=== PATIENT | male | born 1940 | race Caucasian/White ===

== ENCOUNTER 2018-08-10 03:05 | Emergency (ER) | payer MEDICARE, SELFPAY ==
[2018-08-10 03:06] VITALS: BP 124/68; PULSE 67; RESP 18; TEMP 36.8; O2SAT 97; BMI 28.8
[2018-08-10 03:10] VITALS: RESP 18
--- NOTE | 2018-08-10 03:30 | EKG12_ITS ---
Test Reason : Blood Pressure : / mmHG Vent. Rate : 067 BPM Atrial Rate : 067 BPM P-R Int : 152 ms QRS Dur : 094 ms QT Int : 394 ms P-R-T Axes : 004 -17 013 degrees QTc Int : 416 ms Normal sinus rhythm Normal ECG Confirmed by DESIREE GARRISON MD ([id number]), editor city ELO BLACKWELL ([id number]) on 08/10/2018 1:22:44 PM Referred By: AB Confirmed By:DESIREE GARRISON MD
--- NOTE | 2018-08-10 03:30 | RAD_ITS ---
STUDY: X-RAY CHEST REASON FOR EXAM: Male, 77 years old. Cough TECHNIQUE: Frontal and lateral views of the chest. COMPARISON: 03/03/2014 FINDINGS: The lungs are clear and expanded. There is no demonstrated pleural abnormality. Normal size heart. Normal mediastinum and adan. Normal visualized pulmonary arteries. There is atherosclerotic calcification of the aortic arch with tortuosity. Normal visualized thoracic spine. There is degenerative osteoarthritis of the bilateral shoulders. There is no demonstrated abnormality of the visualized soft tissue structures of the upper abdomen. RAD/Chest PA and Lateral IMPRESSION: Degenerative changes, as described above. No demonstrated acute cardiopulmonary process. Electronically Signed: Maryann Aden, at 3:56 EDT Tel , Service support ,
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
[2018-08-10 03:42] LABS: Absolute Lymphocyte Count 1.34 X10^3/ul (0.83-4.51); Basophil# 0.02 X10^3/uL; Basophil% 0.2 % (0-1); Eosinophil# 0.13 X10^3/uL; Eosinophils% 1.2 % (0-5); Hematocrit 37.8 % (40-54); Hemoglobin 12.6 g/dl (13.0-16.5); Lymphocyte # 1.34 X10^3/ul (4.0); Lymphocyte % 12.8 % (19-41); Mean Corp Hgb Conc 33.3 g/gl (32-36); Mean Corpuscular Hgb 30.1 pg (27.0-32.0); Mean Corpuscular Volume 90.4 fL (80-94); Mean Platelet Vol. 10.7 fl (6.2-12.0); Monocyte# 0.98 X10^3/uL; Monocyte% 9.3 % (0-10); Neutrophil # 8.02 X10^3/uL (2.7-7.7); Neutrophil % 76.4 % (47-70); Platelet Count 254 K/mm3 (150-450); RBC Distribution Width CV 13.8 % (11.6-14.6); RBC Distribution Width SD 45.4 fl (35.1-43.9); Red Blood Count 4.18 M/mm3 (4.6-6.2); White Blood Count 10.5 K/mm3 (4.4-11.0)
[2018-08-10 03:44] LABS: POSITIVE COUNT NO; POSITIVE DIFFERENTIAL NO; POSITIVE MORPHOLOGY NO
[2018-08-10 03:56] LABS: Anion Gap 9 (5-15); BUN 10 mg/dL (7-18); BUN/Creat Ratio 8.4 RATIO (10-20); Calcium,Total 8.9 mg/dL (8.5-10.1); Chloride 104 mmol/L (98-107); Creatinine, Serum 1.19 mg/dL (0.70-1.30); EST Glomerular Filtration Rate 63 mL/min (>60); Est Glom Filt Rate - Afr Amer 76 mL/min (>60); Estimated Creatinine Clearance 46.91 ml/min; Glucose 115 mg/dL (74-106); Potassium 4.3 mmol/L (3.5-5.1); Sodium Level 142 mmol/L (136-145)
[2018-08-10 03:59] VITALS: BP 119/77; BP 125/95; PULSE 68; PULSE 78
[2018-08-10 04:30] VITALS: BP 128/69; PULSE 66; RESP 22; O2SAT 96
== END 2018-08-10 04:31 | disposition home or self-care (01) ==
PROVIDERS: Emergency Provider Emergency Medicine; Family Provider Family Medicine; PCP Family Medicine
DX: J06.9 Acute upper respiratory infection, unspecified (principal); R55 Syncope and collapse
CPT/HCPCS: 71046; 80048; 84484; 85025; 93005; 99285; J7030; A4216

== ENCOUNTER 2024-08-11 00:47 | Inpatient (IN) | payer MEDICARE, SELFPAY ==
[2024-08-11] VITALS (24 sets, daily range): BP systolic 121–195; BP diastolic 78–159; PULSE 57–118; RESP 14–18; TEMP 36.2–37.2; O2SAT 88–100; BMI 28.4
--- NOTE | 2024-08-11 01:09 | EKG12_ITS ---
Test Reason : CP Blood Pressure : */* mmHG Vent. Rate : 57 BPM Atrial Rate : 57 BPM P-R Int : 168 ms QRS Dur : 94 ms QT Int : 420 ms P-R-T Axes : 7 -14 6 degrees QTcB Int : 408 ms Sinus bradycardia with Premature atrial complexes Otherwise normal ECG Confirmed by ALISA WITT, LI ([id number]), science editor JADYN CLAYTON ([id number]) on 08/13/2024 12:44:40 PM Referred By: XIOMARA Confirmed By: LI CUELLAR MD
[2024-08-11 01:19] LABS: Absolute Lymphocyte Count 1.14 X10^3/uL (0.83-4.51); Basophil# 0.02 X10^3/uL; Basophil% 0.2 % (0-1); Eosinophil# 0.06 X10^3/uL; Eosinophils% 0.7 % (0-5); Lymphocyte # 1.14 X10^3/ul (0.83-4.51); Mean Corp Hgb Conc 34.3 g/dL (32-36); Mean Corpuscular Hgb 30.5 pg (27.0-32.0); Mean Corpuscular Volume 88.8 fL (80-94); Mean Platelet Vol. 10.4 fl (6.2-12.0); Monocyte# 0.51 X10^3/uL; Monocyte% 5.8 % (0-10); NRBC Flagged by Analyzer 0 % (0-5); Neutrophil # 7.03 X10^3/uL (2.7-7.7); Neutrophil % 80.1 % (47-70); Platelet Count 256 K/mm3 (150-450); RBC Distribution Width CV 13.9 % (11.6-14.6); RBC Distribution Width SD 44.8 fl (35.1-43.9); Red Blood Count 3.94 M/mm3 (4.6-6.2); White Blood Count 8.8 K/mm3 (4.4-11.0)
--- NOTE | 2024-08-11 01:41 | ED.VIS.GI ---
HPI HPI - GI History of Present Illness Chief Complaint: Abd Pain Informant: patient Narrative Narrative: Patient is an 83-year-old male with history of TIA, hyperlipidemia and BPH presenting with postprandial epigastric abdominal pain. Patient states he ate dinner around 5 PM. Around 8 PM he developed pain in his epigastric region. He has a hard time describing it. Denies any ripping or tearing sensation. States is not as bad as what he would imagine labor pains are. Did feel bloated as well. Does not report any associated radiation of the pain. He tried to make himself vomit and have a bowel movement but was unsuccessful with both. He did have a normal bowel movement at 5 PM today which he states was unremarkable. Denies any black or blood in his stool. Denies associate chest pain or shortness of breath. No fever or chills reported. Denies any associate numbness or tingling in his extremities. Denies any fever or chills. Denies any history of any abdominal surgeries. Came in for further evaluation. Notes the pain currently is starting to improve. PFSH PFS Medical History BPH (benign prostatic hyperplasia) Anemia HLD (hyperlipidemia) TIA (transient ischemic attack) Bradycardia Home Medications ?Medication ?Instructions ?Recorded ?Last Taken ?Type Coq10 1 tab PO DAILY 03/03/14 0630 Days Ago History ~06/11/12 1 Excedrin Extra Strength Caplet 500 mg PO PRN PRN Headache 03/03/14 03/03/14 16:30 History 500 Fish Oil 1,000 mg Capsule 1,000 mg PO DAILY 03/03/14 03/03/14 06:30 History 1000 saw palm 160 mg-vit E 100 1 tab PO DAILY 03/03/14 03/03/14 06:30 History unit-selen 100 1 kmy-ijhy-svarrh-pygeum tablet (iDoc24) Allergy/AdvReac Type Severity Reaction Status Date / Time No Known Allergies Allergy Verified 08/11/24 00:53 Social History Smoking Status: Never smoker ROS ROS ED Constitutional Constitutional ED: Denies chills or fever(s) Cardiovascular Cardiovascular: Denies chest pain Respiratory/Chest Respiratory/Chest: Denies cough or dyspnea Gastrointestinal Gastrointestinal: Reports abdominal pain; Denies constipation, diarrhea, melena, nausea or vomiting Genitourinary Genitourinary ED: Denies dysuria Musculoskeletal Musculoskeletal: Denies arthralgias, back pain or myalgias Neurologic Neurologic: Denies paresthesias or weakness Hematologic/Lymphatic Hematologic/Lymphatic: Denies easy bleeding or easy bruising EXAM Physical Exam Const Vital Signs: 08/11/24 00:48 08/11/24 02:57 08/11/24 04:04 Temperature 97.9 F Temperature Source Oral Pulse Rate 57 L 73 86 Respiratory Rate 18 17 16 Blood Pressure 174/92 H 128/81 H 155/83 H Blood Pressure Mean 119 96 107 Pulse Ox 100 98 98 Oxygen Delivery Method Room Air Room Air 08/11/24 06:18 Temperature Temperature Source Pulse Rate 75 Respiratory Rate 16 Blood Pressure 123/80 H Blood Pressure Mean 94 Pulse Ox 98 Oxygen Delivery Method Room Air Positive well nourished and well developed General Appearance ED: well developed and NAD; Negative for pallor HEENT Reports moist mucous membranes Eyes PERRL Neck supple and no JVD Resp normal respiratory effort and clear to auscultation bilaterally Cardio regular rate, regular rhythm and no murmurs Cardio Narrative: 2+ radial DP pulses present GI non-tender and non-distended GI Narrative: Patient is very mild stated tenderness with palpation of the right upper quadrant and epigastric region however he does not wince when I palpate. Negative Pablo sign. Auscultation: hypoactive bowel sounds Palpation: soft and tender epigastric and RUQ; Negative for guarding, rigid, pulsatile mass or rebound tenderness present Extremity full ROM General Extremety ED: Negative for edema General Extremity: Negative for edema Neuro Sensorium / Orientation: alert Motor Exam: Negative for general weakness Psych mental status grossly normal and thought process normal Skin no wounds General Skin Exam: Negative for jaundice or pallor MDM MDM MDM Narrative Medical decision making narrative: Patient is evaluated for epigastric/right upper quadrant abdominal pain that started around 8 PM tonight. It got so bad that he called EMS. Did not take any for pain prior to arrival. Patient is hypertensive upon arrival. He does appear uncomfortable. Differential includes aortic dissection, ACS, pancreatitis, cholecystitis, choledocholithiasis, colitis/bowel obstruction, perforated viscus and symptomatic anemia as well as ACS. EKG not consistent with ischemia. Dissection study obtained which is most consistent actually with a acute calculus cholecystitis. There are multiple gallstones with distended diffusely thickened gallbladder. Workup otherwise largely normal with no leukocytosis. His alkaline phosphatase mildly elevated at 139 but his bilirubin AST and ALT are otherwise normal. Lipase is normal. Urinalysis is normal. High-sensitivity troponin stable at 19 and 17. Do not think he requires further cardiac workup at this time. Patient does have improvement of pain in the ER but it still present. He states it is mild at this time. I did speak with general surgery, Dr. Durand he does request an ultrasound which we will get in the morning and he will evaluate the patient. Question if patient had biliary colic versus true cholecystitis at this time. Patient evaluated by Dr. Durand. Ultrasound concerning for acute cholecystitis. We started on Zosyn and admitted for cholecystectomy. Lab Data Attestation: I reviewed the patient's lab results. Labs: Laboratory Results - last 24 hr 08/11/24 08/11/24 08/11/24 01:13 01:40 03:10 WBC 8.8 RBC 3.94 L Hgb 12.0 L Hct 35.0 L MCV 88.8 MCH 30.5 MCHC 34.3 RDW Std Deviation 44.8 H RDW Coeff of Katina 13.9 Plt Count 256 MPV 10.4 Immature Gran % (Auto) 0.200 Neut % (Auto) 80.1 H Lymph % (Auto) 13.0 L [place] % (Auto) 5.8 Eos % (Auto) 0.7 Baso % (Auto) 0.2 Absolute Neuts (auto) 7.0 Absolute Lymphs (auto) 1.14 Nucleated RBC % 0 Sodium 136 Potassium 4.1 Chloride 100 Carbon Dioxide 22.9 Anion Gap 14 BUN 13 Creatinine 1.21 H Estim Creat Clear Calc 45.98 L Est GFR (MDRD) Non-Af 59 L BUN/Creatinine Ratio 10.3 Glucose 120 H Calcium 9.6 Total Bilirubin 0.37 AST 25 ALT 22 Alkaline Phosphatase 139 H Troponin T High Sens 19 Troponin T Hi Sens 2 Hr 17 Total Protein 7.0 Albumin 4.4 Globulin 2.6 Albumin/Globulin Ratio 1.7 Lipase 49 Urine Color Straw Urine Clarity Sl. Cloudy Urine pH 8.0 Ur Specific [place] 1.010 Urine Protein 15 H Urine Glucose (UA) Normal Urine Ketones Negative Urine Occult Blood Negative Urine Nitrite Negative Urine Bilirubin Negative Urine Urobilinogen Normal Ur Leukocyte Esterase Negative Urine RBC 0 SEEN Urine WBC 0 SEEN Ur Squamous Epith Cells 0 SEEN Urine Bacteria 0 SEEN Urine Mucus 0 SEEN Radiography Diagnostic Testing: Clinical Impression(s) from Imaging Studies Chest/Abdomen/Pelvis CTA 08/11/24 01:49 IMPRESSION: 1. Distended, diffusely thickened gallbladder containing multiple gallstones, probably mild changes of acute calculous cholecystitis. 2. Moderate coronary artery calcifications. 3. Subsegmental atelectatic changes in the lingula. 4. 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 5. No CT evidence of pulmonary embolus or aortic dissection. 6. I discussed the findings with Dr. Carol Leigh in the emergency department at 3 a.m. EST. Reading Location: [place] [id number] Gallbladder Ultrasound 08/11/24 04:15 IMPRESSION: Multiple gallstones. Mild gallbladder wall thickening. Small amount of pericholecystic fluid. Cholecystitis should be ruled out. 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) Discharge Plan Triage Chief Complaint: Abd Pain ED Provider: Carol Leigh Dx/Rx/DC Orders Clinical Impression: Abdominal pain, acute, epigastric, Gallstones, Acute calculous cholecystitis Prescriptions: No Action Fish Oil 1,000 mg Capsule 1,000 mg PO DAILY Patient Comments: SUPPLIMENT FOR CHOLESTEROL Prostate Health 1 EACH tablet 1 tab PO DAILY Patient Comments: [facility] Coq10 1 tab PO DAILY Patient Comments: CHOLESTEROL, IMMUNITY Excedrin Extra Strength Caplet 500 mg PO PRN PRN (Reason: Headache) Patient Comments: MIGRAINE FLASHING LIGHTS Primary Care Provider: Mina Ly Referrals: Mina Ly MD [Primary Care Provider] - Print Language: Lao Disposition Disposition: Acute Care Hospital [facility]
[2024-08-11 01:44] LABS: Bacteria 0 SEEN /hpf (None Seen); Mucous, Urine 0 SEEN /hpf (<or=2+); Red Blood Cells-Urine 0 SEEN /hpf (0-5); Squamous Epithelial Cells - UA 0 SEEN /hpf (0-5); White Blood Cells 0 SEEN /hpf (0-5)
[2024-08-11 01:46] LABS: Color, Urine Straw (Yellow); Glucose, Dipstick Normal (Normal); Ketone-Dipstick Negative (Negative); Leukocyte Esterase-Dipstick Negative /ul (Negative); Nitrite-Dipstick Negative (Negative); Occult Blood-Urine Negative /ul (Negative); Protein-Dipstick 15 mg/dl (Negative); Urine Bilirubin Dipstick Negative (Negative); Urine Clarity Sl. Cloudy (Clear); Urine Urobilinogen Normal (Normal)
--- NOTE | 2024-08-11 01:49 | CT_ITS ---
PROCEDURE: CTA CHST, ABD, PEL W AND/OR WO 08/11/2024 REASON FOR EXAM: DISSECTION STUDY, EPIGASTRIC PAIN TECHNIQUE: CTA CHST, ABD, PEL W AND/OR WO coronal and Sagittal reconstruction series were provided. One or more dose reduction techniques were used (e.g., Automated exposure control, adjustment of the mA and/or kV according to patient size, use of iterative reconstruction technique. ORAL CONTRAST TYPE: Patient ingested oral contrast. CONTRAST: Isovue 370 VOLUME: 100 mL RADIATION DOSE SUMMARY: CTDlvol: 15.49 mGy DLP: 914 mGycm COMPARISON: None. FINDINGS: Distended, diffusely thickened gallbladder containing multiple gallstones, probably mild changes of acute calculus cholecystitis. Moderate coronary artery calcifications. Subsegmental atelectatic changes in the lingula. 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 Normal enhancement of the main pulmonary artery and right and left pulmonary arteries. Normal enhancement of the bilateral peripheral pulmonary arteries. There is no demonstrated pulmonary embolism. Normal thoracic aorta and visualized great vessels. There is no demonstrated aortic dissection. Normal heart and pericardium. Normal mediastinum. Normal hilar regions. Normal visualized trachea and bronchi. The lungs are well expanded. Normal pulmonary parenchyma. Normal pleura. Normal liver. Normal extrahepatic biliary system. Normal spleen. Normal pancreas. Normal bilateral adrenal glands. Normal size of the right kidney. There is no right renal mass. There are no right renal calculi. There is no right hydronephrosis. Normal visualized right ureter. Normal size of the left kidney. There is no left renal mass. There are no left renal calculi. There is no left hydronephrosis. Normal visualized left ureter. Normal visualized stomach. Normal small intestine. Uncomplicated diverticulosis of the colon. There is no demonstrated peritoneal fluid. Normal abdominal aorta. Normal inferior vena cava. Normal retroperitoneum. Normal urinary bladder. There is no pelvic mass lesion or lymphadenopathy. There is no pelvic fluid. Normal abdominal wall. CT/CTA Chst, Abd, Pel W and/or WO IMPRESSION: 1. Distended, diffusely thickened gallbladder containing multiple gallstones, p robably mild changes of acute calculous cholecystitis. 2. Moderate coronary artery calcifications. 3. Subsegmental atelectatic changes in the lingula. 4. Ectatic/aneurysmal ascending aorta measuring 4.5 cm at the level of the aort ic root. 5. No CT evidence of pulmonary embolus or aortic dissection. 6. I discussed the findings with Dr. Carol Leigh in the emergency department at 3 a.m. EST. Reading Location: [place] [id number]
[2024-08-11 01:51] LABS: ALB/GLOB Ratio 1.7 RATIO (0.9-2.4); AST(SGOT) 25 U/L (<=37); Alanine Aminotransfer ALT/SGPT 22 U/L (<=46); Albumin, Serum 4.4 g/dL (3.4-4.8); Alkaline Phosphatase 139 U/L (40-129); Anion Gap 14 (5-15); BUN 13 mg/dL (4-19); BUN/Creat Ratio 10.3 RATIO (10-20); Calcium,Total 9.6 mg/dL (7.6-11.0); Carbon Dioxide 22.9 mmol/L (21.0-32.0); Chloride 100 mmol/L (98-108); Creatinine, Serum 1.21 mg/dL (0.70-1.20); EST Glomerular Filtration Rate 59 (>60); Estimated Creatinine Clearance 45.98 ml/min (50-250); Globulin 2.6 g/dL (2.2-4.2); Glucose 120 mg/dL (70-99); Lipase 49 U/L (13-75); Potassium 4.1 mmol/L (3.3-5.1); Sodium Level 136 mmol/L (133-145); Total Bilirubin 0.37 mg/dL (0.00-1.30); Troponin T High Sensitivity 19 ng/L (<=22)
--- OUTSIDE RECORDS SUMMARY | 2024-08-11 02:14 | XMS RPT_ITS | CCD ---
Author Organization [facility] [place] [facility] Care Team Providers Care Fixed Income Director Name Role Phone Rita De La Cruz Unavailable Unavailable PROVIDER, UNKNOWN Unavailable Unavailable Rita De La Cruz Unavailable Unavailable Rita De La Cruz MD Primary Care Provider RITA DE LA CRUZ Referring Unavailable RITA DE LA CRUZ Primary Care Unavailable RITA DE LA CRUZ Attending Unavailable JONO, RITA Primary Care Unavailable JONO, RITA Primary Care Unavailable MONCHO ROA Attending Unavailable RITA DE LA CRUZ Referring Unavailable RITA DE LA CRUZ Primary Care Unavailable RITA DE LA CRUZ Attending Unavailable RITA DE LA CRUZ Primary Care Unavailable RITA DE LA CRUZ Primary Care Unavailable RENE RODRIGUEZ Attending Unavailable JONO, RITA Primary Care Unavailable RENE RODRIGUEZ Attending Unavailable RITA DE LA CRUZ Primary Care Unavailable Medications Current Medications Medication Drug Class(es) Dates Sig (Normalized) Sig (Original) ciprofloxacin 500 mg oral tablet (3 sources) Quinolone Antimicrobial Start: 04-03-2023 End: 04-13-2023 take 1 tablet by mouth twice daily ciprofloxacin (Cipro) 500 MG tablet Take 1 tablet (500 mg) by mouth 2 times daily for 10 days. 20 tablet 0 04/03/2023 04/13/2023 Active docosahexaenoic acid 120 mg / eicosapentaenoic acid 180 mg oral capsule (14 sources) take 1 capsule by mouth once daily omega-3 (Fish Oil) 1000 MG capsule Take 1,000 mg by mouth daily. Active Misc Natural Products (PROSTATE HEALTH PO) (14 sources) Misc Natural Products (PROSTATE HEALTH PO) Take by mouth. Active Misc Natural Pro ducts (PROSTATE HEALTH PO) Take by mouth. 0 Active polyethylene glycol 3350 480371 mg / potassium chloride 2970 mg / sodium bicarbonate 6740 mg / sodium chloride 5860 mg / sodium sulfate 59567 mg powder for oral solution (1 source) Osmotic Laxative Start: 07-10-2023 End: 07-11-2023 polyethylene glycol (GaviLyte-G) 236 g solution Indications: Diverticulitis of large intestine without perforation or abscess without bleeding , Left sided abdominal pain Please take as directed by GI office for colonoscopy prep. 4000 mL 0 07/10/2023 07/11/2023 Active ubidecarenone 100 mg / vitamin e 5 unt oral capsule (14 sources) coenzyme Q-10 10 0 MG capsule Take by mouth. Active VITAMIN D PO (13 sources) VITAMIN D PO Denzel e by mouth. Active VITAMIN D PO Denzel e by mouth. 0 Active Completed/Discontinued Medications Medication Drug Class(es) Dates Sig (Normalized) Sig (Original) ezetimibe 10 mg oral tablet (1 source) Dietary Cholesterol Absorption Inhibitor Start: 08-28-2022 End: 04-03-2023 take 1 tablet by mouth once daily ezetimibe (Zetia) 10 MG tablet Take 1 tablet (10 mg) by mouth daily. 30 tablet 0 08/28/2022 04/03/2023 Discontinued (Med list cleanup) metroNIDAZOLE 500 mg oral tablet (5 sources) Nitroimidazole Antimicrobial Start: 04-03-2023 End: 04-30-2023 take 1 tablet by mouth three times daily metroNIDAZOLE (Flagyl) 500 MG tablet Take 1 tablet (500 mg) by mouth 3 times daily. 30 tablet 0 04/03/2023 04/30/2023 Discontinued (Therapy completed) Problems Active Problems Problem Classification Problem Date Documented Da te Episodic/Chronic Abdominal pain (3 sources) Left sided abdominal pain; Translations: [Unspecified abdominal pain] Onset: 07-10-2023 07-10-2023 Episodic Disorders of lipid metabolism (18 sources) Hypercholesterolemia ; Translations: [Pure hypercholesterolemia , unspecified] Onset: 08-02-2019 08-26-2022 Chronic Diverticulosis and diverticulitis (19 sources) Diverticulitis of large intestine; Translations: [Diverticulitis of large intestine without perforation or abscess without bleeding] Onset: 04-03-2023 04-03-2023 Chronic Headache; including migraine (14 sources) Migraine with aura; Translations: [Migraine with aura, not intractable, without status migrainosus] Onset: 12-05-2014 12-09-2021 Chronic Hyperplasia of prostate (18 sources) Benign prostatic hyperplasia; Translations: [Benign prostatic hyperplasia without lower urinary tract symptoms] Onset: 08-02-2020 08-26-2022 Chronic Other circulatory disease (15 sources) Elevated blood-pressure reading without diagnosis of hypertension; Translations: [Elevated blood-pressure reading, without diagnosis of hypertension] Onset: 04-03-2023 04-03-2023 Episodic Other circulatory disease (2 sources) Elevated blood-pressure reading, without diagnosis of hypertension; Translations: [Elevated blood-pressure reading, without diagnosis of hypertension] Onset: 04-03-2023 Episodic Other gastrointestinal disorders (5 sources) Altered bowel function; Translations: [Change in bowel habit] 04-30-2023 Episodic Peripheral and visceral atherosclerosis (18 sources) Peripheral vascular disease; Translations: [Peripheral vascular disease, unspecified] Onset: 12-25-2020 08-26-2022 Chronic Residual codes; unclassified (2 sources) FH: Aortic aneurysm; Translations: [Family history of ischemic heart disease and other diseases of the circulatory system] Onset: 09-03-2023 09-03-2023 Episodic Residual codes; unclassified (2 sources) Family history of ischemic heart disease and other diseases of the circulatory system; Translations: [Family history of ischemic heart disease and other diseases of the circulatory system] Onset: 09-03-2023 Episodic Unclassified (6 sources) Encounter for screening for cardiovascular disorders; Translations: [Patient encounter status] Onset: 11-28-2017 08-26-2022 Episodic Unclassified (2 sources) Blood Pressure Check; Translations: [Blood Pressure Check] Onset: 09-10-2023 Past or Other Problems Problem Classification Problem Date Documented Da te Episodic/Chronic Other gastrointestinal disorders (2 sources) Change in bowel habit; Translations: [Change in bowel habit] Onset: 04-30-2023 Episodic Other nutritional; endocrine; and metabolic disorders (14 sources) Body mass index 25-29 - overweight; Translations: [Overweight] Onset: 12-14-2014 12-09-2021 Episodic Results Test Name Value Interpretation Reference Range Facility 36on 09-10-2023 36 Rx sent [facility] 36 Notified and schedul ed. Sent to Peter [facility] please, med pended. [facility] 36 Blood pressure continues to be slightly elevated would recommend starting patient on losartan 50 mg daily and recheck in 1 week [facility] 36 Don came in for a BP check. Readings were 173/93 pulse 60 and 146/92 pulse 58. [facility] Progress Noteon 09-10-2023 Progress Note [address] [facility] [address] Patient arrived for nurse visit today and was verified by name and . Supervising provider for clinic visit Dr. De La Cruz is currently not taking any anti- hypertensive medications Shortness of breath no Medication compliance yes Medication Reconciliation yes B/P Reading taken automatic Patient advised if follow up is needed, outreach will occur in 48 hours [facility] 36on 09-08-2023 36 Spoke to patient, no questions. [place] [id number] 09-05-2023 36 okay, he needs to ta ke at least 4 g of fish oil to have effect on his cholesterol and triglycerides [place] [address]on 09-04-2023 36 Patient stated he do es not like the cholesterol medication and would prefer to increase fish oil medication. [facility] 36 Message released to patient as written. ----- Message from Rita De La Cruz MD sent at 09/04/2023 5:29 AM EDT ----- Blood sugar and chemistry are normal except a slight decrease in kidney function although currently not significant recommend rechecking in 6 months. Cholesterol total and bad continue to be high good continues to be okay highly recommend starting Zetia since he does not tolerate statins, 10 mg and very strict low-fat low-cholesterol diet and recheck in 4 weeks. Left a message to return call. Directions for CAC in the event patient calls back: If the patient is agreeable to the recommendation, please: 1. Verify what pharmacy RX will be sent to. Patient stated he does not like the cholesterol medication and would prefer to increase fish oil medication. 2. Schedule patient for nurse visit to repeat labs in 4 weeks. Patient is scheduled 10/02/23 3. Route this TE back to the office clinical pool so we can place lab orders and send in rx. If the patient is not agreeable then no nurse visit is needed. Thanks! Patient's further questions if applicable: Patient verbalized understanding. Were all questions from office addressed or relayed to the patient from encounter: Yes [place] [id number] ----- Message from Rita De La Cruz MD sent at 09/04/2023 5:29 AM EDT ----- Blood sugar and chemistry are normal except a slight decrease in kidney function although currently not significant recommend rechecking in 6 months. Cholesterol total and bad continue to be high good continues to be okay highly recommend starting Zetia since he does not tolerate statins, 10 mg and very strict low-fat low-cholesterol diet and recheck in 4 weeks. Left a message to return call. Directions for CAC in the event patient calls back: If the patient is agreeable to the recommendation, please: 1. Verify what pharmacy RX will be sent to. 2. Schedule patient for nurse visit to repeat labs in 4 weeks. 3. Route this TE back to the office clinical pool so we can place lab orders and send in rx. If the patient is not agreeable then no nurse visit is needed. Thanks! [facility] Office Visiton 09-03-2023 Follow-up visit [id number] Flavio Buenrostro 1940 M Date Provider Department Center 09/03/2023 [id number] DE LA CRUZ [facility] Family History Problem Relation Age of Onset Cancer Father Comments: Brain Other Mother Family Status - Relation Status Age at Father Mother Level of Service:G0439 [place] PPPS, SUBSEQ VISIT Reason for Visit and Comments: Medicare Annual Wellness Visit Subsequent [047] Blood Work [992367] Health Maintenance [872] - Shingles vaccine- declined Rsv vaccine- not done 4 covid vaccine- not done Tdap vaccine- declined [facility] Progress Noteon 09-03-2023 Progress Note Blood pressure was initially elevated, recheck was still [id number] in 1 week for blood pressure check. Continue very strict low-sodium diet [facility] Progress Note Discussed risk facto rs for aortic aneurysms and currently he is declining to get any imaging studies. [facility] Progress Note Uncontrolled, curren tly on no medications we will recheck his levels today. [facility] Progress Note Stable, using OTC medication for his prostate [facility] Progress Note Stable, currently brasher s no complaints [facility] Progress Note Patient verified by last name and date of . [facility] Progress Note [facility] [address] [place], [place] [address] [address] Visit Type: Medicare Annual Wellness PCP: Rita De La Cruz MD Reason for Visit: Medicare Annual Wellness Visit Subsequent, Blood Work, and Health Maintenance (Shingles vaccine- declined /Rsv vaccine- not done /4 covid vaccine- not done/Tdap vaccine- declined ) Assessment and Plan Problem List Items Addressed This Visit Blood pressure elevated without history of HTN Blood pressure was initially elevated, recheck was still tjae-[id number]-um in 1 week for blood pressure check. Continue very strict low-sodium diet FHx: aortic aneurysm Discussed risk factors for aortic aneurysms and currently he is declining to get any imaging studies. Benign prostatic hyperplasia Stable, using OTC medication for his prostate Hypercholesterolemia Uncontrolled, currently on no medications we will recheck his levels today. Relevant Orders Lipid panel Peripheral vascular disease (HCC) Stable, currently has no complaints Other Visit Diagnoses Medicare annual wellness visit, subsequent - Primary Screening for diabetes mellitus Relevant Orders Comprehensive metabolic panel I have reviewed and reconciled the medication list with the patient today. Current Outpatient Medications Medication Sig Dispense Refill coenzyme Q-10 100 MG capsule Take by mouth. Misc Natural Products (PROSTATE HEALTH PO) Take by mouth. omega-3 (Fish Oil) 1000 MG capsule Take 1,000 mg by mouth daily. VITAMIN D PO Take by mouth. No current facility-administered medications for this visit. There are no discontinued medications. The following health maintenance schedule was reviewed with the patient and provided in printed form in the after visit summary: Health Maintenance Topic Date Due Hepatitis A Vaccines (1 of 2 - Risk 2-dose series) Never done Hepatitis B Vaccines (1 of 3 - Risk 3-dose series) Never done RSV Immunization aged 60 or older (1 - 1-dose 60+ series) 09/02/2024 (Originally 2000) DTaP/Tdap/Td Vaccines (2 - Td or Tdap) 09/02/2024 (Originally 07/29/2023) Zoster Vaccines (1 of 2) 09/02/2024 (Originally 1990) COVID-19 Vaccine ( - 2022-24 season) 2024 (Originally 10/25/2022) Influenza Vaccine (1) 10/26/2023 Depression Screening 09/02/2024 Lipid Panel 08/27/2027 Medicare Advantage Annual Wellness Visit Completed Pneumococcal Vaccine: 65+ Years Completed RSV Immunization under 20 Months Aged Out HIB Vaccines Aged Out IPV Vaccines Aged Out Meningococcal Vaccine Aged Out Rotavirus Vaccines Aged Out HPV Vaccines Aged Out Orders Placed This Encounter Procedures Lipid panel Standing Status: Future Number of Occurrences: 1 Standing Expiration Date: 09/02/2024 Comprehensive metabolic panel Standing Status: Future Number of Occurrences: 1 Standing Expiration Date: 09/02/2024 Follow up in about 1 year (around 09/02/2024). Leonora Gale comes in today for his annual Medicare well visit, he really has no significant health issues although he does bring up the fact that his brother was recently diagnosed with an aortic aneurysm. He has a history of elevated cholesterol, he did not tolerate statins send we tried him on Zetia but he never did get his lab work redone. Blood pressure is elevated again today, in the past when it has been elevated it almost always comes back to normal when we rechecked it. He denies any other complaints at this time, see ROS. List of current healthcare providers: Patient Care Team: Rita De La Cruz MD as PCP - General Health Risk Assessment: General: General In general, how would you say your health is?: (P) Good In the past 7 days, have you experienced any of the following: New or Increased Pain, New or Increased Fatigue, Loneliness, Social Isolation, Stress or Anger?: (P) No Do you get the social and emotional suppport you need?: (P) Yes Interventions: Health Habits/Nutrition: Health Habits / Nutrition On average, how many days per week do you engage in moderate to strenous exercise (like a brisk walk)?: (P) 2 days On average, how man minutes do you engage in exercise at this level?: (P) 30 min Have you lost any weight without trying in the past 3 months? : (P) No Have you seen the dentist within the past year?: (P) Yes Hearing/ Vision: Hearing / Vision Do you or your family notice any trouble with your hearing that hasn't been managed with hearing aids?: (!) (P) Yes Do you have difficulty driving, watching TV, or doing any of your daily activities because of your eyesight?: (!) (P) Yes Have you had an eye exam within the past year?: (P) Yes No results found. Interventions: Safety: Safety Do you have a working smoke detector?: (P) Yes Do you have any tripping hazards - loose or unsecured carpets or rugs?: (P) No Do you have any tripping hazards - clutter in doorways, halls, or stairs?: (P) No Do you have (more content not included)... [facility] 36on 09-01-2023 36 LM to pre-visit plan for appointment with Dr De La Cruz on 09/03/23 7am. Please ask patient to arrive 10 minutes early with Photo ID, insurance card Fasting: yes Put call through to office for pvp [facility] 36on 08-20-2023 36 Order signed per request. [facility] 36 He already saw them and discussed it with them and they said it was fine. Order pended for cologuard. Will mail rx for handicap placard once signed. [facility] 36 With his history of diverticulitis and left sided abdominal pain I would recommend a colonoscopy versus a home Cologuard test. I see he follows up with GI- would recommend discussing with them if they feel this would be appropriate or not. Handicap placard placed. [facility] 36 Patient stopped in a nd said he would like to do the Cologuard instead of a Colonoscopy for now, are you able to put in an order for that? He also asked if he can have a handicap placard RX, he has been having a hard time walking far distances. Thank you! [facility] 36on 07-10-2023 36 Called pt to schedul e him for a Colonoscopy. Pt did not answer LM and provided office number. 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 [phone] --please contact office with any recurrence of symptoms. --Schedule colonoscopy for further evaluation of the symptoms. --A prescription for GoLytely was sent to your pharmacy. This is the bowel prep for your colonoscopy. --Please see handout provided regarding additional recommendations for the symptoms including when to seek emergency care or further treatment. --Follow-up with PCP, and in GI clinic as needed. 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 Episode of prior diverticulitis; patient with resolution of abdominal pain s/p course of cipro/flagyl; CT A/P without evidence of diverticulitis --dicussed with patient risks/benefits of colonoscopy for further evaluation; patient elected to schedule procedure at this time-prefers [place] location if possible --reviewed alarm symptoms and when to notify office --patient and verbalized understanding and agreement of plan Advised patient to call office with new or worsening symptoms, questions, or concerns. Patient verbalized understanding and agreement of plan. Follow up if symptoms worsen or fail to improve. Subjective HPI Patient is new to [facility]. He is referred by Dr. De La Cruz, re: diverticulitis. He is accompanied to visit by his . Patient with left sided abdominal pain March 2023. Concern for diverticulitis. 04/03/2023 CT Abdomen/Pelvis wo IV contrast -cholelithiasis, neg diverticulitis. Completed course of antibiotics-Cipro and Flagyl. Abdominal pain resolved with antibiotics, however had bowel irregularity that persisted several months. Was having frequent loose stools, incomplete evacuation. He presents today to discuss possible colonoscopy. Presently patient reports he has been feeling normal for ~ 3 weeks. Presently denies abdominal pain, weight-loss, hematochezia and melena. Bowels returned to normal-has daily formed bowel movement. No nausea or vomiting. Last colonoscopy ~ 10 years ago-normal per patient report. No family history of colon cancer. No anticoagulants or supplemental oxygen use. Review of Systems Constitutional: Negative for appetite change and unexpected weight change. HENT: Negative for trouble swallowing and voice change. Respiratory: Negative for shortness of breath. Cardiovascular: Negative for chest pain. Gastrointestinal: Negative for abdominal distention, abdominal pain, anal bleeding, blood in stool, constipation, diarrhea, nausea, rectal pain and vomiting. Genitourinary: Negative for difficulty urinating. Skin: Negative for color change. Neurological: Negative for weakness. No Known Allergies Outpatient Medications Prior to Visit Medication Sig Dispense Refill coenzyme Q-10 100 MG capsule Take by mouth. Misc Natural Products (PROSTATE HEALTH PO) Take by mouth. omega-3 (Fish Oil) 1000 MG capsule Take 1,000 mg by mouth daily. VITAMIN D PO Take by mouth. No facility-administered medications prior to visit. Patient Active Problem List Diagnosis Date Noted Diverticulitis of large intestine without perforation or abscess without bleeding 04/03/2023 Priority: Medium Blood pressure elevated without history of HTN 04/03/2023 Priority: Medium Peripheral vascular disease (HCC) 12/25/2020 Benign prostatic hyperplasia 08/02/2020 Hypercholesterolemia 08/02/2019 Overweight (BMI 25.0-29.9) 12/14/2014 Migraine with aura and without status migrainosus, not intractable 12/05/2014 Social History Tobacco Use Smoking status: Never Smokeless tobacco: Never Substance Use Topics Alcohol use: No Alcohol/week: 0.0 standard drinks of alcohol Family History Problem Relation Name Age of Onset Cancer Father Brain Other ([address]8890) Mother Objective BP (!) 150/86 Pulse 59 Ht 5' 7 (1.702 m) Wt 173 lb 6.4 oz (78.7 kg) BMI 27.16 kg/m? Physical Exam Constitutional: Appearance: Normal appearance. Comments: Pleasant HENT: Head: Normocephalic. Eyes: General: No scleral icterus. Cardiovascular: Rate and Rhythm: Normal rate and regular rhythm. Pulmonary: Effort: Pulmonary effort is normal. Breath sounds: Normal breath sounds. Abdominal: General: Bowel sounds are normal. There is no distension. Palpations: Abdomen is soft. There is no mass. Tenderness: There is no abdominal tenderness (patient denies ttp). There is no guarding or rebound. Hernia: No hernia is present. Skin: General: Skin is warm and dry. Coloration: Skin is not jaundiced. Neurological: General: No focal deficit present. Mental Status: He is alert and oriented to person, place, and time. Psychiatric: Mood and Affect: Mood nor (more content not included)... [facility] 36on 07-07-2023 36 Patient stopped into office. Relayed information to him, states he will keep his appointment on the with gastro. [facility] 07-03-2023 36 Left a message to return call. CAC: If Jean calls back, please relay information to him. Thank you! [facility] 36 I think with his history of diverticulitis and the change that he had in his bowels that he should at least meet with a sock knitter and get their opinion as to whether he needs a colonoscopy. [facility] 36on 07-02-2023 36 Name of caller: Baljinder Contact phone number: [phone] Relationship to Patient: patient Provider: Rene Practice: [facility] Chief Complaint/Reason for Call: Patient states that he was last seen for issues with his bowels. He was referred for a colonoscopy and has a consultation on 07/10/23. He stated that his bowel symptoms have improved a lot and was wanting to know in a professional opinion if he should still have the colonoscopy. Patient requests a return a call. Please advise Best time of day caller can be reached: Patient advised that office/PCP has 24-48 business hours to return their call: N/A [facility] Office Visiton 05-12-2023 Follow-up visit [id number] Flavio Buenrostro 1940 Date Provider Department Center 05/12/2023 [id number] BHATTI [facility] Family History Problem Relation Age of Onset Cancer Father Comments: Brain Other Mother Family Status - Relation Status Age at Father Mother Level of Service:28335 [place] OFFICE/OUTPATIENT ESTABLISHED SF [facility] 10 MIN Reason for Visit and Comments: Follow-up [036337] - Constipation follow up Health Maintenance [872] - RSV- 4th Covid- AWV- Constipation [848111] - Has gotten a little bit better since last time. Wants to talk about colonoscopy possibilities. [facility] Progress Noteon 05-12-2023 Progress Note Patient verified by last name and . [facility] Progress Note 05/12/2023 Jean Buenrostro (: 1940) is a 82 y.o. male , Established patient, here for evaluation of the following chief complaint(s): Follow-up (Constipation follow up /), Health Maintenance (RSV-/4th Covid- /AWV- ), and Constipation (Has gotten a little bit better since last time. Wants to talk about colonoscopy possibilities. ) ASSESSMENT/PLAN: 1. Change in bowel habits - Improved. Denies current concerns or worries. - Will continue with daily Metamucil Fiber and probiotic. - Discussed signs and symptoms warranting follow up in the office- verbalized understanding. Follow up in 4 months (on 09/03/2023) for Next scheduled follow-up. SUBJECTIVE/OBJECTIVE: HPI - Jean presents today for follow up on his bowel movements. Was seen about 2 weeks ago due to concerns of what he felt was constipation. Was seen at the beginning of March with concerns of potential diverticulitis and was treated with Cipro and Flagyl. His stool was actually loose when describing his bowel movements. Denied needing to strain, blood or mucous in the stool, or ongoing abdominal pain. Denied nausea or vomiting. Denied fevers or chills. Denied difficulty urinating. Since his last visit he stopped taking Miralax and started on daily Metamucil Fiber. Continues to take a probiotic. States stools have beenmore regular and are not soft and formed. Currently having a bowel movement once every 1-2 days. Denies any new or worsening symptoms. Still have an appointment with GI scheduled for June. Denies current health concerns or worries. Review of Systems Constitutional: Negative for chills and fever. Gastrointestinal: Negative for abdominal distention, abdominal pain, blood in stool, constipation, diarrhea, nausea and vomiting. Vitals: 05/12/23 0912 05/12/23 0929 BP: (!) 158/94 136/82 Pulse: 63 SpO2: 93% Weight: 174 lb (78.9 kg) Height: 5' 6 (1.676 m) Body mass index is 28.08 kg/m?. Physical Exam Constitutional: General: He is not in acute distress. Appearance: He is not ill-appearing or diaphoretic. Cardiovascular: Rate and Rhythm: Normal rate and regular rhythm. Heart sounds: Normal heart sounds. Pulmonary: Effort: Pulmonary effort is normal. Abdominal: General: Bowel sounds are normal. There is no distension. Palpations: Abdomen is soft. There is no hepatomegaly, splenomegaly or mass. Tenderness: There is no abdominal tenderness. There is no guarding or rebound. Skin: General: Skin is warm and dry. Coloration: Skin is not jaundiced or pale. Findings: No erythema or rash. Neurological: Mental Status: He is alert and oriented to person, place, and time. Psychiatric: Mood and Affect: Mood normal. Behavior: Behavior normal. Thought Content: Thought content normal. Judgment: Judgment normal. An electronic signature was used to authenticate this note. VIKI Oro CNP 05/12/2023 9:42 AM [facility] Office Visiton 04-30-2023 Follow-up visit [id number] Flavio Buenrostro maximo 1940 M Date Provider Department Center 04/30/2023 [id number]-UPAVPRENE RODRIGUEZ [facility] Family History Problem Relation Age of Onset Cancer Father Comments: Brain Other Mother Family Status - Relation Status Age at Father Mother Level of Service:33494 [place] OFFICE/OUTPATIENT ESTABLISHED LOW MDM 20 MIN Reason for Visit and Comments: Constipation [632069] [facility] PATINSon 04-30-[address] adequate wa [address] intake. Continue Probiotic Metamucil Fiber Get up and walk around frequently [facility] Progress Noteon 04-30-2023 Progress Note 04/30/2023 Jean Buenrostro (: 1940) is a 82 y.o. male , Established patient, here for evaluation of the following chief complaint(s): Constipation ASSESSMENT/PLAN: 1. Change in bowel habits - Information provided on fiber-rich foods. - Discussed the impact antibiotics can have on the bowels and that it can take some to get motility/stool consistency regulated again after being on them. - Encouraged continuation of daily Probiotic. Encouraged fiber supplementation to promote formed stools. Hold off on Miralax if stools are not formed. - Discussed signs and symptoms warranting follow up in the office- verbalized understanding. - Follow up with GI as scheduled. Follow up in about 2 weeks (around 05/14/2023) for follow up if no improvement. SUBJECTIVE/OBJECTIVE: HPI - Jean presents today with concerns of constipation. Was seen at the beginning of March with concerns of potential diverticulitis and was treated with Cipro and Flagyl. Currently experiencing a bowel movement once every 4 days. States it is actually loose when he passes the bowel movement. Denies needing to strain, blood or mucous in the stool, or ongoing abdominal pain. Denies nausea or vomiting. Denies fevers or chills. Denies difficulty urinating. Has been taking a probiotic daily. Has also been taking Miralax daily. Is scheduled to see a sock knitter in June. Review of Systems Constitutional: Negative for chills and fever. Respiratory: Negative for shortness of breath. Cardiovascular: Negative for chest pain. Gastrointestinal: Negative for abdominal distention, abdominal pain, blood in stool, nausea and vomiting. Genitourinary: Negative for difficulty urinating, dysuria and hematuria. Vitals: 04/30/23 0856 BP: 119/78 Pulse: 73 SpO2: 98% Weight: 168 lb (76.2 kg) Height: 5' 6 (1.676 m) Body mass index is 27.12 kg/m?. Physical Exam Constitutional: General: He is not in acute distress. Appearance: He is not ill-appearing or diaphoretic. Cardiovascular: Rate and Rhythm: Normal rate and regular rhythm. Heart sounds: Normal heart sounds. No murmur heard. No friction rub. Pulmonary: Effort: Pulmonary effort is normal. Abdominal: General: Bowel sounds are normal. There is no distension. Palpations: Abdomen is soft. There is no mass. Tenderness: There is no abdominal tenderness. There is no guarding or rebound. Skin: General: Skin is warm and dry. Coloration: Skin is not pale. Findings: No erythema or rash. Neurological: Mental Status: He is alert and oriented to person, place, and time. Psychiatric: Mood and Affect: Mood normal. Behavior: Behavior normal. Thought Content: Thought content normal. Judgment: Judgment normal. Imaging: Narrative & Impression Patient Name: JEAN BUENROSTRO : 1940 Exam Date/Time: 04/03/2023 15:30 Procedure: CT ABDOMEN PELVIS WO IV CONTRAST Ordering Provider: DE LA CRUZ DARRELL Reason For Exam: LLQ abdominal pain CT abdomen and pelvis without contrast HISTORY: Left lower quadrant pain Protocol: 3 mm axial images without intravenous contrast The liver, spleen, pancreas, adrenals and kidneys are normal. Cholelithiasis. No bowel inflammation or bowel obstruction. No free fluid. No lymphadenopathy. The bladder is unremarkable. IMPRESSION: Cholelithiasis. Report Dictated on Electronically Signed By: Rodri Street MD Electronically Signed Date/Time: 04/03/2023 3:38 PM EST An electronic signature was used to authenticate this note. Rene Rodriguez APRN - JOSE 04/30/2023 9:26 AM [facility] Progress Note Patient was verified by name and . [facility] 36on 04-29-2023 36 S: Patient called [facility] clinical access [place] with complaint of concern for constipation, not having regular bowel movements. B:patient seen 04/03 for Diverticulitis and treated with Flagyl and Cipro. A:Pt then called in on 04/14/23 about not having a BM in 5 days. He was advised by Dr Jono De La Cruz MD 04/14/23 10:08 AM Note He should be finished with the antibiotics, if not stop them if he is not having any pain, okay to take MiraLAX once a day until has a good bowel movement. Could also get Senokot S [id number] and take 2 of them at bedtime and see if that gets his bowels moving in the morning. He said he has been taking Miralax daily and also recently added a tablespoon of olive oil daily. He is having a BM daily that is the size of his finger and said it is slimy and falls to the bottom of the toilet, That is all that comes out. He is bloated. He denies abdominal pain but said he has pressure. R:Appt 04/30/23 with Rene Rodriguez at 9 am. Pt advised to bring photo ID, insurance card, medications with them to their visit if possible. Covid questions: 1) Do you have signs or symptoms consistent with COVID-no 2) Have you been exposed to COVID in last 5 days-no 3) Have you tested positive for COVID in last 5 days-no Home care advise given to patient: HIGH FIBER DIET: * A high fiber diet will help improve your intestinal function and soften your BM's. The fiber works by holding more water in your stools. * Try to eat fruit and vegetables at each meal DRINK ADEQUATE LIQUIDS: * Adequate liquid intake is important to keep your bowel movements soft. * Drink 6 to 8 cups (1,500 to 2,000 ml) of water each day. Patient instructed to call back with worsening symptoms, concerns or questions. Reason for Disposition Abdomen is more swollen than usual Protocols used: [id number] [facility] 36on 04-14-2023 36 Notified. [facility] 36 He should be finishe d with the antibiotics, if not stop them if he is not having any pain, okay to take MiraLAX once a day until has a good bowel movement. Could also get Senokot S [id number] and take 2 of them at bedtime and see if that gets his bowels moving in the morning. [facility] 36 S: Patient spoke daniel lujan [facility] nurse regarding medication issue. B: Onset of symptoms/concern: ciprofloxacin 500 mg; metronidazole 500 mg A: Patient states he is on an antibiotics for Diverticulitis, seen in office on 04/03/23, reports no bowel movement in five (5) days, doesn't have the urge, only passes gas and at times passes a greasy, jello looking blob, no abdominal pain, states both drugs cause constipation, took two (2) doses of miralax but not sure if he should keep taking it. R: Patient advised message would be sent to provider for follow up and recommendation, verbalized understanding. Q: Wants to know if ok to continue taking Miralax? Do you recommend he continue taking antibiotics? Please advise. Reason for Disposition ? Caller has URGENT medicine question about med that PCP or specialist prescribed and triager unable to answer question Protocols used: Medication Question [id number] [facility] 36on 04-10-2023 36 Referral done for Med [facility] 36 Notified, agreeable but doesn't want to go far. [facility] 36 I would recommend at we refer him to a sock knitter and then they can decide whether he needs the colonoscopy [place] [phone] Jean asked if he needs a follow up colonoscopy after having diverticulitis? [place] [phone] Notified. [place] [phone] Blood pressure borderline, recommend very very strict low-sodium diet and increase exercise [place] [phone] Jean came in for a BP check, readings were 146/87 and 137/81 pulse 60. [facility] Progress Noteon 04-10-2023 Progress Note [address] [facility] [id number] Patient arrived for nurse visit today and was verified by name and . Supervising provider for clinic visit Dr. De La Cruz is currently not taking any anti- hypertensive medications Shortness of breath no B/P Reading taken automatic Home Monitoring yes Patient advised if follow up is needed, outreach will occur in 48 hours [facility] CBC W Auto Differential pane l (Bld)on 04-03-2023 Basophils (Bld) [#/Vol] 28 10*3/uL [facility] Basophils/100 WBC (Bld) 0.6 % [facility] Eosinophils (Bld) [#/Vol] 183 10*3/uL [facility] Eosinophils/100 WBC (Bld) 3.9 % [facility] Erythrocyte distribution width (RBC) [Ratio] 13.4 % 11.0 - 15.0 % [facility] Hematocrit (Bld) [Volume fraction] 39.4 % 38.5 - 50.0 % [facility] Hemoglobin (Bld) [Mass/Vol] 13.5 g/dL 13.2 - 17.1 g/dL [facility] [employer] Lymphocytes (Bld) [#/Vol] 1382 10*3/uL [facility] Lymphocytes/100 WBC (Bld) 29.4 % [facility] MCH (RBC) [Entitic mass] 30.5 pg 27.0 - 33.0 pg [facility] MCHC (RBC) [Mass/Vol] 34.3 g/dL 32.0 - 36.0 g/dL [facility] MCV (RBC) [Entitic vol] 89.1 fL 80.0 - 100.0 fL [facility] Monocytes (Bld) [#/Vol] 625 10*3/uL [facility] Monocytes/100 WBC (Bld) 13.3 % [facility] Neutrophils (Bld) [#/Vol] 2482 10*3/uL [facility] Neutrophils/100 WBC (Bld) 52.8 % [facility] Platelet mean volume (Bld) [Entitic vol] 11.1 fL 7.5 - 12.5 fL [facility] Platelets (Bld) [#/Vol] 253 10*3/uL [facility] RBC (Bld) [#/Vol] 4.42 10*6/uL [facility] WBC (Bld) [#/Vol] 4.7 10*3/uL [facility] CT ABDOMEN PELVIS WO IV CONT RASTon 04-03-2023 CT ABDOMEN PELVIS WO IV CONTRAST Patient Name: JEAN BUENROSTRO : 1940 Exam Date/Time: 04/03/2023 15:30 Procedure: CT ABDOMEN PELVIS WO IV CONTRAST Ordering Provider: DE LA CRUZ DARRELL Reason For Exam: LLQ abdominal pain CT abdomen and pelvis without contrast HISTORY: Left lower quadrant pain Protocol: 3 mm axial images without intravenous contrast The liver, spleen, pancreas, adrenals and kidneys are normal. Cholelithiasis. No bowel inflammation or bowel obstruction. No free fluid. No lymphadenopathy. The bladder is unremarkable. IMPRESSION: Cholelithiasis. Report Dictated on Electronically Signed By: Rodri Street MD Electronically Signed Date/Time: 04/03/2023 3:38 PM EST LEFT SIDE ABD PAIN [facility] CT Abdomen WO contraston Cholelithiasis. Report Dictated on Electronically Signed By: Rodri Street MD Electronically Signed Date/Time: 04/03/2023 3:38 PM EST [facility] Patient Name: JEAN BUENROSTRO : 1940 Exam Date/Time: 04/03/2023 15:30 Procedure: CT ABDOMEN PELVIS WO IV CONTRAST Ordering Provider: DE LA CRUZ DARRELL Reason For Exam: LLQ abdominal pain CT abdomen and pelvis without contrast HISTORY: Left lower quadrant pain Protocol: 3 mm axial images without intravenous contrast The liver, spleen, pancreas, adrenals and kidneys are normal. Cholelithiasis. No bowel inflammation or bowel obstruction. No free fluid. No lymphadenopathy. The bladder is unremarkable. [facility] Rodri Street MD - 04/03/2023 Patient Name: JEAN BUENROSTRO : 1940 Exam Date/Time: 04/03/2023 15:30 Procedure: CT ABDOMEN PELVIS WO IV CONTRAST Ordering Provider: DE LA CRUZ DARRELL Reason For Exam: LLQ abdominal pain CT abdomen and pelvis without contrast HISTORY: Left lower quadrant pain Protocol: 3 mm axial images without intravenous contrast The liver, spleen, pancreas, adrenals and kidneys are normal. Cholelithiasis. No bowel inflammation or bowel obstruction. No free fluid. No lymphadenopathy. The bladder is unremarkable. IMPRESSION: Cholelithiasis. Report Dictated on Electronically Signed By: Rodri Street MD Electronically Signed Date/Time: 04/03/2023 3:38 PM EST [facility] [employer] Radiology Study observation (narrative) [employer] CT Abdomen WO contrastOrdere d By: Rodri Street on 04-03-2023 [employer] Work Phone: Comprehensive metabolic 1998 panelon 04-03-2023 Albumin [Mass/Vol] 4.5 g/dL 3.6 - 5.1 g/dL [facility] [employer] Albumin/Globulin [Mass ratio] 1.7 {ratio} [facility] [employer] ALP [Catalytic activity/Vol] 117 U/L 35 - 144 U/L [facility] [employer] ALT [Catalytic activity/Vol] 25 U/L 9 - 46 U/L [facility] AST [Catalytic activity/Vol] 23 U/L 10 - 35 U/L [facility] Bilirubin [Mass/Vol] 0.6 mg/dL 0.2 - 1 .2 mg/dL [facility] Calcium [Mass/Vol] 9.7 mg/dL 8.6 - 10. 3 mg/dL [facility] Chloride [Moles/Vol] 103 mmol/L 98 - 11 0 mmol/L [facility] CO2 [Moles/Vol] 28 mmol/L 20 - 32 mmol/L [facility] Creatinine [Mass/Vol] 1.14 mg/dL 0.70 - 1.22 mg/dL [facility] GFR/1.73 sq M.predicted among non-blacks MDRD (S/P/Bld) [Vol rate/Area] 64 mL/min/{1.73_m2} > OR = 60 mL/min/1.73m2 [facility] Globulin (S) [Mass/Vol] 2.6 g/dL [facility] Glucose [Mass/Vol] 89 mg/dL 65 - 99 mg/dL [facility] Comment on above: Fasting reference interval Potassium [Moles/Vol] 4.3 mmol/L 3.5 - 5.3 mmol/L [facility] Protein [Mass/Vol] 7.1 g/dL 6.1 - 8.1 g/dL [facility] Sodium [Moles/Vol] 138 mmol/L 135 - 146 mmol/L [facility] Urea nitrogen [Mass/Vol] 11 mg/dL 7 - 25 mg/dL [facility] Urea nitrogen/Creatinine [Mass ratio] SEE NOTE: [facility] Comment on above: Not Reported: BUN an d Creatinine are within reference range. No Panel Informationon 04-03 [facility] Office Visiton 04-03-2023 Follow-up visit [id number] Flavio Buenrostro 1940 M Date Provider Department Center 04/03/2023 [id number]-IFFEUCRITA DE LA CRUZ [facility] Family History Problem Relation Age of Onset Cancer Father Comments: Brain Other Mother Family Status - Relation Status Age at Father Mother Level of Service:88575 [place] OFFICE/OUTPATIENT ESTABLISHED MOD MDM 30 MIN Reason for Visit and Comments: Abdominal Pain [200307] - Left mid abdominal - started Friday worse in the evening [facility] Progress Noteon 04-03-2023 Progress Note Blood pressure was initially elevated, recheck was still a little high follow-up in 1 week for blood pressure check after abdominal pain is resolved. [facility] Progress Note Cipro 500 twice a da y and Flagyl 503 times a day started for 10 days. CBC and CMP to be done. Stat abdominal CT scan. [facility] Progress Note 04/03/2023 Jean Buenrostro (: 1940) is a 82 y.o. male , Established patient, here for evaluation of the following chief complaint(s): Abdominal Pain (Left mid abdominal - started Friday worse in the evening) ASSESSMENT/PLAN: 1. Diverticulitis of large intestine without perforation or abscess without bleeding Assessment & Plan: Cipro 500 twice a day and Flagyl 503 times a day started for 10 days. CBC and CMP to be done. Stat abdominal CT scan. Orders: - CBC auto differential - Comprehensive metabolic panel - CT abdomen pelvis wo IV contrast 2. Blood pressure elevated without history of HTN Assessment & Plan: Blood pressure was initially elevated, recheck was still a little high follow-up in 1 week for blood pressure check after abdominal pain is resolved. Follow up if symptoms worsen or fail to improve. SUBJECTIVE/OBJECTIVE: HPI -Baljinder comes in today for a 5 to 6-day history of left lower quadrant abdominal pain he says initially it would kind of come and go now it is pretty much there all the time but he says at night it does not keep him awake his bowels are moving fine he said no blood in his stool and he has no problems urinating. Blood pressure is elevated today we will recheck that prior to discharge. Review of Systems Constitutional: Negative for chills and fever. Respiratory: Negative for shortness of breath. Cardiovascular: Negative for chest pain and palpitations. Gastrointestinal: Positive for abdominal pain. Negative for blood in stool, constipation and diarrhea. Genitourinary: Negative for dysuria, frequency, hematuria and urgency. Vitals: 04/03/23 1120 04/03/23 1148 BP: (!) 156/101 (!) 146/81 Pulse: 75 71 SpO2: 95% Weight: 173 lb 6.4 oz (78.7 kg) Height: 5' 6 (1.676 m) Physical Exam Vitals and nursing note reviewed. Constitutional: General: He is not in acute distress. Appearance: Normal appearance. HENT: Head: Normocephalic. Mouth/Throat: Mouth: Mucous membranes are moist. Pharynx: Oropharynx is clear. Eyes: Extraocular Movements: Extraocular movements intact. Pupils: Pupils are equal, round, and reactive to light. Cardiovascular: Rate and Rhythm: Normal rate and regular rhythm. Heart sounds: Normal heart sounds. Pulmonary: Effort: Pulmonary effort is normal. Breath sounds: Normal breath sounds. Abdominal: General: Bowel sounds are normal. Palpations: Abdomen is soft. Tenderness: There is abdominal tenderness. There is guarding. There is no rebound. Musculoskeletal: Cervical back: Neck supple. Neurological: Mental Status: He is alert. An electronic signature was used to authenticate this note. Rita De La Cruz MD 04/03/2023 12:56 PM [facility] Progress Note Patient verified by last name and date of . [facility] 36on 04-02-2023 36 S: Patient called [facility] clinical access [place] with complaint of Feeling bloated, and have pain in bottom of left side between lower rib and hip B: Ongoing 3 days. A: Patient c/o pain in his lower left rib and hip closer to center of his stomach . Thinks it might be diverticulitis. Pain with movement and breathing. States his pants wont fit all of a sudden. States he does not feel sick at all. This has happened in the past but has never been this painful. Pain when getting up can be a sharp pain but goes away quickly, if just sitting it is a dull side ache. He can lay down and has no pain. Recent BM 04/01/23 Denies fever, nausea ,vomiting, back pain, constipation or diarrhea. R: Appointment scheduled 04/03/23. Insurance verified. Instructed to bring medications to OV and wear a mask. Home Care advice given. Patient instructed to call back with worsening symptoms, concerns or questions. Patient verbalized understanding. Message to the office for review by the provider and needs recommendation from Provider for treatment going forward. Reason for Disposition Age > 60 years Protocols used: Abdominal Pain - [id number] [facility] VL Aorta Iliac Duplex Scr fo r Medicareon 11-28-2017 VL Aorta Iliac Duplex Scr for Medicare Patient Name: JEAN BUENROSTRO Ultrasound Exam Date/Time 11/28/2017 10:01:38 EDT Exam VL Aorta Iliac Duplex Scr for Medicare Ordering Physician MD JONO, RITA VASQUEZ Accession Number [id number] CPT4 Codes 35090 () Reason For Exam aaa screening Report ULTRASOUND ABDOMINAL AORTA HISTORY: Abdominal aortic aneurysm screening Grayscale and color Doppler sonographic images of the abdominal aorta were obtained. COMPARISON: None FINDINGS: At approximately the level of the celiac axis, the proximal abdominal aorta measures 2.1 x 2.4 cm in AP and transverse dimension. At approximately the level of the superior mesenteric artery, the mid abdominal aorta measures 1.8 x 2.2 cm. The infrarenal, distal abdominal aorta measures 1.6 x 1.4 cm. The left common iliac artery measures 1.2 x 0.7 cm. The right common iliac artery measures 1.1 x 0.9 cm. IMPRESSION: No evidence of abdominal aortic aneurysm. Report Dictated on Final Dictating Physician: MD MACKENZIE JONATHAN R Signed Date and Time: 11/28/2017 9:52 am Signed by: MD MACKENZIE JONATHAN R Transcribed Date and Time: 11/28/2017 10:01 Normal [facility] Vital Signs Date Time Vital Sign Value Performing Clinician Robinsoni gypsy 09-03-2023 07:24-0400 Diastolic blood pressure 90 mm[Hg] Rita De La Cruz MD Work Phone: [facility] [employer] 09-03-2023 07:24-0400 Heart rate 64 /min Rita De La Cruz MD Work Phone: [facility] [employer] 09-03-2023 07:24-0400 Systolic blood pressure 152 mm[Hg] Rita Freitas Work Phone: [facility] [employer] 09-03-2023 06:51-0400 Body height 170.2 cm Rita De La Cruz MD Work Phone: [facility] [employer] 09-03-2023 06:51-0400 Body mass index (BMI) [Ratio] 27.19 kg/m2 Rita De La Cruz MD Work Phone: [facility] [employer] 09-03-2023 06:51-0400 Body weight 78.74 kg Rita De La Cruz MD Work Phone: [facility] [employer] 09-03-2023 06:51-0400 SaO2% (BldA) [Mass fraction] 95 % Rita De La Cruz MD Work Phone: [facility] [employer] 07-10-2023 08:11-0400 Body height 170.2 cm Moncho Blairer RADIATION CONTROL WORKER - BUSINESS OWNER/ENGINEER Work Phone: [facility] [employer] 07-10-2023 08:11-0400 Body mass index (BMI) [Ratio] 27.16 kg/m2 Moncho Forester RADIATION CONTROL WORKER - BUSINESS OWNER/ENGINEER Work Phone: [facility] [employer] 07-10-2023 08:11-0400 Body weight 78.65 kg Moncho Blairer RADIATION CONTROL WORKER - BUSINESS OWNER/ENGINEER Work Phone: [facility] [employer] 07-10-2023 08:11-0400 Diastolic blood pressure 86 mm[Hg] Moncho Blairer RADIATION CONTROL WORKER - BUSINESS OWNER/ENGINEER Work Phone: [facility] [employer] 07-10-2023 08:11-0400 Heart rate 59 /min Moncho Blairer RADIATION CONTROL WORKER - BUSINESS OWNER/ENGINEER Work Phone: [facility] [employer] 07-10-2023 08:11-0400 Systolic blood pressure 150 mm[Hg] Moncho Roa Mann PRN - BUSINESS OWNER/ENGINEER Work Phone: [facility] [employer] 05-12-2023 09:29-0400 Diastolic blood pressure 82 mm[Hg] Rene Rodriguez RADIATION CONTROL WORKER - BUSINESS OWNER/ENGINEER Work Phone: [facility] [employer] 05-12-2023 09:29-0400 Systolic blood pressure 136 mm[Hg] Rene Rodriguez RADIATION CONTROL WORKER - BUSINESS OWNER/ENGINEER Work Phone: [facility] [employer] 05-12-2023 09:12-0400 Body height 167.6 cm Rene Rodriguez RADIATION CONTROL WORKER - BUSINESS OWNER/ENGINEER Work Phone: [facility] [employer] 05-12-2023 09:12-0400 Body mass index (BMI) [Ratio] 28.08 kg/m2 Rene Rodriguez RADIATION CONTROL WORKER - BUSINESS OWNER/ENGINEER Work Phone: [employer] 05-12-2023 09:12-0400 Body weight 78.93 kg Rene Rodriguez RADIATION CONTROL WORKER - BUSINESS OWNER/ENGINEER Work Phone: [employer] 05-12-2023 09:12-0400 Heart rate 63 /min Rene Rodriguze RADIATION CONTROL WORKER - BUSINESS OWNER/ENGINEER Work Phone: [employer] 05-12-2023 09:12-0400 SaO2% (BldA) [Mass fraction] 93 % Rene Rodriguez RADIATION CONTROL WORKER - BUSINESS OWNER/ENGINEER Work Phone: [employer] 04-30-2023 08:56-0500 Body height 167.6 cm Rene Rodriguez RADIATION CONTROL WORKER - BUSINESS OWNER/ENGINEER Work Phone: [employer] 04-30-2023 08:56-0500 Body mass index (BMI) [Ratio] 27.12 kg/m2 Rene Rodriguez RADIATION CONTROL WORKER - BUSINESS OWNER/ENGINEER Work Phone: [employer] 04-30-2023 08:56-0500 Body weight 76.2 kg Rene Rodriguez RADIATION CONTROL WORKER - BUSINESS OWNER/ENGINEER Work Phone: [employer] 04-30-2023 08:56-0500 Diastolic blood pressure 78 mm[Hg] Rene Rodriguez RADIATION CONTROL WORKER - BUSINESS OWNER/ENGINEER Work Phone: [employer] 04-30-2023 08:56-0500 Heart rate 73 /min Rene Rodriguez RADIATION CONTROL WORKER - BUSINESS OWNER/ENGINEER Work Phone: [employer] 04-30-2023 08:56-0500 SaO2% (BldA) [Mass fraction] 98 % Rene Rodriguez RADIATION CONTROL WORKER - BUSINESS OWNER/ENGINEER Work Phone: [employer] 04-30-2023 08:56-0500 Systolic blood pressure 119 mm[Hg] Rene Rodriguez RADIATION CONTROL WORKER - BUSINESS OWNER/ENGINEER Work Phone: [employer] 04-03-2023 11:48-0500 Diastolic blood pressure 81 mm[Hg] Rita De La Cruz MD Work Phone: [employer] 04-03-2023 11:48-0500 Heart rate 71 /min Rita De La Cruz MD Work Phone: [employer] 04-03-2023 11:48-0500 Systolic blood pressure 146 mm[Hg] Rita Freitas Work Phone: [employer] 04-03-2023 11:20-0500 Body height 167.6 cm Rita De La Cruz MD Work Phone: [employer] 04-03-2023 11:20-0500 Body mass index (BMI) [Ratio] 27.99 kg/m2 Rita De La Cruz MD Work Phone: [employer] 04-03-2023 11:20-0500 Body weight 78.65 kg Rita De La Cruz MD Work Phone: [employer] 04-03-2023 11:20-0500 SaO2% (BldA) [Mass fraction] 95 % Rita De La Cruz MD Work Phone: [facility] [employer] 08-26-2022 07:40-0400 Diastolic blood pressure 84 mm[Hg] Rita De La Cruz MD Work Phone: [employer] 08-26-2022 07:40-0400 Heart rate 63 /min Rita De La Cruz MD Work Phone: [employer] 08-26-2022 07:40-0400 Systolic blood pressure 129 mm[Hg] Rita Freitas Work Phone: [employer] 08-26-2022 06:56-0400 Body height 167.6 cm Rita De La Cruz MD Work Phone: [employer] 08-26-2022 06:56-0400 Body mass index (BMI) [Ratio] 28.21 kg/m2 Rita De La Cruz MD Work Phone: [employer] 08-26-2022 06:56-0400 Body weight 79.29 kg Rita De La Cruz MD Work Phone: [employer] 08-26-2022 06:56-0400 Respiratory rate 16 /min Rita De La Cruz MD Work Phone: [facility] 08-26-2022 06:56-0400 SaO2% (BldA) [Mass fraction] 93 % Rita De La Cruz MD Work Phone: [facility] Encounters Encounter Date Encounter Type Care Provider Facility Start: 09-10-2023 End: 09-10-2023 ambulatory [facility] Start: 09-03-2023 End: 09-03-2023 Patient encounter procedure Rita De La Curz MD Work Phone: [facility] Comment on above: Medicare annual well ness visit, subsequent (Primary Dx); Peripheral vascular disease (HCC); Blood pressure elevated without history of HTN; Benign prostatic hyperplasia without lower urinary tract symptoms; Hypercholesterolemia; Screening for diabetes mellitus; FHx: aortic aneurysm Start: 09-03-2023 End: 09-03-2023 ambulatory Start: 09-03-2023 End: 09-03-2023 Encounter for general adult medical examination without abnormal findings [facility] Start: 07-10-2023 End: 07-10-2023 ambulatory [facility] Start: 07-10-2023 End: 07-10-2023 Office outpatient new 45 minutes [facility] RADIATION CONTROL WORKER - BUSINESS OWNER/ENGINEER Work Phone: [facility] Comment on above: Left sided abdominal pain (Primary Dx); Diverticulitis of large intestine without perforation or abscess without bleeding; Change in bowel habit Start: 07-02-2023 Telephone encounter Rene Toribio RADIATION CONTROL WORKER - BUSINESS OWNER/ENGINEER Work Phone: [facility] Comment on above: OTHER Start: 05-12-2023 End: 05-12-2023 Office outpatient visit 10 minutes Rene Rodriguez RADIATION CONTROL WORKER - BUSINESS OWNER/ENGINEER Work Phone: [facility] Comment on above: Change in bowel habi ts (Primary Dx) Start: 05-12-2023 End: 05-12-2023 ambulatory [facility] Start: 04-30-2023 End: 04-30-2023 Office outpatient visit 10 minutes Rene S Hermelindo RADIATION CONTROL WORKER - BUSINESS OWNER/ENGINEER Work Phone: [facility] Comment on above: Change in bowel habi ts (Primary Dx) Start: 04-30-2023 End: 04-30-2023 Office outpatient visit 15 minutes Rene Rodriguez RADIATION CONTROL WORKER - BUSINESS OWNER/ENGINEER Work Phone: [facility] Comment on above: Change in bowel habi ts (Primary Dx) Start: 04-30-2023 End: 04-30-2023 ambulatory RENE RODRIGUEZ [facility] Start: 04-29-2023 ambulatory Annmarie Waters RN [facility] Clinical Communication Start: 04-29-2023 Patient encounter procedure Annmarie Waters RN [facility] Clinical Communication Start: 04-10-2023 End: 04-10-2023 ambulatory Start: 04-03-2023 End: 04-03-2023 ambulatory Start: 04-03-2023 End: 04-03-2023 Subsequent hospital visit by physician [facility] Exam Room [address] [facility] [address] Comment on above: Diverticulitis of la rge intestine without perforation or abscess without bleeding Start: 04-03-2023 End: 04-03-2023 Office outpatient visit 25 minutes Rita De La Cruz MD Work Phone: [facility] Comment on above: Diverticulitis of la rge intestine without perforation or abscess without bleeding (Primary Dx); Blood pressure elevated without history of HTN Start: 04-03-2023 End: 04-03-2023 ambulatory RITA [facility] Start: 08-26-2022 End: 08-26-2022 Patient encounter procedure Rita De La Cruz MD Work Phone: [facility] Comment on above: Medicare annual well ness visit, subsequent (Primary Dx); Peripheral vascular disease (HCC); Benign prostatic hyperplasia without lower urinary tract symptoms; Hypercholesterolemia; Screening for diabetes mellitus Start: 11-28-2017 Patient encounter Rita De La Cruz [facility] Procedures Date Procedure Procedure Detail Performing Clinician Start: 09-03-2023 Adult depression scr eening assessment Rita De La Cruz MD Work Phone: Start: 04-03-2023 Ct abdomen & pelvis w/o contrast material Rita De La Cruz MD Work Phone: Start: 04-03-2023 Complete blood count with white cell differential, automated Rita De La Cruz MD Work Phone: Start: 04-03-2023 Comprehensive metabo lic panel Rita De La Cruz MD Work Phone: Start: 08-26-2022 Adult depression scr eening assessment Rita De La Cruz MD Work Phone: Start: 08-26-2022 Lipid 1996 panel - S gricel or Plasma Rita De La Cruz MD Work Phone: Start: 02-07-2021 Lipid 1996 panel - S gricel or Plasma Rita De La Cruz MD Work Phone: Plan of Treatment Date Care Activity Detail Author Start: 08-27-2027 Lipid panel Lipid Panel [facility] Start: 02-07-2026 Lipid panel Lipid Panel [facility] Start: 09-03-2024 End: 09-03-2024 Patient encounter procedure 09/03/2024 7:00 AM EDT Office Visit [facility] Medicine [address] [place] [address] [phone] Rita De La Cruz MD [address] [place] [address] [phone] [facility] Medicine Start: 09-02-2024 COVID-19 Vaccine () COVID-19 Vaccine () [facility] Comment on above: Postponed from 10/25/2022 (Patient Refus ed) Start: 09-02-2024 Depression Screening Depression Screening [facility] Start: 09-02-2024 DTaP/Tdap/Td Vaccines (2 - Td or Tdap) DTaP/Tdap/Td Vaccines (2 - Td or Tdap) [facility] Comment on above: Postponed from 07/29/2023 (Patient Refus ed) Start: 09-02-2024 RSV Immunization aged 60 or older (1 - 1-dose 60+ series) RSV Immunization aged 60 or older (1 - 1-dose 60+ series) [facility] Comment on above: Postponed from 2000 (Patient Refus ed) Start: 09-02-2024 Zoster Vaccines (1 of 2) Zoster Vaccines (1 of 2) [facility] Comment on above: Postponed from 1990 (Patient Refus ed) Start: 10-26-2023 Influenza vaccination [facility] Start: 09-10-2023 End: 09-10-2023 Clinical Support 09/10/2023 7:00 AM EDT Clinical Support [address] [place] [address] [facility] Start: 09-03-2023 End: 09-02-2024 Comprehensive metabolic 1998 panel - Serum or Plasma Comprehensive metabolic panel Lab Routine Screening for diabetes mellitus Expected: 09/03/2023 (Approximate), Expires: 09/02/2024 [facility] Comment on above: Expected: 09/03/2023 (Approximate), Expi res: 09/02/2024 Start: 09-03-2023 End: 09-02-2024 Lipid 1996 panel - Serum or Plasma Lipid panel Lab Routine Hypercholesterolemia Expected: 09/03/2023 (Approximate), Expires: 09/02/2024 [facility] Work Phone: Comment on above: Expected: 09/03/2023 (Approximate), Expi res: 09/02/2024 Start: 09-03-2023 End: 09-03-2023 Patient encounter procedure 09/03/2023 7:00 AM EDT Office Visit [address] [place] [address] Rita De La Cruz MD [address] [place] [id number] [facility] Medicine Start: 08-27-2023 COVID-19 Vaccine (4 - Booster for Moderna series) COVID-19 Vaccine (4 - Booster for Moderna series) [facility] Comment on above: Postponed from 04/02/2021 (Patient Refus ed) Start: 08-27-2023 Depression Screening Depression Screening [facility] Start: 08-27-2023 Zoster Vaccines (1 of 2) Zoster Vaccines (1 of 2) [facility] Comment on above: Postponed from 1990 (Patient Refus ed) Start: 07-29-2023 DTaP/Tdap/Td Vaccines (2 - Td or Tdap) DTaP/Tdap/Td Vaccines (2 - Td or Tdap) [facility] Start: 07-10-2023 End: 07-10-2023 Patient encounter procedure 07/10/2023 8:00 AM EDT Office Visit [facility] [address] [place] [address] Moncho Roa RADIATION CONTROL WORKER - BUSINESS OWNER/ENGINEER [address] [place] [id number] [facility] Start: 05-12-2023 End: 05-12-2023 Patient encounter procedure 05/12/2023 9:40 AM EDT Office Visit [facility] [address] [place] [address] [place] [address] Rene Rodriguez, RADIATION CONTROL WORKER - BUSINESS OWNER/ENGINEER [address] [place] [address] [place] [address] [facility] Start: 02-24-2023 Medicare Advantage Annual Wellness Visit Medicare Advantage Annual Wellness Visit [facility] Start: 10-25-2022 COVID-19 Vaccine ( season) COVID-19 Vaccine ( season) [facility] Start: 10-25-2022 Influenza vaccination Influenza Vaccine (#1) [facility] Start: 08-26-2022 End: 08-27-2023 Comprehensive metabolic 1998 panel - Serum or Plasma Comprehensive metabolic panel Lab Routine Screening for diabetes mellitus Expected: 08/26/2022 (Approximate), Expires: 08/27/2023 [facility] Work Phone: Comment on above: Expected: 08/26/2022 (Approximate), Expi res: 08/27/2023 Start: 08-26-2022 End: 08-27-2023 Lipid 1996 panel - Serum or Plasma Lipid panel Lab Routine Hypercholesterolemia Expected: 08/26/2022 (Approximate), Expires: 08/27/2023 [facility] Comment on above: Expected: 08/26/2022 (Approximate), Expi res: 08/27/2023 Start: 2000 Hepatitis B Vaccines (1 of 3 - Risk 3-dose series) Hepatitis B Vaccines (1 of 3 - Risk 3-dose series) [facility] Start: 2000 RSV Immunization aged 60 or older (1 - 1-dose 60+ series) RSV Immunization aged 60 or older (1 - 1-dose 60+ series) [facility] Start: 09-10-1959 Hepatitis A Vaccines (1 of 2 - Risk 2-dose series) Hepatitis A Vaccines (1 of 2 - Risk 2-dose series) [facility] Start: 1940 Medicare Advantage Annual Wellness Visit (AWV) Medicare Advantage Annual Wellness Visit (AWV) [facility] OUTSIDE PROCEDURE SCAN OUTSIDE PROCEDURE SCAN Procedures Ordered: 04/03/2023 [facility] Comment on above: Ordered: 04/03/2023 Immunizations Immunization Date Immunization Notes Care Provider [facility] 12-10-2021 Influenza, High-dose Seasonal, Quadrivalent, Preservative Free Rita De La Cruz MD Work Phone: [facility] 12-10-2021 influenza virus vacc ine, unspecified formulation Rita De La Cruz MD Work Phone: [facility] 12-25-2020 Influenza, High-dose Seasonal, Quadrivalent, Preservative Free Rita De La Cruz MD Work Phone: [facility] 11-15-2019 influenza, injectabl e, quadrivalent, preservative free Rita De La Cruz MD Work Phone: [facility] 08-02-2019 pneumococcal polysac charide vaccine, 23 valent Rita De La Cruz MD Work Phone: [facility] 01-01-2019 influenza, high dose seasonal, preservative-free Rita De La Cruz MD Work Phone: [facility] 11-26-2017 influenza, high dose seasonal, preservative-free Rita De La Cruz MD Work Phone: [facility] 11-26-2017 pneumococcal conjuga te vaccine, 13 valent Rita De La Cruz MD Work Phone: [facility] 07-28-2013 tetanus toxoid, redu jona diphtheria toxoid, and acellular pertussis vaccine, adsorbed Rita De La Cruz MD Work Phone: [facility] Payers Date Payer Category Payer Medicare [id number] 2022 Medicare [id number] 1940 Unknown [id number] Unknown Social History Date Type Detail Facility Tobacco smoking status NHIS Never smoked tobacco [facility] Start: 08-26-2022 End: 09-03-2023 Alcohol intake Current non-drinker of alcohol (finding) [facility] Start: 08-26-2022 End: 09-03-2023 Alcohol intake [facility] Start: 08-26-2022 End: 09-03-2023 Alcohol Use Disorder Identification Test - Consumption [AUDIT-C] [facility] How often to you hav e a drink containing alcohol? Never [facility] Average Number of Drinks Not on file [facility] Start: 1940 Sex Assigned At Not on file [facility] Start: 08-16-2022 End: 08-26-2022 Exposure to SARS-CoV-2 (event) Not sure [facility] Clinical Notes 08-26-2022 to 09-03-2023 Assessment & Plan Note - Rita De La Cruz MD - 09/03/2023 7:33 AM EDTAssessment & Plan Note - Rita De La Cruz MD - 09/03/2023 7:33 AM Amauri Rosenbaum MA - 09/03/2023 7:00 AM EDT Note Date & Type Note Facility 09-03-2023 Evaluation + Plan note Associated Problem(s): Blood pressure elevated without history of HTN Blood pressure was initially elevated, recheck was still [id number] in 1 week for blood pressure check. Continue very strict low-sodium diet [facility] 09-03-2023 Miscellaneous Notes Associated Problem(s): Blood pressure elevated without history of HTN Blood pressure was initially elevated, recheck was still [id number] in 1 week for blood pressure check. Continue very strict low-sodium diet Associated Problem(s): FHx: aortic aneurysm Discussed risk factors for aortic aneurysms and currently he is declining to get any imaging studies. Associated Problem(s): Hypercholesterolemia Uncontrolled, currently on no medications we will recheck his levels today. Associated Problem(s): Benign prostatic hyperplasia Stable, using OTC medication for his prostate Associated Problem(s): Peripheral vascular disease (HCC) Stable, currently has no complaints documented in this encounter [facility] 09-03-2023 Evaluation + Plan note Associated Problem(s): FHx: aortic aneurysm Discussed risk factors for aortic aneurysms and currently he is declining to get any imaging studies. [facility] 09-03-2023 Evaluation + Plan note Associated Problem(s): Hypercholesterolemia Uncontrolled, currently on no medications we will recheck his levels today. [facility] 09-03-2023 Evaluation + Plan note Associated Problem(s): Benign prostatic hyperplasia Stable, using OTC medication for his prostate [facility] 09-03-2023 Evaluation + Plan note Associated Problem(s): Peripheral vascular disease (HCC) Stable, currently has no complaints [facility] 09-03-2023 History of Present illness Narrative Patient verified by last name and date of . Images from the original note were not included. [facility] [address] [facility] [id number] Visit Type: Medicare Annual Wellness PCP: Rita De La Cruz MD Reason for Visit: Medicare Annual Wellness Visit Subsequent, Blood Work, and Health Maintenance (Shingles vaccine- declined /Rsv vaccine- not done /4 covid vaccine- not done/Tdap vaccine- declined ) Assessment and Plan Problem List Items Addressed This Visit Blood pressure elevated without history of HTN Blood pressure was initially elevated, recheck was still [id number] in 1 week for blood pressure check. Continue very strict low-sodium diet FHx: aortic aneurysm Discussed risk factors for aortic aneurysms and currently he is declining to get any imaging studies. Benign prostatic hyperplasia Stable, using OTC medication for his prostate Hypercholesterolemia Uncontrolled, currently on no medications we will recheck his levels today. Relevant Orders Lipid panel Peripheral vascular disease (HCC) Stable, currently has no complaints Other Visit Diagnoses Medicare annual wellness visit, subsequent - Primary Screening for diabetes mellitus Relevant Orders Comprehensive metabolic panel I have reviewed and reconciled the medication list with the patient today. Current Outpatient Medications Medication Sig Dispense Refill coenzyme Q-10 100 MG capsule Take by mouth. Misc Natural Products (PROSTATE HEALTH PO) Take by mouth. omega-3 (Fish Oil) 1000 MG capsule Take 1,000 mg by mouth daily. VITAMIN D PO Take by mouth. No current facility-administered medications for this visit. There are no discontinued medications. The following health maintenance schedule was reviewed with the patient and provided in printed form in the after visit summary: Health Maintenance Topic Date Due Hepatitis A Vaccines (1 of 2 - Risk 2-dose series) Never done Hepatitis B Vaccines (1 of 3 - Risk 3-dose series) Never done RSV Immunization aged 60 or older (1 - 1-dose 60+ series) 09/02/2024 (Originally 2000) DTaP/Tdap/Td Vaccines (2 - Td or Tdap) 09/02/2024 (Originally 07/29/2023) Zoster Vaccines (1 of 2) 09/02/2024 (Originally 1990) COVID-19 Vaccine (2022-24 season) 2024 (Originally 10/25/2022) Influenza Vaccine (1) 10/26/2023 Depression Screening 09/02/2024 Lipid Panel 08/27/2027 Medicare Advantage Annual Wellness Visit Completed Pneumococcal Vaccine: 65+ Years Completed RSV Immunization under 20 Months Aged Out HIB Vaccines Aged Out IPV Vaccines Aged Out Meningococcal Vaccine Aged Out Rotavirus Vaccines Aged Out HPV Vaccines Aged Out Orders Placed This Encounter Procedures Lipid panel Standing Status: Future Number of Occurrences: 1 Standing Expiration Date: 09/02/2024 Comprehensive metabolic panel Standing Status: Future Number of Occurrences: 1 Standing Expiration Date: 09/02/2024 Follow up in about 1 year (around 09/02/2024). Subjective ADELINE Don comes in today for his annual Medicare well visit, he really has no significant health issues although he does bring up the fact that his brother was recently diagnosed with an aortic aneurysm. He has a history of elevated cholesterol, he did not tolerate statins send we tried him on Zetia but he never did get his lab work redone. Blood pressure is elevated again today, in the past when it has been elevated it almost always comes back to normal when we rechecked it. He denies any other complaints at this time, see ROS. List of current healthcare providers: Patient Care Team: Rita De La Cruz MD as PCP - General Health Risk Assessment: General: General In general, how would you say your health is?: (P) Good In the past 7 days, have you experienced any of the following: New or Increased Pain, New or Increased Fatigue, Loneliness, Social Isolation, Stress or Anger?: (P) No Do you get the social and emotional suppport you need?: (P) Yes Interventions: Health Habits/Nutrition: Health Habits / Nutrition On average, how many days per week do you engage in moderate to strenous exercise (like a brisk walk)?: (P) 2 days On average, how man minutes do you engage in exercise at this level?: (P) 30 min Have you lost any weight without trying in the past 3 months? : (P) No Have you seen the dentist within the past year?: (P) Yes Hearing/ Vision: Hearing / Vision Do you or your family notice any trouble with your hearing that hasn't been managed with hearing aids?: (!) (P) Yes Do you have difficulty driving, watching TV, or doing any of your daily activities because of your eyesight?: (!) (P) Yes Have you had an eye exam within the past year?: (P) Yes No results found. Interventions: Safety: Safety Do you have a working smoke detector?: (P) Yes Do you have any tripping hazards - loose or unsecured carpets or rugs?: (P) No Do you have any tripping hazards - clutter in doorways, halls, or stairs?: (P) No Do you have either shower bars, grab bars, non-slip mats or non-slip surfaces in your shower or bathtub? : (!) (P) No Do all your stairways have a railing or banister? : (P) Yes Do you fasten your seatbelt when you are in a car?: (P) Yes Interventions: Home safety tips provided ADL: ADL In the past 7 days, did you need help from others to perform any of the following everyday activities: Eating, dressing, grooming,bathing, toileting, or walking / balance? : (P) No In the past 7 days, did you need help from others to take care of any of the following: laundry, housekeeping, banking / finances,shopping, telephone use, food preparation, transportation, or taking medications? : (P) No Living Will: Living Will Do you have a living will?: (P) Yes Cognitive: Cognitive Screening: Mini-Cog Clock Drawing Test (CDT): 2 Words Recalled: 3 Total Score: 5 Total Score Interpretation: Normal Mini-Cog Fall Risk: Fall Risk One or more falls in the last year:: (P) No Advised to use a cane or walker to get around safely:: (P) No Feels unsteady when walking:: (P) Yes Steadies self on furniture while walking at home:: (P) Yes Worried about falling:: (P) No Depression Screening: Over the past 2 weeks, how often have you been bothered by any of the following problems? Little interest or pleasure in doing things: Not at all Feeling down, depressed, or hopeless: Not at all Patient Health Questionnaire-2 Score: 0 Interventions: Tobacco Use: Social History Tobacco Use Smoking Status Never Smokeless Tobacco Never Alcohol Use: Audit Alcohol Screening Q1: How often do you have a drink containing alcohol?: (P) Never Q2: How many drinks containing alcohol do you have on a typical day when you are drinking?: (P) Patient does not drink Q3: How often do you have six or more drinks on one occasion?: (P) Never Audit-C Score: (P) 0 Skip to questions 9-10?: (P) 1 Review of Systems Constitutional: Negative for activity change, appetite change, chills, fever and unexpected weight change. HENT: Negative for ear pain and sore throat. Respiratory: Negative for shortness of breath. Cardiovascular: Negative for chest pain and palpitations. Gastrointestinal: Negative for abdominal pain, blood in stool, constipation and diarrhea. Genitourinary: Negative for dysuria, frequency, hematuria and urgency. Musculoskeletal: Negative for arthralgias and back pain. Skin: Negative. Neurological: Negative for weakness and numbness. Psychiatric/Behavioral: Negative for dysphoric mood. The patient is not nervous/anxious. Immunization History Administered Date(s) Administered Influenza, High Dose Seasonal, Preservative Free 11/26/2017, 01/01/2019 Influenza, High-dose Seasonal, Quadrivalent, Preservative Free 12/25/2020, 12/10/2021 Influenza, injectable, quadrivalent, preservative free 11/15/2019 Moderna SARS-CoV-2 Vaccination 04/06/2020, 05/03/2020, 02/05/2021 Pneumococcal Conjugate PCV 13 11/26/2017 Pneumococcal Polysaccharide PPSV23 08/02/2019 Tdap 07/28/2013 No Known Allergies Outpatient Medications Prior to Visit Medication Sig Dispense Refill coenzyme Q-10 100 MG capsule Take by mouth. Misc Natural Products (PROSTATE HEALTH PO) Take by mouth. omega-3 (Fish Oil) 1000 MG capsule Take 1,000 mg by mouth daily. VITAMIN D PO Take by mouth. No facility-administered medications prior to visit. Past Medical History: Diagnosis Date Headache Internal derangement of left knee Social History Socioeconomic History Marital status: Tobacco Use Smoking status: Never Smokeless tobacco: Never Vaping Use Vaping status: Never Used Substance and Sexual Activity Alcohol use: No Drug use: No Sexual activity: Yes Partners: Male Social Determinants of Health Financial Resource Strain: Low Risk (08/22/2021) [facility] Overall Financial Resource Strain (CARDIA) Difficulty of Paying Living Expenses: Not very hard Food Insecurity: No Food Insecurity (08/22/2021) [facility] Hunger Vital Sign Worried About Running Out of Food in the Last Year: Never true Ran Out of Food in the Last Year: Never true Transportation Needs: No Transportation Needs (08/22/2021) Received from [facility] PRAPARE - Transportation Lack of Transportation (Medical): No Lack of Transportation (Non-Medical): No Physical Activity: Inactive (08/22/2021) Received from [facility] Exercise Vital Sign Days of Exercise per Week: 0 days Minutes of Exercise per Session: 0 min Past Surgical History: Procedure Laterality Date COLONOSCOPY 2011 SPINE SURGERY Past Surgical History: Procedure Laterality Date COLONOSCOPY 2012 SPINE SURGERY Family History Problem Relation Name Age of Onset Cancer Father Ochoa Buenrostro Brain Other ([address]) Mother Objective BP (!) 152/90 Pulse 64 Ht 5' 7 (1.702 m) Wt 173 lb 9.6 oz (78.7 kg) SpO2 95% BMI 27.19 kg/m Physical Exam Vitals and nursing note reviewed. Constitutional: General: He is not in acute distress. Appearance: Normal appearance. HENT: Right Ear: Tympanic membrane, ear canal and external ear normal. Left Ear: Tympanic membrane, ear canal and external ear normal. Mouth/Throat: Mouth: Mucous membranes are moist. Pharynx: Oropharynx is clear. Eyes: Extraocular Movements: Extraocular movements intact. Conjunctiva/sclera: Conjunctivae normal. Pupils: Pupils are equal, round, and reactive to light. Neck: Thyroid: No thyromegaly. Vascular: No carotid bruit. Cardiovascular: Rate and Rhythm: Normal rate and regular rhythm. Heart sounds: Normal heart sounds. No murmur heard. Pulmonary: Effort: Pulmonary effort is normal. Breath sounds: Normal breath sounds. Abdominal: General: Bowel sounds are normal. Palpations: Abdomen is soft. Tenderness: There is no abdominal tenderness. Musculoskeletal: General: Normal range of motion. Cervical back: Neck supple. Lymphadenopathy: Cervical: No cervical adenopathy. Skin: General: Skin is warm and dry. Neurological: General: No focal deficit present. Mental Status: He is alert and oriented to person, place, and time. Psychiatric: Mood and Affect: Mood normal. Rita De La Cruz MD 09/03/2023 7:33 AM documented in this encounter [facility] 07-10-2023 History of Present illness Narrative Images from the original note were not included. [facility] [address] 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 Episode of prior diverticulitis; patient with resolution of abdominal pain s/p course of cipro/flagyl; CT A/P without evidence of diverticulitis --dicussed with patient risks/benefits of colonoscopy for further evaluation; patient elected to schedule procedure at this time-prefers [place] location if possible --reviewed alarm symptoms and when to notify office --patient and verbalized understanding and agreement of plan Advised patient to call office with new or worsening symptoms, questions, or concerns. Patient verbalized understanding and agreement of plan. Follow up if symptoms worsen or fail to improve. Subjective HPI Patient is new to [facility]. He is referred by Dr. De La Cruz, re: diverticulitis. He is accompanied to visit by his . Patient with left sided abdominal pain March 2023. Concern for diverticulitis. 04/03/2023 CT Abdomen/Pelvis wo IV contrast -cholelithiasis, neg diverticulitis. Completed course of antibiotics-Cipro and Flagyl. Abdominal pain resolved with antibiotics, however had bowel irregularity that persisted several months. Was having frequent loose stools, incomplete evacuation. He presents today to discuss possible colonoscopy. Presently patient reports he has been feeling normal for ~ 3 weeks. Presently denies abdominal pain, weight-loss, hematochezia and melena. Bowels returned to normal-has daily formed bowel movement. No nausea or vomiting. Last colonoscopy ~ 10 years ago-normal per patient report. No family history of colon cancer. No anticoagulants or supplemental oxygen use. Review of Systems Constitutional: Negative for appetite change and unexpected weight change. HENT: Negative for trouble swallowing and voice change. Respiratory: Negative for shortness of breath. Cardiovascular: Negative for chest pain. Gastrointestinal: Negative for abdominal distention, abdominal pain, anal bleeding, blood in stool, constipation, diarrhea, nausea, rectal pain and vomiting. Genitourinary: Negative for difficulty urinating. Skin: Negative for color change. Neurological: Negative for weakness. No Known Allergies Outpatient Medications Prior to Visit Medication Sig Dispense Refill coenzyme Q-10 100 MG capsule Take by mouth. Misc Natural Products (PROSTATE HEALTH PO) Take by mouth. omega-3 (Fish Oil) 1000 MG capsule Take 1,000 mg by mouth daily. VITAMIN D PO Take by mouth. No facility-administered medications prior to visit. Patient Active Problem List Diagnosis Date Noted Diverticulitis of large intestine without perforation or abscess without bleeding 04/03/2023 Priority: Medium Blood pressure elevated without history of HTN 04/03/2023 Priority: Medium Peripheral vascular disease (HCC) 12/25/2020 Benign prostatic hyperplasia 08/02/2020 Hypercholesterolemia 08/02/2019 Overweight (BMI 25.0-29.9) 12/14/2014 Migraine with aura and without status migrainosus, not intractable 12/05/2014 Social History Tobacco Use Smoking status: Never Smokeless tobacco: Never Substance Use Topics Alcohol use: No Alcohol/week: 0.0 standard drinks of alcohol Family History Problem Relation Name Age of Onset Cancer Father Brain Other ([id number]) Mother Objective BP (!) 150/86 Pulse 59 Ht 5' 7 (1.702 m) Wt 173 lb 6.4 oz (78.7 kg) BMI 27.16 kg/m Physical Exam Constitutional: Appearance: Normal appearance. Comments: Pleasant HENT: Head: Normocephalic. Eyes: General: No scleral icterus. Cardiovascular: Rate and Rhythm: Normal rate and regular rhythm. Pulmonary: Effort: Pulmonary effort is normal. Breath sounds: Normal breath sounds. Abdominal: General: Bowel sounds are normal. There is no distension. Palpations: Abdomen is soft. There is no mass. Tenderness: There is no abdominal tenderness (patient denies ttp). There is no guarding or rebound. Hernia: No hernia is present. Skin: General: Skin is warm and dry. Coloration: Skin is not jaundiced. Neurological: General: No focal deficit present. Mental Status: He is alert and oriented to person, place, and time. Psychiatric: Mood and Affect: Mood normal. Behavior: Behavior normal. Data Reviewed and Summarized Labs: Lab Results Component Value Date WBC 4.7 04/03/2023 HGB 13.5 04/03/2023 HCT 39.4 04/03/2023 MCV 89.1 04/03/2023 PLT 253 04/03/2023 Lab Results Component Value Date GLUCOSE 89 04/03/2023 CALCIUM 9.7 04/03/2023 NA 142 02/07/2021 K 4.5 02/07/2021 CO2 28 04/03/2023 CL 107 02/07/2021 BUN 11 04/03/2023 CREATININE 1.14 04/03/2023 Lab Results Component Value Date ALT 25 04/03/2023 AST 23 04/03/2023 ALKPHOS 117 04/03/2023 BILITOT 0.6 04/03/2023 Imaging/Testin04/03/2023 CT Abdomen/pelvis wo IV contrast CT abdomen and pelvis without contrast HISTORY: Left lower quadrant pain Protocol: 3 mm axial images without intravenous contrast The liver, spleen, pancreas, adrenals and kidneys are normal. Cholelithiasis. No bowel inflammation or bowel obstruction. No free fluid. No lymphadenopathy. The bladder is unremarkable. IMPRESSION: Cholelithiasis. Report Dictated on Electronically Signed By: Rodri Street MD Electronically Signed Date/Time: 04/03/2023 3:38 PM EST JACQUI Tracy 8:50 AM 07/10/23 documented in this encounter [facility] 07-10-2023 Instructions VIKI Tracy CNP - 07/10/2023 8:00 AM EDT --Please call office with any questions or concerns! [phone] --please contact office with any recurrence of symptoms. --Schedule colonoscopy for further evaluation of the symptoms. --A prescription for GoLytely was sent to your pharmacy. This is the bowel prep for your colonoscopy. --Please see handout provided regarding additional recommendations for the symptoms including when to seek emergency care or further treatment. --Follow-up with PCP, and in GI clinic as needed. The following attachments cannot be sent through Care Everywhere.Colonoscopy ([place])documented in this encounter [facility] 07-07-2023 Telephone encounter Note Patient stopped into office. Relayed information to him, states he will keep his appointment on the with gastro. [facility] 07-07-2023 Miscellaneous Notes Patient stopped into office. Relayed information to him, states he will keep his appointment on the with gastro. Left a message to return call. CAC: If Jean calls back, please relay information to him. Thank you! I think with his history of diverticulitis and the change that he had in his bowels that he should at least meet with a sock knitter and get their opinion as to whether he needs a colonoscopy. Name of caller: Baljinder Contact phone number: [phone] Relationship to Patient: patient Provider: Rene Practice: [facility] Chief Complaint/Reason for Call: Patient states that he was last seen for issues with his bowels. He was referred for a colonoscopy and has a consultation on 07/10/23. He stated that his bowel symptoms have improved a lot and was wanting to know in a professional opinion if he should still have the colonoscopy. Patient requests a return a call. Please advise Best time of day caller can be reached: Patient advised that office/PCP has 24-48 business hours to return their call: N/A documented in this encounter [facility] 07-03-2023 Telephone encounter Note Left a message to return call. CAC: If Jean calls back, please relay information to him. Thank you! [facility] 07-03-2023 Miscellaneous Notes Left a message to return call. CAC: If Jean calls back, please relay information to him. Thank you! I think with his history of diverticulitis and the change that he had in his bowels that he should at least meet with a sock knitter and get their opinion as to whether he needs a colonoscopy. Name of caller: Baljinder Contact phone number: [phone] Relationship to Patient: patient Provider: R[facility] Practice: [facility] Chief Complaint/Reason for Call: Patient states that he was last seen for issues with his bowels. He was referred for a colonoscopy and has a consultation on 07/10/23. He stated that his bowel symptoms have improved a lot and was wanting to know in a professional opinion if he should still have the colonoscopy. Patient requests a return a call. Please advise Best time of day caller can be reached: Patient advised that office/PCP has 24-48 business hours to return their call: N/A documented in this encounter [facility] 07-03-2023 Telephone encounter Note I think with his history of diverticulitis and the change that he had in his bowels that he should at least meet with a sock knitter and get their opinion as to whether he needs a colonoscopy. [facility] 07-02-2023 Telephone encounter Note Name of caller: Don Contact phone number: [phone] Relationship to Patient: patient Provider: Rene Practice: [facility] Chief Complaint/Reason for Call: Patient states that he was last seen for issues with his bowels. He was referred for a colonoscopy and has a consultation on 07/10/23. He stated that his bowel symptoms have improved a lot and was wanting to know in a professional opinion if he should still have the colonoscopy. Patient requests a return a call. Please advise Best time of day caller can be reached: Patient advised that office/PCP has 24-48 business hours to return their call: N/A [facility] 05-12-2023 History of Present illness Narrative Patient verified by last name and . Images from the original note were not included. 05/12/2023 Jean Buenrostro (: 1940) is a 82 y.o. male , Established patient, here for evaluation of the following chief complaint(s): Follow-up (Constipation follow up /), Health Maintenance (RSV-/4th Covid- /AWV- ), and Constipation (Has gotten a little bit better since last time. Wants to talk about colonoscopy possibilities. ) ASSESSMENT/PLAN: 1. Change in bowel habits - Improved. Denies current concerns or worries. - Will continue with daily Metamucil Fiber and probiotic. - Discussed signs and symptoms warranting follow up in the office- verbalized understanding. Follow up in 4 months (on 09/03/2023) for Next scheduled follow-up. SUBJECTIVE/OBJECTIVE: HPI - Jean presents today for follow up on his bowel movements. Was seen about 2 weeks ago due to concerns of what he felt was constipation. Was seen at the beginning of March with concerns of potential diverticulitis and was treated with Cipro and Flagyl. His stool was actually loose when describing his bowel movements. Denied needing to strain, blood or mucous in the stool, or ongoing abdominal pain. Denied nausea or vomiting. Denied fevers or chills. Denied difficulty urinating. Since his last visit he stopped taking Miralax and started on daily Metamucil Fiber. Continues to take a probiotic. States stools have been more regular and are not soft and formed. Currently having a bowel movement once every 1-2 days. Denies any new or worsening symptoms. Still have an appointment with GI scheduled for June. Denies current health concerns or worries. Review of Systems Constitutional: Negative for chills and fever. Gastrointestinal: Negative for abdominal distention, abdominal pain, blood in stool, constipation, diarrhea, nausea and vomiting. Vitals: 05/12/23 0912 05/12/23 0929 BP: (!) 158/94 136/82 Pulse: 63 SpO2: 93% Weight: 174 lb (78.9 kg) Height: 5' 6 (1.676 m) Body mass index is 28.08 kg/m . Physical Exam Constitutional: General: He is not in acute distress. Appearance: He is not ill-appearing or diaphoretic. Cardiovascular: Rate and Rhythm: Normal rate and regular rhythm. Heart sounds: Normal heart sounds. Pulmonary: Effort: Pulmonary effort is normal. Abdominal: General: Bowel sounds are normal. There is no distension. Palpations: Abdomen is soft. There is no hepatomegaly, splenomegaly or mass. Tenderness: There is no abdominal tenderness. There is no guarding or rebound. Skin: General: Skin is warm and dry. Coloration: Skin is not jaundiced or pale. Findings: No erythema or rash. Neurological: Mental Status: He is alert and oriented to person, place, and time. Psychiatric: Mood and Affect: Mood normal. Behavior: Behavior normal. Thought Content: Thought content normal. Judgment: Judgment normal. An electronic signature was used to authenticate this note. VIKI Oro CNP 05/12/2023 9:42 AM documented in this encounter [facility] 04-30-2023 History of Present illness Narrative Patient was verified by name and . Images from the original note were not included. 04/30/2023 Jean Buenrostro (: 1940) is a 82 y.o. male , Established patient, here for evaluation of the following chief complaint(s): Constipation ASSESSMENT/PLAN: 1. Change in bowel habits - Information provided on fiber-rich foods. - Discussed the impact antibiotics can have on the bowels and that it can take some to get motility/stool consistency regulated again after being on them. - Encouraged continuation of daily Probiotic. Encouraged fiber supplementation to promote formed stools. Hold off on Miralax if stools are not formed. - Discussed signs and symptoms warranting follow up in the office- verbalized understanding. - Follow up with GI as scheduled. Follow up in about 2 weeks (around 05/14/2023) for follow up if no improvement. SUBJECTIVE/OBJECTIVE: HPI Costa Horne presents today with concerns of constipation. Was seen at the beginning of March with concerns of potential diverticulitis and was treated with Cipro and Flagyl. Currently experiencing a bowel movement once every 4 days. States it is actually loose when he passes the bowel movement. Denies needing to strain, blood or mucous in the stool, or ongoing abdominal pain. Denies nausea or vomiting. Denies fevers or chills. Denies difficulty urinating. Has been taking a probiotic daily. Has also been taking Miralax daily. Is scheduled to see a sock knitter in June. Review of Systems Constitutional: Negative for chills and fever. Respiratory: Negative for shortness of breath. Cardiovascular: Negative for chest pain. Gastrointestinal: Negative for abdominal distention, abdominal pain, blood in stool, nausea and vomiting. Genitourinary: Negative for difficulty urinating, dysuria and hematuria. Vitals: 04/30/23 0856 BP: 119/78 Pulse: 73 SpO2: 98% Weight: 168 lb (76.2 kg) Height: 5' 6 (1.676 m) Body mass index is 27.12 kg/m . Physical Exam Constitutional: General: He is not in acute distress. Appearance: He is not ill-appearing or diaphoretic. Cardiovascular: Rate and Rhythm: Normal rate and regular rhythm. Heart sounds: Normal heart sounds. No murmur heard. No friction rub. Pulmonary: Effort: Pulmonary effort is normal. Abdominal: General: Bowel sounds are normal. There is no distension. Palpations: Abdomen is soft. There is no mass. Tenderness: There is no abdominal tenderness. There is no guarding or rebound. Skin: General: Skin is warm and dry. Coloration: Skin is not pale. Findings: No erythema or rash. Neurological: Mental Status: He is alert and oriented to person, place, and time. Psychiatric: Mood and Affect: Mood normal. Behavior: Behavior normal. Thought Content: Thought content normal. Judgment: Judgment normal. Imaging: Narrative & Impression Patient Name: JEAN BUENROSTRO : 1940 Exam Date/Time: 04/03/2023 15:30 Procedure: CT ABDOMEN PELVIS WO IV CONTRAST Ordering Provider: DE LA CRUZ DARRELL Reason For Exam: LLQ abdominal pain CT abdomen and pelvis without contrast HISTORY: Left lower quadrant pain Protocol: 3 mm axial images without intravenous contrast The liver, spleen, pancreas, adrenals and kidneys are normal. Cholelithiasis. No bowel inflammation or bowel obstruction. No free fluid. No lymphadenopathy. The bladder is unremarkable. IMPRESSION: Cholelithiasis. Report Dictated on Electronically Signed By: Rodri Street MD Electronically Signed Date/Time: 04/03/2023 3:38 PM EST An electronic signature was used to authenticate this note. VIKI Oro CNP 04/30/2023 9:26 AM documented in this encounter [facility] 04-30-2023 History of Present illness Narrative Patient was verified by name and . Images from the original note were not included. 04/30/2023 Jean Buenrostro (: 1940) is a 82 y.o. male , Established patient, here for evaluation of the following chief complaint(s): Constipation ASSESSMENT/PLAN: 1. Change in bowel habits - Information provided on fiber-rich foods. - Discussed the impact antibiotics can have on the bowels and that it can take some to get motility/stool consistency regulated again after being on them. - Encouraged continuation of daily Probiotic. Encouraged fiber supplementation to promote formed stools. Hold off on Miralax if stools are not formed. - Discussed signs and symptoms warranting follow up in the office- verbalized understanding. - Follow up with GI as scheduled. Follow up in about 2 weeks (around 05/14/2023) for follow up if no improvement. SUBJECTIVE/OBJECTIVE: ADELINE Horne presents today with concerns of constipation. Was seen at the beginning of March with concerns of potential diverticulitis and was treated with Cipro and Flagyl. Currently experiencing a bowel movement once every 4 days. States it is actually loose when he passes the bowel movement. Denies needing to strain, blood or mucous in the stool, or ongoing abdominal pain. Denies nausea or vomiting. Denies fevers or chills. Denies difficulty urinating. Has been taking a probiotic daily. Has also been taking Miralax daily. Is scheduled to see a sock knitter in June. Review of Systems Constitutional: Negative for chills and fever. Respiratory: Negative for shortness of breath. Cardiovascular: Negative for chest pain. Gastrointestinal: Negative for abdominal distention, abdominal pain, blood in stool, nausea and vomiting. Genitourinary: Negative for difficulty urinating, dysuria and hematuria. Vitals: 04/30/23 0856 BP: 119/78 Pulse: 73 SpO2: 98% Weight: 168 lb (76.2 kg) Height: 5' 6 (1.676 m) Body mass index is 27.12 kg/m . Physical Exam Constitutional: General: He is not in acute distress. Appearance: He is not ill-appearing or diaphoretic. Cardiovascular: Rate and Rhythm: Normal rate and regular rhythm. Heart sounds: Normal heart sounds. No murmur heard. No friction rub. Pulmonary: Effort: Pulmonary effort is normal. Abdominal: General: Bowel sounds are normal. There is no distension. Palpations: Abdomen is soft. There is no mass. Tenderness: There is no abdominal tenderness. There is no guarding or rebound. Skin: General: Skin is warm and dry. Coloration: Skin is not pale. Findings: No erythema or rash. Neurological: Mental Status: He is alert and oriented to person, place, and time. Psychiatric: Mood and Affect: Mood normal. Behavior: Behavior normal. Thought Content: Thought content normal. Judgment: Judgment normal. Imaging: Narrative & Impression Patient Name: JEAN BUENROSTRO : 1940 Exam Date/Time: 04/03/2023 15:30 Procedure: CT ABDOMEN PELVIS WO IV CONTRAST Ordering Provider: DE LA CRUZ DARRELL Reason For Exam: LLQ abdominal pain CT abdomen and pelvis without contrast HISTORY: Left lower quadrant pain Protocol: 3 mm axial images without intravenous contrast The liver, spleen, pancreas, adrenals and kidneys are normal. Cholelithiasis. No bowel inflammation or bowel obstruction. No free fluid. No lymphadenopathy. The bladder is unremarkable. IMPRESSION: Cholelithiasis. Report Dictated on Electronically Signed By: Rodri Street MD Electronically Signed Date/Time: 04/03/2023 3:38 PM EST An electronic signature was used to authenticate this note. VIKI Oro CNP 04/30/2023 9:26 AM documented in this encounter [facility] 04-30-2023 Instructions VIKI Oro CNP - 04/30/2023 9:00 AM EST Continue adequate water intake. Continue Probiotic Metamucil Fiber Get up and walk around frequently The following attachments cannot be sent through Care Everywhere.High Fiber Diet ([place]ots[place]an)documented in this encounter [facility] 04-30-2023 Instructions VIKI Oro CNP - 04/30/2023 9:00 AM EST Continue adequate water intake. Continue Probiotic Metamucil Fiber Get up and walk around frequently The following attachments cannot be sent through Care Everywhere.High Fiber Diet ([place]an)documented in this encounter [facility] 04-30-2023 Miscellaneous Notes Addended by: RENE RODRIGUEZ on: 05/01/2023 08:42 AM Modules accepted: Level of Service documented in this encounter [facility] 04-30-2023 Note Addended by: RENE RODRIGUEZ on: 05/01/2023 08:42 AM Modules accepted: Level of Service [facility] 04-30-2023 Note Addended by: RENE RODRIGUEZ on: 05/01/2023 08:42 AM Modules accepted: Level of Service [facility] 04-29-2023 Telephone encounter Note Images from the original note were not included. S: Patient called the clinical access center with complaint of concern for constipation, not having regular bowel movements. B:patient seen 04/03 for Diverticulitis and treated with Flagyl and Cipro. A:Pt then called in on 04/14/23 about not having a BM in 5 days. He was advised by Dr Jono De La Cruz MD 04/14/23 10:08 AM Note He should be finished with the antibiotics, if not stop them if he is not having any pain, okay to take MiraLAX once a day until has a good bowel movement. Could also get Senokot S [id number]-[id number] and take 2 of them at bedtime and see if that gets his bowels moving in the morning. He said he has been taking Miralax daily and also recently added a tablespoon of olive oil daily. He is having a BM daily that is the size of his finger and said it is slimy and falls to the bottom of the toilet, That is all that comes out. He is bloated. He denies abdominal pain but said he has pressure. R:Appt 04/30/23 with Rene Rodriguez at 9 am. Pt advised to bring photo ID, insurance card, medications with them to their visit if possible. Covid questions: 1) Do you have signs or symptoms consistent with COVID-no 2) Have you been exposed to COVID in last 5 days-no 3) Have you tested positive for COVID in last 5 days-no Home care advise given to patient: HIGH FIBER DIET: * A high fiber diet will help improve your intestinal function and soften your BM's. The fiber works by holding more water in your stools. * Try to eat fruit and vegetables at each meal DRINK ADEQUATE LIQUIDS: * Adequate liquid intake is important to keep your bowel movements soft. * Drink 6 to 8 cups (1,500 to 2,000 ml) of water each day. Patient instructed to call back with worsening symptoms, concerns or questions. Reason for Disposition Abdomen is more swollen than usual Protocols used: [id number] [facility] 04-29-2023 Miscellaneous Notes Images from the original note were not included. S: Patient called the clinical access center with complaint of concern for constipation, not having regular bowel movements. B:patient seen 04/03 for Diverticulitis and treated with Flagyl and Cipro. A:Pt then called in on 04/14/23 about not having a BM in 5 days. He was advised by Dr Jono De La Cruz MD 04/14/23 10:08 AM Note He should be finished with the antibiotics, if not stop them if he is not having any pain, okay to take MiraLAX once a day until has a good bowel movement. Could also get Senokot S [id number] and take 2 of them at bedtime and see if that gets his bowels moving in the morning. He said he has been taking Miralax daily and also recently added a tablespoon of olive oil daily. He is having a BM daily that is the size of his finger and said it is slimy and falls to the bottom of the toilet, That is all that comes out. He is bloated. He denies abdominal pain but said he has pressure. R:Appt 04/30/23 with Rene Rodriguez at 9 am. Pt advised to bring photo ID, insurance card, medications with them to their visit if possible. Covid questions: 1) Do you have signs or symptoms consistent with COVID-no 2) Have you been exposed to COVID in last 5 days-no 3) Have you tested positive for COVID in last 5 days-no Home care advise given to patient: HIGH FIBER DIET: * A high fiber diet will help improve your intestinal function and soften your BM's. The fiber works by holding more water in your stools. * Try to eat fruit and vegetables at each meal DRINK ADEQUATE LIQUIDS: * Adequate liquid intake is important to keep your bowel movements soft. * Drink 6 to 8 cups (1,500 to 2,000 ml) of water each day. Patient instructed to call back with worsening symptoms, concerns or questions. Reason for Disposition Abdomen is more swollen than usual Protocols used: [id number] documented in this encounter [facility] 04-03-2023 Evaluation + Plan note Associated Problem(s): Blood pressure elevated without history of HTN Blood pressure was initially elevated, recheck was still a little high follow-up in 1 week for blood pressure check after abdominal pain is resolved. [facility] 04-03-2023 Evaluation + Plan note Associated Problem(s): Diverticulitis of large intestine without perforation or abscess without bleeding Cipro 500 twice a day and Flagyl 503 times a day started for 10 days. CBC and CMP to be done. Stat abdominal CT scan. [facility] 04-03-2023 Miscellaneous Notes Associated Problem(s): Blood pressure elevated without history of HTN Blood pressure was initially elevated, recheck was still a little high follow-up in 1 week for blood pressure check after abdominal pain is resolved. Associated Problem(s): Diverticulitis of large intestine without perforation or abscess without bleeding Cipro 500 twice a day and Flagyl 503 times a day started for 10 days. CBC and CMP to be done. Stat abdominal CT scan. documented in this encounter [facility] 04-03-2023 History of Present illness Narrative Patient verified by last name and date of . Images from the original note were not included. 04/03/2023 Jean Buenrostro (: 1940) is a 82 y.o. male , Established patient, here for evaluation of the following chief complaint(s): Abdominal Pain (Left mid abdominal - started Friday worse in the evening) ASSESSMENT/PLAN: 1. Diverticulitis of large intestine without perforation or abscess without bleeding Assessment & Plan: Cipro 500 twice a day and Flagyl 503 times a day started for 10 days. CBC and CMP to be done. Stat abdominal CT scan. Orders: - CBC auto differential - Comprehensive metabolic panel - CT abdomen pelvis wo IV contrast 2. Blood pressure elevated without history of HTN Assessment & Plan: Blood pressure was initially elevated, recheck was still a little high follow-up in 1 week for blood pressure check after abdominal pain is resolved. Follow up if symptoms worsen or fail to improve. SUBJECTIVE/OBJECTIVE: HPI -Baljinder comes in today for a 5 to 6-day history of left lower quadrant abdominal pain he says initially it would kind of come and go now it is pretty much there all the time but he says at night it does not keep him awake his bowels are moving fine he said no blood in his stool and he has no problems urinating. Blood pressure is elevated today we will recheck that prior to discharge. Review of Systems Constitutional: Negative for chills and fever. Respiratory: Negative for shortness of breath. Cardiovascular: Negative for chest pain and palpitations. Gastrointestinal: Positive for abdominal pain. Negative for blood in stool, constipation and diarrhea. Genitourinary: Negative for dysuria, frequency, hematuria and urgency. Vitals: 04/03/23 1120 04/03/23 1148 BP: (!) 156/101 (!) 146/81 Pulse: 75 71 SpO2: 95% Weight: 173 lb 6.4 oz (78.7 kg) Height: 5' 6 (1.676 m) Physical Exam Vitals and nursing note reviewed. Constitutional: General: He is not in acute distress. Appearance: Normal appearance. HENT: Head: Normocephalic. Mouth/Throat: Mouth: Mucous membranes are moist. Pharynx: Oropharynx is clear. Eyes: Extraocular Movements: Extraocular movements intact. Pupils: Pupils are equal, round, and reactive to light. Cardiovascular: Rate and Rhythm: Normal rate and regular rhythm. Heart sounds: Normal heart sounds. Pulmonary: Effort: Pulmonary effort is normal. Breath sounds: Normal breath sounds. Abdominal: General: Bowel sounds are normal. Palpations: Abdomen is soft. Tenderness: There is abdominal tenderness. There is guarding. There is no rebound. Musculoskeletal: Cervical back: Neck supple. Neurological: Mental Status: He is alert. An electronic signature was used to authenticate this note. Rita De La Cruz MD 04/03/2023 12:56 PM documented in this encounter [facility] 08-26-2022 Evaluation + Plan note Associated Problem(s): Hypercholesterolemia Maikol, has refused medications in the past [facility] 08-26-2022 Evaluation + Plan note Associated Problem(s): Benign prostatic hyperplasia Stable, currently on OTC prostate medication [facility] 08-26-2022 Evaluation + Plan note Associated Problem(s): Peripheral vascular disease (HCC) Stable, currently on no medications. [facility] 08-26-2022 Miscellaneous Notes Associated Problem(s): Hypercholesterolemia Maikol, has refused medications in the past Associated Problem(s): Benign prostatic hyperplasia Maikol, currently on OTC prostate medication Associated Problem(s): Peripheral vascular disease (HCC) Maikol, currently on no medications. documented in this encounter [facility] 08-26-2022 History of Present illness Narrative Transfer Agent for Intimate and Non Intimate Exam Transfer Agent was declined Transfer Agent: na Images from the original note were not included. [facility] [address] [facility] [id number] Visit type: Established Patient Reason for Visit: Medicare Annual Wellness Visit Initial Assessment and Plan Problem List Items Addressed This Visit Circulatory Peripheral vascular disease (HCC) Stable, currently on no medications. Genitourinary Benign prostatic hyperplasia Stable, currently on OTC prostate medication Other Hypercholesterolemia Stable, has refused medications in the past Relevant Orders Lipid panel Other Visit Diagnoses Medicare annual wellness visit, subsequent - Primary Screening for diabetes mellitus Relevant Orders Comprehensive metabolic panel Follow up in about 1 year (around 08/27/2023). Subjective HPI Don comes in today for his annual Medicare exam, he has no complaints today he is currently on no medication. Blood pressure is borderline diastolic we will recheck that prior to discharge and will get fasting lab work. I have reviewed and reconciled the medication list with the patient today. Current Outpatient Medications Medication Sig Dispense Refill coenzyme Q-10 100 MG capsule Take by mouth. Misc Natural Products (PROSTATE HEALTH PO) Take by mouth. omega-3 (Fish Oil) 1000 MG capsule Take 1,000 mg by mouth daily. No current facility-administered medications for this visit. There are no discontinued medications. List of current healthcare providers: Patient Care Team: Rita De La Cruz MD as PCP - General The following health maintenance schedule was reviewed with the patient and provided in printed form in the after visit summary: Health Maintenance Topic Date Due Influenza Vaccine (1) 10/25/2022 Zoster Vaccines (1 of 2) 08/27/2023 (Originally 1990) COVID-19 Vaccine (4 - Booster for Moderna series) 08/27/2023 (Originally 04/02/2021) DTaP/Tdap/Td Vaccines (2 - Td or Tdap) 07/29/2023 Depression Screening 08/27/2023 Lipid Panel 02/07/2026 Pneumococcal Vaccine: 65+ Years Completed HIB Vaccines Aged Out Hepatitis B Vaccines Aged Out IPV Vaccines Aged Out Hepatitis A Vaccines Aged Out Meningococcal Vaccine Aged Out Rotavirus Vaccines Aged Out HPV Vaccines Aged Out Orders Placed This Encounter Procedures Comprehensive metabolic panel Standing Status: Future Number of Occurrences: 1 Standing Expiration Date: 08/27/2023 Lipid panel Standing Status: Future Number of Occurrences: 1 Standing Expiration Date: 08/27/2023 Health Risk Assessment: General In general, how would you say your health is?: Good In the past 7 days, have you experienced any of the following: New or Increased Pain, New or Increased Fatigue, Loneliness, Social Isolation, Stress or Anger?: (!) Yes Select all that apply: (!) New or Increased Fatigue Do you get the social and emotional suppport you need?: Yes Interventions: Fatigue: Regular exercise recommended 3-5 times per week, 30-45 minutes per session Health Habits / Nutrition On average, how many days per week do you engage in moderate to strenous exercise (like a brisk walk)?: 2 days On average, how man minutes do you engage in exercise at this level?: 40 min Have you lost any weight without trying in the past 3 months? : No Have you seen the dentist within the past year?: Yes Interventions: Hearing / Vision Do you or your family notice any trouble with your hearing that hasn't been managed with hearing aids?: No Do you have difficulty driving, watching TV, or doing any of your daily activities because of your eyesight?: No Have you had an eye exam within the past year?: Yes No results found. Interventions: Safety Do you have a working smoke detector?: Yes Do you have any tripping hazards - loose or unsecured carpets or rugs?: No Do you have any tripping hazards - clutter in doorways, halls, or stairs?: No Do you have either shower bars, grab bars, non-slip mats or non-slip surfaces in your shower or bathtub? : (!) No Do all your stairways have a railing or banister? : Yes Do you fasten your seatbelt when you are in a car?: Yes Interventions: Home safety tips provided ADL In the past 7 days, did you need help from others to perform any of the following everyday activities: Eating, dressing, grooming,bathing, toileting, or walking / balance? : No In the past 7 days, did you need help from others to take care of any of the following: laundry, housekeeping, banking / finances,shopping, telephone use, food preparation, transportation, or taking medications? : No Interventions: Living Will Do you have a living will?: Yes Interventions: Cognitive: Cognitive Screening: Mini-Cog Clock Drawing Test (CDT): 2 Words Recalled: 3 Total Score: 5 Total Score Interpretation: Normal Mini-Cog Interventions: Fall Risk: Interventions: No falls Depression Screening: Over the past 2 weeks, how often have you been bothered by any of the following problems? Little interest or pleasure in doing things: Not at all Feeling down, depressed, or hopeless: Not at all Patient Health Questionnaire-2 Score: 0 [place] Suicide Severity Rating Scale (Screener/Recent Self-Report) 1. Wish to be (Past 1 Month): No Calculated C-SSRS Risk Score (Lifetime/Recent): No Risk Indicated Interventions: Tobacco Use: Social History Tobacco Use Smoking Status Never Smokeless Tobacco Never Interventions: Alcohol Use: Audit Alcohol Screening Q1: How often do you have a drink containing alcohol?: Never Interventions: Drug Use: Drug Abuse Screening Test (DAST-10) Have you used drugs other than those required for medical reasons?: No Interventions: Review of Systems Constitutional: Negative for activity change, appetite change, chills, fever and unexpected weight change. HENT: Negative for ear pain and sore throat. Respiratory: Negative for shortness of breath. Cardiovascular: Negative for chest pain and palpitations. Gastrointestinal: Negative for abdominal pain, blood in stool, constipation and diarrhea. Genitourinary: Negative for dysuria, frequency, hematuria and urgency. Musculoskeletal: Negative for arthralgias and back pain. Skin: Negative. Neurological: Negative for weakness and numbness. Psychiatric/Behavioral: Negative for dysphoric mood. The patient is not nervous/anxious. Immunization History Administered Date(s) Administered Influenza, High Dose Seasonal, Preservative Free 11/26/2017, 01/01/2019 Influenza, High-dose Seasonal, Quadrivalent, Preservative Free 12/25/2020 Influenza, injectable, quadrivalent, preservative free 11/15/2019 Moderna SARS-CoV-2 Vaccination 04/06/2020, 05/03/2020, 02/05/2021 Pneumococcal Conjugate PCV 13 11/26/2017 Pneumococcal Polysaccharide PPSV23 08/02/2019 Tdap 07/28/2013 No Known Allergies Outpatient Medications Prior to Visit Medication Sig Dispense Refill coenzyme Q-10 100 MG capsule Take by mouth. Misc Natural Products (PROSTATE HEALTH PO) Take by mouth. omega-3 (Fish Oil) 1000 MG capsule Take 1,000 mg by mouth daily. No facility-administered medications prior to visit. Past Medical History: Diagnosis Date Headache Internal derangement of left knee Social History Socioeconomic History Marital status: Tobacco Use Smoking status: Never Smokeless tobacco: Never Vaping Use Vaping Use: Never used Substance and Sexual Activity Alcohol use: No Alcohol/week: 0.0 standard drinks of alcohol Drug use: No Sexual activity: Defer Past Surgical History: Procedure Laterality Date COLONOSCOPY 2011 SPINE SURGERY Past Surgical History: Procedure Laterality Date COLONOSCOPY 2011 SPINE SURGERY Family History Problem Relation Name Age of Onset Cancer Father Brain Other ([address]) Mother Objective BP (!) 134/90 Pulse 68 Resp 16 Ht 5' 6 (1.676 m) Wt 174 lb 12.8 oz (79.3 kg) SpO2 93% BMI 28.21 kg/m Physical Exam Vitals and nursing note reviewed. Constitutional: General: He is not in acute distress. Appearance: Normal appearance. HENT: Right Ear: Tympanic membrane, ear canal and external ear normal. Left Ear: Tympanic membrane, ear canal and external ear normal. Mouth/Throat: Mouth: Mucous membranes are moist. Pharynx: Oropharynx is clear. Eyes: Extraocular Movements: Extraocular movements intact. Pupils: Pupils are equal, round, and reactive to light. Neck: Vascular: No carotid bruit. Cardiovascular: Rate and Rhythm: Normal rate and regular rhythm. Heart sounds: Normal heart sounds. No murmur heard. Pulmonary: Effort: Pulmonary effort is normal. Breath sounds: Normal breath sounds. Abdominal: General: Bowel sounds are normal. Palpations: Abdomen is soft. Tenderness: There is no abdominal tenderness. Musculoskeletal: General: Normal range of motion. Cervical back: Neck supple. Lymphadenopathy: Cervical: No cervical adenopathy. Skin: General: Skin is warm and dry. Neurological: General: No focal deficit present. Mental Status: He is alert and oriented to person, place, and time. Psychiatric: Mood and Affect: Mood normal. Data Reviewed Labs: Imaging/Testing: Rita De La Cruz MD 08/26/2022 7:31 AM documented in this encounter [facility] Evaluation note Diagnosis Medicare annual wellness visit, subsequent- Primary Peripheral vascular disease (HCC) Unspecified peripheral vascular disease Benign prostatic hyperplasia without lower urinary tract symptoms Hypercholesterolemia Pure hypercholesterolemia Screening for diabetes mellitus [facility] Diagnosis Diverticulitis of large intestine without perforation or abscess without bleeding- Primary Blood pressure elevated without history of HTN Diverticulitis of large intestine without perforation or abscess without bleeding [facility]* Diagnosis Diverticulitis of large intestine without perforation or abscess without bleeding [facility]* Diagnosis Change in bowel habits- Primary Other symptoms involving digestive system [facility] Diagnosis Change in bowel habits- Primary Other symptoms involving digestive system [facility] Diagnosis Change in bowel habits- Primary Other symptoms involving digestive system [facility] Diagnosis Left sided abdominal pain- Primary Abdominal pain, unspecified site Diverticulitis of large intestine without perforation or abscess without bleeding Change in bowel habit [facility] Diagnosis Medicare annual wellness visit, subsequent- Primary Peripheral vascular disease (HCC) Unspecified peripheral vascular disease Blood pressure elevated without history of HTN Benign prostatic hyperplasia without lower urinary tract symptoms Hypercholesterolemia Pure hypercholesterolemia Screening for diabetes mellitus FHx: aortic aneurysm Family history of other cardiovascular diseases [facility] Summary Purpose Family History No Family History Records FoundNo Family History Records Found Advance Directives No Advanced Directives Records FoundDocuments on File Type Date Recorded Patient In Home Caregiver Expl anation 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 [address] Referral ID Status Reason Start Date Expiration Date Visits Re quested Visits Authorized [id number] Closed 04/03/2023 04/02/2024 1 1 Additional Source Comments (unrecognized sect ion and content) No Status Records FoundNo Status Records Found INFORMATION SOURCE (unrecogn ized section and content) DATE CREATED AUTHOR [facility]/27/2017 [facility] DATE CREATED AUTHOR AUTHOR'S ORGANIZ ATION 09/13/2023 [facility] [employer] [facility] Reason for Visit (unrecogniz ed section and content) Reason Comments Medicare Annual Wellness Visit Initial Reason Comments Abdominal Pain Left mid abdominal - started Friday worse in the evening Specialty Diagnoses / Procedures Referred By Lali dobbs Referred To Contact Radiology Diagnoses Diverticulitis of large intestine without perforation or abscess without bleeding Procedures CT abdomen pelvis wo IV contrast Rita De La Cruz MD [address] [place] [address] Referral ID Status Reason Start Date Expiration Date Visits Re quested Visits Authorized [id number] Closed 04/03/2023 04/02/2024 1 1 Reason Comments Constipation Reason Onset Date Comments Constipation 04/29/2023 Reason Comments Follow-up Constipation follow up Health Maintenance RSV-4th Covid- AWV- Constipation Has gotten a little bit better since last time. Wants to talk about colonoscopy possibilities. Reason Onset Date Comments OTHER 07/02/2023 Reason Comments Establish Care Diverticulitis of la rge intestine without perforation or abscess without bleeding, NPPt stated that he is doing better since antibiotic treatment Specialty Diagnoses / Procedures Referred By Lali dobbs Referred To Contact Gastroenterology Diagnoses Diverticulitis of large intestine without perforation or abscess without bleeding Procedures [place] OFFICE/OUTPATIENT NEW HIGH MDM 60 MINUTES Rita De La Cruz MD [address] [place] [address] [facility] [address] [place] [address] Referral ID Status Reason Start Date Expiration Date V isits Requested Visits Authorized [id number] Closed Specialty Services Required 04/10/2023 04/09/2024 1 1 Reason Comments Medicare Annual Wellness Visit Subsequen t Blood Work Health Maintenance Shingles vaccine- de clined Rsv vaccine- not done 4 covid vaccine- not doneTdap vaccine- declined Care Teams (unrecognized sec tion and content) Fixed Income Director Relationship Specialty Start Date End Date Rita De La Cruz MD [address] [place] [address] PCP - General 12/05/14 Fixed Income Director Relationship Specialty Start Date End Date [place] [address] PCP - General 12/05/14 Fixed Income Director Relationship Specialty Start Date End Date [place] [address] PCP - General 12/05/14 Fixed Income Director Relationship Specialty Start Date End Date [place] [address] PCP - General 12/05/14 Fixed Income Director Relationship Specialty Start Date End Date [place] [address] PCP - General 12/05/14 Fixed Income Director Relationship Specialty Start Date End Date Rita De [facility] [place] [address] PCP - General 12/05/14 Fixed Income Director Relationship Specialty Start Date End Date Rita De La Cruz MD [facility] [place] [address] PCP - General 12/05/14 Fixed Income Director Relationship Specialty Start Date End Date Rita De La Cruz [place] [address] PCP [email or web address] 12/05/14 Fixed Income Director Relationship Specialty Start Date End Date Rita De La Cruz MD [facility] [place] [address] PCP [facility] [[email or web address] 12/05/14 Fixed Income Director Relationship Specialty Start Date End Date Rita De La Cruz MD [facility] [place] [address] [facility] 12/05/14 FOR RECORDS PERTAINING TO PATIENTS WHO ARE OR HAVE BEEN ENROLLED IN A CHEMICAL DEPENDENCY/SUBSTANCEABUSE PROGRAM, SOME INFORMATION MAY BE OMITTED. This clinical summary was aggregated from multiple sources. Caution should be exercised in using it in the provision of clinical care. This summary normalizes information from multiple sources, and as a consequence, information in this document may materially change the coding, format and clinical context of patient data. In addition, data may be omitted in some cases. CLINICAL DECISIONS SHOULD BE BASED ON THE PRIMARY CLINICAL RECORDS. [facility]. provides no warranty or guarantee of the accuracy or completeness of information in this document.
[2024-08-11 03:56] LABS: Troponin T High Sens 2 HR 17 ng/L (<=22)
--- NOTE | 2024-08-11 04:15 | US_ITS ---
PROCEDURE: GALLBLADDER 08/11/2024 REASON FOR EXAM: RUQ ABD PAIN, GALLSTONES COMPARISON: Prior CT scan dated August 11, 2024. FINDINGS: Liver: Grossly normal size and echotexture. Gallbladder: Multiple echogenic gallstones are identified. Gallbladder wall is mildly thickened measuring 4 mm. Small amount of pericholecystic fluid. Common bile duct: Normal measuring 6 mm. . Pancreas: Normal Other: Visualized portions of the right kidney are unremarkable. No right upper quadrant ascites. US/Gallbladder IMPRESSION: Multiple gallstones. Mild gallbladder wall thickening. Small amount of perich olecystic fluid. Cholecystitis should be ruled out. Reading Location: [place] [address]
[2024-08-11] MEDS: Piperacil/Tazobactam 4.5 GM in 0.9% Normal Saline (100mL MB+) 100 ML IV (08:41)
--- NOTE | 2024-08-11 11:51 | HP.PCM_ITS ---
HPI - General General Date of Service: 08/11/24 HPI Narrative JEAN WASHINGTON, is a 83 M who presents to [facility] with complaints of 2 days of progressive right upper quadrant postprandial discomfort. He states 2 nights ago he had just mild discomfort after eating but was able to sleep through it. However 2 hours after eating meatloaf last night he developed severe right upper quadrant epigastric discomfort which he rated 9 out of 10 intensity. He denies any associated nausea with that pain but does endorse some chills. He states that is presently much better than when he first came in. ER workup was notable for CBC without leukocytosis and normal LFTs on CMP with mild elevation of alkaline phosphatase. CTA was performed by emergency medicine due to concern for possible dissection but this was ultimately read as mildly ectatic abdominal aorta as well as distention of the gallbladder and cholelithiasis concerning for signs of cholecystitis. As at this point I was contacted about the results and requested follow-up abdominal ultrasound. Patient has few medical diagnoses despite his age and confirms that he remains fairly active in life. He has no history of prior abdominal surgery. [facility] Medical History BPH (benign prostatic hyperplasia) Anemia HLD (hyperlipidemia) TIA (transient ischemic attack) Bradycardia Home Medications ?Medication ?Instructions ?Recorded ?Last Taken ?Type Coq10 1 tab PO DAILY 03/03/14 0630 Days Ago History ~06/11/12 1 Excedrin Extra Strength Caplet 500 mg PO PRN PRN Heada ramez 03/03/14 03/03/14 16:30 History 500 Fish Oil 1,000 mg Capsule 1,000 mg PO DAILY 03/03/14 0 03/03/14 06:30 History 1000 saw palm 160 mg-vit E 100 1 tab PO DAILY 03/03/1410/08 06:30 History unit-selen 100 1 obc-ebar-yvwoas-pygeum tablet (Prostate Health) Allergy/AdvReac Type Severity Reaction Status Date / Time No Known Allergies Allergy Verified 08/11/24 00:53 Social History Smoking Status: Never smoker Vital Signs Vital Signs Vital Signs: 08/11/24 00:48 08/11/24 02:57 08/11/24 04:04 Temperature 97.9 F Temperature Source Oral Pulse Rate 57 L 73 86 Respiratory Rate 18 17 16 Blood Pressure 174/92 H 128/81 H 155/83 H Blood Pressure Mean 119 96 107 Pulse Ox 100 98 98 Oxygen Delivery Method Room Air Room Air 08/11/24 06:18 08/11/24 08:00 08/11/24 10:00 Temperature 98.9 F 98.9 F Temperature Source Oral Oral Pulse Rate 75 118 H 64 Respiratory Rate 16 14 18 Blood Pressure 123/80 H 134/78 H 132/78 H Blood Pressure Mean 94 96 96 Pulse Ox 98 98 98 Oxygen Delivery Method Room Air Room Air Room Air Weight Weight: 176 lb 5.917 oz Body Mass Index (BMI) 28.4 Physical Exam Const alert, oriented x3, no apparent distress and well nourished Resp normal respiratory effort GI GI Narrative: Normal habitus, no visible hernia, nondistended, soft, tender to palpation in the right upper quadrant with technically negative Pablo sign but worse tenderness with deep inspiration. Results Lab / Micro Data 08/11/24 01:13 08/11/24 01:13 Labs: Laboratory Results - last 24 hr 08/11/24 01:13: WBC 8.8, RBC 3.94 L, Hgb 12.0 L, Hct 35.0 L, MCV 88.8, MCH 30.5, MCHC 34.3, RDW Std Deviation 44.8 H, RDW Coeff of Katina 13.9, Plt Count 256, MPV 10.4, Immature Gran % (Auto) 0.200, Neut % (Auto) 80.1 H, Lymph % (Auto) 13.0 L, Cascade % (Auto) 5.8, Eos % (Auto) 0.7, Baso % (Auto) 0.2, Absolute Neuts (auto) 7.0, Absolute Lymphs (auto) 1.14, Nucleated RBC % 0, Sodium 136, Potassium 4.1, Chloride 100, Carbon Dioxide 22.9, Anion Gap 14, BUN 13, Creatinine 1.21 H, E stim Creat Clear Calc 45.98 L, Est GFR (MDRD) Non-Af 59 L, BUN/Creatinine Ratio 10.3, Glucose 120 H, Calcium 9.6, Total Bilirubin 0.37, AST 25, ALT 22, Alkaline Phosphatase 139 H, Troponin T High Sens 19, Total Protein 7.0, Albumin 4.4, Globulin 2.6, Albumin/Globulin Ratio 1.7, Lipase 49 08/11/24 01:40: Urine Color Straw, Urine Clarity Sl. Cloudy, Urine pH 8.0, Ur Specific [place] 1.010, Urine Protein 15 H, Urine Glucose (UA) Normal, Urine Ketones Negative, Urine Occult Blood Negative, Urine Nitrite Negative, Urine Bilirubin Negative, Urine Urobilinogen Normal, Ur Leukocyte Esterase Negative, Urine RBC 0 SEEN, Urine WBC 0 SEEN, Ur Squamous Epith Cells 0 SEEN, Urine Bacteria 0 SEEN, Urine Mucus 0 SEEN 08/11/24 03:10: Troponin T Hi Sens 2 Hr 17 Rhythm Strip Rhythm Strip: Sinus Rhythm Rate: 57 Ectopy: PAC(s) Imaging Radiology Impression Chest/Abdomen/Pelvis CTA 08/11/24 01:49 IMPRESSION: 1. Distended, diffusely thickened gallbladder containing multiple gallstones, probably mild changes of acute calculous cholecystitis. 2. Moderate coronary artery calcifications. 3. Subsegmental atelectatic changes in the lingula. 4. 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 5. No CT evidence of pulmonary embolus or aortic dissection. 6. I discussed the findings with Dr. Carol Leigh in the emergency department at 3 a.m. EST. Reading Location: [place] [address] Gallbladder Ultrasound 08/11/24 04:15 IMPRESSION: Multiple gallstones. Mild gallbladder wall thickening. Small amount of pericholecystic fluid. Cholecystitis should be ruled out. Reading Location: [facility] Assessment & Plan Assessment/Plan (1) Acute calculous cholecystitis: PLAN: Patient 83-year-old male who presents with 48 hours of progressive right upper quadrant postprandial discomfort. ER workup consistent with diagnosis of early acute cholecystitis. Exam is confirmatory. Patient has diagnosis I recommended we proceed for emergent laparoscopic cholecystectomy with intraoperative cholangiography. Patient is a Protestant and states that his denominational prohibits him from receiving blood products but starches and isotonic volume expanders are allowable. Additionally, when I reviewed his CT imaging there is some bordering of his hepatic flexure to the fundal portion of the gallbladder. I suggested that these latter to fax should be additionally motivating to pursue surgery at this point as a means of hopefully mitigating his risk for intraoperative bleeding and for adhesions to the colon with ongoing inflammation. Patient was receptive of this recommendation and was admitted to the hospital for ongoing management. He is to be held n.p.o. with IV antibiotics until surgery. Operation was described in detail and consents will be obtained for laparoscopic cholecystectomy and intraoperative cholangiography. Tommy Durand MD General Surgery Endocrine Surgery Pager: [facility] [address] [place] [address], [address] [place] [id number] Office: [phone] Charges/Coding Visit Charges Inpatient E&M: 35659 Init Hosp L2
[2024-08-11] MEDS: Lactated Ringers 1,000 ML 15 ML IV (13:29)
--- NOTE | 2024-08-11 13:45 | GALL_PTH ---
PATIENT: JEAN WASHINGTON LOC: MS3 U#:[id number] AGE/SX: 83/M ROOM: TX319 RE08/11/[address]: Dr. Tommy Durand MD : 1940 BED: 1 DIS: 08/12/2024 SPEC #: [id number] RECD: 08/12/24 08:30 STATUS: SRINIVASAN MENA #: [id number] IKE: 08/11/24 13:[address]: Tommy Durand DEPT: SURGICAL PATHOLOGY RECD BY: Vaughn Ann ENTERED: 08/12/24 12:11 SP TYPE: MARQUITA RIVERA DR: Dr. Mina Ly MD Tissues: A - Gallbladder, NOS Procedures: Surgery Specimen Level III HEADER OPERATION: Laparoscopic cholecystectomy with IOC PRE-OP DIAGNOSIS: Acute calculous cholecystitis TISSUE SUBMITTED: A- Gallbladder MICROSCOPIC DIAGNOSIS A. Gallbladder, cholecystectomy: * Mild acute inflammation. * Cholelithiasis. MICROSCOPIC DESCRIPTION Slides are reviewed. GROSS DESCRIPTION A.? Received in formalin labeled with the patient's name and date of . Designated as gallbladder is a 7.8 x 3.3 x 1.0 cm wilson-green, disrupted gallbladder with attached cystic duct (inked black, shaved).? A lymph node not present.? Opening reveals innumerable black choleliths, ranging <0 0.1-0.6 cm.? The mucosa is wilson-green and focally erythematous with a maximum wall thickness of 0.1 cm.? Cholesterolosis not present.? Licensed Electrician sections are submitted in 1 cassette. [place] 08/13/2024 CPT:00408
--- NOTE | 2024-08-11 14:49 | PCM.PRE.AN2 ---
ASA Classification* ASA Classification ASA Classification: 2 Assessment & Plan Anesthesia* Anesthesia Assessment Anesthesia Assessment: Discussed sedation and/or anesthesia options, risks, benefits, and alternatives with patient/parents/legal guardian/POA. Questions invited. The patient/parents/legal guardian/POA seems to understand and agrees to proceed with anesthesia plan. Reviewed the physical assessment, medical history, allergy history and patient home medications list prior to surgery/procedure/anesthetic and documented any changes. Performed airway and anesthesia risk assessments. Anesthesia Type Anesthesia Type: General (Patient is a Congregational. Does not want any blood or blood components.) History Source History Obtained from:: Patient and Chart Anesthesia Focused Assessment* Temperature: 97.9 F Pulse Rate: 67 Blood Pressure: 146/86 Respiratory Rate: 16 Pulse Ox: 99 Oxygen Delivery Method: Room Air Airway Assessment Mouth opens: >3 cm Mallampati Score: II Teeth Condition: Missing (Multiple missing teeth. Rest are tight.) Neck Range of motion (ROM): Full ROM Labs Anesthesia Preop lab: CBC WBC 8.8 K/mm3 (4.4-11.0) 08/11/24 01:13 08/11/24 RBC 3.94 M/mm3 (4.6-6.2) L 08/11/24 01:13 08/11/24 Hgb 12.0 g/dL (13.0-16.5) L 08/11/24 01:13 08/11/24 Hct 35.0 % (40-54) L 08/11/24 01:13 08/11/24 Plt Count 256 K/mm3 (150-450) 08/11/24 01:13 08/11/24 CHEMISTRY Potassium 4.1 mmol/L (3.3-5.1) 08/11/24 01:13 08/11/24 Sodium 136 mmol/L (133-145) 08/11/24 01:13 08/11/24 Magnesium 1.9 mg/dL (1.8-2.4) 03/04/14 05:36 03/04/14 Phosphorus 3.5 mg/dL (2.5-4.9) 03/04/14 05:36 03/04/14 BUN 13 mg/dL (4-19) 08/11/24 01:13 08/11/24 Creatinine 1.21 mg/dL (0.70-1.20) H 08/11/24 01:13 08/11/24 Glucose 120 mg/dL (70-99) H 08/11/24 01:13 08/11/24 POC Glucose 79 mg/dL (70-110) 03/03/14 19:28 03/03/14 TSH 1.64 uIU/mL (0.358-3.74) 03/03/14 19:05 03/03/14 COAG PT 13.7 SECONDS (11.7-14.9) 03/04/14 05:36 03/04/14 Pre-Assessment Diagnosis/Proposed Procedure Planned Operative Procedure(s): Laparoscopic cholecystectomy with intraoperative cholangiograms. 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 When Was Last Pacemaker Check QUESTION #4 FULL TEXT: You/Your Family Experience fever (hyperthermia) with Anesthesia Last Oral Intake Last Oral intake: Last Oral Intake NPO since Meds taken in AM with sips of water? 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 Female HX of Motion Sickness HX of N/V After Surgery Non-Smoker Duration of Surgery greater than 60 minutes Number of Risk Factors PONV Score Height & Weight Height & Weight: Anesthesia: Height & Weight Height 5 ft 6 in 08/11/24 12:31 Weight: 80 kg 08/11/24 12:31 Body Mass Index (BMI) 28.4 08/11/24 12:31 Respiratory Assessment Respiratory Assessment - wood machine carver: Respiratory Tract Infection Hx - wood machine carver Hx Respiratory Tract Infection No 08/11/24 12:31 STOP Sleep Apnea STOP Sleep Apnea - wood machine carver: STOP Sleep Apnea - wood machine carver Hx Hypertension No 08/11/24 12:31 Hx Sleep Apnea No 08/11/24 12:31 CPAP No 03/03/14 23:00 BIPAP No 03/03/14 23:00 Do you snore loudly (louder No 08/11/24 12:31 than talking or can be heard Do you often feel tired/ No 08/11/24 12:31 fatigued/ sleepy during daytime? Has anyone observed you stop No 08/11/24 12:31 breathing during sleep? STOP Results Negative 08/11/24 12:31 QUESTION #5 FULL TEXT : Do you snore loudly (louder than talking or can be heard through closed doors)? 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 Specify any problems Hx of Preganancy in last 3 Months Nurse Filling Out Transfusion & Questions: Date: Time: Patient unable to answer at this time (ie. confused, unrespo /Reproduction History /Reproductive History - wood machine carver: /Reproductive Hx- wood machine carver Hx Now No 08/11/24 12:31 Gestational Age (in weeks): EDC: Hx Hx Para Hx Section SAB Active Medications Active Medications: Current Medications Generic Name Dose Route Start Last Admin Trade Name Freq PRN Reason Stop Dose Admin Hydromorphone HCl 0.5 mg 08/11/24 09:50 Hydromorphone 0.5 Mg/0.5 Ml Syringe IV Q4H PRN PRN Pain Score 6-10 Sodium Chloride 1,000 mls @ 125 mls/hr 08/11/24 09:50 IV .Q8H JOSSIE Piperacillin Sod/Tazobactam 50 mls @ 12.5 mls/hr 08/11/24 14:00 Sod 3.375 gm/ Sodium Chloride IV Q8 JOSSIE Lactated Ringer's 1,000 mls @ 15 mls/hr 08/11/24 13:30 08/11/24 13:29 IV 15 mls/hr .Q48H JOSSIE Administration Ondansetron HCl 4 mg 08/11/24 09:50 Ondansetron 4 Mg/2 Ml Vial IV Q6H PRN PRN NAUSEA/VOMITING PFSH Medical History BPH (benign prostatic hyperplasia) Anemia HLD (hyperlipidemia) TIA (transient ischemic attack) Bradycardia Home Medications ?Medication ?Instructions ?Recorded ?Last Taken ?Type Coq10 1 tab PO DAILY 03/03/14 0630 Days Ago History ~06/11/12 1 Excedrin Extra Strength Caplet 500 mg PO PRN PRN Headache 03/03/14 03/03/14 16:30 History 500 Fish Oil 1,000 mg Capsule 1,000 mg PO DAILY 03/03/14 03/03/14 06:30 History 1000 saw palm 160 mg-vit E 100 1 tab PO DAILY 03/03/14 03/03/14 06:30 History unit-selen 100 1 ing-cfng-kivgdy-pygeum tablet (Prostate Health) Allergy/AdvReac Type Severity Reaction Status Date / Time No Known Allergies Allergy Verified 08/11/24 13:21 Social History Smoking Status: Never smoker Review of Systems (Anesthesia) ROS Narrative System reviewed and no additional complaints, except as documented.
[2024-08-11] MEDS: Piperacil/Tazobactam 3.375 GM in 0.9% Normal Saline (50mL MB+) 50 ML IV ×2 (16:00→22:59)
--- NOTE | 2024-08-11 17:00 | RAD_ITS ---
PROCEDURE: CHOLANGIOGRAM/ O R,INITIAL 08/11/2024 REASON FOR EXAM: LAP AMAYA TECHNIQUE: CHOLANGIOGRAM/ O R,INITIAL Intraoperative cholangiogram. Radiation time 26.2 seconds. Radiation dose 14.9 mGy. COMPARISON: Ultrasound exam on 08/11/2024. FINDINGS: Cholecystectomy. Intraoperative cholangiogram was performed. No filling defect is noted in the common bile duct. Free passage of the contrast through the duodenum without evidence of contrast leakage. RAD/Cholangiogram/ O R,Initial IMPRESSION: Unremarkable intraoperative cholangiogram. Reading [facility]
[2024-08-11] MEDS: Bupivacaine 0.25% 30 ML Vial (18:16)
--- NOTE | 2024-08-11 18:17 | OP.PCM_ITS ---
Procedures Digestive 40xxx-49xxx: 50484 Laparo cholecystectomy/graph Operative Report (Standard) Operative Information Date of Procedure: 08/11/24 Pre-Operative Diagnosis: Acute cholecystitis Post-Operative Diagnosis: Acute cholecystitis Surgery/Procedure Performed: Laparoscopic cholecystectomy with intraoperative cholangiography practical nursing instructor: Yes Child Protective Services Specialist: Aurora Loyd Tasks completed by or first assist registered nurse: Opening, Retracting and Other (Laparoscopic camera operation) Additional educational assistant teacher?: Yes Additional Flat Bed Knitter #2: Cornelia Alegre Tasks completed by educational assistant teacher #2: Closing, Retracting and Other (Laparoscopic camera operation) Type of Anesthesia: General/Supplemental RN Documented Start/Stop Times: Operation Date: 08/11/24 13:45 Case Time Into Pre-Op 08/11/24 12:56 Anesthesia Start 08/11/24 16:24 Into Room 08/11/24 16:24 Out of Pre-Op 08/11/24 16:33 Procedure Start 08/11/24 16:45 Procedure End 08/11/24 18:28 Anesthesia End 08/11/24 18:34 Out of Room 08/11/24 18:34 Into Recovery 08/11/24 18:37 Procedure Start Time: 16:45 Procedure Stop Time: 18:28 Select all DRAINS/GRAFTS/IMPLANTS that apply: None Estimated Blood Loss: 50 Specimen collected: Yes Description of specimen(s) removed: Gallbladder Description of surgery: After proper identification in the preoperative holding area the patient was brought to the operating room where he was positioned supine on the operating room table. Preoperatively SCDs were connected and antibiotics were re-ad ministered 3.375 g Zosyn. General anesthesia was then induced. Patient's abdomen was prepped and draped in usual sterile fashion. A formal timeout was conducted to confirm both patient and the procedure. Procedure was begun with a supraumbilical incision which was extended deeply down to the level of the fascia. The fascia was elevated and incised, as well as the peritoneum. A finger sweep was performed to ensure there were no underlying adhesions and a 12 mm balloon trocar was inserted. Pneumoperitoneum was established at 15 mmHg. Three additional trocars (all 5 mm initially?however, the epigastric port site was ultimately upsized to a 12 mm port later in the case) were placed in the epigastrium and in the right upper quadrant. Inspection of the peritoneum revealed no inadvertent injury to the viscera below. The gallbladder was visualized with evidence of acute inflammation and clear edema planes beneath the peritoneal lining. There were also several adhesions between the omentum and the liver capsule adjacent to the gallbladder. These adhesions were taken down carefully with the use of electrocautery to try to minimize capsular tear but several areas of oozing were addressed directly on the liver surface with application of additional selective electrocautery. The gallbladder fundus was then grasped and elevated cephalad. Using careful dissection the peritoneum was opened and the structures of the hepatocystic triangle were delineated. Once the critical view of safety was obtained, the cystic duct was singly clipped and partially divided with a ductotomy. There was backflow of bile. Using an Tompkins Sumaya clamp, a cholangiocatheter was fed into the proximal segment of the cystic duct and clamped into place. Under fluoroscopy a cholangiogram was then obtained showing a standard length cystic duct flowing into a common bile duct with unobstructed antegrade flow of contrast into the duodenum. There was also retrograde flow through the common hepatic duct into the right and left hepatic ducts. Satisfied with this result, the cholangiocatheter was withdrawn and the proximal cystic duct was dissected a little further as I noted the presence of a crossing branch from the main cystic artery to the duct and wanted to be sure the cystic duct was appropriately occluded with a dedicated clip so clearance was assured from this vessel. The duct was then sealed with clips and the cystic duct was completely transected. Unfortunately there was bleeding from the crossing artery and this vessel was then controlled in similar fashion using another Hem-o-richard clip. The same process was used for the main cystic artery. The gallbladder was then removed from the gallbladder fossa with the use of electrocautery. Selective electrocautery was used to obtain hemostasis in the gallbladder fossa. Unfortunately the posterior wall of the gallbladder was quite edematous and thinned and simply applying traction on the gallbladder to separate from the gallbladder fossa resulted in inadvertent spillage of bile and finding gallstones. Efforts were made to contain the spillage but ultimately I resolved to address the spillage immediately upon removing the gallbladder in its entirety. The gallbladder was placed in an Endo Catch bag. The subxiphoid port site was upsized to a 12 mm trocar to accommodate the larger suction bore and then Morison's pouch was irrigated and the effluent was suctioned free of the peritoneum. Hemostasis was again confirmed with application of some limited electrocautery on the gallbladder fossa as well as placement of a small patch of Surgicel. Pneumoperitoneum was evacuated and the fascia of the 12 mm port sites was closed with #1Vicryl in a ixllth-by-ilrwx fashion. A total of 30 mL of anesthetic was injected at the port sites for postoperative pain control. The skin of each port site was then closed in subcuticular fashion using 4-0 Monocryl. Steri-Strips and bandages were applied as dressings. Patient tolerated the procedure well without any apparent complications. On emergence from their anesthetic the patient was taken to PACU for ongoing recovery. \ Surgical Findings: ? Evidence of acute cholecystitis with edema planes just below the peritoneal surface of the gallbladder ? Friable gallbladder wall due to the above edema related to inadvertent rent of the gallbladder wall and local spillage of fine gallstones ? Normal biliary anatomy without filling defect on cholangiography Complications Complications: No Admit VTE Documentation VTE Mechan Device Prophylaxis: SCD's
--- NOTE | 2024-08-11 18:39 | PCM.POST.ANE ---
Anesthesia: Postop Eval I Current Vital Signs Temperature: 97.2 F Pulse Rate: 74 Blood Pressure: 189/92 Respiratory Rate: 18 Pulse Ox: 92 Oxygen Delivery Method: Nasal Cannula Oxygen Flow Rate (L/min): 2 Assessment Airway patent: Yes Spontaneous unlabored respirations: Yes Mental status: Awake nausea: No Vomiting: No Anesthesia Complication: No Fluid Hydration Crystalloid volume administer (ml): 1,000 Total IV fluid infused: 1,000 Progress Note Anesthesia document: Postop Eval 1 completed: Yes
[2024-08-11] MEDS: 0.9% Normal Saline (1000mL) 1,000 ML 125 ML IV (21:26)
--- NOTE | 2024-08-11 22:24 | PCM.POSTANE2 ---
Anesthesia Postop Eval I Sum Postop Eval Completion status Anesthesia document: Postop Eval 1 completed: Yes Anesthesia Postop Eval I Summary Anesthesia Postop Eval I Summary: Anesthesia Postop Eval I: Assessment Summary Airway patent Yes 08/11/24 18:45 Spontaneous unlabored Yes 08/11/24 18:45 respirations Mental status Awake 08/11/24 18:45 nausea No 08/11/24 18:45 Vomiting No 08/11/24 18:45 Anesthesia Postop Eval I: Fluid Summary Crystalloid volume administer 1,000 08/11/24 18:45 (ml) Colloids volume administered ( ml) Blood Product volume administered (ml) Total IV fluid infused 1,000 08/11/24 18:45 Anesthesia Postop Eval I: Summary Notes Anesthesia Complication No 08/11/24 18:45 Anesthesia Complication Comment: Post-operative progress note Anesthesia: Postop Eval II Evaluation Mental status: Awake Pain Level: 2 nausea: No Vomiting: No Complications Anesthesia Complication: No
[2024-08-12 00:35] VITALS: BP 153/91; PULSE 90; RESP 16; TEMP 36.6; O2SAT 97
[2024-08-12 03:54] VITALS: BP 131/87; PULSE 95; RESP 16; TEMP 36.8; O2SAT 95
[2024-08-12] MEDS: 0.9% Normal Saline (1000mL) 1,000 ML 125 ML IV (05:49)
[2024-08-12] MEDS: Piperacil/Tazobactam 3.375 GM in 0.9% Normal Saline (50mL MB+) 50 ML IV ×2 (05:49→14:48)
--- NOTE | 2024-08-12 06:59 | PN.SURG_ITS ---
Subjective Subjective Patient seen and examined during AM rounds, however, prior to seeing patient nursing called me in the hallway and indicated that patient was quite drowsy overnight and also experienced an episode of urinary retention requiring straight catheterization for a yield of 750 mL. Upon entering the room patient arouses easily. He states that he has mild discomfort but it is largely returned to the level he experienced immediately preoperatively (afterward and improved in the ER with pain medication). He has not yet voided since his straight catheterization but states that he has a history with prostate difficulties and reports nighttime awakenings approximately 4 times nightly Objective Data Objective Data Vital Signs: Vital Signs Temp Pulse Resp BP Pulse Ox O2 Del Method O2 Flow Rate 98.2 F 95 16 131/87 H 95 Room Air 2 08/12/24 03:54 08/12/24 03:54 08/12/24 03:54 08/12/24 03:54 08/12/24 03:54 08/12/24 03:54 08/12/24 00:35 FiO2 97 08/11/24 19:15 Oxygen Flow Rate (L/min) 2 Oxygen Delivery Method Room Air Weight: 176 lb 5.917 oz Body Mass Index (BMI) 28.4 Intake & Output: Intake and Output for Last 24 Hours 08/10/24 08/11/24 08/12/24 23:59 23:59 23:59 Intake Total 1266.5 / 1266.5 1050 / 1050 Output Total 5 / 5 750 / 750 Balance 1261.5 / 1261.5 300 / 300 Lab / Micro Data 08/12/24 07:00 08/12/24 07:00 Radiography Diagnostic Testing: Radiology Impression Gallbladder Ultrasound 08/11/24 04:15 IMPRESSION: Multiple gallstones. Mild gallbladder wall thickening. Small amount of pericholecystic fluid. Cholecystitis should be ruled out. Reading Location: [facility] Cholangiogram 08/11/24 17:00 IMPRESSION: Unremarkable intraoperative cholangiogram. [facility] Rhythm Strip Rhythm Strip: Sinus Rhythm Rate: 57 Ectopy: PAC(s) Physical Exam Const oriented x3 and no apparent distress Resp normal respiratory effort GI GI Narrative: Operative dressings in place with mild ecchymotic changes about the subxiphoid port site?otherwise unremarkable, nondistended, soft, appropriately tender to palpation about incisions. Assessment & Plan Assessment/Plan (1) Acute calculous cholecystitis: PLAN: Patient 83-year-old male who presents with 48 hours of progressive right upper quadrant postprandial discomfort. He is diagnosed with acute cholecystitis and underwent laparoscopic cholecystectomy with intraoperative cholangiography 08/11/2024. Today, postoperative day 1 patient has significantly improved from his drowsy postanesthetic state. He did require straight catheterization x 1 for urinary retention but I was later notified that patient was experiencing spontaneous voiding following the catheterization. On revisitation later in the day patient has significantly improved for his pain control and alertness. I held a nice discussion with patient and his family at bedside regarding both his postoperative expectations as well as preemptively addressing his risk for urinary retention. Given the clinical improvements noted, will plan for discharge home later today. Tommy Durand MD General Surgery Endocrine Surgery Pager: [facility] [address] [place] [address] [place] [address] Office: [phone] Charges/Coding Visit Charges Inpatient E&M: 64836 Subs Hosp L2
--- OUTSIDE RECORDS SUMMARY | 2024-08-12 07:26 | XMS RPT_ITS | CCD ---
Author Organization [facility] Care Team Providers Care [employer] Hcm Developer Name Role Phone Rita De La Cruz Unavailable Unavailable PROVIDER, UNKNOWN Unavailable Unavailable Jono, Rita Unavailable Unavailable Rita De La Cruz MD Primary Care Provider RITA DE LA CRUZ Referring Unavailable JONO, RITA Primary Care Unavailable JONO, RITA Attending Unavailable JONO, RITA Primary Care Unavailable JONO, RTIA Primary Care Unavailable MONCHO ROA Attending Unavailable RITA DE LA CRUZ Referring Unavailable JONO, RITA Primary Care Unavailable JONO, RITA Attending Unavailable JONO, RITA Primary Care Unavailable JONO, RITA Primary Care Unavailable RENE RODRIGUEZ Attending Unavailable JONO, RITA Primary Care Unavailable RENE RODRIGUEZ Attending Unavailable JONO, RITA Primary Care Unavailable Jono WITT, Dr. Enriquez Primary Care Provider [phone] Dr. Carol Leigh DO Emergency Provider Dr. Tommy Durand MD Attending Provider Dr. Tommy Durand MD Other Provider Medications Current Medications Medication Drug Class(es) Dates Sig (Normalized) Sig (Original) ciprofloxacin 500 mg oral tablet (3 sources) Quinolone Antimicrobial Start: 04-03-2023 End: 04-13-2023 take 1 tablet by mouth twice daily ciprofloxacin (Cipro) 500 MG tablet Take 1 tablet (500 mg) by mouth 2 times daily for 10 days. 20 tablet 0 04/03/2023 04/13/2023 Active Coq10 (1 source) Start: 03-03-2014 Coq10 Active 1 {tbl} PO DAILY March 03, 2014 1:00am docosahexaenoic acid 120 mg / eicosapentaenoic acid 180 mg oral capsule (14 sources) take 1 capsule by mouth once daily omega-3 (Fish Oil) 1000 MG capsule Take 1,000 mg by mouth daily. Active Excedrin Extra Strength Caplet (1 source) Start: 03-03-2014 Excedrin Extra Strength Caplet Active 500 mg PO NEEDED as needed for Headache March 03, 2014 1:00am Fish Oils (1 source) Start: 03-03-2014 take 1 capsule by mouth once daily Fish Oil 1,000 mg Capsule Active 1000 mg PO DAILY March 03, 2014 1:00am Misc Natural Products (PROSTATE HEALTH PO) (14 sources) Misc Natural Products (PROSTATE HEALTH PO) Take by mouth. Active Misc Natural Pro ducts (PROSTATE HEALTH PO) Take by mouth. 0 Active polyethylene glycol 3350 751345 mg / potassium chloride 2970 mg / sodium bicarbonate 6740 mg / sodium chloride 5860 mg / sodium sulfate 66197 mg powder for oral solution (1 source) Osmotic Laxative Start: 07-10-2023 End: 07-11-2023 polyethylene glycol (GaviLyte-G) 236 g solution Indications: Diverticulitis of large intestine without perforation or abscess without bleeding , Left sided abdominal pain Please take as directed by GI office for colonoscopy prep. 4000 mL 0 07/10/2023 07/11/2023 Active Saw-Vit E-Sod Fkk-Uzh-Hcue-Pyg (Prostate Health) 1 EACH tablet (1 source) Start: 03-03-2014 take 1 tablet by mouth once daily Saw-Vit E-Sod Yqp-Gun-Tufj-Pyg (Prostate Health) 1 EACH tablet Active 1 {tbl} PO DAILY March 03, 2014 1:00am ubidecarenone 100 mg / vitamin e 5 [...] Date Documented Da te Episodic/Chronic Abdominal pain (4 sources) Left sided abdominal pain; Translations: [Unspecified abdominal pain] Onset: 07-10-2023 07-10-2023 Episodic Biliary tract disease (3 sources) Acute cholecystitis due to biliary calculus; Translations: [Calculus of gallbladder with acute cholecystitis without obstruction] 08-11-2024 Episodic Cardiac dysrhythmias (1 source) Bradycardia; Translations: [Bradycardia, unspecified] 03-03-2014 Episodic Comment on above: unknown if he has brasher d bradycardia in the past Deficiency and other anemia (1 source) Anemia; Translations: [Anemia, unspecified] 03-03-2014 Episodic Disorders of lipid metabolism (19 sources) Hypercholesterolemia ; Translations: [Pure hypercholesterolemia , unspecified] Onset: 08-02-2019 08-26-2022 Chronic Comment on above: untreated Diverticulosis and diverticulitis (19 sources) Diverticulitis of large intestine; Translations: [Diverticulitis of large intestine without perforation or abscess without bleeding] Onset: 04-03-2023 04-03-2023 Chronic Headache; including migraine (14 sources) Migraine with aura; Translations: [Migraine with aura, not intractable, without status migrainosus] Onset: 12-05-2014 12-09-2021 Chronic Hyperplasia of prostate (19 sources) Benign prostatic hyperplasia; Translations: [Benign prostatic [...] Translations: [Change in bowel habit] 04-30-2023 Episodic Other nervous system disorders (1 source) Aphasia; Translations: [Aphasia] 03-03-2014 Chronic Other upper respiratory infections (1 source) Upper respiratory infection; Translations: [Acute upper respiratory infection, unspecified] 08-11-2018 Episodic Peripheral and visceral atherosclerosis (18 sources) [...] of the circulatory system] Onset: 09-03-2023 Episodic Syncope (1 source) Syncope; Translations: [Syncope and collapse] 08-11-2018 Episodic Transient cerebral ischemia (1 source) Cerebral ischemia; Translations: [Transient cerebral ischemic attack, unspecified] 03-03-2014 Chronic Unclassified (6 sources) Encounter for screening for [...] Test Name Value Interpretation Reference Range Facility Absolute lymphocyte countOrd ered By: Carol Leigh on 08-11-2024 Lymphocytes Auto (Unsp spec) [#/Vol] 1.14 10*3/uL 0.83-4.51 [facility] Absolute neutrophil countOrd ered By: Carol Leigh on 08-11-2024 Neutrophils (Bld) [#/Vol] 7.0 10*3/uL 2.0-7.7 [facility] Anion gap in Serum or Plasma Ordered By: Carol Leigh on 08-11-2024 Anion gap [Moles/Vol] 14 mmol/L 5-15 [facility] Automated lymphocyte count a s percentage of total leukocytesOrdered By: Carol Leigh on 08-11-2024 Lymphocytes/100 WBC Auto (Unsp spec) 13.0 % Low 19-41 [facility] BUN/creatinine ratioOrdered By: Carol Leigh on 08-11-2024 Urea nitrogen/Creatinine [Mass ratio] 10.3 mg/mg 10-20 [facility] Basophil percentageOrdered B y: Carol Leigh on 08-11-2024 Basophils/100 WBC (Bld) 0.2 % 0-1 [facility] Bilirubin Test strip Ql (U)O rdered By: Carol Leigh on 08-11-2024 Bilirubin Ql (U) Negative Negative [facility] Bilirubin, totalOrdered By: Carol Leigh on 08-11-2024 Bilirubin [Mass/Vol] 0.37 mg/dL 0.00-1.30 [facility] Carbon dioxide, total [Moles /volume] in Central venous bloodOrdered By: Carol Leigh on 08-11-2024 CO2 [Moles/Vol] 22.9 mmol/L 21.0-32.0 [facility] Chloride assayOrdered By: Jw Leigh on 08-11-2024 Chloride [Moles/Vol] 100 mmol/L 98-108 [facility] Eosinophil percentageOrdered By: Carol Leigh on 08-11-2024 Eosinophils/100 WBC (Bld) 0.7 % 0-5 [facility] Erythrocyte distribution wid th ratioOrdered By: Carol Leigh on 08-11-2024 Erythrocyte distribution width (RBC) [Ratio] 13.9 % 11.6-14.6 [facility] Erythrocyte distribution wid th standard deviationOrdered By: Carol Leigh on 08-11-2024 Erythrocyte distribution width (RBC) [Ratio] 44.8 fl High 35.1-43.9 [facility] Glomerular filtration rate ( GFR) estimation/1.73 sq m using serum, plasma, or whole bOrdered By: Carol Leigh on 08-11-2024 GFR/1.73 sq M.predicted among non-blacks MDRD (S/P/Bld) [Vol rate/Area] 59 mL/min/{1.73_m2} Low >60 [facility] Comment on above: mL/min/1.73m2 CKD-EP I Creatinine Equation (2020) Hematocrit Auto (Bld) [Volum e fraction]Ordered By: Carol Leigh on 08-11-2024 Hematocrit (Bld) [Volume fraction] 35.0 % Low 40-54 [facility] Hemoglobin measurementOrdere d By: Carol Leigh on 08-11-2024 Hemoglobin (Bld) [Mass/Vol] 12.0 g/dL Low 13.0-16.5 [facility] Immature granulocytes/100 WB C Auto (Bld)Ordered By: Carol Leigh on 08-11-2024 Immature granulocytes/100 WBC (Bld) 0.200 % 0.0-0.9 [facility] Comment on above: IG% - Immature Granu locytes (promyelocytes, myelocytes and metamyelocytes) > 1% indicates that a LEFT SHIFT is Present. Ketones Test strip Ql (U)Ord ered By: Carol Leigh on 08-11-2024 Ketones Ql (U) Negative Negative [facility] Laboratory - Chemistry and C hemistry - challengeOrdered By: Carol Leigh on 08-11-2024 AST [Catalytic activity/Vol] 25 U/L <38 [facility] Lipase measurementOrdered By : Carol Leigh 08-11-2024 Lipase [Catalytic activity/Vol] 49 U/L 13-75 [facility] Comment on above: Please note:LIPASE r evised reference range effective 22. New Lipase methodology. Expected to produce lower values than the previous assay method. NEW Reference Range: 13 - 75 U/L MCV (mean corpuscular volume ) determinationOrdered By: Carol Leigh on 08-11-2024 MCV (RBC) [Entitic vol] 88.8 fL 80-94 [facility] Mean corpuscular hemoglobin (MCH) determinationOrdered By: Carol Leigh on 08-11-2024 MCH (RBC) [Entitic mass] 30.5 pg 27.0-32.0 [facility] Mean corpuscular hemoglobin concentration (MCHC) determinationOrdered By: Carol Leigh on 08-11-2024 MCHC (RBC) [Mass/Vol] 34.3 g/dL 32-36 [facility] Mean platelet volume determi nationOrdered By: Carol Leigh on 08-11-2024 Platelet mean volume (Bld) [Entitic vol] 10.4 fL 6.2-12.0 [facility] Microscopic analysis of urin e for red blood cells (RBC)Ordered By: Carol Leigh on 08-11-2024 Microscopic analysis of urine for red blood cells (RBC) 0 SEEN /hpf 0-5 [facility] Monocyte percentageOrdered B y: Carol Leigh on 08-11-2024 Monocytes/100 WBC (Bld) 5.8 % 0-10 [facility] Mucus LM Ql (Urine sed)Order ed By: Carol Leigh on 08-11-2024 Mucus Ql (Urine sed) 0 SEEN /hpf [facility] Neutrophil percentageOrdered By: Carol Leigh on 08-11-2024 Neutrophils/100 WBC (Bld) 80.1 % High 47-70 [facility] Nitrite Test strip Ql (U)Ord ered By: Carol Leigh on 08-11-2024 Nitrite Ql (U) Negative Negative [facility] Nucleated red blood cell per centageOrdered By: Caorl Leigh on 08-11-2024 Nucleated RBC/100 WBC (Bld) [Ratio] 0 % 0-5 [facility] Platelet countOrdered By: Jw Leigh on 08-11-2024 Platelets (Bld) [#/Vol] 256 10*3/uL 150-450 [facility] Potassium measurement (mass/ volume)Ordered By: Carol Leigh on 08-11-2024 Potassium (Unsp spec) [Mass/Vol] 4.1 mmol/L 3.3-5.1 [facility] Protein Test strip Ql (U)Ord ered By: Carol Leigh on 08-11-2024 Protein Ql (U) 15 mg/dl High Negative [facility] RBC Auto (Bld) [#/Vol]Ordere d By: Carol Leigh on 08-11-2024 RBC (Bld) [#/Vol] 3.94 10*6/uL Low 4.6-6.2 [facility] Serum creatinine measurement (mass/volume)Ordered By: Carol Leigh on 08-11-2024 Creatinine [Mass/Vol] 1.21 mg/dL High 0.70-1.20 [facility] Serum globulin measurementOr dered By: Carol Leigh on 08-11-2024 Globulin (S) [Mass/Vol] 2.6 g/dL 2.2-4.2 [facility] Serum glucose measurement (m ass/volume)Ordered By: Carol Leigh on 08-11-2024 Glucose [Mass/Vol] 120 mg/dL High 70-99 [facility] Serum or plasma alanine quintero otransferase (ALT) measurementOrdered By: Carol Leigh on 08-11-2024 ALT [Catalytic activity/Vol] 22 U/L <47 [facility] Serum or plasma albumin nora urement (mass/volume)Ordered By: Carol Leigh on 08-11-2024 Albumin [Mass/Vol] 4.4 g/dL 3.4-4.8 [facility] Serum or plasma albumin/glob ulin mass ratioOrdered By: Carol Leigh on 08-11-2024 Albumin/Globulin [Mass ratio] 1.7 {ratio} 0.9-2.4 [facility] Serum or plasma alkaline maricruz sphatase measurementOrdered By: Carol Leigh on 08-11-2024 ALP [Catalytic activity/Vol] 139 U/L High 40-129 [facility] Serum or plasma calcium nora urement (mass/volume)Ordered By: Carol Leigh on 08-11-2024 Calcium [Mass/Vol] 9.6 mg/dL 7.6-11.0 [facility] Serum or plasma urea nitroge n measurement (mass/volume)Ordered By: Carol Leigh on 08-11-2024 Urea nitrogen [Mass/Vol] 13 mg/dL 4-19 [facility] Sodium levelOrdered By: Antonia Leigh on 08-11-2024 Sodium [Moles/Vol] 136 mmol/L 133-145 [facility] Squamous epithelial cells de tection in urine sediment by light microscopyOrdered By: Carol Leigh on 08-11-2024 Epithelial cells.squamous LM Ql (Urine sed) 0 SEEN /hpf 0-5 [facility] Total proteinOrdered By: Marii Leigh on 08-11-2024 Protein [Mass/Vol] 7.0 g/dL 5.9-8.4 [facility] Troponin T.cardiac [Mass/vol ume] in Serum or Plasma by High sensitivity methodOrdered By: Carol Leigh on 08-11-2024 Troponin T.cardiac High sensitivity method [Mass/Vol] 17 ng/L <22 [facility] Troponin T.cardiac High sensitivity method [Mass/Vol] 19 ng/L <22 [facility] Urine clarityOrdered By: Marii Leigh on 08-11-2024 Clarity (U) Sl. Cloudy Clear [facility] Urine color determinationOrd ered By: Carol Leigh on 08-11-2024 Color (U) Straw Yellow [facility] Urine glucose detectionOrder ed By: Carol Leigh on 08-11-2024 Glucose Ql (U) Normal mg/dl Normal [facility] Urine leukocyte esterase det ection by dipstickOrdered By: Carol Leigh on 08-11-2024 Leukocyte esterase Test strip Ql (U) Negative Negative [facility] Urine pHOrdered By: Carol alexander on 08-11-2024 pH (U) 8.0 [pH] 5.0 - 8.0 [facility] Urine sediment bacteria coun t by microscopy (number/high power field)Ordered By: Carol Leigh on 08-11-2024 Bacteria LM.HPF (Urine sed) [#/Area] 0 /[HPF] None Seen [facility] Urine specific gravity measu rementOrdered By: Carol Leigh on 08-11-2024 Specific gravity (U) [Rel density] 1.010 1.002-1.030 [facility] Urine urobilinogen measureme ntOrdered By: Carol Leigh on 08-11-2024 Urobilinogen Ql (U) Normal mg/dl Normal [facility] White blood cell (WBC) count Ordered By: Carol Leigh on 08-11-2024 WBC (Bld) [#/Vol] 8.8 10*3/uL 4[facility]4-[facility] White blood cell countOrdere d By: Carol Leigh on 08-11-2024 White blood cell count 0 SEEN /hpf 0-5 [facility] 36on 09-10-[address] [facility] 36 Notified and scheduled. Sent to [facility] please, med pended. Normal [facility] 36 Blood pressure continues to be slightly elevated would recommend starting patient on losartan 50 mg daily and recheck in 1 week Normal [facility] 36 Don came in for a BP check. Readings were 173/93 pulse 60 and 146/92 pulse 58. Normal [facility] Progress Noteon 09-10-2023 Progress Note [address] [facility] [address] Patient arrived for nurse visit today and was verified by name and . Supervising provider for clinic visit Dr. De La Cruz is currently not taking any anti- hypertensive medications Shortness of breath no Medication compliance yes Medication Reconciliation yes B/P Reading taken automatic Patient advised if follow up is needed, outreach will occur in [address] [facility] 36on 09-08-2023 36 Spoke to patient, no questions. [facility] 36on 09-05-2023 36 okay, he needs to take at least 4 g of fish oil to have effect on his cholesterol and triglycerides Normal [facility] 36on 09-04-2023 36 Patient stated he does not like the cholesterol medication and would prefer to increase fish oil medication. [facility] 36 Message released to patient as written. ----- Message from iRta De La Cruz MD sent at 09/04/2023 [...] relayed to the patient from encounter: Yes Normal [facility] 36 ----- Message from Rita De La Cruz [...] no nurse visit is needed. Thanks! Normal [facility] Office Visiton 09-03-2023 Follow-up visit [id number] Flavio Buenrostro 1940 Date Provider Department Center 09/03/2023 [id number]-EOIPVURITA DE LA CRUZ [facility] Family History Problem Relation Age of Onset Cancer Father Comments: Brain Other Mother Family Status - Relation Status Age at Father Mother Level of Service:G0439 [place] PPPS, SUBSEQ VISIT Reason for Visit and Comments: Medicare Annual Wellness Visit Subsequent [077] Blood Work [105838] Health Maintenance [872] - Shingles vaccine- declined Rsv vaccine- not done 4 covid vaccine- not done Tdap vaccine- declined Normal [facility] Progress Noteon 09-03-2023 Progress Note Blood pressure was initially elevated, recheck was still [id number] in 1 week for blood pressure check. Continue very strict low-sodium diet Normal [facility] Progress Note Discussed risk factors for aortic aneurysms and currently he is declining to get any imaging studies. Normal [facility] Progress Note Uncontrolled, currently on no medications we will recheck his levels today. Normal [facility] Progress Note Stable, using OTC medication for his prostate Normal [facility] Progress Note Stable, currently brasher s no complaints Normal [facility] Progress Note Patient verified by last name and date of . Normal [facility] Progress Note [facility] [address] [facility] [id number] Visit Type: Medicare Annual Wellness PCP: Rita De La Cruz MD Reason for Visit: Medicare Annual Wellness Visit Subsequent, Blood Work, and Health Maintenance (Shingles vaccine- declined /Rsv vaccine- not done /4 covid vaccine- not done/Tdap vaccine- declined ) Assessment and Plan Problem List Items Addressed This Visit Blood pressure elevated without history of HTN Blood pressure was initially elevated, recheck was still [id number] in 1 week for blood pressure check. [...] about 1 year (around 09/02/2024). Subjective ADELINE Gale comes in today for his annual [...] Do you have (more content not included)... [address] 09-01-2023 36 LM to pre-visit plan for appointment with Dr De La Cruz on 09/03/23 7am. Please ask patient to arrive 10 minutes early with Photo ID, insurance card Fasting: yes Put call through to office for pvp [address] 08-20-2023 36 Order signed per request. [place] [address] He already saw them and discussed it with them and they said it was fine. Order pended for cologuard. Will mail rx for handicap placard once signed. [place] [address] With his history of diverticulitis and left sided abdominal pain I would recommend a colonoscopy versus a home Cologuard test. I see he follows up with GI- would recommend discussing with them if they feel this would be appropriate or not. Handicap placard placed. [facility] 36 Patient stopped in and said he would like to do the Cologuard instead of a Colonoscopy for now, are you able to put in an order for that? He also asked if he can have a handicap placard RX, he has been having a hard time walking far distances. Thank you! [address] 07-10-2023 36 Called pt to schedul e him for a Colonoscopy. Pt did not answer LM and provided office number. 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 [phone] --please contact office with any recurrence of symptoms. --Schedule colonoscopy for further evaluation of the symptoms. --A prescription for GoLytely was sent to your pharmacy. This is the bowel prep for your colonoscopy. --Please see handout provided regarding additional recommendations for the symptoms including when to seek emergency care or further treatment. --Follow-up with PCP, and in GI clinic as needed. 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 Patient verbalized understanding and agreement of plan. Follow up if symptoms worsen or fail to improve. Subjective HPI Patient is new to [facility]. He is referred by Dr. De [...] Age of Onset Cancer Father Brain Other ([address]) Mother Objective BP (!) 150/86 Pulse 59 [...] Affect: Mood nor (more content not included)... [facility] 07-07-2023 36 Patient stopped into office. Relayed information to him, states he will keep his appointment on the with gastro. [facility] 07-03-2023 36 Left a message to return call. CAC: If Jean calls back, please relay information to him. Thank you! [facility] 36 I think with his history of diverticulitis and the change that he had in his bowels that he should at least meet with a telecommunications facility examiner and get their opinion as to whether he needs a colonoscopy. [facility] 07-02-2023 36 Name of caller: Baljinder Contact phone number: [phone] Relationship to Patient: patient Provider: Rene Practice: [facility] Chief Complaint/Reason for Call: Patient states that [...] business hours to return their call: N/A [facility] Office Visiton 05-12-2023 Follow-up visit [id number] Flavio Buenrostro 1940 M Date Provider Department Center 05/12/2023 [id number]-GVENDRENE RODRIGUEZ [facility] Family History Problem Relation Age of Onset Cancer Father Comments: Brain Other Mother Family Status - Relation Status Age at Father Mother Level of Service:98934 [place] OFFICE/OUTPATIENT ESTABLISHED SF MDM 10 MIN Reason for Visit and Comments: Follow-up [805978] - Constipation follow up Health Maintenance [872] - RSV- 4th Covid- AWV- Constipation [057117] - Has gotten a little bit better since last time. Wants to talk about colonoscopy possibilities. [facility] Progress Noteon 05-12-2023 Progress Note Patient verified by last name and . [facility] Progress Note 05/12/2023 Jean Buenrostro (: 1940) [...] VIKI Oro CNP 05/12/2023 9:42 AM Normal [facility] Office Visiton 04-30-2023 Follow-up visit [id number] Flavio Buenrostro 1940 Date Provider Department Center 04/30/2023 [id number]-LZYWDRENE RODRIGUEZ [facility] Family History Problem Relation Age of Onset Cancer Father Comments: Brain Other Mother Family Status - Relation Status Age at Father Mother Level of Service:16570 [place] OFFICE/OUTPATIENT ESTABLISHED LOW [facility] 20 MIN Reason for Visit and Comments: Constipation [755104] Normal [facility] PATINSon 04-30-2023 PATINS Continue adequate water intake. Continue Probiotic Metamucil Fiber Get up and walk around frequently Normal [facility] Progress Noteon 04-30-2023 Progress Note 04/30/2023 Jean [...] Miralax daily. Is scheduled to see a telecommunications facility examiner in June. Review of Systems Constitutional: Negative [...] Impression [facility] 1940 [id number] Ex[facility] Date/Time: 04/03/2023 15:30 Procedure: CT ABDOMEN [...] note. VIKI Oro CNP 04/30/2023 9:[address] [facility] Progress Note Patient was verified by name and . [facility] 36on 04-29-2023 36 S: [facility], not [...] bowel movement. Could also get Senokot S [id number]-wvvulye and take 2 of them at bedtime [...] is more swollen than usual Protocols used: [id number] [facility] 36on 04-14-2023 36 Notified. Normal [facility] 36 He should be finishe d with the antibiotics, if not stop them if he is not having any pain, okay to take MiraLAX once a day until has a good bowel movement. Could also get Senokot S [id number] and take 2 of them at bedtime and see if that gets his bowels moving in the morning. Normal [facility] 36 S: Patient spoke wit h [facility] nurse regarding medication issue. B: Onset [...] to answer question Protocols used: Medication Question [id number] [facility] 36on 04-10-2023 36 Referral done for [place] [address] Notified, agreeable but doesn't want to go far. [place] [address] I would recommend that we refer him to a telecommunications facility examiner and then they can decide whether he needs the colonoscopy [place] [address] Jean asked if he needs a follow up colonoscopy after having diverticulitis? [place] [address] Notified. [place] [address] Blood pressure borderline, recommend very very strict low-sodium diet and increase exercise [place] [address] Jean came in for a BP check, readings were 146/87 and 137/[address] [facility] Progress Noteon 04-10-2023 Progress Note 25 S [facility] [id number] Patient arrived for nurse visit today and was verified by name and . Supervising provider for clinic visit Dr. De La Cruz is currently not taking any anti- hypertensive medications Shortness of breath no B/P Reading taken automatic Home Monitoring yes Patient advised if follow up is needed, outreach will occur in [address] [facility] CBC W Auto Differential pane l (Bld)on 04-03-2023 Basophils (Bld) [#/Vol] 28 10*3/uL [facility] Basophils/100 WBC (Bld) 0.6 % [facility] Eosinophils (Bld) [#/Vol] 183 10*3/uL [facility] Eosinophils/100 WBC (Bld) 3.9 % [facility] Erythrocyte distribution width (RBC) [Ratio] 13.4 % 11.0 - 15.0 % [facility] Hematocrit (Bld) [Volume fraction] 39.4 % 38.5 - 50.0 % [facility] Hemoglobin (Bld) [Mass/Vol] 13.5 g/dL 13.2 - 17.1 g/dL [facility] Lymphocytes (Bld) [#/Vol] 1382 10*3/uL [facility] Lymphocytes/100 WBC (Bld) 29.4 % [facility] MCH (RBC) [Entitic mass] 30.5 pg 27. 0 - 33.0 pg [facility] MCHC (RBC) [Mass/Vol] 34.3 g/dL 32.0 - 36.0 g/dL [facility] MCV (RBC) [Entitic vol] 89.1 fL 80.0 - 100.0 fL [facility] Monocytes (Bld) [#/Vol] 625 10*3/uL [facility] Monocytes/100 WBC (Bld) 13.3 % [facility] Neutrophils (Bld) [#/Vol] 2482 10*3/uL [facility] Neutrophils/100 WBC (Bld) 52.8 % [facility] Platelet mean volume (Bld) [Entitic vol] 11.1 fL 7.5 - 12.5 fL [facility] Platelets (Bld) [#/Vol] 253 10*3/uL [facility] RBC (Bld) [#/Vol] 4.42 10*6/uL [facility] WBC (Bld) [#/Vol] 4.7 10*3/uL [facility] CT ABDOMEN PELVIS WO [facility] ABDOMEN PELVIS WO IV CONTRAST [...] PM EST LEFT SIDE ABD PAIN Normal [facility] CT Abdomen WO contraston Cholelithiasis. Report Dictated on Electronically Signed By: Rodri Street MD Electronically Signed Date/Time: 04/03/2023 3:38 PM EST [facility] Patient Name: JEAN BUENROSTRO : 1940 [...] fluid. No lymphadenopathy. The bladder is unremarkable. [facility] Rodri Street MD - 04/03/2023 Patient Name: [...] Electronically Signed Date/Time: 04/03/2023 3:38 PM EST [facility] Radiology Study observation (narrative) [facility] asim CT Abdomen WO Shaq marsh By: Rodri Street on 04-03-2023 [facility] [employer] Work Phone: Comprehensive metabolic 1998 panelon 04-03-2023 Albumin [Mass/Vol] 4.5 g/dL 3.6 - 5.1 g/dL [facility] [employer] Albumin/Globulin [Mass ratio] 1.7 {ratio} [facility] [employer] ALP [Catalytic activity/Vol] 117 U/L 35 - 144 U/L [facility] [employer] ALT [Catalytic activity/Vol] 25 U/L 9 - 46 U/L [facility] [employer] AST [Catalytic activity/Vol] 23 U/L 10 - 35 U/L [facility] [employer] Bilirubin [Mass/Vol] 0.6 mg/dL 0.2 - 1 .2 mg/dL [facility] [employer] Calcium [Mass/Vol] 9.7 mg/dL 8.6 - 10. 3 mg/dL [facility] [employer] Chloride [Moles/Vol] 103 mmol/L 98 - 11 0 mmol/L [facility] [employer] CO2 [Moles/Vol] 28 mmol/L 20 - 32 mmol/L [facility] [employer] Creatinine [Mass/Vol] 1.14 mg/dL 0.70 - 1.22 mg/dL [facility] [employer] GFR/1.73 sq M.predicted among non-blacks MDRD (S/P/Bld) [Vol rate/Area] 64 mL/min/{1.73_m2} > OR = 60 mL/min/1.73m 2 [facility] [employer] Globulin (S) [Mass/Vol] 2.6 g/dL [facility] Glucose [Mass/Vol] 89 mg/dL 65 - 99 mg/dL [facility] [employer] Comment on above: Fasting reference interval Potassium [Moles/Vol] 4.3 mmol/L 3.5 - 5.3 mmol/L [facility] [employer] Protein [Mass/Vol] 7.1 g/dL 6.1 - 8.1 g/dL [facility] [employer] Sodium [Moles/Vol] 138 mmol/L 135 - 146 mmol/L [facility] [employer] Urea nitrogen [Mass/Vol] 11 mg/dL 7 - 25 mg/d L [facility] [employer] Urea nitrogen/Creatinine [Mass ratio] SEE NOTE: [facility] Comment on above: Not Reported: BUN an d Creatinine are within reference range. No Panel Informationon 04-03 [facility] Office Visiton 04-03-2023 Follow-up visit [id number] Flavio Buenrostro 1940 M Date Provider Department Center 04/03/2023 [id number] DE LA CRUZJAIRO [facility] Family History Problem Relation Age of Onset Cancer Father Comments: Brain Other Mother Family Status - Relation Status Age at Father Mother Level of Service:41857 [place] OFFICE/OUTPATIENT ESTABLISHED MOD MDM 30 MIN Reason for Visit and Comments: Abdominal Pain [511859] - Left mid abdominal - started Friday worse in the evening Normal [facility] Progress Noteon 04-03-2023 Progress Note Blood pressure was initially elevated, recheck was still a little high follow-up in 1 week for blood pressure check after abdominal pain is resolved. Normal [facility] Progress Note Cipro 500 twice a da y and Flagyl 503 times a day started for 10 days. CBC and CMP to be done. Stat abdominal CT scan. Normal [facility] Progress Note 04/03/2023 Jean Buenrostro (: 1940) [...] De La Cruz MD 04/03/2023 12:[address] [facility] Progress Note Patient verified by last name and date of . [facility] 36on 04-02-2023 36 S: Patient called [facility] clinical access [place] with complaint of Feeling bloated, and have pain in bottom of left side between lower rib and hip B: Ongoing 3 days. A: Patient c/o pain in his lower left rib and hip closer to center of his stomach 4-07/03. Thinks it might be diverticulitis. Pain with [...] 60 years Protocols used: Abdominal Pain - [id number] [facility] VL Aorta Iliac Duplex Scr fo r Medicareon 11-28-2017 VL Aorta Iliac Duplex Scr for Medicare Patient Name: JEAN BUENROSTRO Ultrasound Exam Date/Time 11/28/2017 10:01:38 EDT Exam VL Aorta Iliac Duplex Scr for Medicare Ordering Physician MD JONO, RITA VASQUEZ Accession Number [id number] CPT4 Codes 33997 () Reason For Exam aaa screening Report [...] R Transcribed Date and Time: 11/28/2017 10:01 [facility] Vital Signs Date Time Vital Sign Value Performing Clinician Faci lity 08-11-2024 12:44-0400 Body temperature 97.9 [degF] Dr. Rita De La Cruz MD Work Phone: [facility] 08-11-2024 12:44-0400 Diastolic blood pressure 86 mm[Hg] Dr. Rita De La Cruz MD Work Phone: [facility] 08-11-2024 12:44-0400 Heart rate 67 /min Dr. Rita De La Cruz MD Work Phone: [facility] 08-11-2024 12:44-0400 Respiratory rate 16 /min Dr. Rita De La Cruz MD Work Phone: [facility] 08-11-2024 12:44-0400 SaO2% (BldA) [Mass fraction] 99 % Dr. Rita De La Cruz MD Work Phone: [facility] 08-11-2024 12:44-0400 Systolic blood pressure 146 mm[Hg] Dr. Rita De La Cruz MD Work Phone: [facility] 08-11-2024 12:31-0400 Body height 167.[address] Rita De La Cruz MD Work Phone: [facility] 08-11-2024 12:31-0400 Body mass index (BMI) [Ratio] 28.4 kg/m2 Dr. Rita De La Cruz MD Work Phone: [facility] 08-11-2024 12:31-0400 Body weight [address] Rita De La Cruz MD Work Phone: [facility] 09-03-2023 07:24-0400 Diastolic blood pressure 90 mm[Hg] Rita De La Cruz MD Work Phone: [facility] 09-03-2023 07:24-0400 Heart rate 64 /min Rita De La Cruz MD Work Phone: [facility] 09-03-2023 07:24-0400 Systolic blood pressure 152 mm[Hg] Rita De La Cruz MD Work Phone: [facility] 09-03-2023 06:51-0400 Body height 170.2 cm Rita De La Cruz MD Work Phone: [facility] [employer] 09-03-2023 06:51-0400 Body mass index (BMI) [Ratio] 27.19 kg/m2 Rita De La Cruz MD Work Phone: [facility] [employer] 09-03-2023 06:51-0400 Body weight 78.74 kg Rita De La Cruz MD Work Phone: [facility] [employer] 09-03-2023 06:51-0400 SaO2% (BldA) [Mass fraction] 95 % Rita De La Cruz MD Work Phone: [facility] [employer] 07-10-2023 08:11-0400 Body height 170.2 cm Moncho Forester [employer] - RETURNS CLERK Work Phone: [facility] [employer] 07-10-2023 08:11-0400 Body mass index (BMI) [Ratio] 27.16 kg/m2 Moncho Forester [employer] SHADE MAKER - RETURNS CLERK Work Phone: [facility] [employer] 07-10-2023 08:11-0400 Body weight 78.65 kg Moncho Forester W[employer] SHADE MAKER - RETURNS CLERK Work Phone: [facility] [employer] 07-10-2023 08:11-0400 Diastolic blood pressure 86 mm[Hg] Moncho Forester W[employer] SHADE MAKER - RETURNS CLERK Work Phone: [facility] [employer] 07-10-2023 08:11-0400 Heart rate 59 /min Moncho Forester W[employer] SHADE MAKER - RETURNS CLERK Work Phone: [facility] [employer] 07-10-2023 08:11-0400 Systolic blood pressure 150 mm[Hg] Moncho Forester WIRE [employer] SHADE MAKER - RETURNS CLERK Work Phone: [facility] [employer] 05-12-2023 09:29-0400 Diastolic blood pressure 82 mm[Hg] Rene Rodriguez W[employer]ADE MAKER - RETURNS CLERK Work Phone: [facility] [employer] 05-12-2023 09:29-0400 Systolic blood pressure 136 mm[Hg] Rene Rodriguez W[employer] SHADE MAKER - RETURNS CLERK Work Phone: [facility] [employer] 05-12-2023 09:12-0400 Body height 167.6 cm Rene Rodriguez W[employer]ADE MAKER - RETURNS CLERK Work Phone: [employer] 05-12-2023 09:12-0400 Body mass index (BMI) [Ratio] 28.08 kg/m2 Rene Rodriguez [employer]ADE MAKER - RETURNS CLERK Work Phone: [employer] [facility] [employer] 05-12-2023 09:12-0400 Body weight 78.93 kg Rene Rodriguez W[employer]ADE MAKER - RETURNS CLERK Work Phone: [employer] 05-12-2023 09:12-0400 Heart rate 63 /min Rene Rodriguez W[employer] MA[employer] - RETURNS CLERK Work Phone: [employer] 05-12-2023 09:12-0400 SaO2% (BldA) [Mass fraction] 93 % Rene Rodriguez W[employer] MAKER - RETURNS CLERK Work Phone: [employer] [facility] [employer] 04-30-2023 08:56-0500 Body height 167.6 cm Rene Rodriguez W[employer]ADE MAKER - RETURNS CLERK Work Phone: [employer] 04-30-2023 08:56-0500 Body mass index (BMI) [Ratio] 27.12 kg/m2 Rene Rodriguez [employer] MAKER - RETURNS CLERK Work Phone: [employer] 04-30-2023 08:56-0500 Body weight 76.2 kg Rene Rodriguez W[employer] MAKER - RETURNS CLERK Work Phone: [employer] 04-30-2023 08:56-0500 Diastolic blood pressure 78 mm[Hg] Rene Rodriguez W[employer] MAKER - RETURNS CLERK Work Phone: [employer] 04-30-2023 08:56-0500 Heart rate 73 /min Rene Rodriguez W[employer] MAK[employer] - RETURNS CLERK Work Phone: [employer] 04-30-2023 08:56-0500 SaO2% (BldA) [Mass fraction] 98 % Rene Rodriguez W[employer] MAKER - RETURNS CLERK Work Phone: [employer] 04-30-2023 08:56-0500 Systolic blood pressure 119 mm[Hg] Rene Rodriguez W[employer] MAKER - RETURNS CLERK Work Phone: [employer] 04-03-2023 11:48-0500 Diastolic blood pressure 81 mm[Hg] Rita De La Cruz MD Work Phone: [employer] [facility] [employer] 04-03-2023 11:48-0500 Heart rate 71 /min Rita De La Cruz MD Work Phone: [employer] [facility] [employer] 04-03-2023 11:48-0500 Systolic blood pressure 146 mm[Hg] Rita De La Cruz MD Work Phone: [employer] [facility] [employer] 04-03-2023 11:20-0500 Body height 167.6 cm Rita De La Cruz MD Work Phone: [employer] [facility] [employer] 04-03-2023 11:20-0500 Body mass index (BMI) [Ratio] 27.99 kg/m2 Rita De La Cruz MD Work Phone: [employer] [facility] [employer] 04-03-2023 11:20-0500 Body weight 78.65 kg Rita De La Cruz MD Work Phone: [employer] [facility] [employer] 04-03-2023 11:20-0500 SaO2% (BldA) [Mass fraction] 95 % Rita De La Cruz MD Work Phone: [employer] [facility] 08-26-2022 07:40-0400 Diastolic blood pressure 84 mm[Hg] Rita De La Cruz MD Work Phone: [employer] [facility] 08-26-2022 07:40-0400 Heart rate 63 /min Rita De La Cruz MD Work Phone: [employer] [facility] 08-26-2022 07:40-0400 Systolic blood pressure 129 mm[Hg] Rita De La Cruz MD Work Phone: [employer] [facility] [employer] 08-26-2022 06:56-0400 Body height 167.6 cm Rita De La Cruz MD Work Phone: [employer] [facility] [employer] 08-26-2022 06:56-0400 Body mass index (BMI) [Ratio] 28.21 kg/m2 Rita De La Cruz MD Work Phone: [employer] [facility] 08-26-2022 06:56-0400 Body weight 79.29 kg Rita De La Cruz MD Work Phone: [facility] 08-26-2022 06:56-0400 Respiratory rate 16 /min Rita De La Cruz MD Work Phone: [facility] 08-26-2022 06:56-0400 SaO2% (BldA) [Mass fraction] 93 % Rita De La Cruz MD Work Phone: [facility] Encounters Encounter Date Encounter Type Care Provider Facility Start: 08-11-2024 Non-patient / Non-visit Dr. Jessica Durand MD -[facility] Start: 08-11-[address] [facility] Dr. Tommy Durand MD -[facility] Start: 08-11-[address] Rita menchaca MD Work Phone: [facility] Work Phone: Start: 09-10-2023 End: 09-10-2023 ambulatory [facility] Start: 09-03-2023 End: 09-03-2023 Patient encounter procedure Rita De La Cruz MD Work Phone: [facility] Comment on above: Medicare annual well ness visit, subsequent (Primary Dx); Peripheral vascular disease (HCC); Blood pressure elevated without history of HTN; Benign prostatic hyperplasia without lower urinary tract symptoms; Hypercholesterolemia; Screening for diabetes mellitus; FHx: aortic aneurysm Start: 09-03-2023 End: 09-03-2023 ambulatory [facility] Start: 09-03-2023 End: 09-03-2023 Encounter for general adult medical examination without abnormal findings [facility] Start: 07-10-2023 End: 07-10-2023 ambulatory [facility] Start: 07-10-2023 End: 07-10-2023 Office outpatient new 45 minutes [facility] W[employer] - RETURNS CLERK Work Phone: [facility] Comment on above: Left sided abdominal pain (Primary Dx); Diverticulitis of large intestine without perforation or abscess without bleeding; Change in bowel habit Start: 07-02-2023 Telephone encounter Rene Toribio W[employer] MAK[employer] - RETURNS CLERK Work Phone: [facility] Comment on above: OTHER Start: 05-12-2023 End: 05-12-2023 Office outpatient visit 10 minutes Rene S Hermelindo W[employer] MAKER - RETURNS CLERK Work Phone: [facility] Comment on above: Change in bowel habi ts (Primary Dx) Start: 05-12-2023 End: 05-12-2023 ambulatory [facility] Start: 04-30-2023 End: 04-30-2023 Office outpatient visit 10 minutes Rene Andrews Hermelindo W[employer] MAKER - RETURNS CLERK Work Phone: [facility] Comment on above: Change in bowel habi ts (Primary Dx) Start: 04-30-2023 End: 04-30-2023 Office outpatient visit 15 minutes Rene S Hermelindo W[employer]ADE MAKER - RETURNS CLERK Work Phone: [facility] Comment on above: Change in bowel habi ts (Primary Dx) Start: 04-30-2023 End: 04-30-2023 ambulatory [facility] Start: 04-29-2023 ambulatory Annmarie Waters RN [facility] Communication Start: 04-29-2023 Patient encounter procedure Annmarie Waters RN [facility] Communication Start: 04-10-2023 End: 04-10-2023 ambulatory [facility] Start: 04-03-2023 End: 04-03-2023 ambulatory [facility] Start: 04-03-2023 End: 04-03-2023 Subsequent hospital visit by physician [facility] Exam Room [address] [facility] [address] Comment on above: Diverticulitis of la rge intestine without perforation or abscess without bleeding Start: 04-03-2023 End: 04-03-2023 Office outpatient visit 25 minutes Rita De La Cruz MD Work Phone: [facility] Comment on above: Diverticulitis of la rge intestine without perforation or abscess without bleeding (Primary Dx); Blood pressure elevated without history of HTN Start: 04-03-2023 End: 04-03-2023 ambulatory [facility] Start: 08-26-2022 End: 08-26-2022 Patient encounter procedure Rita De La Cruz MD Work Phone: [facility] Comment on above: Medicare annual well ness visit, subsequent (Primary Dx); Peripheral vascular disease (HCC); Benign prostatic hyperplasia without lower urinary tract symptoms; Hypercholesterolemia; Screening for diabetes mellitus Start: 11-28-2017 Patient encounter Rita De La Cruz [facility] Procedures Date Procedure Procedure Detail Performing Clinician Start: 08-11-2024 US scan of gallbladder Dr. Rita De La Cruz MD Work Phone: Start: 08-11-2024 CT of thorax, abdome n and pelvis with contrast Dr. Rita De La Cruz MD Work Phone: Start: 08-11-2024 Urnls dip stick/tabl et reagent auto microscopy Dr. Rita De La Cruz MD Work Phone: Start: 08-11-[address] Rita De La Cruz MD Work Phone: Start: 09-03-2023 Adult depression scr eening assessment [...] Author Start: 08-27-2027 Lipid panel Lipid Panel [facility] Start: 02-07-2026 Lipid panel Lipid Panel [facility] Start: 09-03-2024 End: 09-03-2024 Patient encounter procedure 09/03/2024 7:00 AM EDT Office Visit [facility] [address] [place] [address] [place] [address] Rita De La Cruz MD [address] [place] [address], [place] [address] [facility] Start: 09-02-2024 COVID-19 Vaccine () COVID-19 Vaccine () [facility] Comment on above: Postponed from 10/25/2022 (Patient Refus ed) Start: 09-02-2024 Depression Screening Depression Screening [facility] Start: 09-02-2024 DTaP/Tdap/Td Vaccines (2 - Td or Tdap) DTaP/Tdap/Td Vaccines (2 - Td or Tdap) [facility] Comment on above: Postponed from 07/29/2023 (Patient Refus ed) Start: 09-02-2024 RSV Immunization aged 60 or older (1 - 1-dose 60+ series) RSV Immunization aged 60 or older (1 - 1-dose 60+ series) [facility] Comment on above: Postponed from 2000 (Patient Refus ed) Start: 09-02-2024 Zoster Vaccines (1 of 2) Zoster Vaccines (1 of 2) [facility] Comment on above: Postponed from 1990 (Patient Refus ed) Start: 08-11-2024 Total cholecystectomy and exploration of common bile duct Laparoscopic, Cholecystectomy with IOC (Not Applicable) [facility] Start: 08-11-2024 Biliary tract contrast procedure Cholangiogram/ O R,Initial [facility] Start: 08-11-2024 Fluoroscopic guidance O.R. Fluoro for C-Arm [facility] Start: 08-11-2024 Incentive spirometry [facility] Start: 08-11-2024 [facility] Start: 08-11-2024 Admission procedure [facility] Start: 08-11-2024 Hospital admission, emergency, from emergency room, medical nature [facility] Start: 08-11-2024 [facility] Start: 10-26-2023 Influenza vaccination [facility] Start: 09-10-2023 End: 09-10-2023 Clinical Support 09/10/2023 7:00 AM EDT Clinical Support [address] [place] [address] [facility] Start: 09-03-2023 End: 09-02-2024 Comprehensive metabolic 1998 panel - Serum or Plasma Comprehensive metabolic panel Lab Routine Screening for diabetes mellitus Expected: 09/03/2023 (Approximate), Expires: 09/02/2024 [facility] Comment on above: Expected: 09/03/2023 (Approximate), Expi res: 09/02/2024 Start: 09-03-2023 End: 09-02-2024 Lipid 1996 panel - Serum or Plasma Lipid panel Lab Routine Hypercholesterolemia Expected: 09/03/2023 (Approximate), Expires: 09/02/2024 [facility] Work Phone: Comment on above: Expected: 09/03/2023 (Approximate), Expi res: 09/02/2024 Start: 09-03-2023 End: 09-03-2023 Patient encounter procedure 09/03/2023 7:00 AM EDT Office Visit [address] [place] [address] Rita De La Cruz MD [address] [place], [place] [address] [address] [facility] Start: 08-27-2023 COVID-19 Vaccine (4 - Booster for Moderna series) COVID-19 Vaccine (4 - Booster for Moderna series) [facility] Comment on above: Postponed from 04/02/2021 (Patient Refus ed) Start: 08-27-2023 Depression Screening Depression Screening [facility] Start: 08-27-2023 Zoster Vaccines (1 of 2) Zoster Vaccines (1 of 2) [facility] Comment on above: Postponed from 1990 (Patient Refus ed) Start: 07-29-2023 DTaP/Tdap/Td Vaccines (2 - Td or Tdap) DTaP/Tdap/Td Vaccines (2 - Td or Tdap) [facility] Start: 07-10-2023 End: 07-10-2023 Patient encounter procedure 07/10/2023 8:00 AM EDT Office Visit [facility] [address] [place] [id number] Moncho Roa APRN - RETURNS CLERK [address] [facility] [address] [place] [address] [facility] Start: 05-12-2023 End: 05-12-2023 Patient encounter procedure 05/12/2023 9:40 AM EDT Office Visit [facility] [address] [place] [address] [place] [address] Rene Rodriguez [employer] - RETURNS CLERK [address] [place] [address] [facility] Start: 02-24-2023 Medicare Advantage Annual Wellness Visit Medicare Advantage Annual Wellness Visit [facility] Start: 10-25-2022 COVID-19 Vaccine ( season) COVID-19 Vaccine ( season) [facility] Start: 10-25-2022 Influenza vaccination Influenza Vaccine (#1) [facility] Start: 08-26-2022 End: 08-27-2023 Comprehensive metabolic 1998 panel - Serum or Plasma Comprehensive metabolic panel Lab Routine Screening for diabetes mellitus Expected: 08/26/2022 (Approximate), Expires: 08/27/2023 [facility] Work Phone: Comment on above: Expected: 08/26/2022 (Approximate), Expi res: 08/27/2023 Start: 08-26-2022 End: 08-27-2023 Lipid 1996 panel - Serum or Plasma Lipid panel Lab Routine Hypercholesterolemia Expected: 08/26/2022 (Approximate), Expires: 08/27/2023 [facility] Comment on above: Expected: 08/26/2022 (Approximate), Expi res: 08/27/2023 Start: 2000 Hepatitis B Vaccines (1 of 3 - Risk 3-dose series) Hepatitis B Vaccines (1 of 3 - Risk 3-dose series) [facility] Start: 2000 RSV Immunization aged 60 or older (1 - 1-dose 60+ series) RSV Immunization aged 60 or older (1 - 1-dose 60+ series) [facility] Start: 09-10-1959 Hepatitis A Vaccines (1 of 2 - Risk 2-dose series) Hepatitis A Vaccines (1 of 2 - Risk 2-dose series) [facility] Start: 1940 Medicare Advantage Annual Wellness Visit (AWV) Medicare Advantage Annual Wellness Visit (AWV) [facility] Alanine aminotransferase [Enzymatic activity/volume] in Serum or Plasma [facility] Albumin [Mass/volume ] in Serum or Plasma [facility] Alkaline phosphatase [Enzymatic activity/volume] in Serum or Plasma [facility] Anion gap in Serum o r Plasma [facility] Bilirubin, total measurement [facility] BUN/Creatinine ratio [facility] Calcium [Mass/volume ] in Serum or Plasma [facility] Carbon dioxide, tota l [Moles/volume] in Central venous blood [facility] Creatinine [Mass/volume] in Serum or Plasma [facility] Erythrocyte mean corpuscular volume determination [facility] Glucose [Mass/volume ] in Serum or Plasma [facility] Hematocrit [Volume Fraction] of Blood [facility] Hemoglobin [Mass/volume] in Blood [facility] Leukocytes [#/volume ] in Blood [facility] Mean corpuscular hemoglobin concentration determination [facility] Mean corpuscular hemoglobin determination [facility] Measurement of renal function [facility] Neutrophil count [facility] Neutrophil percent differential count [facility] OUTSIDE PROCEDURE SCAN OUTSIDE P ROCEDURE SCAN Procedures Ordered: 04/03/2023 [facility] Comment on above: Ordered: 04/03/2023 Patient referral [facility] Work Phone: Platelets [#/volume] in Blood [facility] Potassium measurement [facility] Red blood cell count [facility] Red cell distributio n width determination [facility] Serum chloride measurement [facility] Sodium measurement [facility] Total protein measurement [facility] Urea nitrogen [Mass/volume] in Serum or Plasma [facility] Immunizations Immunization Date Immunization Notes Care Provider Dania walter 12-10-2021 Influenza, High-dose Seasonal, Quadrivalent, Preservative Free Rita De La Cruz MD Work Phone: [facility] 12-10-2021 influenza virus vacc ine, unspecified formulation Rita De La Cruz MD Work Phone: [facility] 12-25-2020 Influenza, High-dose Seasonal, Quadrivalent, Preservative Free Rita De La Cruz MD Work Phone: [facility] [employer] 11-15-2019 influenza, injectabl e, quadrivalent, preservative free Rita De La Cruz MD Work Phone: [facility] [employer] 08-02-2019 pneumococcal polysac charide vaccine, 23 valent Rita De La Cruz MD Work Phone: [facility] [employer] 01-01-2019 influenza, high dose seasonal, preservative-free Rita De La Cruz MD Work Phone: [facility] [employer] 11-26-2017 influenza, high dose seasonal, preservative-free Rita De La Cruz MD Work Phone: [facility] [employer] 11-26-2017 pneumococcal conjuga te vaccine, 13 valent Rita De La Cruz MD Work Phone: [facility] [employer] 07-28-2013 tetanus toxoid, redu jona diphtheria toxoid, and acellular pertussis vaccine, adsorbed Rita De La Cruz MD Work Phone: [facility] [employer] Payers Date Payer Category Payer Medicare [id number] 2022 Medicare [id number] 1940 Unknown [id number] Medicare ANTHEM MEDICARE PPO [id number] [id number] Unknown Social History Date Type Detail Facility Start: 08-11-2024 Tobacco smoking status NHIS Never sm oked tobacco [facility] Start: 08-26-2022 End: 09-03-2023 Alcohol intake Current non-drinker of alcohol (finding) [facility] Start: 08-26-2022 End: 09-03-2023 Alcohol intake [facility] Start: 08-26-2022 End: 09-03-2023 Alcohol Use Disorder Identification Test - Consumption [AUDIT-C] [facility] How often to you hav e a drink containing alcohol? Never [facility] Average Number of Drinks Not on file [facility] Start: 1940 Sex Assigned At Not on file [facility] Start: 08-16-2022 End: 08-26-2022 Exposure to SARS-CoV-2 (event) Not sure [facility] Start: 08-10-2018 Alcohol Alcohol [facility] Start: 03-04-2014 Lives Lives [facility] Start: 03-04-2014 Tobacco Use Tobacco Use [facility] Start: 1940 Sex Assigned At Male [facility] Goals Date Patient Goal Desired Activity /State Clinical Notes 08-26-2022 to 08-11-2024 Note Date & Type Note Facility 08-11-2024 History and physi santa note [facility] 08-11-2024 Evaluation note Diagnosis Onset Date Resolution Acute calculous cholecystitis acute August 11, 2024 9:52am [facility] Work Phone: [phone] 724-400406-18-2025 Discharge summary [facility] Note Date/Time August 11, 2024 8:12 am [facility] Medical Records Department [address] [place] [address] Emergency Department Summary 08/11/24 MR#: [id number] Acct: [id number] Name: JEAN BUENROSTRO Rep #:[id number] : 1940 83 From: Carol Dominique PCP: Dr. Rita De La Cruz MD Status:REG ER Location: ED HPI HPI - GI History of Present Illness Chief Complaint: Abd Pain Informant: patient Narrative Narrative: Patient is an 83-year-old male with history of TIA, hyperlipidemia and BPH presenting with postprandial epigastric abdominal pain. Patient states he ate dinner around 5 PM. Around 8 PM he developed pain in his epigastric region. Hehas a hard time describing it. Denies any ripping or tearing sensation. Statesis not as bad as what he would imagine labor pains are. Did feel bloated as well. Does not report any associated radiation of the pain. He tried to make himself vomit and have a bowel movement but was unsuccessful with both. He did have a normal bowel movement at 5 PM today which he states was unremarkable. Denies any black or blood in his stool. Denies associate chest pain or shortness of breath. No fever or chills reported. Denies any associate numbness or tingling in his extremities. Denies any fever or chills. Denies any history of any abdominal surgeries. Came in for further evaluation. Notes the pain currently is starting to improve. PFSH [facility] Medical History BPH (benign prostatic hyperplasia) Anemia HLD (hyperlipidemia) TIA (transient ischemic attack) Bradycardia Home Medications ?Medication ?Instructions ?Recorded ?Last Taken ?Type Coq10 1 tab PO DAILY 03/03/14 0630 Days Ago History ~06/11/12 1 Excedrin Extra Strength Caplet 500 mg PO PRN PRN Heada ramez 03/03/14 03/03/14 16:30 History 500 Fish Oil 1,000 mg Capsule 1,000 mg PO DAILY 03/03/14 0 03/03/14 06:30 History 1000 saw palm 160 mg-vit E 100 1 tab PO DAILY 03/03/1410/08 06:30 History unit-selen 100 1 qkr-stsy-dzshjv-pygeum tablet ([employer]) Allergy/AdvReac Type Severity Reaction Status Date / Time No Known Allergies Allergy Verified 08/11/24 00:53 Social History Smoking Status: Never smoker ROS ROS ED Constitutional Constitutional ED: Denies chills or fever(s) Cardiovascular Cardiovascular: Denies chest pain Respiratory/Chest Respiratory/Chest: Denies cough or dyspnea Gastrointestinal Gastrointestinal: Reports abdominal pain; Denies constipation, diarrhea, melena,nausea or vomiting Genitourinary Genitourinary ED: Denies dysuria Musculoskeletal Musculoskeletal: Denies arthralgias, back pain or myalgias Neurologic Neurologic: Denies paresthesias or weakness Hematologic/Lymphatic Hematologic/Lymphatic: Denies easy bleeding or easy bruising EXAM Physical Exam Const Vital Signs: 08/11/24 00:48 08/11/24 02:57 08/11/24 04:04 Temperature 97.9 F Temperature Source Oral Pulse Rate 57 L 73 86 Respiratory Rate 18 17 16 Blood Pressure 174/92 H 128/81 H 155/83 H Blood Pressure Mean 119 96 107 Pulse Ox 100 98 98 Oxygen Delivery Method Room Air Room Air 08/11/24 06:18 Temperature Temperature Source Pulse Rate 75 Respiratory Rate 16 Blood Pressure 123/80 H Blood Pressure Mean 94 Pulse Ox 98 Oxygen Delivery Method Room Air Positive well nourished and well developed General Appearance ED: well developed and NAD; Negative for pallor HEENT Reports moist mucous membranes Eyes PERRL Neck supple and no JVD Resp normal respiratory effort and clear to auscultation bilaterally Cardio regular rate, regular rhythm and no murmurs Cardio Narrative: 2+ radial DP pulses present GI non-tender and non-distended GI Narrative: Patient is very mild stated tenderness with palpation of the right upper quadrant and epigastric region however he does not wince when I palpate. Negative Pablo sign. Auscultation: hypoactive bowel sounds Palpation: soft and tender epigastric and RUQ; Negative for guarding, rigid, pulsatile mass or rebound tenderness present Extremity full ROM General Extremety ED: Negative for edema General Extremity: Negative for edema Neuro Sensorium / Orientation: alert Motor Exam: Negative for general weakness Psych mental status grossly normal and thought process normal Skin no wounds General Skin Exam: Negative for jaundice or pallor MDM MDM MDM Narrative Medical decision making narrative: Patient is evaluated for epigastric/right upper quadrant abdominal pain that started around 8 PM tonight. It got so bad that he called EMS. Did not take any for pain prior to arrival. Patient is hypertensive upon arrival. He does appear uncomfortable. Differential includes aortic dissection, ACS, pancreatitis, cholecystitis, choledocholithiasis, colitis/bowel obstruction, perforated viscus and symptomatic anemia as well as ACS. EKG not consistent with ischemia. Dissection study obtained which is most consistent actually with a acute calculus cholecystitis. There are multiple gallstones with distended diffusely thickened gallbladder. Workup otherwise largely normal with no leukocytosis. His alkaline phosphatase mildly elevated at 139 but his bilirubin AST and ALT are otherwise normal. Lipase is normal. Urinalysis is normal. High-sensitivity troponin stable at 19 and 17. Do not think he requires further cardiac workup at this time. Patient does have improvement of pain in the ER but it still present. He states it is mild at this time. I did speak with general surgery, Dr. Durand he does request an ultrasound which we will get in the morning and he will evaluate the patient. Question if patient had biliary colic versus true cholecystitis at this time. Patient evaluated by Dr. Durand. Ultrasound concerning for acute cholecystitis. We started on Zosyn and admitted for cholecystectomy. Lab Data Attestation: I reviewed the patient's lab results. Labs: Laboratory Results - last 24 hr 08/11/24 08/11/24 08/11/24 01:13 01:40 03:10 WBC 8.8 RBC 3.94 L Hgb 12.0 L Hct 35.0 L MCV 88.8 MCH 30.5 MCHC 34.3 RDW Std Deviation 44.8 H RDW Coeff of Katina 13.9 Plt Count 256 MPV 10.4 Immature Gran % (Auto) 0.200 Neut % (Auto) 80.1 H Lymph % (Auto) 13.0 L [place] % (Auto) 5.8 Eos % (Auto) 0.7 Baso % (Auto) 0.2 Absolute Neuts (auto) 7.0 Absolute Lymphs (auto) 1.14 Nucleated RBC % 0 Sodium 136 Potassium 4.1 Chloride 100 Carbon Dioxide 22.9 Anion Gap 14 BUN 13 Creatinine 1.21 H Estim Creat Clear Calc 45.98 L Est GFR (MDRD) Non-Af 59 L BUN/Creatinine Ratio 10.3 Glucose 120 H Calcium 9.6 Total Bilirubin 0.37 AST 25 ALT 22 Alkaline Phosphatase 139 H Troponin T High Sens 19 Troponin T Hi Sens 2 Hr 17 Total Protein 7.0 Albumin 4.4 Globulin 2.6 Albumin/Globulin Ratio 1.7 Lipase 49 Urine Color Straw Urine Clarity Sl. Cloudy Urine pH 8.0 Ur Specific [place] 1.010 Urine Protein 15 H Urine Glucose (UA) Normal Urine Ketones Negative Urine Occult Blood Negative Urine Nitrite Negative Urine Bilirubin Negative Urine Urobilinogen Normal Ur Leukocyte Esterase Negative Urine RBC 0 SEEN Urine WBC 0 SEEN Ur Squamous Epith Cells 0 SEEN Urine Bacteria 0 SEEN Urine Mucus 0 SEEN Radiography Diagnostic Testing: Clinical Impression(s) from Imaging Studies Chest/Abdomen/Pelvis CTA 08/11/24 01:49 IMPRESSION: 1. Distended, diffusely thickened gallbladder containing multiple gallstones, probably mild changes of acute calculous cholecystitis. 2. Moderate coronary artery calcifications. 3. Subsegmental atelectatic changes in the lingula. 4. 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 5. No CT evidence of pulmonary embolus or aortic dissection. 6. I discussed the findings with Dr. Carol Leigh in the emergency department at 3 a.m. EST. Reading Location: [place] [address] Gallbladder Ultrasound 08/11/24 04:15 IMPRESSION: Multiple gallstones. Mild gallbladder wall thickening. Small amount of pericholecystic fluid. Cholecystitis should be ruled out. Reading Location: [place] [address] Rhythm Strip Rhythm Strip: Sinus Rhythm Rate: 57 Ectopy: PAC(s) EKG Initial EKG: Attestation: I personally reviewed and interpreted this EKG as follows: Interpretation: Sinus Bradycardia Comments: Sinus bradycardia at a rate of 57 bpm with PACs Normal axis Normal intervals Normal ST segments Management Discussion w/another healthcare provider: Kitchen Cleaner (General surgery) Discharge Plan Triage Chief Complaint: Abd Pain ED Provider: Carol Leigh Dx/Rx/DC Orders Clinical Impression: Abdominal pain, acute, epigastric, Gallstones, Acute calculous cholecystitis Prescriptions: No Action Fish Oil 1,000 mg Capsule 1,000 mg PO DAILY Patient Comments: SUPPLIMENT FOR CHOLESTEROL Prostate Health 1 EACH tablet 1 tab PO DAILY Patient Comments: [facility] Coq10 1 tab PO DAILY Patient Comments: CHOLESTEROL, IMMUNITY Excedrin Extra Strength Caplet 500 mg PO PRN PRN (Reason: Headache) Patient Comments: MIGRAINE FLASHING LIGHTS Primary Care Provider: Rita De La Cruz Referrals: Rita De La Cruz MD [Primary Care Provider] - Print Language: Tajik Disposition Disposition: [facility] What to do if you have Problems For any increased pain, shortness of breath, bleeding, nausea or vomiting, chestpain, or any unexpected problems, contact your Primary Care Provider. Call [facility] ([phone]) or report to the closest Emergency Room. Call 911 if necessary. 08/11/24 0812 <Electronically signed by Carol Leigh DO> Cosigner Signature (if applicable): CC: Dr. Rita De La Cruz MD ~ Signed [facility] Work Phone: [phone] Discharge summary [facility] Medical Records Department [address] [place] [address] Emergency Department Summary 08/11/24 MR#: [id number] Acct: [id number] Name: JEAN BUENROSTRO Rep #:[id number] : 1940 83 From: Carol Dominique PCP: Dr. Rita De La Cruz MD Status:REG ER Location: ED HPI HPI - GI History of Present Illness Chief Complaint: Abd Pain Informant: patient Narrative Narrative: Patient is an 83-year-old male with history of TIA, hyperlipidemia and BPH presenting with postprandial epigastric abdominal pain. Patient states he ate dinner around 5 PM. Around 8 PM he developed pain in his epigastric region. Hehas a hard time describing it. Denies any ripping or tearing sensation. Statesis not as bad as what he would imagine labor pains are. Did feel bloated as well. Does notreport any associated radiation of the pain. He tried to make himself vomit and have a bowel movement but was unsuccessful with both. He did have a normal bowel movement at 5 PM today which he stateswas unremarkable. Denies any black or blood in his stool. Denies associate chest pain or shortness of breath. No fever or chills reported. Denies any associate numbness or tingling in his extremities. Denies any fever or chills. Denies any history of any abdominal surgeries. Came in for further evaluation. Notes the pain currently is starting to improve. [facility] Medical History BPH (benign prostatic hyperplasia) Anemia HLD (hyperlipidemia) TIA (transient ischemic attack) Bradycardia Home Medications ?Medication ?Instructions ?Recorded ?Last Taken ?Type Coq10 1 tab PO DAILY 03/03/14 0630 Days Ago History ~06/11/12 1 Excedrin Extra Strength Caplet 500 mg PO PRN PRN Heada ramez 03/03/14 03/03/14 16:30 History 500 Fish Oil 1,000 mg Capsule 1,000 mg PO DAILY 03/03/14 0 03/03/14 06:30 History 1000 saw palm 160 mg-vit E 100 1 tab PO DAILY 03/03/1410/08 06:30 History unit-selen 100 1 dsr-ueix-eazfgq-pygeum tablet ([facility]) Allergy/AdvReac Type Severity Reaction Status Date / Time No Known Allergies Allergy Verified 08/11/24 00:53 Social History Smoking Status: Never smoker ROS ROS ED Constitutional Constitutional ED: Denies chills or fever(s) Cardiovascular Cardiovascular: Denies chest pain Respiratory/Chest Respiratory/Chest: Denies cough or dyspnea Gastrointestinal Gastrointestinal: Reports abdominal pain; Denies constipation, diarrhea, melena,nausea or vomiting Genitourinary Genitourinary ED: Denies dysuria Musculoskeletal Musculoskeletal: Denies arthralgias, back pain or myalgias Neurologic Neurologic: Denies paresthesias or weakness Hematologic/Lymphatic Hematologic/Lymphatic: Denies easy bleeding or easy bruising EXAM Physical Exam Const Vital Signs: 08/11/24 00:48 08/11/24 02:57 08/11/24 04:04 Temperature 97.9 F Temperature Source Oral Pulse Rate 57 L 73 86 Respiratory Rate 18 17 16 Blood Pressure 174/92 H 128/81 H 155/83 H Blood Pressure Mean 119 96 107 Pulse Ox 100 98 98 Oxygen Delivery Method Room Air Room Air 08/11/24 06:18 Temperature Temperature Source Pulse Rate 75 Respiratory Rate 16 Blood Pressure 123/80 H Blood Pressure Mean 94 Pulse Ox 98 Oxygen Delivery Method Room Air Positive well nourished and well developed General Appearance ED: well developed and NAD; Negative for pallor HEENT Reports moist mucous membranes Eyes PERRL Neck supple and no JVD Resp normal respiratory effort and clear to auscultation bilaterally Cardio regular rate, regular rhythm and no murmurs Cardio Narrative: 2+ radial DP pulses present GI non-tender and non-distended GI Narrative: Patient is very mild stated tenderness with palpation of the right upper quadrant and epigastric region however he does not wince when I palpate. Negative Pablo sign. Auscultation: hypoactive bowel sounds Palpation: soft and tender epigastric and RUQ; Negative for guarding, rigid, pulsatile mass or rebound tenderness present Extremity full ROM General Extremety ED: Negative for edema General Extremity: Negative for edema Neuro Sensorium / Orientation: alert Motor Exam: Negative for general weakness Psych mental status grossly normal and thought process normal Skin no wounds General Skin Exam: Negative for jaundice or pallor MDM MDM MDM Narrative Medical decision making narrative: Patient is evaluated for epigastric/right upper quadrant abdominal pain that started around 8 PM tonight. It got so bad that he called EMS. Did not take any for pain prior to arrival. Patient is hypertensive upon arrival. He does appear uncomfortable. Differential includes aortic dissection, ACS, pancreatitis, cholecystitis, choledocholithiasis, colitis/bowel obstruction, perforated viscus and symptomatic anemia as well as ACS. EKG not consistent with ischemia. Dissection study obtained which is most consistent actually with a acute calculus cholecystitis. There are multiple gallstones with distended diffusely thickened gallbladder. Workup otherwise largely normal with no leukocytosis. His alkaline phosphatase mildly elevated at 139 but his bilirubin AST and ALT are otherwise normal. Lipase is normal. Urinalysis is normal. High-sensitivity troponin stable at 19 and 17. Do not think he requires further cardiac workup at this time. Patient does have improvement of pain in the ER but it still present. He states it is mild at this time. I did speak with general surgery, Dr. Durand he does request an ultrasound which we will get in the morning and he will evaluate the patient. Question if patient had biliary colic versus true cholecystitis at this time. Patient evaluated by Dr. Durand. Ultrasound concerning for acute cholecystitis. We started on Zosyn and admitted for cholecystectomy. Lab Data Attestation: I reviewed the patient's lab results. Labs: Laboratory Results - last 24 hr 08/11/24 08/11/24 08/11/24 01:13 01:40 03:10 WBC 8.8 RBC 3.94 L Hgb 12.0 L Hct 35.0 L MCV 88.8 MCH 30.5 MCHC 34.3 RDW Std Deviation 44.8 H RDW Coeff of Katina 13.9 Plt Count 256 MPV 10.4 Immature Gran % (Auto) 0.200 Neut % (Auto) 80.1 H Lymph % (Auto) 13.0 L [place] % (Auto) 5.8 Eos % (Auto) 0.7 Baso % (Auto) 0.2 Absolute Neuts (auto) 7.0 Absolute Lymphs (auto) 1.14 Nucleated RBC % 0 Sodium 136 Potassium 4.1 Chloride 100 Carbon Dioxide 22.9 Anion Gap 14 BUN 13 Creatinine 1.21 H Estim Creat Clear Calc 45.98 L Est GFR (MDRD) Non-Af 59 L BUN/Creatinine Ratio 10.3 Glucose 120 H Calcium 9.6 Total Bilirubin 0.37 AST 25 ALT 22 Alkaline Phosphatase 139 H Troponin T High Sens 19 Troponin T Hi Sens 2 Hr 17 Total Protein 7.0 Albumin 4.4 Globulin 2.6 Albumin/Globulin Ratio 1.7 Lipase 49 Urine Color Straw Urine Clarity Sl. Cloudy Urine pH 8.0 Ur Specific [place] 1.010 Urine Protein 15 H Urine Glucose (UA) Normal Urine Ketones Negative Urine Occult Blood Negative Urine Nitrite Negative Urine Bilirubin Negative Urine Urobilinogen Normal Ur Leukocyte Esterase Negative Urine RBC 0 SEEN Urine WBC 0 SEEN Ur Squamous Epith Cells 0 SEEN Urine Bacteria 0 SEEN Urine Mucus 0 SEEN Radiography Diagnostic Testing: Clinical Impression(s) from Imaging Studies Chest/Abdomen/Pelvis CTA 08/11/24 01:49 IMPRESSION: 1. Distended, diffusely thickened gallbladder containing multiple gallstones, probably mild changesof acute calculous cholecystitis. 2. Moderate coronary artery calcifications. 3. Subsegmental atelectatic changes in the lingula. 4. 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 5. No CT evidence of pulmonary embolus or aortic dissection. 6. I discussed the findings with Dr. Carol Leigh in the emergency department at 3 a.m. EST. Reading Location: [place] [address] Gallbladder Ultrasound 08/11/24 04:15 IMPRESSION: Multiple gallstones. Mild gallbladder wall thickening. Small amount of pericholecystic fluid. Cholecystitis should be ruled out. Reading Location: [place] [address] Rhythm Strip Rhythm Strip: Sinus Rhythm Rate: 57 Ectopy: PAC(s) EKG Initial EKG: Attestation: I personally reviewed and interpreted this EKG as follows: Interpretation: Sinus Bradycardia Comments: Sinus bradycardia at a rate of 57 bpm with PACs Normal axis Normal intervals Normal ST segments Management Discussion w/another healthcare provider: Kitchen Cleaner (General surgery) Discharge Plan Triage Chief Complaint: Abd Pain ED Provider: Carol Leigh Dx/Rx/DC Orders Clinical Impression: Abdominal pain, acute, epigastric, Gallstones, Acute calculous cholecystitis Prescriptions: No Action Fish Oil 1,000 mg Capsule 1,000 mg PO DAILY Patient Comments: SUPPLIMENT FOR CHOLESTEROL Prostate Health 1 EACH tablet 1 tab PO DAILY Patient Comments: PROSTATE HEALTH Coq10 1 tab PO DAILY Patient Comments: CHOLESTEROL, IMMUNITY Excedrin Extra Strength Caplet 500 mg PO PRN PRN (Reason: Headache) Patient Comments: MIGRAINE FLASHING LIGHTS Primary Care Provider: Rita De La Cruz Referrals: Rita De La Cruz MD [Primary Care Provider] - Print Language: Tajik Disposition Disposition: Acute Care Hospital [facility] What to do if you have Problems For any increased pain, shortness of breath, bleeding, nausea or vomiting, chestpain, or any unexpected problems, contact your Primary Care Provider. Call [facility] ([phone]) or report tothe closest Emergency Room. Call 911 if necessary. 08/11/24 0812 Cosigner Signature (if applicable): CC: Dr. Rita De La Cruz MD ~ Signed [facility]06-18-2025 Radiology Diagnostic study note [facility] Imaging Services [address] [place], [place] [address] Gallbladder MR#: [id number] Acct: [id number] Name: JEAN BUENROSTRO Rep #: [id number] : 1940 M 83 From: Ke Marsh MD PCP: Dr. Rita De La Cruz MD Status: REG ER Study:Gallbladder Date of Exam: 08/11/24 Exam# [id number] Ordering Dr: Veronica Leigh DO PROCEDURE: GALLBLADDER 08/11/2024 REASON FOR EXAM: RUQ ABD PAIN, GALLSTONES COMPARISON: Prior CT scan dated August 11, 2024. FINDINGS: Liver: Grossly normal size and echotexture. Gallbladder: Multiple echogenic gallstones are identified. Gallbladder wall is mildly thickened measuring 4 mm. Small amount of pericholecystic fluid. Common bile duct: Normal measuring 6 mm. . Pancreas: Normal Other: Visualized portions of the right kidney are unremarkable. No right upperquadrant ascites. US/Gallbladder IMPRESSION: Multiple gallstones. Mild gallbladder wall thickening. Small amount of pericholecystic fluid. Cholecystitis should be ruled out. Reading Location: [place] [address] CC: Dr. Carol Leigh DO; Dr. Rita De La Cruz MD ~ Petroleum Laboratory Technician: Signed [facility]06-18-2025 Radiology Diagnostic study note [facility] Imaging Services [address] [place] [address] CTA Chst, Abd, Pel W and/or WO MR#: [id number] Acct: [id number] Name: JEAN BUENROSTRO Rep #: [id number] : 1940 M 83 From: Ju Quiros MD PCP: Dr. Rita De La Cruz MD Status: REG ER Study:CTA Chst, Abd, Pel W and/or WO Date of Exam: 08/11/24 Exam# [id number] Ordering Dr: Veronica Leigh DO PROCEDURE: CTA CHST, ABD, PEL W AND/OR WO 08/11/2024 REASON FOR EXAM: DISSECTION STUDY, EPIGASTRIC PAIN TECHNIQUE: CTA CHST, ABD, PEL W AND/OR WO coronal and Sagittal reconstruction series were provided. One or more dose reduction techniques were used (e.g., Automated exposure control, adjustment of the mA and/or kV according to patient size, use of iterative reconstruction technique. ORAL CONTRAST TYPE: Patient ingested oral contrast. CONTRAST: Isovue 370 VOLUME: 100 mL RADIATION DOSE SUMMARY: CTDlvol: 15.49 mGy DLP: 914 mGycm COMPARISON: None. FINDINGS: Distended, diffusely thickened gallbladder containing multiple gallstones, probably mild changes ofacute calculus cholecystitis. Moderate coronary artery calcifications. Subsegmental atelectatic changes in the lingula. 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 Normal enhancement of the main pulmonary artery and right and left pulmonary arteries. Normal enhancement of the bilateral peripheral pulmonary arteries. There is no demonstrated pulmonary embolism. Normal thoracic aorta and visualized great vessels. There is no demonstrated aortic dissection. Normal heart and pericardium. Normal mediastinum. Normal hilar regions. Normal visualized trachea and bronchi. The lungs are well expanded. Normal pulmonary parenchyma. Normal pleura. Normal liver. Normal extrahepatic biliary system. Normal spleen. Normal pancreas. Normal bilateral adrenal glands. Normal size of the right kidney. There is no right renal mass. There are no right renal calculi. There is no right hydronephrosis. Normal visualized right ureter. Normal size of the left kidney. There is no left renal mass. There are no leftrenal calculi. There is no left hydronephrosis. Normal visualized left ureter. Normal visualized stomach. Normal small intestine. Uncomplicated diverticulosis of the colon. There is no demonstrated peritoneal fluid. Normal abdominal aorta. Normal inferior vena cava. Normal retroperitoneum. Normal urinary bladder. There is no pelvic mass lesion or lymphadenopathy. There is no pelvic fluid. Normal abdominal wall. CT/CTA Chst, Abd, Pel W and/or WO IMPRESSION: 1. Distended, diffusely thickened gallbladder containing multiple gallstones, probably mild changesof acute calculous cholecystitis. 2. Moderate coronary artery calcifications. 3. Subsegmental atelectatic changes in the lingula. 4. 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 5. No CT evidence of pulmonary embolus or aortic dissection. 6. I discussed the findings with Dr. Carol Leigh in the emergency department at 3 a.m. EST. Reading [facility] CC: Dr. Carol Leigh, DO; Dr. Rita De La Cruz MD ~ Petroleum Laboratory Technician: Signed [facility]07-10-2024 Evaluation + Plan note* Assessment & Plan Note - Rita De La Cruz MD - 09/03/2023 7:33 AM EDTAssociated Problem(s): Blood pressure elevated without history of HTN Blood pressure was initially elevated, recheck was still khug-toerrr-hy in 1 week for blood pressure check. Continue very strict low-sodium diet [facility] [id number] Miscellaneous Notes* Assessment & Plan Note - Rita De La Cruz MD - 09/03/2023 7:33 AM EDTAssociated Problem(s): Blood pressure elevated without history of HTN Blood pressure was initially elevated, recheck was still jaan-dfseti-hh in 1 week for blood pressure check. Continue very strict low-sodium diet * Assessment & Plan Note - Rita De La Cruz MD - 09/03/2023 7:23 AM EDT Associated Problem(s): FHx: aortic aneurysm Discussed risk factors for aortic aneurysms and currently he is declining to get any imaging studies. * Assessment & Plan Note - Rita De La Cruz MD - 09/03/2023 7:22 AM EDT Associated Problem(s): Hypercholesterolemia Uncontrolled, currently on no medications we will recheck his levels today. * Assessment & Plan Note - Rita De La Cruz MD - 09/03/2023 7:22 AM EDT Associated Problem(s): Benign prostatic hyperplasia Stable, using OTC medication for his prostate * Assessment & Plan Note - Rita De La Cruz MD - 09/03/2023 7:22 AM EDT Associated Problem(s): Peripheral vascular disease (HCC) Maikol, currently has no complaints documented in this [facility]07-10-2024 Evaluation + Plan note* Assessment & Plan Note - Rita De La Cruz MD - 09/03/2023 7:23 AM EDT Associated Problem(s): FHx: aortic aneurysm Discussed risk factors for aortic aneurysms and currently he is declining to get any imaging studies. [id number] Evaluation + Plan note* Assessment & Plan Note - Rita De La Cruz MD - 09/03/2023 7:22 AM EDTAssociated Problem(s): Hypercholesterolemia Uncontrolled, currently on no medications we will recheck his levels today. [facility] [id number] Evaluation + Plan note* Assessment & Plan Note - Rita De La Cruz MD - 09/03/2023 7:22 AM EDTAssociated Problem(s): Benign prostatic hyperplasia Maikol, using OTC medication for his prostate [facility] [id number] Evaluation + Plan note* Assessment & Plan Note - Rita De La Cruz MD - 09/03/2023 7:22 AM EDTAssociated Problem(s): Peripheral vascular disease (HCC) Maikol, currently has no complaints [place] [id number] History of Present illness Narrative* Shivani Rosenbaum MA - 09/03/2023 7:00 AM EDT Patient verified by last name and date of . * Rita De La Cruz MD - 09/03/2023 7:00 AM EDT Images from the original note were not included. [facility] [address] [place] [address] [place] [address] Visit Type: Medicare Annual Wellness PCP: Rita De La Cruz MD Reason for Visit: Medicare Annual Wellness Visit Subsequent, Blood Work, and Health Maintenance (Shingles vaccine- declined /Rsv vaccine- not done /4 covid vaccine- not done/Tdap vaccine- declined ) Assessment and Plan Problem List Items Addressed This Visit Blood pressure elevated without history of HTN Blood pressure was initially elevated, recheck was still gvyn-kkrlwz-lk in 1 week for blood pressure check. [...] about 1 year (around 09/02/2024). Subjective ADELINE Gale comes in today for his annual [...] Resource Strain: Low Risk (08/22/2021) Received from [facility] Overall Financial Resource Strain (CARDIA) Difficulty of Paying Living Expenses: Not very hard Food Insecurity: No Food Insecurity (08/22/2021) Received from [facility] Hunger Vital Sign Worried About Running Out of Food in the Last Year: Never true Ran Out of Food in the Last Year: Never true Transportation Needs: No Transportation Needs (08/22/2021) Received from [facility] PRAPARE - Transportation Lack of Transportation (Medical): No Lack of Transportation (Non-Medical): No Physical Activity: Inactive (08/22/2021) Received from [facility] Exercise Vital Sign Days of Exercise per Week: 0 days Minutes of Exercise per Session: 0 min Past Surgical History: Procedure Laterality Date COLONOSCOPY 2012 SPINE SURGERY Past Surgical History: Procedure Laterality Date COLONOSCOPY 2012 SPINE SURGERY Family History Problem Relation Name Age of Onset Cancer Father Ochoa Buenrostro Brain Other ([id number]) Mother Objective BP (!) 152/90 Pulse 64 [...] MD 09/03/2023 7:33 AM documented in this [facility]05-16-2024 History of Present illness Narrative* Moncho Roa APRN - RETURNS CLERK - 07/10/2023 8:00 AM EDT Images from the original note were not included. 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 Patient verbalized understanding and agreement of plan. Follow up if symptoms worsen or fail to improve. Subjective HPI Patient is new to [facility]. He is referred by Dr. De [...] distention, abdominal pain, anal bleeding, blood in stool,constipation, diarrhea, nausea, rectal pain and vomiting. Genitourinary: [...] Age of Onset Cancer Father Brain Other ([id number]) Mother Objective BP (!) 150/86 Pulse 59 [...] and kidneys are normal. Cholelithiasis. No bowel inflammationor bowel obstruction. No free fluid. No lymphadenopathy. The bladder is unremarkable. IMPRESSION: Cholelithiasis. Report Dictated on Electronically Signed By: Rodri Street MD Electronically Signed Date/Time: 04/03/2023 3:38 PM EST JACQUI Tracy 8:50 AM 07/10/23 documented in this [facility]05-16-2024 Instructions* Patient Instructions* VIKI Tracy CNP - 07/10/2023 8:00 AM EDT --Please call office with any questions or concerns! [phone] --please contact office with any recurrence of symptoms. --Schedule colonoscopy for further evaluation of the symptoms. --A prescription for GoLytely was sent to your pharmacy. This is the bowel prep for your colonoscopy. --Please see handout provided regarding additional recommendations for the symptoms including when to seek emergency care or further treatment. --Follow-up with PCP, and in GI clinic as needed. * Attachments The following attachments cannot be sent through Care Everywhere. * Colonoscopy (Tajik) documented in this [facility]05-13-2024 Telephone encounter Note* Telephone Encounter - Yamileth Benitez MA - 07/07/2023 10:52 AM EDT Patient stopped into office. Relayed information to him, states he will keep his appointment on [id number] with gastro. [facility] [id number] Miscellaneous Notes* Telephone Encounter - Yamileth Benitez MA - 07/07/2023 10:52 AM EDT Patient stopped into office. Relayed information to him, states he will keep his appointment on hab54jx with gastro. * Telephone Encounter - Yamileth Benitez MA - 07/03/2023 10:25 AM EDT Left a message to return call. CAC: If Jean calls back, please relay information to him. Thank you! * Telephone Encounter - Rita De La Cruz MD - 07/03/2023 5:39 AM EDT I think with his history of diverticulitis and the change that he had in his bowels that he should at least meet with a telecommunications facility examiner and get their opinion as to whether he needs a colonoscopy. * Telephone Encounter - Arminda Caal - 07/02/2023 4:09 PM EDT Name of caller: Don Contact phone number: [phone] Relationship to Patient: patient Provider: Rene Practice: [facility] Chief Complaint/Reason for Call: Patient states that he was last seen for issues with his bowels. He was referred for a colonoscopy and has a consultation on 07/10/23. He stated that his bowel symptoms have improved a lot and was wanting to know in a professional opinion if he should still have thecolonoscopy. Patient requests a return a call. Please advise Best time of day caller can be reached: Patient advised that office/PCP has 24-48 business hours to return their call: N/A documented in this [facility]SThe [facility] [id number] Telephone encounter Note* Telephone Encounter - Yamileth Benitez MA - 07/03/2023 10:25 AM EDT Left a message to return call. CAC: If Jean calls back, please relay information to him. Thank you! [id number] Miscellaneous Notes* Telephone Encounter - Yamileth Benitez MA - 07/03/2023 10:25 AM EDT Left a message to return call. CAC: If Jean calls back, please relay information to him. Thank you! * Telephone Encounter - Rita De La Cruz MD - 07/03/2023 5:39 AM EDT I think with his history of diverticulitis and the change that he had in his bowels that he should at least meet with a telecommunications facility examiner and get their opinion as to whether he needs a colonoscopy. * Telephone Encounter - Arminda Caal - 07/02/2023 4:09 PM EDT Name of caller: Baljinder Contact phone number: [phone] Relationship to Patient: patient Provider: Rene Practice: [facility] Chief Complaint/Reason for Call: Patient states that he was last seen for issues with his bowels. He was referred for a colonoscopy and has a consultation on 07/10/23. He stated that his bowel symptoms have improved a lot and was wanting to know in a professional opinion if he should still have thecolonoscopy. Patient requests a return a call. Please advise Best time of day caller can be reached: Patient advised that office/PCP has 24-48 business hours to return their call: N/A documented in this [facility]05-09-2024 Telephone encounter Note* Telephone Encounter - Rita De La Cruz MD - 07/03/2023 5:39 AM EDT I think with his history of diverticulitis and the change that he had in his bowels that he should at least meet with a telecommunications facility examiner and get their opinion as to whether he needs a colonoscopy. [facility] [id number] Telephone encounter Note* Telephone Encounter - Arminda Caal - 07/02/2023 4:09 PM EDT Name of caller: Baljinder Contact phone number: [phone] Relationship to Patient: patient Provider: Rene Practice: [facility] Chief Complaint/Reason for Call: Patient states that he was last seen for issues with his bowels. He was referred for a colonoscopy and has a consultation on 07/10/23. He stated that his bowel symptoms have improved a lot and was wanting to know in a professional opinion if he should still have thecolonoscopy. Patient requests a return a call. Please advise Best time of day caller can be reached: Patient advised that office/PCP has 24-48 business hours to return their call: N/A [facility] [id number] History of Present illness Narrative* Yamileth Benitez MA - 05/12/2023 9:40 AM EDT Patient verified by last name and . * Rene Rodriguez APRN - RETURNS CLERK - 05/12/2023 9:40 AM EDT Images from the original note were not included. 05/12/2023 Jean Buenrostro (: 1940) is a 82 y.o. male , Established patient, here for evaluation of the following chief complaint(s): Follow-up (Constipation follow up /), Health Maintenance (RSV-/4th Covid- /AWV- ), and Constipation(Has gotten a little bit better since last time. Wants to talk about colonoscopy possibilities. ) ASSESSMENT/PLAN: 1. Change in bowel habits - Improved. Denies current concerns or worries. - Will continue with daily Metamucil Fiber and probiotic. - Discussed signs and symptoms warranting follow up in the office- verbalized understanding. Follow up in 4 months (on 09/03/2023) for Next scheduled follow-up. SUBJECTIVE/OBJECTIVE: ADELINE Horne presents today for follow up on his bowel movements. Was seen about 2 weeks ago due toconcerns of what he felt was constipation. Was [...] this note. Rene Rodriguez APRN - JOSE 05/12/2023 9:42 AM documented in this [facility]03-06-2024 History of Present illness Narrative* Ela Velazco MA - 04/30/2023 9:00 AM EST Patient was verified by name and . * VIKI Oro CNP - 04/30/2023 9:00 AM EST Images from the original note were not [...] actually loose when he passes the bowel movement.Denies needing to strain, blood or mucous in the stool, or ongoing abdominal pain. Denies nausea orvomiting. Denies fevers or chills. Denies difficulty urinating. Has been taking a probiotic daily. Has also been taking Miralax daily. Is scheduled to see a telecommunications facility examiner in June. Review of Systems Constitutional: Negative [...] and kidneys are normal. Cholelithiasis. No bowel inflammationor bowel obstruction. No free fluid. No lymphadenopathy. The bladder is unremarkable. IMPRESSION: Cholelithiasis. Report Dictated on Electronically Signed By: Rodri Street MD Electronically Signed Date/Time: 04/03/2023 3:38 PM EST An electronic signature was used to authenticate this note. VIKI Oro CNP 04/30/2023 9:26 AM documented in this [facility]03-06-2024 History of Present illness Narrative* Ela Velazco MA - 04/30/2023 9:00 AM EST Patient was verified by name and . * Rene Rodriguez APRN - JOSE - 04/30/2023 9:00 AM EST Images from the original note were not [...] actually loose when he passes the bowel movement.Denies needing to strain, blood or mucous in the stool, or ongoing abdominal pain. Denies nausea orvomiting. Denies fevers or chills. Denies difficulty urinating. Has been taking a probiotic daily. Has also been taking Miralax daily. Is scheduled to see a telecommunications facility examiner in June. Review of Systems Constitutional: Negative [...] Impression Patient Name: JE[facility]STRO [facility] 1940 [id number] Exam Date/Time: 04/03/2023 15:30 Procedure: CT ABDOMEN PELVIS WO IV CONTRAST Ordering Provider: DE LA CRUZ DARRELL Reason For Exam: LLQ abdominal pain CT abdomen and pelvis without contrast HISTORY: Left lower quadrant pain Protocol: 3 mm axial images without intravenous contrast The liver, spleen, pancreas, adrenals and kidneys are normal. Cholelithiasis. No bowel inflammationor bowel obstruction. No free fluid. No lymphadenopathy. The bladder is unremarkable. IMPRESSION: Cholelithiasis. Report Dictated on Electronically Signed By: Rodri Street MD Electronically Signed Date/Time: 04/03/2023 3:38 PM EST An electronic signature was used to authenticate this note. VIKI Oro CNP 04/30/2023 9:26 AM documented in this [facility]03-06-2024 Instructions* Patient Instructions* VIKI Oro CNP - 04/30/2023 9:00 AM EST Continue adequate water intake. Continue Probiotic Metamucil Fiber Get up and walk around frequently * Attachments The following attachments cannot be sent through Care Everywhere. * High Fiber Diet (Tajik) documented in this [facility]03-06-2024 Instructions* Patient Instructions* VIKI Oro CNP - 04/30/2023 9:00 AM EST Continue adequate water intake. Continue Probiotic Metamucil Fiber Get up and walk around frequently * Attachments The following attachments cannot be sent through Care Everywhere. * High Fiber Diet (Tajik) documented in this [facility]03-06-2024 Miscellaneous Notes* Addendum Note - VIKI Oro CNP - 04/30/2023 9:00 AM ESTAddended by: RENE RODRIGUEZ on: 05/01/2023 08:42 AM Modules accepted: Level of Service documented in this [facility]03-06-2024 Note* Addendum Note - VIKI Oro CNP - 04/30/2023 9:00 AM ESTAddended by: RENE RODRIGUEZ on: 05/01/2023 08:42 AM Modules accepted: Level of Service [facility] [id number] NoteAddended by: RENE RODRIGUEZ on: 05/01/2023 08:42 AM Modules accepted: [facility] Telephone encounter Note* Telephone Encounter - Annmarie Waters RN - 04/29/2023 11:19 AM EST Images from the original note were not included. S: Patient called the clinical access center with complaint of concern for constipation, not havingregular bowel movements. B:patient seen 04/03 for Diverticulitis [...] bowel movement. Could also get Senokot S lqaw-xki-ygrfkjn and take 2 of them at bedtime and see if that gets his bowels moving in the morning. He said he has been taking Miralax daily and also recently added a tablespoon of olive oil daily. He is having a BM daily that is the size of his finger and said it is slimy and falls to the bottomof the toilet, That is all that comes [...] is more swollen than usual Protocols used: Gpmgyphsmomh-STQSW-OM [facility] [id number] Miscellaneous Notes* Telephone Encounter - Annmarie Waters RN - 04/29/2023 11:19 AM EST Images from the original note were not included. S: Patient called the clinical access center with complaint of concern for constipation, not havingregular bowel movements. B:patient seen 04/03 for Diverticulitis [...] bowel movement. Could also get Senokot S ebnx-qdj-hlydhsl and take 2 of them at bedtime and see if that gets his bowels moving in the morning. He said he has been taking Miralax daily and also recently added a tablespoon of olive oil daily. He is having a BM daily that is the size of his finger and said it is slimy and falls to the bottomof the toilet, That is all that comes [...] is more swollen than usual Protocols used: Gicrmxytzegz-PZVRX-ZL documented in this [facility]02-08-2024 Evaluation + Plan note* Assessment & Plan Note - Rita De La Cruz MD - 04/03/2023 12:55 PM EST Associated Problem(s): Blood pressure elevated without history of HTN Blood pressure was initially elevated, recheck was still a little high follow-up in 1 week for blood pressure check after abdominal pain is resolved. [facility] CenterXkuqam65-38-2019 Evaluation + Plan note* Assessment & Plan Note - Rita De La Cruz MD - 04/03/2023 12:55 PM ESTAssociated Problem(s): Diverticulitis of large intestine without perforation or abscess without blee ding Cipro 500 twice a day and Flagyl 503 times a day started for 10 days. CBC and CMP to be done. Stat abdominal CT scan. [id number] Miscellaneous Notes* Assessment & Plan Note - Rita De La Cruz MD - 04/03/2023 12:55 PM ESTAssociated Problem(s): Blood pressure elevated without history of HTN Blood pressure was initially elevated, recheck was still a little high follow-up in 1 week for blood pressure check after abdominal pain is resolved. * Assessment & Plan Note - Rita De La Cruz MD - 04/03/2023 12:55 PM EST Associated Problem(s): Diverticulitis of large intestine without perforation or abscess without bleeding Cipro 500 twice a day and Flagyl 503 times a day started for 10 days. CBC and CMP to be done. Stat abdominal CT scan. documented in this [facility]02-08-2024 History of Present illness Narrative* Shivani Rosenbaum MA - 04/03/2023 11:30 AM EST Patient verified by last name and date of . * Rita De La Cruz MD - 04/03/2023 11:30 AM EST Images from the original note were not [...] MD 04/03/2023 12:56 PM documented in this [facility]07-03-2023 Evaluation + Plan note* Assessment & Plan Note - Rita De La Cruz MD - 08/26/2022 7:30 AM EDT Associated Problem(s): Hypercholesterolemia Stable, has refused medications in the past [id number] Evaluation + Plan note* Assessment & Plan Note - Rita De La Cruz MD - 08/26/2022 7:30 AM EDTAssociated Problem(s): Benign prostatic hyperplasia Stable, currently on OTC prostate medication T [facility] [id number] Evaluation + Plan note* Assessment & Plan Note - Rita De La Cruz MD - 08/26/2022 7:30 AM EDTAssociated Problem(s): Peripheral vascular disease (HCC) Stable, currently on no medications. [place] [id number] Miscellaneous Notes* Assessment & Plan Note - Rita De La Cruz MD - 08/26/2022 7:30 AM EDTAssociated Problem(s): Hypercholesterolemia Stable, has refused medications in the past * Assessment & Plan Note - Rita De La Cruz MD - 08/26/2022 7:30 AM EDT Associated Problem(s): Benign prostatic hyperplasia Stable, currently on OTC prostate medication * Assessment & Plan Note - Rita De La Cruz MD - 08/26/2022 7:30 AM EDT Associated Problem(s): Peripheral vascular disease (HCC) Stable, currently on no medications. documented in this [facility]07-03-2023 History of Present illness Narrative* Lidia Frank - 08/26/2022 7:00 AM EDT Job Checker for Intimate and Non Intimate Exam Job Checker was declined Job Checker: na * Rita De La Cruz MD - 08/26/2022 7:00 AM EDT Images from the original note were not included. [facility] [id number] Visit type: Established Patient Reason for Visit: [...] that prior to discharge and will get fastinglab work. I have reviewed and reconciled the [...] at all Patient Health Questionnaire-2 Score: 0 Tilly Suicide Severity Rating Scale (Screener/Recent Self-Report) 1. [...] Age of Onset Cancer Father Brain Other ([address]) Mother Objective BP (!) 134/90 Pulse 68 [...] MD 08/26/2022 7:31 AM [facility] Diagnosis Medicare annual wellness visit, subsequent- Primary Peripheral vascular disease (HCC) Unspecified peripheral vascular disease Benign prostatic hyperplasia without lower urinary tract symptoms Hypercholesterolemia Pure hypercholesterolemia Screening for diabetes mellitus documented in this [facility]* Diagnosis Diverticulitis of large intestine without perforation or abscess without bleeding- Primary Blood pressure elevated without history of HTN Diverticulitis of large intestine without perforation or abscess without bleeding [facility] Diagnosis Diverticulitis of large intestine without perforation or abscess without bleeding [facility]* Diagnosis Change in bowel habits- Primary Other symptoms involving digestive system [facility] Diagnosis Change in bowel habits- Primary Other symptoms involving digestive system [facility] Diagnosis Change in bowel habits- Primary Other symptoms involving digestive system [facility] Diagnosis Left sided abdominal pain- Primary [...] other cardiovascular diseases [facility] Author Tommy Durand [facility] Note Date/Time August 11, 2024 12:0 5pm [facility] System Medical Records Department [address] [place] [address] History & Physical Exam 08/11/24 1151 MR#: [id number] Acct: [id number] Name: JEAN BUENROSTRO Rep #:[id number] : 1940 83 From: Tommy Marsh PCP: Dr. Rita De La Cruz MD Status:[facility] Location: [facility] HPI - General General Date of Service: 08/11/24 HPI Narrative JEAN BUENROSTRO, is a 83 M who presents to [facility] with complaints of 2 days of progressive right upper quadrant postprandial discomfort. He states 2 nights ago he had just mild discomfort after eating butwas able to sleep through it. However 2 hours after eating meatloaf last night he developed severe right upper quadrant epigastric discomfort which he rated 9 out of 10 intensity. He denies any associated nausea with that pain but does endorse some chills. He states that is presently much better than when he firstcame in. ER workup was notable for CBC without leukocytosis and normal LFTs on CMP with mild elevation of alkaline phosphatase. CTA was performed by emergency medicinedue to concern for possible dissection but this was ultimately read as mildly ectatic abdominal aorta as well as distention of the gallbladder and cholelithiasis concerning for signs of cholecystitis. As at this point I was contacted about the results and requested follow-up abdominal ultrasound. Patient has few medical diagnoses despite his age and confirms that he remains fairly active in life. He has no history of prior abdominal surgery. [facility] Medical History BPH (benign prostatic hyperplasia) Anemia HLD (hyperlipidemia) TIA (transient ischemic attack) Bradycardia Home Medications ?Medication ?Instructions ?Recorded ?Last Taken ?Type Coq10 1 tab PO DAILY 03/03/14 0630 Days Ago History ~06/11/12 1 Excedrin Extra Strength Caplet 500 mg PO PRN PRN Heada ramez 03/03/14 03/03/14 16:30 History 500 Fish Oil 1,000 mg Capsule 1,000 mg PO DAILY 03/03/14 0 03/03/14 06:30 History 1000 saw palm 160 mg-vit E 100 1 tab PO DAILY 03/03/1410/08 06:30 History unit-selen 100 1 tft-kuys-xwoctx-pygeum tablet (Prostate Health) Allergy/AdvReac Type Severity Reaction Status Date / Time No Known Allergies Allergy Verified 08/11/24 00:53 Social History Smoking Status: Never smoker Vital Signs Vital Signs Vital Signs: 08/11/24 00:48 08/11/24 02:57 08/11/24 04:04 Temperature 97.9 F Temperature Source Oral Pulse Rate 57 L 73 86 Respiratory Rate 18 17 16 Blood Pressure 174/92 H 128/81 H 155/83 H Blood Pressure Mean 119 96 107 Pulse Ox 100 98 98 Oxygen Delivery Method Room Air Room Air 08/11/24 06:18 08/11/24 08:00 08/11/24 10:00 Temperature 98.9 F 98.9 F Temperature Source Oral Oral Pulse Rate 75 118 H 64 Respiratory Rate 16 14 18 Blood Pressure 123/80 H 134/78 H 132/78 H Blood Pressure Mean 94 96 96 Pulse Ox 98 98 98 Oxygen Delivery Method Room Air Room Air Room Air Weight Weight: 176 lb 5.917 oz Body Mass Index (BMI) 28.4 Physical Exam Const alert, oriented x3, no apparent distress and well nourished Resp normal respiratory effort GI GI Narrative: Normal habitus, no visible hernia, nondistended, soft, tender to palpation in the right upper quadrant with technically negative Pablo sign but worse tenderness with deep inspiration. Results Lab / Micro Data 08/11/24 01:13 08/11/24 01:13 Labs: Laboratory Results - last 24 hr 08/11/24 01:13: WBC 8.8, RBC 3.94 L, Hgb 12.0 L, Hct 35.0 L, MCV 88.8, MCH 30.5,MCHC 34.3, RDW Std Deviation 44.8 H, RDW Coeff of Katina 13.9, Plt Count 256, MPV 10.4, Immature Gran % (Auto) 0.200, Neut % (Auto) 80.1 H, Lymph % (Auto) 13.0 L,[place] % (Auto) 5.8, Eos % (Auto) 0.7, Baso % (Auto) 0.2, Absolute Neuts (auto) 7.0, Absolute Lymphs (auto) 1.14, Nucleated RBC % 0, Sodium 136, Potassium 4.1, Chloride 100, Carbon Dioxide 22.9, Anion Gap 14, BUN 13, Creatinine 1.21 H, Estim Creat Clear Calc 45.98 L, Est GFR (MDRD) Non-Af 59 L, BUN/Creatinine Ratio 10.3, Glucose 120 H, Calcium 9.6, Total Bilirubin 0.37, AST 25, ALT 22, AlkalinePhosphatase 139 H, Troponin T High Sens 19, Total Protein 7.0, Albumin 4.4, Globulin 2.6, Albumin/Globulin Ratio 1.7, Lipase 49 08/11/24 01:40: Urine Color Straw, Urine Clarity Sl. Cloudy, Urine pH 8.0, Ur Specific [place] 1.010, Urine Protein 15 H, Urine Glucose (UA) Normal, Urine Ketones Negative, Urine Occult Blood Negative, Urine Nitrite Negative, Urine Bilirubin Negative, Urine Urobilinogen Normal, Ur Leukocyte Esterase Negative, Urine RBC 0 SEEN, Urine WBC 0 SEEN, Ur Squamous Epith Cells 0 SEEN, Urine Bacteria 0 SEEN, Urine Mucus 0 SEEN 08/11/24 03:10: Troponin T Hi Sens 2 Hr 17 Rhythm Strip Rhythm Strip: Sinus Rhythm Rate: 57 Ectopy: PAC(s) Imaging Radiology Impression Chest/Abdomen/Pelvis CTA 08/11/24 01:49 IMPRESSION: 1. Distended, diffusely thickened gallbladder containing multiple gallstones, probably mild changes of acute calculous cholecystitis. 2. Moderate coronary artery calcifications. 3. Subsegmental atelectatic changes in the lingula. 4. 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 5. No CT evidence of pulmonary embolus or aortic dissection. 6. I discussed the findings with Dr. Carol Leigh in the emergency department at 3 a.m. EST. [facility] 08/11/24 04:15 IMPRESSION: Multiple gallstones. Mild gallbladder wall thickening. Small amount of pericholecystic fluid. Cholecystitis should be ruled out. Reading Location: [facility] Assessment & Plan Assessment/Plan (1) Acute calculous cholecystitis: PLAN: Patient 83-year-old male who presents with 48 hours of progressive right upper quadrant postprandial discomfort. ER workup consistent with diagnosis of early acute cholecystitis. Exam is confirmatory. Patient has diagnosis I recommended we proceed for emergent laparoscopic cholecystectomy with intraoperative cholangiography. Patient is a [employer] and states that his samaritan prohibits him from receiving blood products but starches and isotonic volume expanders are allowable. Additionally, when I reviewed his CT imaging there is some bordering of his hepatic flexure to the fundal portion of the gallbladder. I suggested that these latter to fax should be additionally motivating to pursue surgery at this point as a means of hopefully mitigating his risk for intraoperative bleeding and for adhesions to the colon with ongoinginflammation. Patient was receptive of this recommendation and was admitted to the hospital for ongoing management. He is to be held n.p.o. with IV antibiotics until surgery. Operation was described in detail and consents will be obtained for laparoscopic cholecystectomy and intraoperative cholangiography. Tommy Durand MD General Surgery Endocrine Surgery Pager: [facility] [address] [place] [address], [facility], [address] [place] [id number] Office: [phone] Charges/Coding Visit Charges Inpatient E&M: 58595 Init Hosp L2 08/11/24 1205 <Electronically signed by Tommy Durand MD> Cosigner Signature (if applicable): CC: Dr. Rita De La Cruz MD; Dr. 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 No August 11, 2024 12:53am Advance Directives Yes March 04, 2014 12:00am Reason for Referral Specialty Diagnoses / Procedures Referred By Lali dobbs Referred To Contact Radiology Diagnoses Diverticulitis of large intestine without perforation or abscess without bleeding Procedures CT abdomen pelvis wo IV contrast Rita De La Cruz MD [address] [place] [address], [place] [address] Referral ID Status Reason Start Date Expiration Date Visits Re quested Visits Authorized [id number] Closed 04/03/2023 04/02/2024 1 1 Chief Complaint and Reason for Visit Chief Complaint Admit Date ACUTE CHOLECYSTITIS August 11, 2024 9:52 am ACUTE CHOLECYSTITIS August 11, 2024 11:5 1am Reason for Visit Admit Date Acute calculous cholecystitis August 11, 2024 9:52am Additional Source Comments (unrecognized sect ion and content) No Status Records FoundNo Status Records Found INFORMATION SOURCE (unrecogn ized section and content) DATE CREATED AUTHOR 12/27/2017 [employer] DATE CREATED AUTHOR AUTHOR'S ORGANIZ ATION 09/13/2023 [employer] [facility] Reason for Visit (unrecogniz ed section and [...] IV contrast Rita De La Cruz MD [address] [place] [id number] Referral ID Status Reason Start Date Expiration Date Visits Re quested Visits Authorized [id number] Closed 04/03/2023 04/02/2024 1 1 Reason Comments [...] treatment Specialty Diagnoses / Procedures Referred By Contalice t Referred To Contact Gastroenterology Diagnoses Diverticulitis of large intestine without perforation or abscess without bleeding Procedures CA OFFICE/OUTPATIENT NEW HIGH MDM 60 MINUTES Rita De La Cruz MD [address] [place] [address] [facility] [address] [place] [address] Referral ID Status Reason Start Date Expiration Date V isits Requested Visits Authorized [id number] Closed Specialty Services Required 04/10/2023 04/09/2024 1 1 Reason Comments Medicare Annual Wellness Visit Subsequen t Blood Work Health Maintenance Shingles vaccine- de clined Rsv vaccine- not done 4 covid vaccine- not doneTdap vaccine- declined Care Teams (unrecognized sec tion and content) [employer] Relationship Specialty Start Date End Date Rita De La Cruz MD [address] [place] [id number] PCP - General 12/05/14 [employer] Relationship Specialty Start Date End Date Rita De La Cruz MD [address] [place], [place] [address] [address] PCP - General 12/05/14 [employer] Relationship Specialty Start Date End Date Rita De La Cruz MD [address] [facility] [place] [address] PCP - General 12/05/14 [employer] Relationship Specialty Start Date End Date Rita De La Cruz MD [address] [facility] [place] [address] PCP - General 12/05/14 [employer] Relationship Specialty Start Date End Date Rita De La Cruz MD [address] [facility] [place] [address] PCP - General 12/05/14 [employer] Relationship Specialty Start Date End Date Rita De La Cruz MD [address] [facility] [place] [address] PCP - General 12/05/14 [employer] Relationship Specialty Start Date End Date Rita De La Cruz MD [address] [facility] [place] [address] PCP - General 12/05/14 [employer] Relationship Specialty Start Date End Date Rita De La Cruz MD [address] [facility] [place] [address] PCP - General 12/05/14 [employer] Relationship Specialty Start Date End Date Rita De La Cruz MD [address] [facility] [place] [address] PCP - General 12/05/14 [employer] Relationship Specialty Start Date End Date Rita De La Cruz MD [address] [facility] [place] [address] PCP - General 12/05/14 Team Status: Active Member Role Status Dates Dr. Rita De La Cruz MD Primary Care Provider Active Team Status: Active Member Role Status Dates Dr. Rita De La Cruz MD Primary Care Provider Active Start: August 11, 2024 Dr. Carol Leigh DO Emergency Provider Active Start: August 11, 2024 Dr. Tommy Durand MD Attending Provider Active Start: August 11, 2024 Team Status: Active Member Role Status Dates Dr. Rita De La Cruz MD Primary Care Provider Active Start: August 11, 2024 Dr. Carol Leigh DO Emergency Provider Active Start: August 11, 2024 Dr. Tommy Durand MD Attending Provider Active Start: August 11, 2024 Dr. Tommy Durand MD Other Provider Active Sta rt: August 11, 2024 FOR RECORDS PERTAINING TO PATIENTS WHO ARE [...] BE BASED ON THE PRIMARY CLINICAL RECORDS. [facility] [employer] [facility]. provides no warranty or guarantee of the accuracy or completeness of information in this document.
--- OUTSIDE RECORDS SUMMARY | 2024-08-12 07:27 | XMS RPT_ITS | CCD ---
Author Organization [facility] Care Team Providers Care Lead Injection Mold Technician Name Role Phone Rita De La Cruz [...] Jono WITT, Dr. Enriquez Primary Care Provider [phone] Dr. Carol Leigh DO Emergency Provider Dr. Tommy Durand MD Attending Provider Dr. Tommy Durand MD Other Provider [phone] Medications Current Medications Medication Drug Class(es) Dates [...] by mouth. 0 Active polyethylene glycol 3350 253503 mg / potassium chloride 2970 mg / sodium bicarbonate 6740 mg / sodium chloride 5860 mg / sodium sulfate 09972 mg powder for oral solution (1 source) Osmotic Laxative Start: 07-10-2023 End: 07-11-2023 polyethylene glycol (GaviLyte-G) 236 g solution Indications: Diverticulitis of large intestine without perforation or abscess without bleeding , Left sided abdominal pain Please take as directed by GI office for colonoscopy prep. 4000 mL 0 07/10/2023 07/11/2023 Active Saw-Vit E-Sod Ckw-Hjx-Llzs-Pyg (Prostate Health) 1 EACH tablet (1 source) Start: 03-03-2014 take 1 tablet by mouth once daily Saw-Vit E-Sod Xrk-Xql-Yayg-Pyg (Prostate Health) 1 EACH tablet Active 1 [...] Auto (Unsp spec) [#/Vol] 1.14 10*3/uL 0.83-4.51 [facility] Absolute neutrophil countOrd ered By: Carol Leigh on 08-11-2024 Neutrophils (Bld) [#/Vol] 7.0 10*3/uL 2.0-7.7 [facility] Anion gap in Serum or Plasma Ordered By: Carol Leigh on 08-11-2024 Anion gap [Moles/Vol] 14 mmol/L 5-15 [facility] Automated lymphocyte count a s percentage of total leukocytesOrdered By: Carol Leigh on 08-11-2024 Lymphocytes/100 WBC Auto (Unsp spec) 13.0 % Low 19-41 [facility] BUN/creatinine ratioOrdered By: Carol Leigh on 08-11-2024 Urea nitrogen/Creatinine [Mass ratio] 10.3 mg/mg 10-20 [facility] Basophil percentageOrdered B y: Carol Leigh on 08-11-2024 Basophils/100 WBC (Bld) 0.2 % 0-1 [facility] Bilirubin Test strip Ql (U)O rdered By: Carol Leigh on 08-11-2024 Bilirubin Ql (U) Negative Negative [facility] Bilirubin, totalOrdered By: Carol Leigh on 08-11-2024 Bilirubin [Mass/Vol] 0.37 mg/dL 0.00-1.30 [facility] Carbon dioxide, total [Moles /volume] in Central venous bloodOrdered By: Carol Leigh on 08-11-2024 CO2 [Moles/Vol] 22.9 mmol/L 21.0-32.0 [facility] Chloride assayOrdered By: Jw Leigh on 08-11-2024 Chloride [Moles/Vol] 100 mmol/L 98-108 [facility] Eosinophil percentageOrdered By: Carol Leigh on 08-11-2024 Eosinophils/100 WBC (Bld) 0.7 % 0-5 [facility] Erythrocyte distribution wid th ratioOrdered By: Carol Leigh on 08-11-2024 Erythrocyte distribution width (RBC) [Ratio] 13.9 % 11.6-14.6 [facility] Erythrocyte distribution wid th standard deviationOrdered By: Carol Leigh on 08-11-2024 Erythrocyte distribution width (RBC) [Ratio] 44.8 fl High 35.1-43.9 [facility] Glomerular filtration rate ( GFR) estimation/1.73 sq m using serum, plasma, or whole bOrdered By: Carol Leigh on 08-11-2024 GFR/1.73 sq M.predicted among non-blacks MDRD (S/P/Bld) [Vol rate/Area] 59 mL/min/{1.73_m2} Low >60 [facility] Comment on above: mL/min/1.73m2 CKD-EP I Creatinine Equation (2020) Hematocrit Auto (Bld) [Volum e fraction]Ordered By: Carol Leigh on 08-11-2024 Hematocrit (Bld) [Volume fraction] 35.0 % Low 40-54 [facility] Hemoglobin measurementOrdere d By: Carol Leigh on 08-11-2024 Hemoglobin (Bld) [Mass/Vol] 12.0 g/dL Low 13.0-16.5 [facility] Immature granulocytes/100 WB C Auto (Bld)Ordered By: Carol Leigh on 08-11-2024 Immature granulocytes/100 WBC (Bld) 0.200 % 0.0-0.9 [facility] Comment on above: IG% - Immature Granu locytes (promyelocytes, myelocytes and metamyelocytes) > 1% indicates that a LEFT SHIFT is Present. Ketones Test strip Ql (U)Ord ered By: Carol Leigh on 08-11-2024 Ketones Ql (U) Negative Negative [facility] Laboratory - Chemistry and C hemistry - challengeOrdered By: Carol Leigh on 08-11-2024 AST [Catalytic activity/Vol] 25 U/L <38 [facility] Lipase measurementOrdered By : Carol Leigh 08-11-2024 Lipase [Catalytic activity/Vol] 49 U/L 13-75 [facility] Comment on above: Please note:LIPASE r evised reference range effective 22. New Lipase methodology. Expected to produce lower values than the previous assay method. NEW Reference Range: 13 - 75 U/L MCV (mean corpuscular volume ) determinationOrdered By: Carol Leigh on 08-11-2024 MCV (RBC) [Entitic vol] 88.8 fL 80-94 [facility] Mean corpuscular hemoglobin (MCH) determinationOrdered By: Carol Leigh on 08-11-2024 MCH (RBC) [Entitic mass] 30.5 pg 27.0-32.0 [facility] Mean corpuscular hemoglobin concentration (MCHC) determinationOrdered By: Carol Leigh on 08-11-2024 MCHC (RBC) [Mass/Vol] 34.3 g/dL 32-36 [facility] Mean platelet volume determi nationOrdered By: Carol Leigh on 08-11-2024 Platelet mean volume (Bld) [Entitic vol] 10.4 fL 6.2-12.0 [facility] Microscopic analysis of urin e for red blood cells (RBC)Ordered By: Carol Leigh on 08-11-2024 Microscopic analysis of urine for red blood cells (RBC) 0 SEEN /hpf 0-5 [facility] Monocyte percentageOrdered B y: Carol Leigh on 08-11-2024 Monocytes/100 WBC (Bld) 5.8 % 0-10 [facility] Mucus LM Ql (Urine sed)Order ed By: Carol Leigh on 08-11-2024 Mucus Ql (Urine sed) 0 SEEN /hpf [facility] Neutrophil percentageOrdered By: Carol Leigh on 08-11-2024 Neutrophils/100 WBC (Bld) 80.1 % High 47-70 [facility] Nitrite Test strip Ql (U)Ord ered By: Carol Leigh on 08-11-2024 Nitrite Ql (U) Negative Negative [facility] Nucleated red blood cell per centageOrdered By: Carol Leigh on 08-11-2024 Nucleated RBC/100 WBC (Bld) [Ratio] 0 % 0-5 [facility] Platelet countOrdered By: Jw Leigh on 08-11-2024 Platelets (Bld) [#/Vol] 256 10*3/uL 150-450 [facility] Potassium measurement (mass/ volume)Ordered By: Carol Leigh on 08-11-2024 Potassium (Unsp spec) [Mass/Vol] 4.1 mmol/L 3.3-5.1 [facility] Protein Test strip Ql (U)Ord ered By: Carol Leigh on 08-11-2024 Protein Ql (U) 15 mg/dl High Negative [facility] RBC Auto (Bld) [#/Vol]Ordere d By: Carol Leigh on 08-11-2024 RBC (Bld) [#/Vol] 3.94 10*6/uL Low 4.6-6.2 [facility] Serum creatinine measurement (mass/volume)Ordered By: Carol Leigh on 08-11-2024 Creatinine [Mass/Vol] 1.21 mg/dL High 0.70-1.20 [facility] Serum globulin measurementOr dered By: Carol Leigh on 08-11-2024 Globulin (S) [Mass/Vol] 2.6 g/dL 2.2-4.2 [facility] Serum glucose measurement (m ass/volume)Ordered By: Carol Leigh on 08-11-2024 Glucose [Mass/Vol] 120 mg/dL High 70-99 [facility] Serum or plasma alanine quintero otransferase (ALT) measurementOrdered By: Carol Leigh on 08-11-2024 ALT [Catalytic activity/Vol] 22 U/L <47 [facility] Serum or plasma albumin nora urement (mass/volume)Ordered By: Carol Leigh on 08-11-2024 Albumin [Mass/Vol] 4.4 g/dL 3.4-4.8 [facility] Serum or plasma albumin/glob ulin mass ratioOrdered By: Carol Leigh on 08-11-2024 Albumin/Globulin [Mass ratio] 1.7 {ratio} 0.9-2.4 [facility] Serum or plasma alkaline maricruz sphatase measurementOrdered By: Carol Leigh on 08-11-2024 ALP [Catalytic activity/Vol] 139 U/L High 40-129 [facility] Serum or plasma calcium nora urement (mass/volume)Ordered By: Carol Leigh on 08-11-2024 Calcium [Mass/Vol] 9.6 mg/dL 7.6-11.0 [facility] Serum or plasma urea nitroge n measurement (mass/volume)Ordered By: Carol Leigh on 08-11-2024 Urea nitrogen [Mass/Vol] 13 mg/dL 4-19 [facility] Sodium levelOrdered By: Antonia Leigh on 08-11-2024 Sodium [Moles/Vol] 136 mmol/L 133-145 [facility] Squamous epithelial cells de tection in urine sediment by light microscopyOrdered By: Carol Leigh on 08-11-2024 Epithelial cells.squamous LM Ql (Urine sed) 0 SEEN /hpf 0-5 [facility] Total proteinOrdered By: Marii Leigh on 08-11-2024 Protein [Mass/Vol] 7.0 g/dL 5.9-8.4 [facility] Troponin T.cardiac [Mass/vol ume] in Serum or Plasma by High sensitivity methodOrdered By: Carol Leigh on 08-11-2024 Troponin T.cardiac High sensitivity method [Mass/Vol] 17 ng/L <22 [facility] Troponin T.cardiac High sensitivity method [Mass/Vol] 19 ng/L <22 [facility] Urine clarityOrdered By: Marii Leigh on 08-11-2024 Clarity (U) Sl. Cloudy Clear [facility] Urine color determinationOrd ered By: Carol Leigh on 08-11-2024 Color (U) Straw Yellow [facility] Urine glucose detectionOrder ed By: Carol Leigh on 08-11-2024 Glucose Ql (U) Normal mg/dl Normal [facility] Urine leukocyte esterase det ection by dipstickOrdered By: Carol Leigh on 08-11-2024 Leukocyte esterase Test strip Ql (U) Negative Negative [facility] Urine pHOrdered By: Carol alexander on 08-11-2024 pH (U) 8.0 [pH] 5.0 - 8.0 [facility] Urine sediment bacteria coun t by microscopy (number/high power field)Ordered By: Carol Leigh on 08-11-2024 Bacteria LM.HPF (Urine sed) [#/Area] 0 /[HPF] None Seen [facility] Urine specific gravity measu rementOrdered By: Carol Leigh on 08-11-2024 Specific gravity (U) [Rel density] 1.010 1.002-1.030 [facility] Urine urobilinogen measureme ntOrdered By: Carol Leigh on 08-11-2024 Urobilinogen Ql (U) Normal mg/dl Normal [facility] White blood cell (WBC) count Ordered By: Carol Leigh on 08-11-2024 WBC (Bld) [#/Vol] 8.8 10*3/uL 4.4-11.0 [facility] White blood cell countOrdere d By: Carol Leigh on 08-11-2024 White blood cell count 0 SEEN /hpf 0-5 [facility] 36on 09-10-2023 [address] [facility] 36 Notified and scheduled. Sent to [facility] please, med pended. [facility] 36 Blood pressure continues to be slightly elevated would recommend starting patient on losartan 50 mg daily and recheck in 1 week [facility] 36 Don came in for a BP check. Readings were 173/93 pulse 60 and 146/92 pulse 58. [facility] Progress Noteon 09-10-2023 Progress Note [address] [facility] [address] Patient arrived for nurse visit today and was verified by name and . Supervising provider for clinic visit Dr. De La Cruz is currently not taking any anti- hypertensive medications Shortness of breath no Medication compliance yes Medication Reconciliation yes B/P Reading taken automatic Patient advised if follow up is needed, outreach will occur in [address] [facility] 36on 09-08-2023 36 Spoke to patient, no questions. [facility] 36on 09-05-2023 36 okay, he needs to take at least 4 g of fish oil to have effect on his cholesterol and triglycerides [facility] 36on 09-04-2023 36 Patient stated he does not like the cholesterol medication and would prefer to increase fish oil medication. [facility] 36 Message released to patient as written. [...] to the patient from encounter: Yes [facility] 36 ----- Message from Rita De La [...] no nurse visit is needed. Thanks! [facility] Office Visiton 09-03-2023 Follow-up visit [id number] Flavio Buenrostro 1940 Date Provider Department Center 09/03/2023 [id number] DE LA CRUZ [facility] Family History Problem Relation Age of Onset Cancer Father Comments: Brain Other Mother Family Status - Relation Status Age at Father Mother Level of Service:G0439 [place] PPPS, SUBSEQ VISIT Reason for Visit and Comments: Medicare Annual Wellness Visit Subsequent [857] Blood Work [357424] Health Maintenance [872] - Shingles vaccine- declined Rsv vaccine- not done 4 covid vaccine- not done Tdap vaccine- declined [facility] Progress Noteon 09-03-2023 Progress Note Blood pressure was initially elevated, recheck was still catq-gjuyss-fj in 1 week for blood pressure check. Continue very strict low-sodium diet [facility] Progress Note Discussed risk factors for aortic aneurysms and currently he is declining to get any imaging studies. [facility] Progress Note Uncontrolled, currently on no medications we will recheck his levels today. [facility] Progress Note Stable, using OTC medication for his prostate [facility] Progress Note Stable, currently brasher s no complaints [facility] Progress Note Patient verified by last name and date of . [facility] Progress Note [facility] [address] [facility] [address] [facility] [address] Visit Type: Medicare Annual Wellness PCP: Rita De La Cruz MD Reason for Visit: Medicare Annual Wellness Visit Subsequent, Blood Work, and Health Maintenance (Shingles vaccine- declined /Rsv vaccine- not done /4 covid vaccine- not done/Tdap vaccine- declined ) Assessment and Plan Problem List Items Addressed This Visit Blood pressure elevated without history of HTN Blood pressure was initially elevated, recheck was still prkd-sgpijx-wg in 1 week for blood pressure check. [...] Do you have (more content not included)... [address] 09-01-2023 36 LM to pre-visit plan for appointment with Dr De La Cruz on 09/03/23 7am. Please ask patient to arrive 10 minutes early with Photo ID, insurance card Fasting: yes Put call through to office for pvp [address] 08-20-2023 36 Order signed per request. [place] [address] He already saw them and discussed it with them and they said it was fine. Order pended for cologuard. Will mail rx for handicap placard once signed. [place] [address] With his history of diverticulitis and left sided abdominal pain I would recommend a colonoscopy versus a home Cologuard test. I see he follows up with GI- would recommend discussing with them if they feel this would be appropriate or not. Handicap placard placed. [facility] 36 Patient stopped in and said he would like to do the Cologuard instead of a Colonoscopy for now, are you able to put in an order for that? He also asked if he can have a handicap placard RX, he has been having a hard time walking far distances. Thank you! [address] 07-10-2023 36 Called pt to schedul e him for a Colonoscopy. Pt did not answer LM and provided office number. 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 [phone] --please contact office with any recurrence of symptoms. --Schedule colonoscopy for further evaluation of the symptoms. --A prescription for GoLytely was sent to your pharmacy. This is the bowel prep for your colonoscopy. --Please see handout provided regarding additional recommendations for the symptoms including when to seek emergency care or further treatment. --Follow-up with PCP, and in GI clinic as needed. [facility] Progress Noteon 07-10-2023 Progress Note [facility] [address] [facility] [address] Dept: [phone] Dept Loc: [phone] Visit type: New Reason for Visit: Establish Care (Diverticulitis of large intestine without perforation or abscess without bleeding, BEER BREWER/Pt stated that he is doing better since [...] elected to schedule procedure at this time-prefers [place] location if possible --reviewed alarm symptoms and when to notify office --patient and verbalized understanding and agreement of plan Advised patient to call office with new or worsening symptoms, questions, or concerns. Patient verbalized understanding and agreement of plan. Follow up if symptoms worsen or fail to improve. Subjective HPI Patient is [facility] to [facility]. He is referred by Dr. De [...] Age of Onset Cancer Father Brain Other ([address]) Mother Objective BP (!) 150/86 Pulse 59 [...] Affect: Mood nor (more content not included)... [facility] 07-07-2023 36 Patient stopped into office. Relayed information to him, states he will keep his appointment on the with gastro. [facility] 07-03-2023 36 Left a message to return call. CAC: If Jean calls back, please relay information to him. Thank you! [facility] 36 I think with his history of diverticulitis and the change that he had in his bowels that he should at least meet with a certified medical coding specialist and get their opinion as to whether he needs a colonoscopy. [facility] 07-02-2023 36 Name of caller: Baljinder Contact phone number: [phone] Relationship to Patient: patient Provider: Rene Practice: [...] business hours to return their call: N/A [facility] Office Visiton 05-12-2023 Follow-up visit [id number] Flavio Buenrostro 1940 M Date Provider Department Center 05/12/2023 [id number]-GSLZQRENE RODRIGUEZ [facility] Family History Problem Relation Age of Onset Cancer Father Comments: Brain Other Mother Family Status - Relation Status Age at Father Mother Level of Service:87730 [place] OFFICE/OUTPATIENT ESTABLISHED SF MDM 10 MIN Reason for Visit and Comments: Follow-up [351343] - Constipation follow up Health Maintenance [872] - RSV- 4th Covid- AWV- Constipation [470018] - Has gotten a little bit better since last time. Wants to talk about colonoscopy possibilities. [facility] Progress Noteon 05-12-2023 Progress Note Patient verified by last name and . [facility] Progress Note 05/12/2023 Jean Buenrostro (: 1940) [...] VIKI Oro CNP 05/12/2023 9:42 AM [facility] Office Visiton 04-30-2023 Follow-up visit [id number] Flavio Buenrostro 1940 Date Provider Department Center 04/30/2023 [id number]-GGHPPRENE RODRIGUEZ [facility] Family History Problem Relation Age of Onset Cancer Father Comments: Brain Other Mother Family Status - Relation Status Age at Father Mother Level of Service:08207 [place] OFFICE/OUTPATIENT ESTABLISHED LOW [facility] 20 MIN Reason for Visit and Comments: Constipation [704006] [facility] PATINSon 04-30-2023 PATINS Continue adequate water intake. Continue Probiotic Metamucil Fiber Get up and walk around frequently [facility] Progress Noteon 04-30-2023 Progress Note 04/30/2023 Jean [...] Miralax daily. Is scheduled to see a certified medical coding specialist in June. Review of Systems Constitutional: Negative [...] Impression [facility] Name: [facility] 1940 [id number] Exam Date/Time: 04/03/2023 15:30 Procedure: CT ABDOMEN [...] note. VIKI Oro CNP 04/30/2023 9:[address] [facility] Progress Note Patient was verified by name and . [facility] 36on 04-29-2023 36 S: Patient called [facility] with complaint of concern for constipation, [...] bowel movement. Could also get Senokot S otrv-kmm-gmxpwyf and take 2 of them at bedtime [...] is more swollen than usual Protocols used: [id number] [facility] 36on 04-14-2023 36 Notified. [facility] 36 He should be finishe d with the antibiotics, if not stop them if he is not having any pain, okay to take MiraLAX once a day until has a good bowel movement. Could also get Senokot S ehwf-kva-thmqspx and take 2 of them at bedtime and see if that gets his bowels moving in the morning. [facility] 36 S: Patient spoke wit h [facility] nurse regarding medication issue. B: Onset [...] to answer question Protocols used: Medication Question [id number] [facility] 36on 04-10-2023 36 Referral done for [place] [address] Notified, agreeable but doesn't want to go far. [place] [address] I would recommend that we refer him to a certified medical coding specialist and then they can decide whether he needs the colonoscopy [place] [address] Jean asked if he needs a follow up colonoscopy after having diverticulitis? [place] [address] Notified. [place] [address] Blood pressure borderline, recommend very very strict low-sodium diet and increase exercise [place] [address] Jean came in for a BP check, readings were 146/87 and 137/[address] [facility] Progress Noteon 04-10-2023 Progress Note [address] [facility] [address] [facility] [id number] Patient arrived for nurse visit today and was verified by name and . Supervising provider for clinic visit Dr. De La Cruz is currently not taking any anti- hypertensive medications Shortness of breath no B/P Reading taken automatic Home Monitoring yes Patient advised if follow up is needed, outreach will occur in [address] [facility] CBC W Auto Differential pane l (Bld)on 04-03-2023 Basophils (Bld) [#/Vol] 28 10*3/uL S [facility] Basophils/100 WBC (Bld) 0.6 % S [facility] Eosinophils (Bld) [#/Vol] 183 10*3/uL [facility] Eosinophils/100 WBC (Bld) 3.9 % [facility] Erythrocyte distribution width (RBC) [Ratio] 13.4 % 11.0 - 15.0 % [facility] Hematocrit (Bld) [Volume fraction] 39.4 % 38.5 - 50.0 % [facility] Hemoglobin (Bld) [Mass/Vol] 13.5 g/dL 13.2 - 17.1 g/dL [facility] Lymphocytes (Bld) [#/Vol] 1382 10*3/uL [facility] Lymphocytes/100 WBC (Bld) 29.4 % [facility] MCH (RBC) [Entitic mass] 30.5 pg 27. 0 - 33.0 pg [facility] MCHC (RBC) [Mass/Vol] 34.3 g/dL 32.0 - 36.0 g/dL [facility] MCV (RBC) [Entitic vol] 89.1 fL 80.0 - 100.0 fL [facility] Monocytes (Bld) [#/Vol] 625 10*3/uL [facility] Health Monocytes/100 WBC (Bld) 13.3 % S [facility] Neutrophils (Bld) [#/Vol] 2482 10*3/uL [facility] Neutrophils/100 WBC (Bld) 52.8 % [facility] Platelet mean volume (Bld) [Entitic vol] 11.1 fL 7.5 - 12.5 fL [facility] Platelets (Bld) [#/Vol] 253 10*3/uL [facility] RBC (Bld) [#/Vol] 4.42 10*6/uL [facility] WBC (Bld) [#/Vol] 4.7 10*3/uL [facility] CT [facility] ABDOMEN PELVIS WO IV CONTRAST [...] PM EST LEFT SIDE ABD PAIN [facility] CT Abdomen WO contraston Cholelithiasis. Report Dictated on Electronically Signed By: Rodri Street MD Electronically Signed Date/Time: 04/03/2023 3:38 PM EST [facility] Patient Name: JEAN BUENROSTRO : 1940 [...] fluid. No lymphadenopathy. The bladder is unremarkable. [facility] Rodri Street MD - 04/03/2023 Patient [...] Electronically Signed Date/Time: 04/03/2023 3:38 PM EST [facility] Radiology Study observation (narrative) [facility] asim CT Abdomen WO Shaq marsh By: Rodri Street on 04-03-2023 [facility] [employer] Work Phone: Comprehensive metabolic 1998 panelon 04-03-2023 Albumin [Mass/Vol] 4.5 g/dL 3.6 - 5.1 g/dL [facility] [employer] Albumin/Globulin [Mass ratio] 1.7 {ratio} [facility] [employer] ALP [Catalytic activity/Vol] 117 U/L 35 - 144 U/L [facility] [employer] ALT [Catalytic activity/Vol] 25 U/L 9 - 46 U/L [facility] [employer] AST [Catalytic activity/Vol] 23 U/L 10 - 35 U/L [facility] [employer] Bilirubin [Mass/Vol] 0.6 mg/dL 0.2 - 1 .2 mg/dL [facility] [employer] Calcium [Mass/Vol] 9.7 mg/dL 8.6 - 10. 3 mg/dL [facility] [employer] Chloride [Moles/Vol] 103 mmol/L 98 - 11 0 mmol/L [facility] [employer] CO2 [Moles/Vol] 28 mmol/L 20 - 32 mmol/L [facility] [employer] Creatinine [Mass/Vol] 1.14 mg/dL 0.70 - 1.22 mg/dL [facility] [employer] GFR/1.73 sq M.predicted among non-blacks MDRD (S/P/Bld) [Vol rate/Area] 64 mL/min/{1.73_m2} > OR = 60 mL/min/1.73m 2 [facility] [employer] Globulin (S) [Mass/Vol] 2.6 g/dL [facility] Glucose [Mass/Vol] 89 mg/dL 65 - 99 mg/dL [facility] [employer] Comment on above: Fasting reference interval Potassium [Moles/Vol] 4.3 mmol/L 3.5 - 5.3 mmol/L [facility] [employer] Protein [Mass/Vol] 7.1 g/dL 6.1 - 8.1 g/dL [facility] [employer] Sodium [Moles/Vol] 138 mmol/L 135 - 146 mmol/L [facility] [employer] Urea nitrogen [Mass/Vol] 11 mg/dL 7 - 25 mg/d L [facility] [employer] Urea nitrogen/Creatinine [Mass ratio] SEE NOTE: [facility] Comment on above: Not Reported: BUN an d Creatinine are within reference range. No Panel Informationon 04-03 [facility] Office Visiton 04-03-2023 Follow-up visit [id number] Flavio Buenrostro 1940 M Date Provider Department Center 04/03/2023 [id number] DE LA CRUZJAIRO [facility] Family History Problem Relation Age of Onset Cancer Father Comments: Brain Other Mother Family Status - Relation Status Age at Father Mother Level of Service:38708 [facility] OFFICE/OUTPATIENT ESTABLISHED MOD MDM 30 MIN Reason for Visit and Comments: Abdominal Pain [111890] - Left mid abdominal - started Friday worse in the evening [facility] Progress Noteon 04-03-2023 Progress Note Blood pressure was initially elevated, recheck was still a little high follow-up in 1 week for blood pressure check after abdominal pain is resolved. [facility] Progress Note Cipro 500 twice a da y and Flagyl 503 times a day started for 10 days. CBC and CMP to be done. Stat abdominal CT scan. [facility] Progress Note 04/03/2023 Jean Buenrostro (: 1940) [...] De La Cruz MD 04/03/2023 12:[address] [facility] Progress Note Patient verified by last name and date of . [facility] 36on 04-02-2023 36 S: [facility] with complaint of Feeling bloated, and have [...] 60 years Protocols used: Abdominal Pain - [id number] [facility] VL Aorta Iliac Duplex Scr fo r Medicareon 11-28-2017 VL Aorta Iliac Duplex Scr for Medicare Patient Name: JEAN BUENROSTRO Ultrasound Exam Date/Time 11/28/2017 10:01:38 EDT Exam VL Aorta Iliac Duplex Scr for Medicare Ordering Physician MD JONO, RITA VASQUEZ Accession Number [id number] CPT4 Codes 46817 () Reason For Exam aaa screening Report [...] R Transcribed Date and Time: 11/28/2017 10:01 [facility] Vital Signs Date Time Vital Sign Value Performing Clinician Faci lity 08-11-2024 12:44-0400 Body temperature 97.9 [degF] Dr. Rita De La Cruz MD Work Phone: [facility] 08-11-2024 12:44-0400 Diastolic blood pressure 86 mm[Hg] Dr. Rita De La Cruz MD Work Phone: [facility] 08-11-2024 12:44-0400 Heart rate 67 /min Dr. Rita De La Cruz MD Work Phone: [facility] 08-11-2024 12:44-0400 Respiratory rate 16 /min Dr. Rita De La Cruz MD Work Phone: [facility] 08-11-2024 12:44-0400 SaO2% (BldA) [Mass fraction] 99 % Dr. Rita De La Cruz MD Work Phone: [facility] 08-11-2024 12:44-0400 Systolic blood pressure 146 mm[Hg] Dr. Rita De La Cruz MD Work Phone: [facility] 08-11-2024 12:31-0400 Body height 167.[address] Rita De La Cruz MD Work Phone: [facility] 08-11-2024 12:31-0400 Body mass index (BMI) [Ratio] 28.4 kg/m2 Dr. Rita De La Cruz MD Work Phone: [facility] 08-11-2024 12:31-0400 Body weight [address] Rita De La Cruz MD Work Phone: [facility] 09-03-2023 07:24-0400 Diastolic blood pressure 90 mm[Hg] Rita De La Cruz MD Work Phone: [facility] 09-03-2023 07:24-0400 Heart rate 64 /min Rita De La Cruz MD Work Phone: [facility] 09-03-2023 07:24-0400 Systolic blood pressure 152 mm[Hg] Rita De La Cruz MD Work Phone: [facility] 09-03-2023 06:51-0400 Body height 170.2 cm Rita De La Cruz MD Work Phone: [facility] [employer] 09-03-2023 06:51-0400 Body mass index (BMI) [Ratio] 27.19 kg/m2 Rita De La Cruz MD Work Phone: [facility] [employer] 09-03-2023 06:51-0400 Body weight 78.74 kg Rita De La Cruz MD Work Phone: [facility] [employer] 09-03-2023 06:51-0400 SaO2% (BldA) [Mass fraction] 95 % Rita De La Cruz MD Work Phone: [facility] [employer] 07-10-2023 08:11-0400 Body height 170.2 cm Moncho Forester COMPUTATIONAL CHEMIST - FEED BLENDER Work Phone: [facility] [employer] 07-10-2023 08:11-0400 Body mass index (BMI) [Ratio] 27.16 kg/m2 Moncho Forester COMPUTATIONAL CHEMIST - FEED BLENDER Work Phone: [facility] [employer] 07-10-2023 08:11-0400 Body weight 78.65 kg Moncho Forester COMPUTATIONAL CHEMIST - FEED BLENDER Work Phone: [facility] [employer] 07-10-2023 08:11-0400 Diastolic blood pressure 86 mm[Hg] Moncho Forester COMPUTATIONAL CHEMIST - FEED BLENDER Work Phone: [facility] [employer] 07-10-2023 08:11-0400 Heart rate 59 /min Moncho Forester COMPUTATIONAL CHEMIST - FEED BLENDER Work Phone: [facility] [employer] 07-10-2023 08:11-0400 Systolic blood pressure 150 mm[Hg] Moncho Forester COMPUTATIONAL CHEMIST - FEED BLENDER Work Phone: [facility] [employer] 05-12-2023 09:29-0400 Diastolic blood pressure 82 mm[Hg] Rene Rodriguez COMPUTATIONAL CHEMIST - FEED BLENDER Work Phone: [facility] [employer] 05-12-2023 09:29-0400 Systolic blood pressure 136 mm[Hg] Rene Rodriguez COMPUTATIONAL CHEMIST - FEED BLENDER Work Phone: [facility] [employer] 05-12-2023 09:12-0400 Body height 167.6 cm Rene Rodriguez COMPUTATIONAL CHEMIST - FEED BLENDER Work Phone: [employer] 05-12-2023 09:12-0400 Body mass index (BMI) [Ratio] 28.08 kg/m2 Rene Rodriguez COMPUTATIONAL CHEMIST - FEED BLENDER Work Phone: [employer] 05-12-2023 09:12-0400 Body weight 78.93 kg Rene Rodriguez COMPUTATIONAL CHEMIST - FEED BLENDER Work Phone: [employer] 05-12-2023 09:12-0400 Heart rate 63 /min Rene Rodriguez COMPUTATIONAL CHEMIST - FEED BLENDER Work Phone: [employer] 05-12-2023 09:12-0400 SaO2% (BldA) [Mass fraction] 93 % Rene Rodriguez COMPUTATIONAL CHEMIST - FEED BLENDER Work Phone: [employer] 04-30-2023 08:56-0500 Body height 167.6 cm Rene Rodriguez COMPUTATIONAL CHEMIST - FEED BLENDER Work Phone: [employer] 04-30-2023 08:56-0500 Body mass index (BMI) [Ratio] 27.12 kg/m2 Rene Rodriguez COMPUTATIONAL CHEMIST - FEED BLENDER Work Phone: [employer] 04-30-2023 08:56-0500 Body weight 76.2 kg Rene Rodriguez COMPUTATIONAL CHEMIST - FEED BLENDER Work Phone: [employer] 04-30-2023 08:56-0500 Diastolic blood pressure 78 mm[Hg] Rene Rodriguez COMPUTATIONAL CHEMIST - FEED BLENDER Work Phone: [employer] 04-30-2023 08:56-0500 Heart rate 73 /min Rene Rodriguez COMPUTATIONAL CHEMIST - FEED BLENDER Work Phone: [employer] 04-30-2023 08:56-0500 SaO2% (BldA) [Mass fraction] 98 % Rene Rodriguez COMPUTATIONAL CHEMIST - FEED BLENDER Work Phone: [employer] 04-30-2023 08:56-0500 Systolic blood pressure 119 mm[Hg] Rene Rodriguez COMPUTATIONAL CHEMIST - FEED BLENDER Work Phone: [employer] 04-03-2023 11:48-0500 Diastolic blood pressure 81 mm[Hg] Rita De La Cruz MD Work Phone: [employer] 04-03-2023 11:48-0500 Heart rate 71 /min Rita De La Cruz MD Work Phone: [employer] 04-03-2023 11:48-0500 Systolic blood pressure 146 mm[Hg] Rita De La Cruz MD Work Phone: [employer] 04-03-2023 11:20-0500 Body height 167.6 cm Rita De La Cruz MD Work Phone: [employer] 04-03-2023 11:20-0500 Body mass index (BMI) [Ratio] 27.99 kg/m2 Rita De La rCuz MD Work Phone: [employer] 04-03-2023 11:20-0500 Body weight 78.65 kg Rita De La Cruz MD Work Phone: [employer] 04-03-2023 11:20-0500 SaO2% (BldA) [Mass fraction] 95 % Rita De La Cruz MD Work Phone: [employer] 08-26-2022 07:40-0400 Diastolic blood pressure 84 mm[Hg] Rita De La Cruz MD Work Phone: [employer] 08-26-2022 07:40-0400 Heart rate 63 /min Rita De La Cruz MD Work Phone: [employer] 08-26-2022 07:40-0400 Systolic blood pressure 129 mm[Hg] Rita De La Cruz MD Work Phone: [employer] 08-26-2022 06:56-0400 Body height 167.6 cm Rita De La Cruz MD Work Phone: [employer] 08-26-2022 06:56-0400 Body mass index (BMI) [Ratio] 28.21 kg/m2 Rita De La Cruz MD Work Phone: [employer] 08-26-2022 06:56-0400 Body weight 79.29 kg Rita De La Cruz MD Work Phone: [facility] 08-26-2022 06:56-0400 Respiratory rate 16 /min Rita De La Cruz MD Work Phone: [facility] 08-26-2022 06:56-0400 SaO2% (BldA) [Mass fraction] 93 % Rita De La Cruz MD Work Phone: [facility] Encounters Encounter Date Encounter Type Care Provider Facility Start: 08-11-2024 Non-patient / Non-visit Dr. Jessica Durand MD -[facility] Start: 08-11-2024 Admission to [facility] Dr. Tommy Durand MD -[facility] Start: 08-11-[address] Rita menchaca MD Work Phone: [facility] Work Phone: Start: 09-10-2023 End: 09-10-2023 ambulatory [facility] Start: 09-03-2023 End: 09-03-2023 Patient encounter procedure Rita De La Cruz MD Work Phone: [facility] Comment on above: Medicare annual well ness visit, subsequent (Primary Dx); Peripheral vascular disease (HCC); Blood pressure elevated without history of HTN; Benign prostatic hyperplasia without lower urinary tract symptoms; Hypercholesterolemia; Screening for diabetes mellitus; FHx: aortic aneurysm Start: 09-03-2023 End: 09-03-2023 ambulatory [facility] Start: 09-03-2023 End: 09-03-2023 Encounter for general adult medical examination without abnormal findings [facility] Start: 07-10-2023 End: 07-10-2023 ambulatory [facility] Start: 07-10-2023 End: 07-10-2023 Office outpatient new 45 minutes [facility] COMPUTATIONAL CHEMIST - FEED BLENDER Work Phone: [facility] Comment on above: Left sided abdominal pain (Primary Dx); Diverticulitis of large intestine without perforation or abscess without bleeding; Change in bowel habit Start: 07-02-2023 Telephone encounter Rene Toribio COMPUTATIONAL CHEMIST - FEED BLENDER Work Phone: [facility] Comment on above: OTHER Start: 05-12-2023 End: 05-12-2023 Office outpatient visit 10 minutes Rene S Hermelindo COMPUTATIONAL CHEMIST - FEED BLENDER Work Phone: [facility] Comment on above: Change in bowel habi ts (Primary Dx) Start: 05-12-2023 End: 05-12-[address] [facility] Start: 04-30-2023 End: 04-30-2023 Office outpatient visit 10 minutes Rene Andrews Hermelindo COMPUTATIONAL CHEMIST - FEED BLENDER Work Phone: [facility] Comment on above: Change in bowel habi ts (Primary Dx) Start: 04-30-2023 End: 04-30-2023 Office outpatient visit 15 minutes Rene S Hermelindo COMPUTATIONAL CHEMIST - FEED BLENDER Work Phone: [facility] Comment on above: Change in bowel habi ts (Primary Dx) Start: 04-30-2023 End: 04-30-2023 ambulatory [facility] Start: 04-29-2023 ambulatory Annmarie Waters RN [facility] Clinical Communication Start: 04-29-2023 Patient encounter procedure Annmarie Waters RN [facility] Clinical Communication Start: 04-10-2023 End: 04-10-2023 ambulatory [facility] Start: 04-03-2023 End: 04-03-2023 ambulatory [facility] Start: 04-03-2023 End: 04-03-2023 Subsequent hospital visit by physician [facility] [address] Exam Room [address] [facility] [address] Comment on above: Diverticulitis of la rge intestine without perforation or abscess without bleeding Start: 04-03-2023 End: 04-03-2023 Office outpatient visit 25 minutes Rita De La Cruz MD Work Phone: [facility] Comment on above: Diverticulitis of la rge intestine without perforation or abscess without bleeding (Primary Dx); Blood pressure elevated without history of HTN Start: 04-03-2023 End: 04-03-2023 ambulatory [facility] Start: 08-26-2022 End: 08-26-2022 Patient encounter procedure Rita De La Cruz MD Work Phone: [facility] Comment on above: Medicare annual well ness visit, subsequent (Primary Dx); Peripheral vascular disease (HCC); Benign prostatic hyperplasia without lower urinary tract symptoms; Hypercholesterolemia; Screening for diabetes mellitus Start: 11-28-2017 Patient encounter Rita De La Cruz [facility] Procedures Date Procedure Procedure Detail Performing [...] Author Start: 08-27-2027 Lipid panel Lipid Panel [facility] Start: 02-07-2026 Lipid panel Lipid Panel [facility] Start: 09-03-2024 End: 09-03-2024 Patient encounter procedure 09/03/2024 7:00 AM EDT [facility] [address] [place] [address] [place] [address] Rita De La Cruz MD [address] [place] [address], [place] [address] [facility] Start: 09-02-2024 COVID-19 Vaccine () COVID-19 Vaccine () [facility] Comment on above: Postponed from 10/25/2022 (Patient Refus ed) Start: 09-02-2024 Depression Screening Depression Screening [facility] Start: 09-02-2024 DTaP/Tdap/Td Vaccines (2 - Td or Tdap) DTaP/Tdap/Td Vaccines (2 - Td or Tdap) [facility] Comment on above: Postponed from 07/29/2023 (Patient Refus ed) Start: 09-02-2024 RSV Immunization aged 60 or older (1 - 1-dose 60+ series) RSV Immunization aged 60 or older (1 - 1-dose 60+ series) [facility] Comment on above: Postponed from 2000 (Patient Refus ed) Start: 09-02-2024 Zoster Vaccines (1 of 2) Zoster Vaccines (1 of 2) [facility] Comment on above: Postponed from 1990 (Patient Refus ed) Start: 08-11-2024 Total cholecystectomy and exploration of common bile duct Laparoscopic, Cholecystectomy with IOC (Not Applicable) [facility] Start: 08-11-2024 Biliary tract contrast procedure Cholangiogram/ O R,Initial [facility] Start: 08-11-2024 Fluoroscopic guidance O.R. Fluoro for [facility] Start: 08-11-2024 Incentive spirometry [facility] Start: 08-11-2024 [facility] Start: 08-11-2024 Admission procedure [facility] Start: 08-11-2024 Hospital admission, emergency, from emergency room, medical nature [facility] Start: 08-11-2024 [facility] Start: 10-26-2023 Influenza vaccination [facility] Start: 09-10-2023 End: 09-10-2023 Clinical Support 09/10/2023 7:00 AM EDT Clinical Support [address] [place] [address] [facility] Start: 09-03-2023 End: 09-02-2024 Comprehensive metabolic 1998 panel - Serum or Plasma Comprehensive metabolic panel Lab Routine Screening for diabetes mellitus Expected: 09/03/2023 (Approximate), Expires: 09/02/2024 [facility] Comment on above: Expected: 09/03/2023 (Approximate), Expi res: 09/02/2024 Start: 09-03-2023 End: 09-02-2024 Lipid 1996 panel - Serum or Plasma Lipid panel Lab Routine Hypercholesterolemia Expected: 09/03/2023 (Approximate), Expires: 09/02/2024 [facility] Work Phone: Comment on above: Expected: 09/03/2023 (Approximate), Expi res: 09/02/2024 Start: 09-03-2023 End: 09-03-2023 Patient encounter procedure 09/03/2023 7:00 AM EDT Office [address] [place] [address] Rita De La Cruz MD [address] [place], [place] [address] [address] [facility] Start: 08-27-2023 COVID-19 Vaccine (4 - Booster for Moderna series) COVID-19 Vaccine (4 - Booster for Moderna series) [facility] Comment on above: Postponed from 04/02/2021 (Patient Refus ed) Start: 08-27-2023 Depression Screening Depression Screening [facility] Start: 08-27-2023 Zoster Vaccines (1 of 2) Zoster Vaccines (1 of 2) [facility] Comment on above: Postponed from 1990 (Patient Refus ed) Start: 07-29-2023 DTaP/Tdap/Td Vaccines (2 - Td or Tdap) DTaP/Tdap/Td Vaccines (2 - Td or Tdap) [facility] Start: 07-10-2023 End: 07-10-2023 Patient encounter procedure 07/10/2023 8:00 AM EDT Office Visit [facility] [address] [place] [id number] Moncho Roa APRN - FEED BLENDER [address] [place] [address] [facility] Start: 05-12-2023 End: 05-12-2023 Patient encounter procedure 05/12/2023 9:40 AM EDT Office Visit [facility] [address] [place] [address] Rene Rodriguez COMPUTATIONAL CHEMIST - FEED BLENDER [address] [place] [address] [place] [address] [place] [address] [facility] Start: 02-24-2023 Medicare Advantage Annual Wellness Visit Medicare Advantage Annual Wellness Visit [facility] Start: 10-25-2022 COVID-19 Vaccine ( season) COVID-19 Vaccine ( season) [facility] Start: 10-25-2022 Influenza vaccination Influenza Vaccine (#1) [facility] Start: 08-26-2022 End: 08-27-2023 Comprehensive metabolic 1998 panel - Serum or Plasma Comprehensive metabolic panel Lab Routine Screening for diabetes mellitus Expected: 08/26/2022 (Approximate), Expires: 08/27/2023 [facility] Work Phone: Comment on above: Expected: 08/26/2022 (Approximate), Expi res: 08/27/2023 Start: 08-26-2022 End: 08-27-2023 Lipid 1996 panel - Serum or Plasma Lipid panel Lab Routine Hypercholesterolemia Expected: 08/26/2022 (Approximate), Expires: 08/27/2023 [facility] Comment on above: Expected: 08/26/2022 (Approximate), Expi res: 08/27/2023 Start: 2000 Hepatitis B Vaccines (1 of 3 - Risk 3-dose series) Hepatitis B Vaccines (1 of 3 - Risk 3-dose series) [facility] Start: 2000 RSV Immunization aged 60 or older (1 - 1-dose 60+ series) RSV Immunization aged 60 or older (1 - 1-dose 60+ series) [facility] Start: 09-10-1959 Hepatitis A Vaccines (1 of 2 - Risk 2-dose series) Hepatitis A Vaccines (1 of 2 - Risk 2-dose series) [facility] Start: 1940 Medicare Advantage Annual Wellness Visit (AWV) Medicare Advantage Annual Wellness Visit (AWV) [facility] Alanine aminotransferase [Enzymatic activity/volume] in Serum or Plasma [facility] Albumin [Mass/volume ] in Serum or Plasma [facility] Alkaline phosphatase [Enzymatic activity/volume] in Serum or Plasma [facility] Anion gap in Serum o r Plasma [facility] Bilirubin, total measurement [facility] BUN/Creatinine ratio [facility] Calcium [Mass/volume ] in Serum or Plasma [facility] Carbon dioxide, tota l [Moles/volume] in Central venous blood [facility] Creatinine [Mass/volume] in Serum or Plasma [facility] Erythrocyte mean corpuscular volume determination [facility] Glucose [Mass/volume ] in Serum or Plasma [facility] Hematocrit [Volume Fraction] of Blood [facility] Hemoglobin [Mass/volume] in Blood [facility] Leukocytes [#/volume ] in Blood [facility] Mean corpuscular hemoglobin concentration determination [facility] Mean corpuscular hemoglobin determination [facility] Measurement of renal function [facility] Neutrophil count [facility] Neutrophil percent differential count [facility] OUTSIDE PROCEDURE SCAN OUTSIDE P ROCEDURE SCAN Procedures Ordered: 04/03/2023 [facility] Comment on above: Ordered: 04/03/[address] [facility] Work Phone: Platelets [#/volume] in Blood [facility] Potassium measurement [facility] Red blood cell count [facility] Red cell distributio n width determination [facility] Serum chloride measurement [facility] Sodium measurement [facility] Total protein measurement [facility] Urea nitrogen [Mass/volume] in Serum or Plasma [facility] Immunizations Immunization Date Immunization Notes Care Provider Dania walter 12-10-2021 Influenza, High-dose Seasonal, Quadrivalent, Preservative Free Rita De La Cruz MD Work Phone: [facility] 12-10-2021 influenza virus vacc ine, unspecified formulation Rita De La Cruz MD Work Phone: [facility] 12-25-2020 Influenza, High-dose Seasonal, Quadrivalent, Preservative Free Rita De La Cruz MD Work Phone: [facility] [employer] 11-15-2019 influenza, injectabl e, quadrivalent, preservative free Rita De La Cruz MD Work Phone: [facility] [employer] 08-02-2019 pneumococcal polysac charide vaccine, 23 valent Rita De La Cruz MD Work Phone: [facility] [employer] 01-01-2019 influenza, high dose seasonal, preservative-free Rita De La Cruz MD Work Phone: [facility] [employer] 11-26-2017 influenza, high dose seasonal, preservative-free Rita De La Cruz MD Work Phone: [facility] [employer] 11-26-2017 pneumococcal conjuga te vaccine, 13 valent Rita De La Cruz MD Work Phone: [facility] [employer] 07-28-2013 tetanus toxoid, redu jona diphtheria toxoid, and acellular pertussis vaccine, adsorbed Rita De La Cruz MD Work Phone: [facility] [employer] Payers Date Payer Category Payer Medicare [id number] 2022 Medicare [id number] 1940 Unknown [id number] Medicare ANTHEM MEDICARE PPO [id number] Unknown Social History Date Type Detail Facility Start: 08-11-2024 Tobacco smoking status NHIS Never sm oked tobacco [facility] Start: 08-26-2022 End: 09-03-2023 Alcohol intake Current non-drinker of alcohol (finding) [facility] Start: 08-26-2022 End: 09-03-2023 Alcohol intake [facility] Start: 08-26-2022 End: 09-03-2023 Alcohol Use Disorder Identification Test - Consumption [AUDIT-C] [facility] How often to you hav e a drink containing alcohol? Never [facility] Average Number of Drinks Not on file [facility] Start: 1940 Sex Assigned At Not on file S [facility] Start: 08-16-2022 End: 08-26-2022 Exposure to SARS-CoV-2 (event) Not sure [facility] Start: 08-10-2018 Alcohol Alcohol [facility] Start: 03-04-2014 Lives Lives [facility] Start: 03-04-2014 Tobacco Use Tobacco Use [facility] Start: 1940 Sex Assigned At Male W [facility] Goals Date Patient Goal Desired Activity /State Clinical Notes 08-26-2022 to 08-11-2024 Note Date & Type Note Facility 08-11-2024 History and physi santa note [facility] 08-11-2024 Evaluation note Diagnosis Onset Date Resolution Acute calculous cholecystitis acute August 11, 2024 9:52am [facility] Work Phone: [phone]) 873-689406-18-2025 Discharge summary Author Carol [facility] Note Date/Time August 11, 2024 8:12 am [facility] Medical Records Department [address] [place] [address] Emergency Department Summary 08/11/24 MR#: [id number] Acct: [id number] Name: JEAN BUENROSTRO Rep #:[id number] : 1940 83 From: Carol Dominique PCP: [...] pain currently is starting to improve. PFSH [facility] Medical History BPH (benign prostatic hyperplasia) Anemia [...] DAILY 03/03/1410/08 06:30 History unit-selen 100 1 dcj-zqud-bfixom-pygeum tablet ([facility]) Allergy/AdvReac Type Severity Reaction Status Date [...] 80.1 H Lymph % (Auto) 13.0 L Esmeralda % (Auto) 5.8 Eos % (Auto) 0.7 [...] Sl. Cloudy Urine pH 8.0 Ur Specific [place] 1.010 Urine Protein 15 H Urine Glucose [...] department at 3 a.m. EST. Reading Location: [place] [address] Gallbladder Ultrasound 08/11/24 04:15 IMPRESSION: Multiple gallstones. Mild gallbladder wall thickening. Small amount of pericholecystic fluid. Cholecystitis should be ruled out. Reading Location: [place] [address] Rhythm Strip Rhythm Strip: Sinus Rhythm Rate: 57 Ectopy: PAC(s) EKG Initial EKG: Attestation: I personally reviewed and interpreted this EKG as follows: Interpretation: Sinus Bradycardia Comments: Sinus bradycardia at a rate of 57 bpm with PACs Normal axis Normal intervals Normal ST segments Management Discussion w/another healthcare provider: Prefitter (General surgery) Discharge Plan Triage Chief Complaint: [...] MD [Primary Care Provider] - Print Language: Rwandan Disposition Disposition: [facility] What to do if you have Problems For any increased pain, shortness of breath, bleeding, nausea or vomiting, chestpain, or any unexpected problems, contact your Primary Care Provider. Call [facility] ([phone]) or report to the closest Emergency Room. Call 911 if necessary. 08/11/24 0812 <Electronically signed by Carol Leigh DO> Cosigner Signature (if applicable): CC: Dr. Rita De La Cruz MD ~ Signed [facility] Work Phone: 1(143) 492-360206-18-2025 Discharge summary [facility] Medical Records Department [address] [place] [address] Emergency Department Summary 08/11/24 MR#: [id number] Acct: [id number] Name: JEAN BUENROSTRO Rep #:[id number] : 1940 83 From: Carol Dominique PCP: [...] the pain currently is starting to improve. [facility] Medical History BPH (benign prostatic hyperplasia) Anemia [...] DAILY 03/03/1410/08 06:30 History unit-selen 100 1 ccp-ulpv-dezfvd-pygeum tablet ([facility]) Allergy/AdvReac Type Severity Reaction [...] 80.1 H Lymph % (Auto) 13.0 L Esmeralda % (Auto) 5.8 Eos % (Auto) 0.7 [...] Sl. Cloudy Urine pH 8.0 Ur Specific [place] 1.010 Urine Protein 15 H Urine Glucose [...] department at 3 a.m. EST. Reading Location: [place] [address] Gallbladder Ultrasound 08/11/24 04:15 IMPRESSION: Multiple gallstones. Mild gallbladder wall thickening. Small amount of pericholecystic fluid. Cholecystitis should be ruled out. Reading Location: [place] [address] Rhythm Strip Rhythm Strip: Sinus Rhythm Rate: 57 Ectopy: PAC(s) EKG Initial EKG: Attestation: I personally reviewed and interpreted this EKG as follows: Interpretation: Sinus Bradycardia Comments: Sinus bradycardia at a rate of 57 bpm with PACs Normal axis Normal intervals Normal ST segments Management Discussion w/another healthcare provider: Prefitter (General surgery) Discharge Plan Triage Chief Complaint: [...] MD [Primary Care Provider] - Print Language: Rwandan Disposition Disposition: Acute [facility] What to do if you have Problems For any increased pain, shortness of breath, bleeding, nausea or vomiting, chestpain, or any unexpected problems, contact your Primary Care Provider. Call [facility] ([phone]) or report tothe closest Emergency Room. Call 911 if necessary. 08/11/24 0812 Cosigner Signature (if applicable): CC: Dr. Rita De La Cruz MD ~ Signed [facility]06-18-2025 Radiology Diagnostic study note [facility] Imaging Services [address] [place], [place] [address] Gallbladder MR#: [id number] Acct: [id number] Name: JEAN BUENROSTRO Rep #: [id number] : 1940 M 83 From: Ke Marsh MD PCP: Dr. Rita De La Cruz MD Status: REG ER Study:Gallbladder Date of Exam: 08/11/24 Exam# [id number] Ordering Dr: Veronica Leigh DO PROCEDURE: GALLBLADDER [...] Cholecystitis should be ruled out. Reading Location: [place] [address] CC: Dr. Carol Leigh DO; Dr. Rita De La Cruz MD ~ Voip Technician: Signed [facility]06-18-2025 Radiology Diagnostic study note [facility] Imaging Services [address] [place] [address] CTA Chst, Abd, Pel W and/or WO MR#: [id number] Acct: [id number] Name: JEAN BUENROSTRO Rep #: [id number] : 1940 M 83 From: Ju Quiros MD PCP: Dr. Rita De La Cruz MD Status: REG ER Study:CTA Chst, Abd, Pel W and/or WO Date of Exam: 08/11/24 Exam# [id number] Ordering Dr: Veornica Leigh DO PROCEDURE: CTA CHST, ABD, PEL [...] department at 3 a.m. EST. [facility] CC: Dr. Carol Leigh, DO; Dr. Rita De La Cruz MD ~ Voip Technician: Signed [facility]07-10-2024 Evaluation + Plan note* Assessment & Plan Note - Rita De La Cruz MD - 09/03/2023 7:33 AM EDTAssociated Problem(s): Blood pressure elevated without history of HTN Blood pressure was initially elevated, recheck was still tevb-oxjmod-zw in 1 week for blood pressure check. Continue very strict low-sodium diet [facility] [id number] Miscellaneous Notes* Assessment & Plan Note - Rita De La Cruz MD - 09/03/2023 7:33 AM EDTAssociated Problem(s): Blood pressure elevated without history of HTN Blood pressure was initially elevated, recheck was still vkce-wzvatk-oy in 1 week for blood pressure check. [...] currently has no complaints documented in this [facility]07-10-2024 Evaluation + Plan note* Assessment & Plan Note - Rita De La Cruz MD - 09/03/2023 7:23 AM EDT Associated Problem(s): FHx: aortic aneurysm Discussed risk factors for aortic aneurysms and currently he is declining to get any imaging studies. [id number] Evaluation + Plan note* Assessment & Plan Note - Rita De La Cruz MD - 09/03/2023 7:22 AM EDTAssociated Problem(s): Hypercholesterolemia Uncontrolled, currently on no medications we will recheck his levels today. [id number] Evaluation + Plan note* Assessment & Plan Note - Rita De La Cruz MD - 09/03/2023 7:22 AM EDTAssociated Problem(s): Benign prostatic hyperplasia Maikol, using OTC medication for his prostate [id number] Evaluation + Plan note* Assessment & Plan Note - Rita De La Cruz MD - 09/03/2023 7:22 AM EDTAssociated Problem(s): Peripheral vascular disease (HCC) Maikol, currently has no complaints [place] [id number] History of Present illness Narrative* Shivani Rosenbaum MA - 09/03/2023 7:00 AM EDT Patient verified by last name and date of . * Rita De La Cruz MD - 09/03/2023 7:00 AM EDT Images from the original note were not included. [facility] [address] [place] [address] [place] [address] Visit Type: Medicare Annual Wellness PCP: Rita De La Cruz MD Reason for Visit: Medicare Annual Wellness Visit Subsequent, Blood Work, and Health Maintenance (Shingles vaccine- declined /Rsv vaccine- not done /4 covid vaccine- not done/Tdap vaccine- declined ) Assessment and Plan Problem List Items Addressed This Visit Blood pressure elevated without history of HTN Blood pressure was initially elevated, recheck was still llun-wfssyr-zw in 1 week for blood pressure check. [...] Resource Strain: Low Risk (08/22/2021) Received from [facility] Overall Financial Resource Strain (CARDIA) Difficulty of Paying Living Expenses: Not very hard Food Insecurity: No Food Insecurity (08/22/2021) Received from [facility] Hunger Vital Sign Worried About Running Out of Food in the Last Year: Never true Ran Out of Food in the Last Year: Never true Transportation Needs: No Transportation Needs (08/22/2021) Received from [facility] PRAPARE - Transportation Lack of Transportation (Medical): No Lack of Transportation (Non-Medical): No Physical Activity: Inactive (08/22/2021) Received from [facility] Exercise Vital Sign Days of Exercise per Week: 0 days Minutes of Exercise per Session: 0 min Past Surgical History: Procedure Laterality Date COLONOSCOPY 2012 SPINE SURGERY Past Surgical History: Procedure Laterality Date COLONOSCOPY 2012 SPINE SURGERY Family History Problem Relation Name Age of Onset Cancer Father Ochoa Buenrostro Brain Other ([id number]) Mother Objective BP (!) 152/90 Pulse 64 [...] MD 09/03/2023 7:33 AM documented in this [facility]05-16-2024 History of Present illness Narrative* Moncho Roa APRN - FEED BLENDER - 07/10/2023 8:00 AM EDT Images from the original note were not included. [facility] [address] [facility] [address] Dept: [phone] Dept Loc: [phone] Visit type: New Reason for Visit: Establish Care (Diverticulitis of large intestine without perforation or abscess without bleeding, BEER BREWER/Pt stated that he is doing better since [...] elected to schedule procedure at this time-prefers [place] location if possible --reviewed alarm symptoms and when to notify office --patient and verbalized understanding and agreement of plan Advised patient to call office with new or worsening symptoms, questions, or concerns. Patient verbalized understanding and agreement of plan. Follow up if symptoms worsen or fail to improve. Subjective HPI Patient is new to [facility]. He is referred by Dr. De [...] Age of Onset Cancer Father Brain Other ([address]) Mother Objective BP (!) 150/86 Pulse 59 [...] Tracy 8:50 AM 07/10/23 documented in this [facility]05-16-2024 Instructions* Patient Instructions* VIKI Tracy CNP - 07/10/2023 8:00 AM EDT --Please call office with any questions or concerns! [phone] --please contact office with any recurrence of [...] be sent through Care Everywhere. * Colonoscopy (Rwandan) documented in this [facility]05-13-2024 Telephone encounter Note* Telephone Encounter - aYmileth Benitez MA - 07/07/2023 10:52 AM EDT Patient stopped into office. Relayed information to him, states he will keep his appointment on [id number] with gastro. [id number] Miscellaneous Notes* Telephone Encounter - Yamileth Benitez MA - 07/07/2023 10:52 AM EDT Patient stopped into office. Relayed information to him, states he will keep his appointment on [id number] with gastro. * Telephone Encounter - Yamileth Benitez MA - 07/03/2023 10:25 AM EDT Left a message to return call. CAC: If Jean calls back, please relay information to him. Thank you! * Telephone Encounter - Rita De aL Cruz MD - 07/03/2023 5:39 AM EDT I think with his history of diverticulitis and the change that he had in his bowels that he should at least meet with a certified medical coding specialist and get their opinion as to whether he needs a colonoscopy. * Telephone Encounter - Arminda Caal - 07/02/2023 4:09 PM EDT Name of caller: Don Contact phone number: [phone] Relationship to Patient: patient Provider: Rene Practice: [...] return their call: N/A [facility]ibcvc63-75-5682 Telephone encounter Note* Telephone Encounter - Yamileth Benitez MA - 07/03/2023 10:25 AM EDT Left a message to return call. CAC: If Jean calls back, please relay information to him. Thank you! [id number] Miscellaneous Notes* Telephone Encounter - Yamileth Benitez [...] he should at least meet with a certified medical coding specialist and get their opinion as to whether he needs a colonoscopy. * Telephone Encounter - Arminda Caal - 07/02/2023 4:09 PM EDT Name of caller: Baljinder Contact phone number: [phone] Relationship to Patient: patient Provider: Rene Practice: [...] return their call: N/A documented in this [facility]05-09-2024 Telephone encounter Note* Telephone Encounter - Rita De La Cruz MD - 07/03/2023 5:39 AM EDT I think with his history of diverticulitis and the change that he had in his bowels that he should at least meet with a certified medical coding specialist and get their opinion as to whether he needs a colonoscopy. [facility] [id number] Telephone encounter Note* Telephone Encounter - Arminda Caal - 07/02/2023 4:09 PM EDT Name of caller: Baljinder Contact phone number: [phone] Relationship to Patient: patient Provider: Rene Practice: [...] business hours to return their call: N/A [facility] [id number] History of Present illness Narrative* Yamileth Benitez MA - 05/12/2023 9:40 AM EDT Patient verified by last name and . * Rene Rodriguez APRN - FEED BLENDER - 05/12/2023 9:40 AM EDT Images from [...] JOSE 05/12/2023 9:42 AM documented in this [facility]03-06-2024 History of Present illness Narrative* Ela [...] Miralax daily. Is scheduled to see a certified medical coding specialist in June. Review of Systems Constitutional: Negative [...] CNP 04/30/2023 9:26 AM documented in this [facility]03-06-2024 History of Present illness Narrative* Ela Vleazco MA - 04/30/2023 9:00 AM EST Patient [...] Miralax daily. Is scheduled to see a certified medical coding specialist in June. Review of Systems Constitutional: Negative [...] Impression Patient Name: [facility]STRO [facility] 1940 [id number] Exam Date/Time: 04/03/2023 15:30 Procedure: CT ABDOMEN [...] CNP 04/30/2023 9:26 AM documented in this [facility]03-06-2024 Instructions* Patient Instructions* VIKI Oro CNP - 04/30/2023 9:00 AM EST Continue adequate water intake. Continue Probiotic Metamucil Fiber Get up and walk around frequently * Attachments The following attachments cannot be sent through Care Everywhere. * High Fiber Diet (Rwandan) documented in this [facility]03-06-2024 Instructions* Patient Instructions* VIKI Oro CNP - 04/30/2023 9:00 AM EST Continue adequate water intake. Continue Probiotic Metamucil Fiber Get up and walk around frequently * Attachments The following attachments cannot be sent through Care Everywhere. * High Fiber Diet (Rwandan) documented in this [facility]03-06-2024 Miscellaneous Notes* Addendum Note - VIKI Oro CNP - 04/30/2023 9:00 AM ESTAddended by: RENE RODRIGUEZ on: 05/01/2023 08:42 AM Modules accepted: Level of Service documented in this [facility]03-06-2024 Note* Addendum Note - VIKI Oro CNP - 04/30/2023 9:00 AM ESTAddended by: RENE RODRIGUEZ on: 05/01/2023 08:42 AM Modules accepted: Level of Service [facility] [id number] NoteAddended by: RENE RODRIGUEZ on: 05/01/2023 08:42 AM Modules accepted: [facility] Telephone encounter Note* Telephone Encounter - [...] bowel movement. Could also get Senokot S ebqp-uqq-rurpizc and take 2 of them at bedtime [...] is more swollen than usual Protocols used: Gqkimbousyhp-AXBNM-GR [facility] [id number] Miscellaneous Notes* Telephone Encounter - Annmarie Waters [...] bowel movement. Could also get Senokot S rcgx-zrm-ranhijk and take 2 of them at bedtime [...] he has pressure. R:Appt 04/30/23 with Rene Rodirguez at 9 am. Pt advised to bring [...] is more swollen than usual Protocols used: Lzfgkkueyrux-FNVBF-TW documented in this [facility]02-08-2024 Evaluation + Plan note* Assessment & Plan Note - Rita De La Cruz MD - 04/03/2023 12:55 PM EST Associated Problem(s): Blood pressure elevated without history of HTN Blood pressure was initially elevated, recheck was still a little high follow-up in 1 week for blood pressure check after abdominal pain is resolved. [facility] [id number] Evaluation + Plan note* Assessment & Plan Note - Rita De La Cruz MD - 04/03/2023 12:55 PM ESTAssociated Problem(s): Diverticulitis of large intestine without perforation or abscess without blee ding Cipro 500 twice a day and Flagyl 503 times a day started for 10 days. CBC and CMP to be done. Stat abdominal CT scan. [facility] [id number] Miscellaneous Notes* Assessment & Plan Note - [...] Stat abdominal CT scan. documented in this [facility]02-08-2024 History of Present illness Narrative* Shivani [...] MD 04/03/2023 12:56 PM documented in this [facility]07-03-2023 Evaluation + Plan note* Assessment & Plan Note - Rita De La Cruz MD - 08/26/2022 7:30 AM EDT Associated Problem(s): Hypercholesterolemia Stable, has refused medications in the past [facility] [id number] Evaluation + Plan note* Assessment & Plan Note - Rita De La Cruz MD - 08/26/2022 7:30 AM EDTAssociated Problem(s): Benign prostatic hyperplasia Stable, currently on OTC prostate medication T [facility] [id number] Evaluation + Plan note* Assessment & Plan Note - Rita De La Cruz MD - 08/26/2022 7:30 AM EDTAssociated Problem(s): Peripheral vascular disease (HCC) Stable, currently on no medications. T [place] [id number] Miscellaneous Notes* Assessment & Plan Note - [...] currently on no medications. documented in this [facility]07-03-2023 History of Present illness Narrative* Lidia Frank - 08/26/2022 7:00 AM EDT Asphalt Plant Worker for Intimate and Non Intimate Exam Asphalt Plant Worker was declined Asphalt Plant Worker: na * Rita De La Cruz MD - 08/26/2022 7:00 AM EDT Images from the original note were not included. [facility] [address] Visit type: Established Patient Reason for Visit: [...] at all Patient Health Questionnaire-2 Score: 0 Steele Suicide Severity Rating Scale (Screener/Recent Self-Report) 1. [...] Age of Onset Cancer Father Brain Other ([address]) Mother Objective BP (!) 134/90 Pulse 68 [...] MD 08/26/2022 7:31 AM [facility]* Diagnosis Medicare annual wellness visit, subsequent- Primary Peripheral vascular disease (HCC) Unspecified peripheral vascular disease Benign prostatic hyperplasia without lower urinary tract symptoms Hypercholesterolemia Pure hypercholesterolemia Screening for diabetes mellitus documented in this encounter [facility]* Diagnosis Diverticulitis of large intestine without perforation or abscess without bleeding- Primary Blood pressure elevated without history of HTN Diverticulitis of large intestine without perforation or abscess without bleeding documented in this encounter [facility]* Diagnosis Diverticulitis of large intestine without perforation or abscess without bleeding documented in this encounter [facility]* Diagnosis Change in bowel habits- Primary Other symptoms involving digestive system documented in this encounter [facility]* Diagnosis Change in bowel habits- Primary Other symptoms involving digestive system documented in this encounter [facility]* Diagnosis Change in bowel habits- Primary Other symptoms involving digestive system documented in this encounter [facility]* Diagnosis Left sided abdominal pain- Primary [...] HealthHistory and physical note Author Tommy Durand [facility] Note Date/Time August 11, 2024 12:0 5pm [facility] Medical Records Department [address] [place] [address] History & Physical Exam 08/11/24 1151 MR#: [id number] Acct: [id number] Name: JEAN BUENROSTRO Rep #:[id number] : 1940 83 From: Tommy Marsh PCP: Dr. Rita De La Cruz MD Status:[facility] Location: [facility] [place] HPI - General General Date of Service: 08/11/24 HPI Narrative JEAN BUENROSTRO, is a 83 M who presents to [facility] with complaints of 2 days of progressive [...] has no history of prior abdominal surgery. [facility] Medical History BPH (benign prostatic hyperplasia) Anemia [...] DAILY 03/03/1410/08 06:30 History unit-selen 100 1 bmb-dtzq-uupdpn-pygeum tablet (Prostate Health) Allergy/AdvReac Type Severity Reaction [...] (Auto) 80.1 H, Lymph % (Auto) 13.0 L,Esmeralda % (Auto) 5.8, Eos % (Auto) 0.7, [...] Sl. Cloudy, Urine pH 8.0, Ur Specific [place] 1.010, Urine Protein 15 H, Urine Glucose [...] department at 3 a.m. EST. [facility] Gall[facility] Ul[facility]ound 08/11/24 04:15 IMPRESSION: Multiple gallstones. Mild gallbladder wall thickening. Small amount of pericholecystic fluid. Cholecystitis should be ruled out. Reading Location: [facility] Assessment & Plan Assessment/Plan (1) Acute calculous cholecystitis: PLAN: Patient 83-year-old male who presents with 48 hours of progressive right upper quadrant postprandial discomfort. ER workup consistent with diagnosis of early acute cholecystitis. Exam is confirmatory. Patient has diagnosis I recommended we proceed for emergent laparoscopic cholecystectomy with intraoperative cholangiography. Patient is a Holiness and states that his protestant prohibits him from receiving blood products but [...] Durand MD General Surgery Endocrine Surgery Pager: [facility] [address] [place] [address], [facility], [address] [place] [id number] Office: [phone] Charges/Coding Visit Charges Inpatient E&M: 14268 Init Hosp L2 08/11/24 1205 <Electronically signed by Tommy Duradn MD> Cosigner Signature (if applicable): CC: Dr. Rita De La Cruz MD; Dr. Tommy Durand MD~ Signed [facility] Work Phone: Reason for referral (narrative)No reason for referral information availableWCleveland Clinic [facility] Work Phone: Summary Purpose Family History Relationship Condition Age at Onset Recorded Date/T princess Unknown Family History?- Unknown August 10, 2018 4:06am Family History?- Unknown August 10, 2018 4:06am Family History?Hypertension, - Unknown March 04, 2014 4:29pm Family History?Hypertension, - Unknown August 10, 2018 4:06am Advance Directives Documents on File Type Date Recorded Patient Process Development Manager Expl anation Power of Acquisition Marketing Coordinator 04/03/2023 2:23 PM Documents on File Type Date Recorded Patient Process Development Manager Expl anation Power of Acquisition Marketing Coordinator 04/03/2023 2:23 PM Advance Directive Response Recorded Date/ Time Do you have a Healthcare Power of Acquisition Marketing Coordinator? No August 11, 2024 12:53am Advance Directives Yes March 04, 2014 12:00am Reason for Referral Specialty Diagnoses / Procedures Referred By Lali dobbs Referred To Contact Radiology Diagnoses Diverticulitis of large intestine without perforation or abscess without bleeding Procedures CT abdomen pelvis wo IV contrast Rita De La Cruz MD [address] [place] [address], [place] [address] Referral ID Status Reason Start Date Expiration Date Visits Re quested Visits Authorized [id number] Closed 04/03/2023 04/02/2024 1 1 Chief Complaint [...] section and content) DATE CREATED AUTHOR 12/27/2017 [employer] DATE CREATED AUTHOR AUTHOR'S ORGANIZ ATION 09/13/2023 [employer] [facility] Reason for Visit (unrecogniz ed section [...] IV contrast Rita De La Cruz MD [address] [place] [id number] Referral ID Status Reason Start Date Expiration Date Visits Re quested Visits Authorized [id number] Closed 04/03/2023 04/02/2024 1 1 Reason Comments [...] without perforation or abscess without bleeding Procedures VA OFFICE/OUTPATIENT NEW HIGH MDM 60 MINUTES Rita De La Cruz MD [address] [place] [id number] [facility] [address] [place] [address] Referral ID Status Reason Start Date Expiration Date V isits Requested Visits Authorized [id number] Closed Specialty Services Required 04/10/2023 04/09/2024 1 1 Reason Comments Medicare Annual Wellness Visit Subsequen t Blood Work Health Maintenance Shingles vaccine- de clined Rsv vaccine- not done 4 covid vaccine- not doneTdap vaccine- declined Care Teams (unrecognized sec tion and content) Lead Injection Mold Technician Relationship Specialty Start Date End Date Rita De La Cruz MD [address] [place] [id number] PCP - General 12/05/14 Lead Injection Mold Technician Relationship Specialty Start Date End Date Rita De La Cruz MD [address] [place], [place] [address] [address] PCP - General 12/05/14 Lead Injection Mold Technician Relationship Specialty Start Date End Date Rita De La Cruz MD [facility] [place] [address] PCP - General 12/05/14 Lead Injection Mold Technician Relationship Specialty Start Date End Date Rita De La Cruz MD [address] [facility] [place] [address] PCP - General 12/05/14 Lead Injection Mold Technician Relationship Specialty Start Date End Date Rita De La Cruz MD [address] [facility] [place] [address] PCP - General 12/05/14 Lead Injection Mold Technician Relationship Specialty Start Date End Date Rita De La Cruz MD [address] [facility] [place] [address] PCP - General 12/05/14 Lead Injection Mold Technician Relationship Specialty Start Date End Date Rita De La Cruz MD [address] [facility] [place] [address] PCP - General 12/05/14 Lead Injection Mold Technician Relationship Specialty Start Date End Date Rita De La Cruz MD [address] [facility] [place] [address] PCP - General 12/05/14 Lead Injection Mold Technician Relationship Specialty Start Date End Date Rita De La Cruz MD [address] [facility] [place] [address] PCP - General 12/05/14 Lead Injection Mold Technician Relationship Specialty Start Date End Date Rita De La Cruz MD 25 [facility] [place] [address] PCP - General 12/05/14 Team Status: Active [...] BE BASED ON THE PRIMARY CLINICAL RECORDS. [facility] [employer] [facility]. provides no warranty or guarantee of the accuracy or completeness of information in this document.
[2024-08-12 07:41] LABS: Basophil# 0.02 X10^3/uL; Basophil% 0.2 % (0-1); Hemoglobin 11.2 g/dL (13.0-16.5); Lymphocyte % 8.2 % (19-41); Mean Corp Hgb Conc 32.9 g/dL (32-36); Mean Corpuscular Hgb 29.9 pg (27.0-32.0); Mean Corpuscular Volume 90.7 fL (80-94); Mean Platelet Vol. 10.9 fl (6.2-12.0); Monocyte# 0.84 X10^3/uL; Monocyte% 8.6 % (0-10); NRBC Flagged by Analyzer 0 % (0-5); Neutrophil # 8.03 X10^3/uL (2.7-7.7); Neutrophil % 82.5 % (47-70); Platelet Count 240 K/mm3 (150-450); RBC Distribution Width CV 14.2 % (11.6-14.6); RBC Distribution Width SD 47.4 fl (35.1-43.9); Red Blood Count 3.75 M/mm3 (4.6-6.2); White Blood Count 9.7 K/mm3 (4.4-11.0)
[2024-08-12 08:03] LABS: ALB/GLOB Ratio 1.5 RATIO (0.9-2.4); AST(SGOT) 43 U/L (<=37); Alanine Aminotransfer ALT/SGPT 31 U/L (<=46); Albumin, Serum 3.7 g/dL (3.4-4.8); Alkaline Phosphatase 115 U/L (40-129); Anion Gap 11 (5-15); BUN 11 mg/dL (4-19); BUN/Creat Ratio 8.4 RATIO (10-20); Calcium,Total 8.1 mg/dL (7.6-11.0); Chloride 105 mmol/L (98-108); Creatinine, Serum 1.28 mg/dL (0.70-1.20); EST Glomerular Filtration Rate 56 (>60); Estimated Creatinine Clearance 43.47 ml/min (50-250); Globulin 2.4 g/dL (2.2-4.2); Glucose 143 mg/dL (70-99); Potassium 4.5 mmol/L (3.3-5.1); Protein, Total 6.1 g/dL (5.9-8.4); Sodium Level 138 mmol/L (133-145); Total Bilirubin 0.74 mg/dL (0.00-1.30)
[2024-08-12 08:17] VITALS: BP 126/73; PULSE 73; RESP 17; TEMP 37.2; O2SAT 96
--- NOTE | 2024-08-12 11:12 | CASEMGMT ---
CIERRA CARDENAS Assessment: Face to Face with pt for initial transition planning/care coordination assessment. CIERRA CARDENAS introduced self and role at [facility], pt voices understanding and consents to assessment. Pt is A&O x4 and answers all questions appropriately at this time. Pt sitting up in chair in no distress eating. Care providers, pharmacy, and demographics verified/updated. Admitting Dx: acute cholecystitis Strata Score: 1 PCP:Aliyah Specialists:Denies Preferred Pharmacy:[facility] Retail Insurance: [facility] Prescription Benefit: yes LNOK: Yeni Buenrostro, ; Toshia Motaey, dtr Living Arrangements: Pt lives with in a single story home with 3 steps to enter with a rail. Pt reports he is I in ADL/IADLs but does do some IADLs. Pt denies concerns at home. Pt dtr lives very close and can assist as well. Transportation: Pt drives self and denies concerns with transportation. DME:shower chair, 2 canes, 2 rollators, walker HHC/SNF: Denies hx of Pt states no concerns with going home at time of dc. Pt states no further concerns/needs. CM to follow. Advised pt to ask CM if any further questions/concerns/needs arise, voices understanding. Pt Goal: Home Plan: Home Bindu NORTON CM
--- NOTE | 2024-08-12 12:02 | DCINST_ITS ---
Discharge Instructions Diet Discharge Diet: No restrictions DC O2, CPAP, BIPAP needs Home O2 Discharge instructions: No Dressing / Incision Discharge Activity: May Not Drive (No driving while using narcotic pain medication) and May Shower (Postoperative day 1) May shower in (days): 1 Ice area for (Minutes): 20 Lifting Restrictions: No lifting greater than 15 pounds for 2 weeks after surgery Dressing / Incision Call your doctor if your incision/area has: Continuous Slow Oozing, Increased Pain/ Swelling, Increased Redness, Foul Smelling Discharge and Swelling at the incision site Call your doctor if you observe: Fever of 101 or Higher and Inability to urinate Remove Dressing in: 1 day (Please leave Steri-Strips intact until they fall off spontaneously or are taken off at your follow-up visit) Cleanse incision/area with: Soap & Water Follow Up Care Please Follow Up With: Tommy Durand MD When: 7-10days postop Test Results: Test results from this visit will be discussed in further detail at your follow- up appointment, if applicable. Discharge Plan Admission Admit Date/Time: 08/11/24 09:50 Primary Reason for Your Visit: Gallbladder removal Attending Provider: Tommy Durand Primary Care Provider: Mina Ly Discharge Orders/Prescriptions Prescriptions: New oxycodone 5 mg Tablet 5 mg PO Q6H PRN PRN (Reason: Pain Score 6-10) 3 Days Qty: 10 0RF tamsulosin 0.4 mg Capsule 0.4 mg PO DAILY@1730 7 Days Qty: 7 0RF Continued Fish Oil 1,000 mg Capsule 1,000 mg PO DAILY Patient Comments: SUPPLIMENT FOR CHOLESTEROL Prostate Health 1 EACH tablet 1 tab PO DAILY Patient Comments: PROSTATE HEALTH Coq10 1 tab PO DAILY Patient Comments: CHOLESTEROL, IMMUNITY Excedrin Extra Strength Caplet 500 mg PO PRN PRN (Reason: Headache) Patient Comments: MIGRAINE FLASHING LIGHTS Referrals / Follow Up: Mina Ly MD [Primary Care Provider] - Disposition Disposition (needs filled in before D/C Order can be placed): Home, Self Care
--- NOTE | 2024-08-12 12:02 | PCM.DC.SUM ---
Providers Date of Admission: 08/11/24 Primary Care Physician: Dr. Mina Ly MD Reason For Visit: ACUTE CHOLECYSTITIS Diagnosis Discharge Diagnosis (1) Acute calculous cholecystitis: Status: Acute Code(s): K80.00 - Calculus of gallbladder with acute cholecystitis without obstruction Plan: Patient 83-year-old male who presents with 48 hours of progressive right upper quadrant postprandial discomfort. ER workup consistent with diagnosis of early acute cholecystitis. Exam is confirmatory. Patient has diagnosis I recommended we proceed for emergent laparoscopic cholecystectomy with intraoperative cholangiography. 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 Additionally, when I reviewed his CT imaging there is some bordering of his hepatic flexure to the fundal portion of the gallbladder. I suggested that these latter to fax should be additionally motivating to pursue surgery at this point as a means of hopefully mitigating his risk for intraoperative bleeding and for adhesions to the colon with ongoing inflammation. Patient was receptive of this recommendation and was admitted to the hospital for ongoing management. He is to be held n.p.o. with IV antibiotics until surgery. Operation was described in detail and consents will be obtained for laparoscopic cholecystectomy and intraoperative cholangiography. Tommy Durand MD General Surgery Endocrine Surgery Pager: [facility] [address] [place] [address] [address] [place] [address] Office: [phone] Medications at Discharge Home Medications Coq10 1 tab PO DAILY 03/03/14 Excedrin Extra Strength Caplet 500 mg PO PRN PRN Headache 03/03/14 Fish Oil 1,000 mg Capsule 1,000 mg PO DAILY 03/03/14 saw palm 160 mg-vit E 100 unit-selen 100 pno-wrme-flwdmq-pygeum tablet (Prostate Health) 1 tab PO DAILY 03/03/14 oxycodone 5 mg tablet 5 mg PO Q6H PRN PRN Pain Score 6-10 3 days #10 tabs 08/12/24 tamsulosin 0.4 mg capsule 0.4 mg PO DAILY@1730 7 days #7 caps 08/12/24 Hospital Course Operations cholecystecomy (Laparoscopic cholecystectomy) Procedures None Summary of Care Provided Hospital Course: Patient is an 83-year-old male who was evaluated in the emergency department overnight on 08/10/2024 due to presentation of acute onset abdominal pain. CT imaging was concerning for possible gallbladder pathology. He underwent ultrasound evaluation of his gallbladder the morning of 08/11/2024 which was confirmatory for a diagnosis of cholecystitis and thus underwent laparoscopic cholecystectomy with intraoperative cholangiography later the same day. Procedure was completed in uncomplicated fashion, however postoperatively patient required straight catheterization for some urinary retention and remained rather sedate following his anesthetic until he was able to further metabolize it by the following morning. Postoperative day 1 patient had return of spontaneous voiding and his sensorium returned as well. With these clinical improvements and reassurance from his laboratories and exam he was advanced to a regular diet and ultimately discharged to home in improved condition. Expectation was set for outpatient follow-up in 2 weeks postop to review his healing. Physical Exam Const alert, oriented x3 and no apparent distress Resp normal respiratory effort GI GI Narrative: Minimally distended, soft, operative dressings intact without strikethrough, slight ecchymotic changes around subxiphoid port site, appropriate tenderness with palpation Weight / BMI Weight Weight: 176 lb 5.917 oz Body Mass Index (BMI) 28.4 ABG / Lab / Microbiology Data 08/12/24 07:00 08/12/24 07:00 Laboratory: Laboratory Results - last 24 hr 08/12/24 07:00: WBC 9.7, RBC 3.75 L, Hgb 11.2 L, Hct 34.0 L, MCV 90.7, MCH 29.9, MCHC 32.9, RDW Std Deviation 47.4 H, RDW Coeff of Katina 14.2, Plt Count 240, MPV 10.9, Immature Gran % (Auto) 0.500, Neut % (Auto) 82.5 H, Lymph % (Auto) 8.2 L, [place] % (Auto) 8.6, Eos % (Auto) 0.0, Baso % (Auto) 0.2, Absolute Neuts (auto) 8.0 H, Absolute Lymphs (auto) 0.80 L, Nucleated RBC % 0, Sodium 138, Potassium 4.5, Chloride 105, Carbon Dioxide 22.0, Anion Gap 11, BUN 11, Creatinine 1.28 H, Estim Creat Clear Calc 43.47 L, Est GFR (MDRD) Non-Af 56 L, BUN/Creatinine Ratio 8.4 L, Glucose 143 H, Calcium 8.1, Total Bilirubin 0.74, AST 43 H, ALT 31, Alkaline Phosphatase 115, Total Protein 6.1, Albumin 3.7, Globulin 2.4, Albumin/Globulin Ratio 1.5 Radiography Diagnostic Testing: Radiology Impression Cholangiogram 08/11/24 17:00 IMPRESSION: Unremarkable intraoperative cholangiogram. [facility] Instructions DC O2, CPAP, BIPAP Needs Home O2 Discharge instructions: No Meaningful Use Info Meaningful Use Meaningful Use Diagnoses (Choose all that apply): None applicable Ischemic Stroke Statin Dosing Therapy Reference: STATIN DOSE THERAPY REFERENCE: * Patients > 75 years receive moderate or high dose statin therapy. * Patients 75 years or YOUNGER should receive HIGH intensity statin dose unless contraindicated. You will be required to document reason for non-treatment if statin daily dose does not meet guidelines. HIGH DOSE STATIN THERAPY DAILY Atorvastatin > than or = to 40 mg Rosuvastatin > than or = to 20 mg Amlodipine + Atorvastatin > than or = to 2.5/40 mg Ezetimibe + Simvastatin 10/80 mg Simvastatin 80mg Discharge Plan Admission Admit Date/Time: 08/11/24 09:50 Primary Reason for Your Visit: Gallbladder removal Attending Provider: Tommy Durand Primary Care Provider: Mina Ly Discharge Orders/Prescriptions Prescriptions: New oxycodone 5 mg Tablet 5 mg PO Q6H PRN PRN (Reason: Pain Score 6-10) 3 Days Qty: 10 0RF tamsulosin 0.4 mg Capsule 0.4 mg PO DAILY@1730 7 Days Qty: 7 0RF Continued Fish Oil 1,000 mg Capsule 1,000 mg PO DAILY Patient Comments: SUPPLIMENT FOR CHOLESTEROL Prostate Health 1 EACH tablet 1 tab PO DAILY Patient Comments: PROSTATE HEALTH Coq10 1 tab PO DAILY Patient Comments: CHOLESTEROL, IMMUNITY Excedrin Extra Strength Caplet 500 mg PO PRN PRN (Reason: Headache) Patient Comments: MIGRAINE FLASHING LIGHTS Referrals / Follow Up: Mina Ly MD [Primary Care Provider] - Disposition Disposition (needs filled in before D/C Order can be placed): Home, Self Care Charges/Coding Visit Charges Inpatient E&M: 32621 Disch Hosp
[2024-08-12 15:34] VITALS: BP 123/69; PULSE 88; RESP 16; TEMP 36.5; O2SAT 95
[2024-08-12] MEDS: Tamsulosin HCl 0.4 MG Capsule PO (16:39)
[2024-08-12] MEDS: oxyCODONE 5 MG Tablet PO (17:57)
[2024-08-12 18:03] VITALS: BP 166/64; PULSE 80; RESP 18; TEMP 36.8; O2SAT 98
== END 2024-08-12 18:11 | disposition home or self-care (01) | DRG 419 ==
LOC: ED 09:45 → SDC 09:53 → MS3 08-12 03:33 → ED 08-12 07:23 → SDC 08-12 07:23 → MS3 08-12 07:24
PROVIDERS: Admitting Provider Surgery; Emergency Provider Emergency Medicine; PCP Family Medicine; Visit Provider Surgery
PROC: 0FT44ZZ Resection of Gallbladder, Percutaneous Endoscopic Approach (ICD-10-PCS; CPT 47610; principal; 2024-08-11 13:25)
DX: K80.00 Calculus of gallbladder with acute cholecystitis without obstruction (principal); E78.5 Hyperlipidemia, unspecified; I71.21 Aneurysm of the ascending aorta, without rupture; R33.9 Retention of urine, unspecified; Z86.73 Personal history of transient ischemic attack (TIA), and cerebral infarction without residual deficits
CPT/HCPCS: 36415; 71275; 74174; 74300; 76000; 76705; 80053; 81001; 83690; 84484; 85025; 88304; 93005; 94668; 99285; Q9967; A4216; J2405

== ENCOUNTER 2025-02-09 02:33 | Emergency (ER) | payer MEDICARE, SELFPAY ==
[2025-02-09 02:34] VITALS: BP 144/74; PULSE 71; RESP 18; TEMP 36.3; O2SAT 99; BMI 28.3
--- NOTE | 2025-02-09 03:00 | CT_ITS ---
PROCEDURE: BRAIN/HEAD WITHOUT CONTRAST 02/09/2025 REASON FOR EXAM: SYNCOPE TECHNIQUE: Procedure Code: CTBR Modality: CT Procedure: BRAIN/HEAD WITHOUT CONTRAST Coronal and Sagittal reconstruction series were provided. One or more dose reduction techniques were used (e.g., Automated exposure control, adjustment of the mA and/or kV according to patient size, use of iterative reconstruction technique. RADIATION DOSE SUMMARY: CTDI Vol 44.99 mGy DLP :846.73 mGycm COMPARISON: none FINDINGS: Bilateral cerebral subcortical and periventricular white matter hypodensities, suggestive of chronic small vessel ischemia. Coyne-white matter differentiation is maintained. Unremarkable posterior fossa structures. No intracerebral or extra axial hemorrhage. Dilated ventricular system, cortical sulci and extra-axial CSF spaces. No definite calvarial fractures. No midline shifts or deformity. The osseous structures in the skull base are unremarkable. Paranasal sinuses are unremarkable. Vascular atheromatous calcifications. CT/Brain/Head without Contrast IMPRESSION: No acute cerebrovascular abnormalities. If clinical symptoms persist, further e valuation with MRI may be considered as clinically warranted. No intra or extra-axial acute hemorrhage. Bilateral cerebral microvascular ischemic changes with brain involutional middleton es. Reading [facility]
--- NOTE | 2025-02-09 03:00 | EKG12_ITS ---
Test Reason : DYSRHYTHMIA Blood Pressure : */* mmHG Vent. Rate : 57 BPM Atrial Rate : 57 BPM P-R Int : 184 ms QRS Dur : 96 ms QT Int : 436 ms P-R-T Axes : 14 -19 9 degrees QTcB Int : 424 ms Sinus bradycardia Otherwise normal ECG Confirmed by Tommy Tadeo ([id number]), editorial manager YASH JACOBSEN ([id number]) on 02/11/2025 9:57:47 AM Referred By: MARIELLA Confirmed By: Tommy Tadeo
[2025-02-09 03:01] VITALS: BP 138/93; BP 140/74; BP 151/82; PULSE 55; PULSE 57; PULSE 62
[2025-02-09 03:19] LABS: Hematocrit 36.2 % (40-54); Hemoglobin 11.9 g/dL (13.0-16.5); Immature Granulocytes Count 0.020 X10^3/uL (0.0-0.0); Mean Corp Hgb Conc 32.9 g/dL (32-36); Mean Corpuscular Volume 90.3 fL (80-94); Mean Platelet Vol. 10.5 fl (6.2-12.0); NRBC Flagged by Analyzer 0 % (0-5); Platelet Count 202 K/mm3 (150-450); RBC Distribution Width CV 13.8 % (11.6-14.6); RBC Distribution Width SD 45.6 fl (35.1-43.9); Red Blood Count 4.01 M/mm3 (4.6-6.2); White Blood Count 6.1 K/mm3 (4.4-11.0)
[2025-02-09 03:37] LABS: Anion Gap 10 (5-15); BUN 15 mg/dL (4-19); BUN/Creat Ratio 9.9 RATIO (10-20); Calcium,Total 9.3 mg/dL (7.6-11.0); Carbon Dioxide 26.2 mmol/L (21.0-32.0); Chloride 106 mmol/L (98-108); Estimated Creatinine Clearance 37.40 ml/min (50-250); Glucose 109 mg/dL (70-99); Magnesium 2.2 mg/dL (1.5-2.2); Potassium 4.0 mmol/L (3.3-5.1); Troponin T High Sensitivity 18 ng/L (<=22)
[2025-02-09] MEDS: 0.9% Normal Saline (1000mL) 1,000 ML 999 ML IV (03:38)
--- OUTSIDE RECORDS SUMMARY | 2025-02-09 04:03 | XMS RPT_ITS | CCD ---
Author Organization [facility] Care Team Providers Care Railroad Hand Name Role Phone Mina De La Cruz Unavailable Unavailable PROVIDER, UNKNOWN Unavailable Unavailable Mina De La Cruz Unavailable Unavailable Mina De La Cruz MD Primary Care Provider Jono WITT, Dr. Enriquez Primary Care Provider Dr. Carol Leigh DO Emergency Provider Ladarius WITT, Dr. Sanders Attending Provider Ladarius WITT, Dr. Sanders Other Provider Dr. Mina De La Cruz MD Primary Care Provider [phone] Dr. Carol Leigh DO Emergency Provider Ladarius WITT, Dr. Sanders Admit Provider Ladarius WITT, Dr. Sanders Attending Provider Jono WITT, Dr. Enriquez Referring Provider Dilma Jimenez PA-C Attending Provider Tommy Durand Attending Unavailable Mina De La Cruz Primary Care Unavailable Tommy Durand Consulting Unavailable Mina De La Cruz Primary Care Unavailable Tommy Durand Admitting Unavailable Tommy Durand Consulting Unavailable Tommy Durand Attending Unavailable Tommy Durand Attending Unavailable Mina De La Cruz Primary Care Unavailable Tommy Durand Admitting Unavailable Mina De La Cruz Primary Care Unavailable Mina De La Cruz Referring Unavailable Dilma Tovar Attending Unavailable MINA DE LA CRUZ Attending Unavailable MINA DE LA CRUZ Primary Care Unavailable Medications Current Medications Medication Drug Class(es) Dates Sig (Normalized) Sig (Original) ciprofloxacin 500 mg oral tablet (3 sources) Quinolone Antimicrobial Start: 04-03-2023 End: 04-13-2023 take 1 tablet by mouth twice daily ciprofloxacin (Cipro) 500 MG tablet Take 1 tablet (500 mg) by mouth 2 times daily for 10 days. 20 tablet 0 04/03/2023 04/13/2023 Active Coq10 (3 sources) Start: 03-03-2014 Coq10 Active 1 {tbl} PO DAILY March 03, 2014 1:00am docosahexaenoic acid 120 mg / eicosapentaenoic acid 180 mg oral capsule (17 sources) take 1 capsule by mouth once daily omega-3 (Fish Oil) 1000 MG capsule Take 1,000 mg by mouth daily. Active Excedrin Extra Strength Caplet (3 sources) Start: 03-03-2014 Excedrin Extra Strength Caplet Active 500 mg PO NEEDED as needed for Headache March 03, 2014 1:00am Fish Oils (3 sources) Start: 03-03-2014 take 1 capsule by mouth once daily Fish Oil 1,000 mg Capsule Active 1000 mg PO DAILY March 03, 2014 1:00am losartan potassium 25 mg oral tablet (5 sources) Angiotensin 2 Receptor Joey Start: 09-07-2024 take 1 tablet by mouth once daily losartan (Cozaar) 25 MG tablet Take 1 tablet (25 mg) by mouth daily. 90 tablet 09/07/2024 Active Start: 09-10-2023 End: 09-07-2024 take 1 tablet by mouth once daily losartan (Cozaar) 50 MG tablet Take 1 tablet (50 mg) by mouth daily. 30 tablet 09/10/2023 09/07/2024 Discontinued (Reorder) Misc Natural Products (PROST ATE HEALTH PO) (17 sources) Misc Natural Pro ducts (PROSTATE HEALTH PO) Take by mouth. Active Misc Natural Pro ducts (PROSTATE HEALTH PO) Take by mouth. 0 Active polyethylene glycol 3350 666507 mg / potassium chloride 2970 mg / sodium bicarbonate 6740 mg / sodium chloride 5860 mg / sodium sulfate 94481 mg powder for oral solution (1 source) Osmotic Laxative Start: 07-10-2023 End: 07-11-2023 polyethylene glycol (GaviLyte-G) 236 g solution Indications: Diverticulitis of large intestine without perforation or abscess without bleeding , Left sided abdominal pain Please take as directed by GI office for colonoscopy prep. 4000 mL 0 07/10/2023 07/11/2023 Active Saw-Vit E-Sod Eps-Fdl-Rkyg-Pyg (Prostate Health) 1 EACH tablet (3 sources) Start: 03-03-2014 take 1 tablet by mouth once daily Saw-Vit E-Sod Pog-Fgj-Sfda-Pyg (Prostate Health) 1 EACH tablet Active 1 {tbl} PO DAILY March 03, 2014 1:00am tamsulosin hydrochloride 0.4 mg oral capsule (5 sources) alpha-Adrenergi c Joey Start: 09-07-2024 take 1 capsule by mouth once daily tamsulosin (Flomax) 0.4 MG 24 hr capsule Take 1 capsule (0.4 mg) by mouth daily. 90 capsule 09/07/2024 Active Start: 08-12-2024 take 1 capsule by mo uth once daily Tamsulosin 0.4 mg Capsule Active 0.4 mg PO DAILY@1730 7 7 0 August 12, 2024 12:00am Retention of urine Retention of urine, unspecified ubidecarenone 100 mg / vitam in e 5 unt oral capsule (17 sources) coenzyme Q-10 10 0 MG capsule Take by mouth. Active VITAMIN D PO (16 sources) VITAMIN D PO Denzel e by mouth. Active VITAMIN D PO Denzel e by mouth. 0 Active Completed/Discontinued Medications Medication Drug Class(es) Dates Sig (Normalized) Sig (Original) ezetimibe 10 mg oral tablet (2 sources) Dietary Cholesterol Absorption Inhibitor Start: 09-13-2024 End: 10-08-2024 take 1 tablet by mouth once daily ezetimibe (Zetia) 10 MG tablet Indications: Hypercholesterolemia Take 1 tablet (10 mg) by mouth daily. 30 tablet 1 09/13/2024 10/08/2024 Discontinued (Non-compliance) Start: 08-28-2022 End: 04-03-2023 take 1 tablet [...] tablet 0 04/03/2023 04/30/2023 Discontinued (Therapy completed) oxyCODONE hydrochloride 5 mg oral tablet (2 sources) Opioid Agonist Start: 08-12-2024 End: 08-25-2024 take 1 tablet by mouth every six hours as needed for pain Oxycodone 5 mg Tablet Discontinued 5 mg PO EVERY 6 HOURS NEEDED as needed for Pain Score 6-10 10 3 0 August 12, 2024 August 25, 2024 7:50am Status post laparoscopic cholecystectomy Acquired absence of other specified parts of digestive tract Problems Active Problems Problem Classification Problem Date Documented Da te Episodic/Chronic Abdominal pain (4 sources) Left sided abdominal pain; Translations: [Unspecified abdominal pain] 07-10-2023 Episodic Biliary tract disease (11 sources) Acute cholecystitis due to biliary calculus; Translations: [Calculus of gallbladder with acute cholecystitis without obstruction] Onset: 08-25-2024 08-11-2024 Episodic Cardiac dysrhythmias (3 sources) Bradycardia; Translations: [Bradycardia, unspecified] 03-03-2014 Episodic Comment on above: unknown if he has brasher d bradycardia in the past Deficiency and other anemia (3 sources) Anemia; Translations: [Anemia, unspecified] 03-03-2014 Episodic Disorders of lipid metabolism (20 sources) Hypercholesterolemia ; Translations: [Pure hypercholesterolemia , unspecified] Onset: 08-02-2019 08-26-2022 Chronic Comment on above: untreated Diverticulosis and diverticulitis (20 sources) Diverticulitis of large intestine; Translations: [Diverticulitis of large intestine without perforation or abscess without bleeding] Onset: 04-03-2023 04-03-2023 Chronic Essential hypertension (7 sources) Essential hypertension; Translations: [Essential (primary) hypertension] Onset: 09-07-2024 09-07-2024 Chronic Genitourinary symptoms and ill-defined conditions (4 sources) Retention of urine; Translations: [Retention of urine, unspecified] Onset: 08-25-2024 08-12-2024 Episodic Headache; including migraine (20 sources) Migraine with aura; Translations: [Migraine with aura, not intractable, without status migrainosus] Onset: 12-05-2014 12-09-2021 Chronic Hyperplasia of prostate (20 sources) Benign prostatic hyperplasia; Translations: [Benign prostatic hyperplasia without lower urinary tract symptoms] Onset: 08-02-2020 08-26-2022 Chronic Malaise and fatigue (7 sources) Fatigue; Translations: [Chronic fatigue, unspecified] Onset: 09-07-2024 09-07-2024 Chronic Other gastrointestinal disorders (5 sources) Altered bowel function; Translations: [Change in bowel habit] 04-30-2023 Episodic Other nervous system disorders (3 sources) Aphasia; Translations: [Aphasia] 03-03-2014 Chronic Other upper respiratory infections (3 sources) Upper respiratory infection; Translations: [Acute upper respiratory infection, unspecified] 08-11-2018 Episodic Peripheral and visceral atherosclerosis (19 sources) Peripheral vascular disease; Translations: [Peripheral vascular disease, unspecified] Onset: 12-25-2020 08-26-2022 Chronic Residual codes; unclassified (1 source) Acquired absence of other specified parts of digestive tract; Translations: [Acquired absence of other specified parts of digestive tract] Onset: 08-25-2024 Episodic Syncope (3 sources) Syncope; Translations: [Syncope and collapse] 08-11-2018 Episodic Transient cerebral ischemia (3 sources) Cerebral ischemia; Translations: [Transient cerebral ischemic attack, unspecified] 03-03-2014 Chronic Unclassified (8 sources) Encounter for screening for cardiovascular disorders; Translations: [Patient encounter status] Onset: 11-28-2017 08-26-2022 Episodic Past or Other Problems Problem Classification Problem Date Documented Da te Episodic/Chronic Other circulatory disease (18 sources) Elevated blood-pressure reading without diagnosis of hypertension; Translations: [Elevated blood-pressure reading, without diagnosis of hypertension] Onset: 04-03-2023 Resolved: 09-07-2024 04-03-2023 Episodic Other nutritional; endocrine; and metabolic disorders (17 sources) Body mass index 25-29 - overweight; Translations: [Overweight] Onset: 12-14-2014 12-09-2021 Episodic Residual codes; unclassified (5 sources) FH: Aortic aneurysm; Translations: [Family history of ischemic heart disease and other diseases of the circulatory system] Onset: 09-03-2023 09-03-2023 Episodic Results Test Name Value Interpretation Reference Range Facility 36on 10-08-2024 36 Patient informed and he will pick up man next week. [facility]. [facility] 36 Noted about comment regarding cholesterol. Recommend checking cholesterol levels again in February at his appointment with Dr. De La Cruz. Gavino meza printed for pickup. [facility] 36 I called to confirm the patient for labs on Friday morning---he states that he is not going to take the cholesterol medication due to the side effects that he read about---he doesn't want to take it. He said that he will exercise and take fish oil. Also the patient wants to renew his handicap placquard. Please call when done. [facility] 36on 09-13-2024 36 Rx sent and future lab orders signed. [facility] 36 Patient notified. Agreeable to start the Zetia. Pended RX and labs. Pharmacy verified. Patient Scheduled in 4 weeks. [facility] 37on 09-07-2024 37 Personalized Preventative Plan for Jean Buenrostro - 09/07/2024 Medicare offers a range of preventative health benefits. Some of the tests and screenings are paid in full while others may be subject to a deductible, co-insurance, and / or copay. Some of these benefits include a comprehensive review of your medical history including lifestyle, illnesses that may run in your family, and various assessments and screenings as appropriate. After reviewing your medical record and screening and assessments performed today, your provider may have ordered immunizations, labs, imaging, and / or referrals for you. A list of these orders (if applicable) as well as your Preventative Care list are included within your After Visit Summary for your review. Other Preventative Recommendations: A preventive eye exam by an floral specialist is recommended every 1-2 years to screen for glaucoma, cataracts, macular degeneration, and other eye disorders. A preventive dental visit is recommended every 6 months. Try to get at least 150 minutes of exercise per week or 10,000 steps per day on a pedometer. You need 1200-1500mg of calcium and 2247-8484 international units of vitamin D per day. It is possible to meet your calcium requirement with diet alone, but a vitamin D supplement is usually necessary to meet this goal. When exposed to the sun, use a sunscreen that protects against both UVA and UVB radiation with an SPF of 30 or greater. Reapply every 2-3 hours or after sweating, drying off with a towel, or swimming. Always wear a seat belt when traveling in a car. Always wear a helmet when riding a bicycle or a motorcycle Normal [facility] Office Visiton 09-07-2024 Follow-up visit [id number] Flavio Buenrostro 1940 M Date Provider Department Center 09/07/2024 [id number] DE LA CR[facility] Family History Problem Relation Age of Onset Cancer Father Comments: Brain Other Mother Family Status - Relation Status Age at Father Mother Level of Service:G0439 OR PPPS, SUBSEQ VISIT Reason for Visit and Comments: Medicare Annual Wellness Visit Subsequent [677] Blood Work [357033] Health Maintenance [872] - Tdap vaccine- refuse 4th covid vaccine- not done Hep a or b vaccine- refuse Shingles vaccine- refuse Rsv vaccine- not done Hypertension [918829] - Stopped bp medication due to it dropping bp too low Normal [facility] Progress Noteon 09-07-2024 Progress Note Blood pressure was initially elevated, recheck was upper limits of normal, we will start him back on losartan at 25 mg daily. He can split that in half if he feels like his blood pressure is too low. Normal [facility] Progress Note We will get some extra blood work looking for causes of fatigue however I suspect this is mainly due to from being inactive from his surgery. Orders: CBC; Future TSH; Future Normal [facility] Progress Note Patient verified by last name and date of . Normal [facility] Progress Note Migraines seem to have resolved. [facility] Progress Note [facility] [place] [address] [address] [facility] [address] Dept: [phone] Dept Chief Complaint: Jean Buenrostro is an 83 y.o. male here for an annual wellness visit. Assessment/Plan : Assessment & Plan Routine general medical examination at health care facility Primary hypertension Blood pressure was initially elevated, recheck was upper limits of normal, we will start him back on losartan at 25 mg daily. He can split that in half if he feels like his blood pressure is too low. Benign prostatic hyperplasia without lower urinary tract symptoms Has become more symptomatic since his surgery we will put him on Flomax 0.4 mg daily and he can stop that down the road if he feels like he is doing well Hypercholesterolemia Currently he has stopped all cholesterol medication except omega-3 fish oil. Orders: Lipid panel; Future Migraine with aura and without status migrainosus, not intractable Migraines seem to have resolved. Chronic fatigue We will get some extra blood work looking for causes of fatigue however I suspect this is mainly due to from being inactive from his surgery. Orders: CBC; Future TSH; Future Screening for diabetes mellitus Orders: Comprehensive metabolic panel; Future I have reviewed and reconciled the medication list with the patient today. Current Outpatient Medications Medication Sig Dispense Refill coenzyme Q-10 100 MG capsule Take by mouth. Misc Natural Products (PROSTATE HEALTH PO) Take by mouth. omega-3 (Fish Oil) 1000 MG capsule Take 1,000 mg by mouth daily. VITAMIN D PO Take by mouth. losartan (Cozaar) 25 MG tablet Take 1 tablet (25 mg) by mouth daily. 90 tablet 0 tamsulosin (Flomax) 0.4 MG 24 hr capsule Take 1 capsule (0.4 mg) by mouth daily. 90 capsule 0 No current facility-administered medications for this visit. Also reviewed during this visit: The following health maintenance schedule was reviewed with the patient and provided in printed form in the after visit summary: Health Maintenance Topic Date Due RSV Immunization for Adults (1 - 1-dose 75+ series) 09/07/2025 (Originally 09/10/2015) DTaP/Tdap/Td Vaccines (2 - Td or Tdap) 09/07/2025 (Originally 07/29/2023) Hepatitis B Vaccines (1 of 3 - Risk 3-dose series) 09/07/2025 (Originally 2000) Hepatitis A Vaccines (1 of 2 - Risk 2-dose series) 09/07/2025 (Originally 09/10/1959) Zoster Vaccines (1 of 2) 09/07/2025 (Originally 1990) COVID-19 Vaccine ( - 2023- season) 2025 (Originally 10/26/2023) Influenza Vaccine (1) 10/25/2024 Depression Screening 09/07/2025 Lipid Panel 09/02/2028 Medicare Advantage Annual Wellness Visit Completed Pneumococcal Vaccine: 50+ Years Completed RSV Immunization under 20 Months Aged Out HIB Vaccines Aged Out IPV Vaccines Aged Out Meningococcal Vaccine Aged Out Rotavirus Vaccines Aged Out HPV Vaccines Aged Out Meningococcal B Vaccine Aged Out List of current healthcare providers: Patient Care Team: Mina De La Cruz MD as PCP - General Orders Placed This Encounter Procedures Lipid panel Standing Status: Future Number of Occurrences: 1 Expected Date: 09/07/2024 Expiration Date: 09/07/2025 Comprehensive metabolic panel Standing Status: Future Number of Occurrences: 1 Expected Date: 09/07/2024 Expiration Date: 09/07/2025 CBC Standing Status: Future Number of Occurrences: 1 Expected Date: 09/07/2024 Expiration Date: 09/07/2025 TSH Standing Status: Future Number of Occurrences: 1 Expected Date: 09/07/2024 Expiration Date: 09/07/2025 Review of Systems Constitutional: Negative for activity [...] Negative. Neurological: Negative for weakness and numbness. Psychiatric/Behaviora l: Negative for dysphoric mood. The patient is not nervous/anxious. Physical Exam Vitals and nursing note reviewed. [...] Rhythm: Normal rate and regular rhythm. Heart (more content not included)... Normal [facility] Progress Note Has become more symptomatic since his surgery we will put him on Flomax 0.4 mg daily and he can stop that down the road if he feels like he is doing well Normal [facility] Progress Note Currently he has stopped all cholesterol medication except omega-3 fish oil. Orders: Lipid panel; Future Normal [facility] Surgery Visit Reporton 08-25 Surgery Visit Report [facility] [address] [place] [address] OFFICE VISIT Date of Service: 08/25/24 MR#: [id number] Acct: [id number] Name: JEAN BUENROSTRO Rep #: [id number] : 1940 Provider: DONNIE nieto Age/Sex: 83/M Location: [facility] Status: Signed Intake Vital Signs 08/11/24 20:35 Height 5 ft 6 in Intake Visit Reasons: GALLBLADDER 6-18 Chief Complaint: f/u lap amaya Laundry Room Attendant Required: No Is patient in pain?: No Allergies No Known Allergies Allergy (Verified 08/25/24 07:50) Medications ???Medication ???Instructions ???Recorded ???Confirmed ???Type Coq10 1 tab PO DAILY 03/03/14 08/25/24 H istory Excedrin Extra Strength Caplet 500 mg PO PRN PRN Headache 5 08/25/24 History Fish Oil 1,000 mg Capsule 1,000 mg PO DAILY 03/03/14 5 History saw palm 160 mg-vit E 100 1 tab PO DAILY 03/03/14 08/25/24 H istory unit-selen 100 rtn-oobe-gnramm-pygeu m tablet ([facility]) tamsulosin 0.4 mg capsule 0.4 mg PO DAILY@1730 7 days #7 cap s 08/12/24 08/25/24 Rx Have you fallen in the past year?: No Subjective Details: Patient is an 83 y/o M I am following s/p laparoscopic cholecystectomy with intraoperative cholangiogram by Dr. Durand on 08/11/24. Patient tolerated the procedure well. Patient denies any nausea, vomiting, fever. He notes intermittent right upper quadrant discomfort with positional changes. He denies any concerns with incisional discomfort. He notes appetite and bowel habits have returned to normal. Pathology demonstrated mild acute inflammation, cholelithiasis Objective Details: Abdomen- soft, nontender. Incisions c/d/i. No erythema or infection noted. Coding Level of Care Code Global Post Op Diagnoses Gallstones K80.20 [facility] Medical History BPH (benign prostatic hyperplasia) Anemia HLD (hyperlipidemia) TIA (transient ischemic attack) Bradycardia Surgical History Status post laparoscopic cholecystectomy Social History Smoking Status: Never smoker Assessment and Plan (No Qualifiers) Assessment and Plan (1) Gallstones: Status: Acute Plan: No lifting restrictions at this time Discussed signs of infection and when to contact our office Follow-up as needed 08/25/24 0809 Date Dilma Schwartz Signature: Date (if applicable) CC: Dr. Mina De La Cruz MD Normal [facility] Absolute lymphocyte countOrd ered By: Tommy Durand on 08-12-2024 Lymphocytes Auto (Unsp spec) [#/Vol] 0.80 10*3/uL Low 0.83-4.51 [facility] Absolute neutrophil countOrd ered By: Tommy Durand on 08-12-2024 Neutrophils (Bld) [#/Vol] 8.0 10*3/uL High 2.0-7.7 [facility] Anion gap in Serum or Plasma Ordered By: Tommy Durand on 08-12-2024 Anion gap [Moles/Vol] 11 mmol/L 5-15 [facility] Automated blood erythrocyte countOrdered By: Tommy Durand on 08-12-2024 RBC (Bld) [#/Vol] 3.75 10*6/uL Low 4.6-6.2 [facility] Comment on above: Performed By: #### L 500.4050, L100.0100 #### [facility] [address] [place], [address] Automated blood hematocrit ( percentage)Ordered By: Tommy Durand on 08-12-2024 Hematocrit (Bld) [Volume fraction] 34.0 % Low 40-54 [facility] Comment on above: Performed By: #### L 500.4050, L100.0100 #### [facility] [address] [place], [address] Automated lymphocyte count a s percentage of total leukocytesOrdered By: Tommy Durand on 08-12-2024 Lymphocytes/100 WBC Auto (Unsp spec) 8.2 % Low 19-41 [facility] BUN/creatinine ratioOrdered By: Tommy Durand on 08-12-2024 Urea nitrogen/Creatinine [Mass ratio] 8.4 mg/mg Low 10-20 [facility] Basophil percentageOrdered B y: Tommy Durand on 08-12-2024 Basophils/100 WBC (Bld) 0.2 % Normal 0-1 [facility] Comment on above: Performed By: #### L 500.4050, L100.0100 #### [facility] [address] [place], [address] Bilirubin, totalOrdered By: Tommy Durand on 08-12-2024 Bilirubin [Mass/Vol] 0.74 mg/dL Normal 0.00-1.30 [facility] Comment on above: Performed By: #### L 500.4050, L100.0100 #### [facility] [address] [place], [address] CBC W/Diff, Automatedon 07-25 Absolute Lymph 0.80 X10 3/uL Low 0.83-4.51 [facility] Comment on above: Performed By: #### L 500.4050, L100.0100 #### [facility] [address] [place], [address] Absolute Neut 8.0 X10 3/uL High 2.0-7.7 [facility] Comment on above: Performed By: #### L 500.4050, L100.0100 #### [facility] [address] [place], [address] IG% 0.500 Normal 0.0-0.9 [facility] Comment on above: Result Comment: IG% - Immature Granulocytes (promyelocytes, myelocytes and metamyelocytes) > 1% indicates that a LEFT SHIFT is Present. Performed By: #### L 500.4050, L100.0100 #### [facility] [address] [place], [address] Lymphocytes/100 WBC (Bld) 8.2 % Low 19-41 [facility] Comment on above: Performed By: #### L 500.4050, L100.0100 #### [facility] [address] [place], [address] Nucleated RBC (Bld) [#/Vol] 0 10*3/uL Normal 0-5 [facility] Comment on above: Performed By: #### L 500.4050, L100.0100 #### [facility] [address] [place], [address] RDW SD 47.4 fl High 35.1-43.9 [facility] Comment on above: Performed By: #### L 500.4050, L100.0100 #### [facility] [address] [place], [address] Carbon dioxide, total [Moles /volume] in Central venous bloodOrdered By: Tommy Durand on 08-12-2024 CO2 [Moles/Vol] 22.0 mmol/L Normal 21.0-32.0 [facility] Comment on above: Performed By: #### L 500.4050, L100.0100 #### [facility] [address] [place], [address] Chloride assayOrdered By: Jessica Durand on 08-12-2024 Chloride [Moles/Vol] 105 mmol/L Normal 98-108 [facility] Comment on above: Performed By: #### L 500.4050, L100.0100 #### [facility] [address] [place], [address] Comprehensive Metabolic Prof ilmargarita 08-12-2024 ALK PHOS 115 U/L Normal 40-129 [facility] Comment on above: Performed By: #### L 500.4050, L100.0100 #### [facility] [address] [place], [address] BUN/CRE 8.4 RATIO Low 10-20 [facility] Comment on above: Performed By: #### L 500.4050, L100.0100 #### [facility] [address] [place], [address] ECRCL 43.47 ml/min Low 50-250 [facility] Comment on above: Performed By: #### L 500.4050, L100.0100 #### [facility] [address] [place], [address] GAP 11 Normal 5-15 [facility] Comment on above: Performed By: #### L 500.4050, L100.0100 #### [facility] [address] [place], [address] Potassium [Moles/Vol] 4.5 mmol/L Normal 3.3-5.1 [facility] Comment on above: Performed By: #### L 500.4050, L100.0100 #### [facility] [address] [place], [address] T PROT 6.1 g/dL Normal 5.9-8.4 [facility] Comment on above: Performed By: #### L 500.4050, L100.0100 #### [facility] [address] [place], [address] Comprehensive Metabolic Prof ilOrdered By: Tommy Durand on 08-12-2024 AST [Catalytic activity/Vol] 43 U/L High <=37 [facility] Comment on above: Performed By: #### L 500.4050, L100.0100 #### [facility] [address] [place], [address] Discharge Instructionon 07-25 Discharge Instruction [facility] Medical Records Department [address] [place] [address] Instructions for Home/Discharge Instructions 08/12/24 1202 MR#: [id number] Acct: [id number] Name: JEAN BUENROSTRO Rep #: [id number] : 1940 83 From: Tommy Durand MD PCP: Dr. Mina De La Cruz MD Status:ADM IN Discharge Instructions Diet Discharge Diet: No restrictions DC O2, CPAP, BIPAP needs Home O2 Discharge instructions: No Dressing / Incision Discharge Activity: May Not Drive (No driving while using narcotic pain medication) and May Shower (Postoperative day 1) May shower in (days): 1 Ice area for (Minutes): 20 Lifting Restrictions: No lifting greater than 15 pounds for 2 weeks after surgery Dressing / Incision Call your doctor if your incision/area has: Continuous Slow Oozing, Increased Pain/ Swelling, Increased Redness, Foul Smelling Discharge and Swelling at the incision site Call your doctor if you observe: Fever of 101 or Higher and Inability to urinate Remove Dressing in: 1 day (Please leave Steri-Strips intact until they fall off spontaneously or are taken off at your follow-up visit) Cleanse incision/area with: Soap Water Follow Up Care Please Follow Up With: Tomym Durand MD When: 7-10days postop Test Results: Test results from this visit will be discussed in further detail at your follow-up appointment, if applicable. Discharge Plan Admission Admit Date/Time: 08/11/24 09:50 Primary Reason for Your Visit: Gallbladder removal Attending Provider: Tommy Durand Primary Care Provider: Mina De La Cruz Discharge Orders/Prescriptions Prescriptions: New oxycodone 5 mg Tablet 5 mg PO Q6H PRN PRN (Reason: Pain Score 6-10) 3 Days Qty: 10 0RF tamsulosin 0.4 mg Capsule 0.4 mg PO DAILY@1730 7 Days Qty: 7 0RF Continued Fish Oil 1,000 mg Capsule 1,000 mg PO DAILY Patient Comments: SUPPLIMENT FOR CHOLESTEROL Prostate Health 1 EACH tablet 1 tab PO DAILY Patient Comments: PROSTATE HEALTH Coq10 1 tab PO DAILY Patient Comments: CHOLESTEROL, IMMUNITY Excedrin Extra Strength Caplet 500 mg PO PRN PRN (Reason: Headache) Patient Comments: MIGRAINE FLASHING LIGHTS Referrals / Follow Up: Mina De La Cruz MD [Primary Care Provider] - Disposition Disposition (needs filled in before D/C Order can be placed): Home, Self Care 08/12/24 1712 Tommy Durand MD CC: Dr. Mina De La Cruz MD Signed Normal [facility] Eosinophil percentageOrdered By: Tommy Duradn on 08-12-2024 Eosinophils/100 WBC (Bld) 0.0 % Normal 0-5 [facility] Comment on above: Performed By: #### L 500.4050, L100.0100 #### [facility] [address] [place], [place], [address] Erythrocyte distribution wid th ratioOrdered By: Tommy Durand on 08-12-2024 Erythrocyte distribution width (RBC) [Ratio] 14.2 % Normal 11.6-14.6 [facility] Comment on above: Performed By: #### L 500.4050, L100.0100 #### [facility] [address] [place], [address] Erythrocyte distribution wid th standard deviationOrdered By: Tommy Durand on 08-12-2024 Erythrocyte distribution width (RBC) [Ratio] 47.4 fl High 35.1-43.9 [facility] Glomerular filtration rate ( GFR) estimation/1.73 sq m using serum, plasma, or whole bOrdered By: Tommy Durand on 08-12-2024 GFR/1.73 sq M.predicted among non-blacks MDRD (S/P/Bld) [Vol rate/Area] 56 mL/min/{1.73_m2} Low >60 [facility] Comment on above: mL/min/1.73m2 CKD-EP I Creatinine Equation (2020) Result Comment: mL/m in/1.73m2 CKD-EPI Creatinine Equation (2020) Performed By: #### L 500.4050, L100.0100 #### [facility] [address] [place], [address] Hemoglobin measurementOrdere d By: Tommy Durand on 08-12-2024 Hemoglobin (Bld) [Mass/Vol] 11.2 g/dL Low 13.0-16.5 [facility] Comment on above: Performed By: #### L 500.4050, L100.0100 #### [facility] [address] [place], [address] Immature granulocytes/100 WB C Auto (Bld)Ordered By: Tommy Durand on 08-12-2024 Immature granulocytes/100 WBC (Bld) 0.500 % 0.0-0.9 [facility] Comment on above: IG% - Immature Granu locytes (promyelocytes, myelocytes and metamyelocytes) > 1% indicates that a LEFT SHIFT is Present. MCV (mean corpuscular volume ) determinationOrdered By: Tommy Durand on 08-12-2024 MCV (RBC) [Entitic vol] 90.7 fL Normal 80-94 [facility] Comment on above: Performed By: #### L 500.4050, L100.0100 #### [facility] [address] [place], [address] Mean corpuscular hemoglobin (MCH) determinationOrdered By: Tommy Durand on 08-12-2024 MCH (RBC) [Entitic mass] 29.9 pg Normal 27.0-32.0 [facility] Comment on above: Performed By: #### L 500.4050, L100.0100 #### [facility] [address] [place], [address] Mean corpuscular hemoglobin concentration (MCHC) determinationOrdered By: Tommy Durand on 08-12-2024 MCHC (RBC) [Mass/Vol] 32.9 g/dL Normal 32-36 [facility] Comment on above: Performed By: #### L 500.4050, L100.0100 #### [facility] [address] [place], [address] Mean platelet volume determi nationOrdered By: Tommy Durand on 08-12-2024 Platelet mean volume (Bld) [Entitic vol] 10.9 fL Normal 6.2-12.0 [facility] Comment on above: Performed By: #### L 500.4050, L100.0100 #### [facility] [address] [place], [address] Monocyte percentageOrdered B y: Tommy Durand on 08-12-2024 Monocytes/100 WBC (Bld) 8.6 % Normal 0-10 [facility] Comment on above: Performed By: #### L 500.4050, L100.0100 #### [facility] [address] [place], [address] Neutrophil percentageOrdered By: Tommy Durand on 08-12-2024 Neutrophils/100 WBC (Bld) 82.5 % High 47-70 [facility] Comment on above: Performed By: #### L 500.4050, L100.0100 #### [facility] [address] [place], [address] Nucleated red blood cell per centageOrdered By: Tommy Durand on 08-12-2024 Nucleated RBC/100 WBC (Bld) [Ratio] 0 % 0-5 [facility] Platelet countOrdered By: Jessica Durand on 08-12-2024 Platelets (Bld) [#/Vol] 240 10*3/uL Normal 150-450 [facility] Comment on above: Performed By: #### L 500.4050, L100.0100 #### [facility] [address] [place], [address] Potassium measurement (mass/ volume)Ordered By: Tommy Durand on 08-12-2024 Potassium (Unsp spec) [Mass/Vol] 4.5 mmol/L 3.3-5.1 [facility] Serum creatinine measurement (mass/volume)Ordered By: Tommy Durand on 08-12-2024 Creatinine [Mass/Vol] 1.28 mg/dL High 0.70-1.20 [facility] Comment on above: Performed By: #### L 500.4050, L100.0100 #### [facility] [address] [place], [address] Serum globulin measurementOr dered By: Tommy Durand on 08-12-2024 Globulin (S) [Mass/Vol] 2.4 g/dL Normal 2.2-4.2 [facility] Comment on above: Performed By: #### L 500.4050, L100.0100 #### [facility] [address] [place], [address] Serum glucose measurement (m ass/volume)Ordered By: Tommy Durand on 08-12-2024 Glucose [Mass/Vol] 143 mg/dL High 70-99 [facility] Comment on above: Performed By: #### L 500.4050, L100.0100 #### [facility] [address] [place], [address] Serum or plasma alanine quintero otransferase (ALT) measurementOrdered By: Tommy Durand on 08-12-2024 ALT [Catalytic activity/Vol] 31 U/L Normal <=46 [facility] Comment on above: Performed By: #### L 500.4050, L100.0100 #### [facility] [address] [place], [address] Serum or plasma albumin nora urement (mass/volume)Ordered By: Tommy Durand on 08-12-2024 Albumin [Mass/Vol] 3.7 g/dL Normal 3.4-4.8 [facility] Comment on above: Performed By: #### L 500.4050, L100.0100 #### [facility] [address] [place], [address] Serum or plasma albumin/glob ulin mass ratioOrdered By: Tommy Durnad on 08-12-2024 Albumin/Globulin [Mass ratio] 1.5 {ratio} Normal 0.9-2.4 [facility] Comment on above: Performed By: #### L 500.4050, L100.0100 #### [facility] [address] [place], [address] Serum or plasma alkaline maricruz sphatase measurementOrdered By: Tommy Durand on 08-12-2024 ALP [Catalytic activity/Vol] 115 U/L 40-129 [facility] Serum or plasma calcium nora urement (mass/volume)Ordered By: Tommy Durand on 08-12-2024 Calcium [Mass/Vol] 8.1 mg/dL Normal 7.6-11.0 [facility] Comment on above: Performed By: #### L 500.4050, L100.0100 #### [facility] [address] [place], [address] Serum or plasma urea nitroge n measurement (mass/volume)Ordered By: Tommy Duradn on 08-12-2024 Urea nitrogen [Mass/Vol] 11 mg/dL Normal 4-19 [facility] Comment on above: Performed By: #### L 500.4050, L100.0100 #### [facility] [address] [place], [address] Sodium levelOrdered By: Jhonny Durand on 08-12-2024 Sodium [Moles/Vol] 138 mmol/L Normal 133-145 [facility] Comment on above: Performed By: #### L 500.4050, L100.0100 #### [facility] [address] [place], [address] Total proteinOrdered By: Rc Durand on 08-12-2024 Protein [Mass/Vol] 6.1 g/dL 5.9-8.4 [facility] White blood cell (WBC) count Ordered By: Tommy Durand on 08-12-2024 WBC (Bld) [#/Vol] 9.7 10*3/uL Normal 4.4-11.0 [facility] Comment on above: Performed By: #### L 500.4050, L100.0100 #### [facility] [address] [place], [address] 12 Lead EKGon 08-11-2024 12 Lead EKG [facility] Cardiovascular Services [address] [place] [address] 12 Lead EKG 08/11/24 0100 MR#: [id number] Acct: [id number] Name: JEAN BUENROSTRO Rep #: [id number] : 1940 83 From: Yuan Mcneal MD Attending Dr: Dr. Tommy Durand MD Status: DIS IN Ordering Dr: Carol Leigh DO Date: 08/11/24 Location: [facility] [place] Sex: M C Admitted: 08/11/24 Test Reason : CP Blood Pressure : */* mmHG Vent. Rate : 57 BPM Atrial Rate : 57 BPM P-R Int : 168 ms QRS Dur : 94 ms QT Int : 420 ms P-R-T Axes : 7 -14 6 degrees QTcB Int : 408 ms Sinus bradycardia with Premature atrial complexes Otherwise normal ECG Confirmed by ALISA WITT, LI ([id number]), production editor JADYN CLAYTON ([id number]) on 08/13/2024 12:44:40 PM Referred By: XIOMARA Confirmed By: LI MCNEAL MD 08/13/24 1244 Date Yuan Mcneal MD CC: Dr. Carol Leigh DO; Dr. Mina De La Cruz MD; Dr. Tommy Durand MD Signed Normal [facility] Absolute lymphocyte countOrd ered By: Carol Leigh on 08-11-2024 Lymphocytes Auto (Unsp spec) [#/Vol] 1.14 10*3/uL 0.83-4.51 [facility] Absolute neutrophil countOrd ered By: Carol Leigh on 08-11-2024 Neutrophils (Bld) [#/Vol] 7.0 10*3/uL 2.0-7.7 [facility] Anion gap in Serum or Plasma Ordered By: Carol Leigh on 08-11-2024 Anion gap [Moles/Vol] 14 mmol/L 5-15 [facility] Automated lymphocyte count a s percentage of total leukocytesOrdered By: Carol Leigh on 08-11-2024 Lymphocytes/100 WBC Auto (Unsp spec) 13.0 % Low 19-41 [facility] BUN/creatinine ratioOrdered By: Carol Leigh on 08-11-2024 Urea nitrogen/Creatinine [Mass ratio] 10.3 mg/mg 10-20 [facility] Basophil percentageOrdered B y: Carol Leigh on 08-11-2024 Basophils/100 WBC (Bld) 0.2 % 0-1 [facility] Bilirubin Test strip Ql (U)O rdered By: Carol Leigh on 08-11-2024 Bilirubin Ql (U) Negative Negative [facility] Bilirubin, totalOrdered By: Carol Leigh on 08-11-2024 Bilirubin [Mass/Vol] 0.37 mg/dL 0.00-1.30 [facility] CBC W/Diff, Automatedon 07-25 Absolute Lymph 1.14 X10 3/uL Normal 0.83-4.51 [facility] Comment on above: Performed By: #### L 501.4021, L100.0100, L501.2450, L500.4050 ####[facility] [address] [place], [address] Absolute Neut 7.0 X10 3/uL Normal 2.0-7.7 [facility] Comment on above: Performed By: #### L 501.4021, L100.0100, L501.2450, L500.4050 ####[facility] [address] [place], [address] Basophils/100 WBC (Bld) 0.2 % Normal 0-1 [facility] Comment on above: Performed By: #### L 501.4021, L100.0100, L501.2450, L500.4050 ####[facility] [address] [place], [address] Eosinophils/100 WBC (Bld) 0.7 % Normal 0-5 [facility] Comment on above: Performed By: #### L 501.4021, L100.0100, L501.2450, L500.4050 ####[facility] [address] [place], [address] Erythrocyte distribution width (RBC) [Ratio] 13.9 % Normal 11.6-14.6 [facility] Comment on above: Performed By: #### L 501.4021, L100.0100, L501.2450, L500.4050 ####[facility] [address] [place], [address] Hematocrit (Bld) [Volume fraction] 35.0 % Low 40-54 [facility] Comment on above: Performed By: #### L 501.4021, L100.0100, L501.2450, L500.4050 ####[facility] [address] [place], [address] Hemoglobin (Bld) [Mass/Vol] 12.0 g/dL Low 13.0-16.5 [facility] Comment on above: Performed By: #### L 501.4021, L100.0100, L501.2450, L500.4050 ####[facility] [address] [place], [address] IG% 0.200 Normal 0.0-0.9 [facility] Comment on above: Result Comment: IG% - Immature Granulocytes (promyelocytes, myelocytes and metamyelocytes) > 1% indicates that a LEFT SHIFT is Present. Performed By: #### L 501.4021, L100.0100, L501.2450, L500.4050 ####[facility] [address] [place], [address] Lymphocytes/100 WBC (Bld) 13.0 % Low 19-41 [facility] Comment on above: Performed By: #### L 501.4021, L100.0100, L501.2450, L500.4050 ####[facility] [address] [place], [address] MCH (RBC) [Entitic mass] 30.5 pg Normal 27.0-32.0 [facility] Comment on above: Performed By: #### L 501.4021, L100.0100, L501.2450, L500.4050 ####[facility] [address] [place], [address] MCHC (RBC) [Mass/Vol] 34.3 g/dL Normal 32-36 [facility] Comment on above: Performed By: #### L 501.4021, L100.0100, L501.2450, L500.4050 ####[facility] [address] [place], [address] MCV (RBC) [Entitic vol] 88.8 fL Normal 80-94 [facility] Comment on above: Performed By: #### L 501.4021, L100.0100, L501.2450, L500.4050 ####[facility] [address] [place], [address] Monocytes/100 WBC (Bld) 5.8 % Normal 0-10 [facility] Comment on above: Performed By: #### L 501.4021, L100.0100, L501.2450, L500.4050 ####[facility] [address] [place], [address] Neutrophils/100 WBC (Bld) 80.1 % High 47-70 [facility] Comment on above: Performed By: #### L 501.4021, L100.0100, L501.2450, L500.4050 ####[facility] [address] [place], [address] Nucleated RBC (Bld) [#/Vol] 0 10*3/uL Normal 0-5 [facility] Comment on above: Performed By: #### L 501.4021, L100.0100, L501.2450, L500.4050 ####[facility] [address] [place], [address] Platelet mean volume (Bld) [Entitic vol] 10.4 fL Normal 6.2-12.0 [facility] Comment on above: Performed By: #### L 501.4021, L100.0100, L501.2450, L500.4050 ####[facility] [address] [place], [address] Platelets (Bld) [#/Vol] 256 10*3/uL Normal 150-450 [facility] Comment on above: Performed By: #### L 501.4021, L100.0100, L501.2450, L500.4050 ####[facility] [address] [place], [address] RBC (Bld) [#/Vol] 3.94 10*6/uL Low 4.6-6.2 [facility] Comment on above: Performed By: #### L 501.4021, L100.0100, L501.2450, L500.4050 ####[facility] [address] [place], [address] RDW SD 44.8 fl High 35.1-43.9 [facility] Comment on above: Performed By: #### L 501.4021, L100.0100, L501.2450, L500.4050 ####[facility] [address] [place], [address] WBC (Bld) [#/Vol] 8.8 10*3/uL Normal 4.4-11.0 [facility] Comment on above: Performed By: #### L 501.4021, L100.0100, L501.2450, L500.4050 ####[facility] [address] [place], [address] CTA Chst, Abd, Pel W and/or WOon 08-11-2024 CTA Chst, Abd, Pel W and/or WO [facility] Imaging Services [address] [place] [address] CTA Chst, Abd, Pel W and/or WO MR#: [id number] Acct: [id number] Name: JEAN BUENROSTRO Rep #: [id number] : 1940 M 83 From: Kalen simmons MD PCP: Dr. Mina De La Cruz MD Status: REG ER Study: CTA Chst, Abd, Pel W and/or WO Date of Exam: 0 08/11/24 Exam# [id number] Ordering Dr: Carol Leigh DO PROCEDURE: CTA CHST, ABD, PEL [...] multiple gallstones, probably mild changes of acute calculus cholecystitis. Moderate coronary artery calcifications. Subsegmental [...] no left renal mass. There are no left renal calculi. There is no left hydronephrosis. Normal [...] department at 3 a.m. EST. Reading Location: [place] [address] CC: Dr. Carol Leigh, DO; Dr. Mina De La Cruz MD Wardrobe Stylist: Signed Normal [facility] Carbon dioxide, total [Moles /volume] in Central venous bloodOrdered By: Carol Leigh on 08-11-2024 CO2 [Moles/Vol] 22.9 mmol/L 21.0-32.0 [facility] Chloride assayOrdered By: Jw Leigh on 08-11-2024 Chloride [Moles/Vol] 100 mmol/L 98-108 [facility] Cholangiogram/ O R,Initialon 08-11-2024 Cholangiogram/ O R,Initial [facility] Imaging Services [address] [place], [place] [address] Cholangiogram/ O R,Initial MR#: [id number] Acct: [id number] Name: JEAN BUENROSTRO Rep #: [id number] : 1940 M 83 From: Kalen simmons MD PCP: Dr. Mina De La Cruz MD Status: ADM IN Study: Cholangiogram/ O R,Initial Date of Exam: 08/11 Exam# [id number] Ordering Dr: Tommy Durand MD PROCEDURE: CHOLANGIOGRAM/ O R,INITIAL 08/11/2024 REASON FOR EXAM: LAP AMAYA TECHNIQUE: CHOLANGIOGRAM/ O R,INITIAL Intraoperative cholangiogram. Radiation time 26.2 seconds. Radiation dose 14.9 mGy. COMPARISON: Ultrasound exam on 08/11/2024. FINDINGS: Cholecystectomy. Intraoperative cholangiogram was performed. No filling defect is noted in the common bile duct. Free passage of the contrast through the duodenum without evidence of contrast leakage. RAD/Cholangiogram/ O R,Initial IMPRESSION: Unremarkable intraoperative cholangiogram. Reading Location: [place] [address] CC: Dr. Mina De La Cruz MD; Dr. Tommy Durand MD Wardrobe Stylist: Signed Normal [facility] Comprehensive Metabolic Prof ilon 08-11-2024 Albumin [Mass/Vol] 4.4 g/dL Normal 3.4-4.8 [facility] Comment on above: Performed By: #### L 501.4021, L100.0100, L501.2450, L500.4050 ####[facility] [address] [place], [address] Albumin/Globulin [Mass ratio] 1.7 {ratio} Normal 0.9-2.4 [facility] Comment on above: Performed By: #### L 501.4021, L100.0100, L501.2450, L500.4050 ####[facility] [address] [place], [address] ALK PHOS 139 U/L High 40-129 [facility] Comment on above: Performed By: #### L 501.4021, L100.0100, L501.2450, L500.4050 ####[facility] [address] [place], [address] ALT [Catalytic activity/Vol] 22 U/L Normal <=46 [facility] Comment on above: Performed By: #### L 501.4021, L100.0100, L501.2450, L500.4050 ####[facility] [address] [place], [address] AST [Catalytic activity/Vol] 25 U/L Normal <=37 [facility] Comment on above: Performed By: #### L 501.4021, L100.0100, L501.2450, L500.4050 ####[facility] [address] [place], [address] Bilirubin [Mass/Vol] 0.37 mg/dL Normal 0.00-1.30 [facility] Comment on above: Performed By: #### L 501.4021, L100.0100, L501.2450, L500.4050 ####[facility] [address] [place], [address] BUN/CRE 10.3 RATIO Normal 10-20 [facility] Comment on above: Performed By: #### L 501.4021, L100.0100, L501.2450, L500.4050 ####[facility] [address] [place], [address] Calcium [Mass/Vol] 9.6 mg/dL Normal 7.6-11.0 [facility] Comment on above: Performed By: #### L 501.4021, L100.0100, L501.2450, L500.4050 ####[facility] [address] [place], [address] Chloride [Moles/Vol] 100 mmol/L Normal 98-108 [facility] Comment on above: Performed By: #### L 501.4021, L100.0100, L501.2450, L500.4050 ####[facility] [address] [place], [address] CO2 [Moles/Vol] 22.9 mmol/L Normal 21.0-32.0 [facility] Comment on above: Performed By: #### L 501.4021, L100.0100, L501.2450, L500.4050 ####[facility] [address] [place], [address] Creatinine [Mass/Vol] 1.21 mg/dL High 0.70-1.20 [facility] Comment on above: Performed By: #### L 501.4021, L100.0100, L501.2450, L500.4050 ####[facility] [address] [place], [address] ECRCL 45.98 ml/min Low 50-250 [facility] Comment on above: Performed By: #### L 501.4021, L100.0100, L501.2450, L500.4050 ####[facility] [address] [place], [address] GAP 14 Normal 5-15 [facility] Comment on above: Performed By: #### L 501.4021, L100.0100, L501.2450, L500.4050 ####[facility] [address] [place], [address] GFR/1.73 sq M.predicted among non-blacks MDRD (S/P/Bld) [Vol rate/Area] 59 mL/min/{1.73_m2} Low >60 [facility] Comment on above: Result Comment: mL/m in/1.73m2 CKD-EPI Creatinine Equation (2020) Performed By: #### L 501.4021, L100.0100, L501.2450, L500.4050 ####[facility] [address] [place], [address] Globulin (S) [Mass/Vol] 2.6 g/dL Normal 2.2-4.2 [facility] Comment on above: Performed By: #### L 501.4021, L100.0100, L501.2450, L500.4050 ####[facility] [address] [place], [address] Glucose [Mass/Vol] 120 mg/dL High 70-99 [facility] Comment on above: Performed By: #### L 501.4021, L100.0100, L501.2450, L500.4050 ####[facility] [address] [place], [address] Potassium [Moles/Vol] 4.1 mmol/L Normal 3.3-5.1 [facility] Comment on above: Performed By: #### L 501.4021, L100.0100, L501.2450, L500.4050 ####[facility] [address] [place], [address] Sodium [Moles/Vol] 136 mmol/L Normal 133-145 [facility] Comment on above: Performed By: #### L 501.4021, L100.0100, L501.2450, L500.4050 ####[facility] [address] [place], [address] T PROT 7.0 g/dL Normal 5.9-8.4 [facility] Comment on above: Performed By: #### L 501.4021, L100.0100, L501.2450, L500.4050 ####[facility] [address] [place], [address] Urea nitrogen [Mass/Vol] 13 mg/dL Normal 4-19 [facility] Comment on above: Performed By: #### L 501.4021, L100.0100, L501.2450, L500.4050 ####[facility] [address] [place], [address] Emergency Department Summary on 08-11-2024 Emergency Department Summary [facility] Medical Records Department [address] [place] [address] Emergency Department Summary 08/11/24 MR#: [id number] Acct: [id number] Name: JEAN BUENROSTRO Rep #: [id number] : 1940 83 From: Carol Leigh DO PCP: Dr. Mina De La Cruz MD Status:REG ER Location: ED HPI HPI - GI History of Present Illness Chief Complaint: Abd Pain Informant: patient Narrative Narrative: Patient is an 83-year-old male with history of TIA, hyperlipidemia and BPH presenting with postprandial epigastric abdominal pain. Patient states he ate dinner around 5 PM. Around 8 PM he developed pain in his epigastric region. He has a hard time describing it. Denies any ripping or tearing sensation. States is not as bad as what he would [...] the pain currently is starting to improve. [facility] Medical History BPH (benign prostatic hyperplasia) Anemia HLD (hyperlipidemia) TIA (transient ischemic attack) Bradycardia Home Medications ???Medication ???Instructions ???Recorded ???Last Taken ???Type Coq10 1 tab PO DAILY 03/03/14 0630 Days Ago History 06/11/12 1 Excedrin Extra Strength Caplet 500 mg PO PRN PRN Headache 5 03/03/14 16:30 History 500 Fish Oil 1,000 mg Capsule 1,000 mg PO DAILY 03/03/14 5 06:30 History 1000 saw palm 160 mg-vit E 100 1 tab PO DAILY 03/03/14 03/03/14 0 6:30 History unit-selen 100 1 lpm-lzgu-ituvjj-pygeu m tablet (Prostate Health) Allergy/AdvReac Type Severity Reaction Status Date / Time No Known Allergies Allergy Verified 08/11/24 00:53 Social History Smoking Status: Never smoker ROS ROS ED Constitutional Constitutional ED: Denies chills or fever(s) Cardiovascular Cardiovascular: Denies chest pain Respiratory/Chest Respiratory/Chest: Denies cough or dyspnea Gastrointestinal Gastrointestinal: Reports abdominal pain; Denies constipation, diarrhea, melena, nausea or vomiting Genitourinary Genitourinary ED: Denies dysuria Musculoskeletal Musculoskeletal: Denies arthralgias, back pain or myalgias Neurologic Neurologic: Denies paresthesias or weakness Hematologic/Lymphatic Hematologic/Lymphatic : Denies easy bleeding or easy bruising EXAM [...] Patient is hypertensive upon arrival. He does ap (more content not included)... Normal [facility] Eosinophil percentageOrdered By: Carol Leigh on 08-11-2024 Eosinophils/100 WBC (Bld) 0.7 % 0-5 [facility] Erythrocyte distribution wid th ratioOrdered By: Carol Leigh on 08-11-2024 Erythrocyte distribution width (RBC) [Ratio] 13.9 % 11.6-14.6 [facility] Erythrocyte distribution wid th standard deviationOrdered By: Carol Leigh on 08-11-2024 Erythrocyte distribution width (RBC) [Ratio] 44.8 fl High 35.1-43.9 [facility] Gallbladderon 08-11-2024 Gallbladder [facility] Imaging Services [address] [place] [address] Gallbladder MR#: [id number] Acct: [id number] Name: JEAN BUENROSTRO Rep #: [id number] : 1940 M 83 From: Tomás luther MD PCP: Dr. Mina De La Cruz MD Status: REG ER Study: Gallbladder Date of Exam: 08/11/24 Exam# [id number] Ordering Dr: Carol Leigh DO PROCEDURE: GALLBLADDER 08/11/2024 REASON FOR [...] the right kidney are unremarkable. No right upper quadrant ascites. US/Gallbladder IMPRESSION: Multiple gallstones. Mild gallbladder wall thickening. Small amount of pericholecystic fluid. Cholecystitis should be ruled out. Reading Location: [facility] CC: Dr. Carol Leigh DO; Dr. Mina De La Cruz MD Wardrobe Stylist: Signed Normal [facility] Glomerular filtration rate ( GFR) estimation/1.73 sq m using serum, plasma, or whole bOrdered By: Carol Leigh on 08-11-2024 GFR/1.73 sq M.predicted among non-blacks MDRD (S/P/Bld) [Vol rate/Area] 59 mL/min/{1.73_m2} Low >60 [facility] Comment on above: mL/min/1.73m2 CKD-EP I Creatinine Equation (2020) Hematocrit Auto (Bld) [Volum e fraction]Ordered By: Carol Leigh on 08-11-2024 Hematocrit (Bld) [Volume fraction] 35.0 % Low 40-54 [facility] Hemoglobin measurementOrdere d By: Carol Leigh on 08-11-2024 Hemoglobin (Bld) [Mass/Vol] 12.0 g/dL Low 13.0-16.5 [facility] Immature granulocytes/100 WB C Auto (Bld)Ordered By: Carol Leigh on 08-11-2024 Immature granulocytes/100 WBC (Bld) 0.200 % 0.0-0.9 [facility] Comment on above: IG% - Immature Granu locytes (promyelocytes, myelocytes and metamyelocytes) > 1% indicates that a LEFT SHIFT is Present. Ketones Test strip Ql (U)Ord ered By: Carol Leigh on 08-11-2024 Ketones Ql (U) Negative Negative [facility] L499.0042on 08-11-2024 Trop T High Sen 17 ng/L Normal <=22 [facility] Comment on above: Performed By: #### L 499.0042 ####[facility] [address] [place], [address] L499.0043on 08-11-2024 Trop T High Sen Normal <=22 [facility] Comment on above: Result Comment: Po white via OM: Ordered Performed By: #### L 499.0043 #### [facility] Laboratory [address] [place], [address] L501.4021on 08-11-2024 Trop T High Sen 19 ng/L Normal <=22 [facility] Comment on above: Performed By: #### L 501.4021, L100.0100, L501.2450, L500.4050 ####[facility] [address] [place], [address] Laboratory - Chemistry and C hemistry - challengeOrdered By: Carol Leigh on 08-11-2024 AST [Catalytic activity/Vol] 25 U/L <38 [facility] Lipaseon 08-11-2024 Lipase [Catalytic activity/Vol] 49 U/L Normal 13-75 [facility] Comment on above: Result Comment: Plea se note: LIPASE revised reference range effective 22. New Lipase methodology. Expected to produce lower values than the previous assay method. NEW Reference Range: 13 - 75 U/L Performed By: #### L 501.4021, L100.0100, L501.2450, L500.4050 ####[facility] [address] [place], [address] Lipase measurementOrdered By : Carol Leigh on 08-11-2024 Lipase [Catalytic activity/Vol] 49 U/L 13-75 [facility] Comment on above: Please note:LIPASE r evised reference range effective 22. New Lipase methodology. Expected to produce lower values than the previous assay method. NEW Reference Range: 13 - 75 U/L MCV (mean corpuscular volume ) determinationOrdered By: Carol Leigh on 08-11-2024 MCV (RBC) [Entitic vol] 88.8 fL 80-94 [facility] MR/POSTOP.ANEon 08-11-2024 MR/POSTOP.ANE [facility] Medical Records Department [address] [place] [address] Anesthesia Postop Eval I 08/11/24 1839 MR#: [id number] Acct: [id number] Name: JEAN BUENROSTRO Rep #: [id number] : 1940 83 From: Jeremy Paulson MD PCP: Dr. Mina De La Cruz MD Status:REG [facility] [place] Race: C [place] [facility] [place]esthesia: Postop Eval I Current Vital Signs Temperature: 97.2 F Pulse Rate: 74 Blood Pressure: 189/92 Respiratory Rate: 18 Pulse Ox: 92 Oxygen Delivery Method: Nasal Cannula Oxygen Flow Rate (L/min): 2 Assessment Airway patent: Yes Spontaneous unlabored respirations: Yes Mental status: Awake nausea: No Vomiting: No Anesthesia Complication: No Fluid Hydration Crystalloid volume administer (ml): 1,000 Total IV fluid infused: 1,000 Progress Note Anesthesia document: Postop Eval 1 completed: Yes 08/11/241844 Date Jeremy Paulson MD Cosigner Signature: Date CC: Signed Normal [facility] MR/TCVSOPCJ3ae 08-11-2024 [facility] Medical Records Department [address] [place] [address] Anesthesia Postop Eval II 08/11/24 2224 MR#: [id number] Acct: [id number] Name: JEAN BUENROSTRO Rep #: [id number] : 1940 83 From: Jeremy Paulson MD PCP: Dr. Mina De La Cruz MD Status:ADM IN Y Race: C Location: NM3 [id number] Anesthesia Postop Eval I Sum Postop Eval Completion status Anesthesia document: Postop Eval 1 completed: Yes Anesthesia Postop Eval I Summary Anesthesia Postop Eval I Summary: Anesthesia Postop Eval I: Assessment Summary Airway patent Yes 08/11/24 18:45 Spontaneous unlabored Yes 08/11/24 18:45 respirations Mental status Awake 08/11/24 18:45 nausea No 08/11/24 18:45 Vomiting No 08/11/24 18:45 Anesthesia Postop Eval I: Fluid Summary Crystalloid volume administer 1,000 08/11/24 18:45 (ml) Colloids volume administered ( ml) Blood Product volume administered (ml) Total IV fluid infused 1,000 08/11/24 18:45 Anesthesia Postop Eval I: Summary Notes Anesthesia Complication No 08/11/24 18:45 Anesthesia Complication Comment: Post-operative progress note Anesthesia: Postop Eval II Evaluation Mental status: Awake Pain Level: 2 nausea: No Vomiting: No Complications Anesthesia Complication: No 08/11/242223 Date Jeremy Paulson MD Cosigner Signature: Date CC: Signed Normal [facility] Mean corpuscular hemoglobin (MCH) determinationOrdered By: Carol Leigh on 08-11-2024 MCH (RBC) [Entitic mass] 30.5 pg 27.0-32.0 [facility] Mean corpuscular hemoglobin concentration (MCHC) determinationOrdered By: Carol Leigh on 08-11-2024 MCHC (RBC) [Mass/Vol] 34.3 g/dL 32-36 [facility] Mean platelet volume determi nationOrdered By: Carol Leigh on 08-11-2024 Platelet mean volume (Bld) [Entitic vol] 10.4 fL 6.2-12.0 [facility] Microscopic analysis of urin e for red blood cells (RBC)Ordered By: Carol Leigh on 08-11-2024 Microscopic analysis of urine for red blood cells (RBC) 0 SEEN /hpf 0-5 [facility] Monocyte percentageOrdered B y: Carol Leigh on 08-11-2024 Monocytes/100 WBC (Bld) 5.8 % 0-10 [facility] Mucus LM Ql (Urine sed)Order ed By: Carol Leigh on 08-11-2024 Mucus Ql (Urine sed) 0 SEEN /hpf [facility] Neutrophil percentageOrdered By: Carol Leigh on 08-11-2024 Neutrophils/100 WBC (Bld) 80.1 % High 47-70 [facility] Nitrite Test strip Ql (U)Ord ered By: Carol Leigh on 08-11-2024 Nitrite Ql (U) Negative Negative [facility] Nucleated red blood cell per centageOrdered By: Carol Leigh on 08-11-2024 Nucleated RBC/100 WBC (Bld) [Ratio] 0 % 0-5 [facility] Operative Reporton Operative Report [facility] Medical Records Department [address] [place] [address] Operative Report 08/11/24 1817 MR#: [id number] Acct: [id number] Name: JEAN BUENROSTRO Rep #: [id number] : 1940 83 From: Tommy Durand MD PCP: Dr. Mina De La Cruz MD Status:ADM IN Location: [facility] [place] AP915-8 Procedures Digestive 40xxx-49xxx: [id number] Laparo cholecystectomy/graph Operative Report (Standard) Operative Information Date of Procedure: 08/11/24 Pre-Operative Diagnosis: Acute cholecystitis Post-Operative Diagnosis: Acute cholecystitis Surgery/Procedure Performed: Laparoscopic cholecystectomy with intraoperative cholangiography engineering technical specialist: Yes Linen Attendant: Aurora Loyd Tasks completed by assistant scientist: Opening, Retracting and Other (Laparoscopic camera operation) Additional legislative assistant?: Yes Additional Anchorer #2: Cornelia Alegre Tasks completed by legislative assistant #2: Closing, Retracting and Other (Laparoscopic camera operation) Type of Anesthesia: General/Supplemental RN Documented Start/Stop Times: Operation Date: 08/11/24 13:45 Case Time Into Pre-Op 08/11/24 12:56 Anesthesia Start 08/11/24 16:24 Into Room 08/11/24 16:24 Out of Pre-Op 08/11/24 16:33 Procedure Start 08/11/24 16:45 Procedure End 08/11/24 18:28 Anesthesia End 08/11/24 18:34 Out of Room 08/11/24 18:34 Into Recovery 08/11/24 18:37 Procedure Start Time: 16:45 Procedure Stop Time: 18:28 Select all DRAINS/GRAFTS/IMPLANT S that apply: None Estimated Blood Loss: 50 Specimen collected: Yes Description of specimen(s) removed: Gallbladder Description of surgery: After proper identification in the preoperative holding area the patient was brought to the operating room where he was positioned supine on the operating room table. Preoperatively SCDs were connected and antibiotics were re-administered 3.375 g Zosyn. General anesthesia was then induced. Patient's abdomen was prepped and draped in usual sterile fashion. A formal timeout was conducted to confirm both patient and the procedure. Procedure was begun with a supraumbilical incision which was extended deeply down to the level of the fascia. The fascia was elevated and incised, as well as the peritoneum. A finger sweep was performed to ensure there were no underlying adhesions and a 12 mm balloon trocar was inserted. Pneumoperitoneum was established at 15 mmHg. Three additional trocars (all 5 mm initially???however, the epigastric port site was ultimately upsized to a 12 mm port later in the case) were placed in the epigastrium and in the right upper quadrant. Inspection of the peritoneum revealed no inadvertent injury to the viscera below. The gallbladder was visualized with evidence of acute inflammation and clear edema planes beneath the peritoneal lining. There were also several adhesions between the omentum and the liver capsule adjacent to the gallbladder. These adhesions were taken down carefully with the use of electrocautery to try to minimize capsular tear but several areas of oozing were addressed directly on the liver surface with application of additional selective electrocautery. The gallbladder fundus was then grasped and elevated cephalad. Using careful dissection the peritoneum was opened and the structures of the hepatocystic triangle were delineated. Once the critical view of safety was obtained, the cystic duct was singly clipped and partially divided with a ductotomy. There was backflow of bile. Using an Tompkins Sumaya clamp, a cholangiocatheter was fed into the proximal segment of the cystic duct and clamped into place. Under fluoroscopy a cholangiogram was then obtained showing a standard length cystic duct flowing into a common bile duct with unobstructed antegrade flow of contrast into the duodenum. There was also retrograde flow through the common hepatic duct into the right and left hepatic ducts. Satisfied with this result, the cholangiocatheter was withdrawn and the proximal cystic duct was dissected a little further as I noted the presence of a crossing branch from the main cystic artery to the duct and wanted to be sure the cystic duct was appropriately occluded with a dedicated clip so clearance was assured from this vessel. The duct was then sealed with clips and the cystic duct was completely transected. Unfortunately there was bleeding from the crossing artery and this vessel was then controlled in similar fashion using another Hem-o-richard clip. The same process was used for the main cystic artery. The gallbladder was then removed from the gallbladder fossa with the use of electrocautery. Selective electrocautery was used to obtain hemostasis in the gallbladder fossa. Unfortunately the posterior wall of the gallbladder was quite edematous and thinned and simply applying traction on the gallbladder to separate from the gallbladder fossa resulted in inadv (more content not included)... Normal [facility] Platelet countOrdered By: Jw Leigh on 08-11-2024 Platelets (Bld) [#/Vol] 256 10*3/uL 150-450 [facility] Potassium measurement (mass/ volume)Ordered By: Carol Leigh on 08-11-2024 Potassium (Unsp spec) [Mass/Vol] 4.1 mmol/L 3.3-5.1 [facility] Protein Test strip Ql (U)Ord ered By: Carol Leigh on 08-11-2024 Protein Ql (U) 15 mg/dl High Negative [facility] RBC Auto (Bld) [#/Vol]Ordere d By: Carol Leigh on 08-11-2024 RBC (Bld) [#/Vol] 3.94 10*6/uL Low 4.6-6.2 [facility] Serum creatinine measurement (mass/volume)Ordered By: Carol Leigh on 08-11-2024 Creatinine [Mass/Vol] 1.21 mg/dL High 0.70-1.20 [facility] Serum globulin measurementOr dered By: Carol Leigh on 08-11-2024 Globulin (S) [Mass/Vol] 2.6 g/dL 2.2-4.2 [facility] Serum glucose measurement (m ass/volume)Ordered By: Carol Leigh on 08-11-2024 Glucose [Mass/Vol] 120 mg/dL High 70-99 [facility] Serum or plasma alanine quintero otransferase (ALT) measurementOrdered By: Carol Leigh on 08-11-2024 ALT [Catalytic activity/Vol] 22 U/L <47 [facility] Serum or plasma albumin nora urement (mass/volume)Ordered By: Carol Leigh on 08-11-2024 Albumin [Mass/Vol] 4.4 g/dL 3.4-4.8 [facility] Serum or plasma albumin/glob ulin mass ratioOrdered By: Carol Leigh on 08-11-2024 Albumin/Globulin [Mass ratio] 1.7 {ratio} 0.9-2.4 [facility] Serum or plasma alkaline maricruz sphatase measurementOrdered By: Carol Leigh on 08-11-2024 ALP [Catalytic activity/Vol] 139 U/L High 40-129 [facility] Serum or plasma calcium nora urement (mass/volume)Ordered By: Carol Leigh on 08-11-2024 Calcium [Mass/Vol] 9.6 mg/dL 7.6-11.0 [facility] Serum or plasma urea nitroge n measurement (mass/volume)Ordered By: Carol Leigh on 08-11-2024 Urea nitrogen [Mass/Vol] 13 mg/dL 4-19 [facility] Sodium levelOrdered By: Antonia Leigh on 08-11-2024 Sodium [Moles/Vol] 136 mmol/L 133-145 [facility] Squamous epithelial cells de tection in urine sediment by light microscopyOrdered By: Carol Leigh on 08-11-2024 Epithelial cells.squamous LM Ql (Urine sed) 0 SEEN /hpf 0-5 [facility] Surgery Specimen Level IIIon 08-11-2024 Surgery Specimen Level III -------- Patient Age/Sex Location Account Attending Physician -------- JEAN BUENROSTRO 83/M MS3 [id number] Dr. Tommy Durand MD -------- Specimen: [id number] Received: 08/12/24 Status: RENOMikala Joanne Num: [id number] Spec Type: MARQUITA Haynes Dr: Dr. Tommy Durand MD HEADER OPERATION: Laparoscopic cholecystectomy with IOC PRE-OP DIAGNOSIS: Acute calculous cholecystitis TISSUE SUBMITTED: A- Gallbladder -------- MICROSCOPIC DIAGNOSIS A. Gallbladder, cholecystectomy: * Mild acute inflammation. * Cholelithiasis. MICROSCOPIC DESCRIPTION Slides are reviewed. GROSS DESCRIPTION A.??? Received in formalin labeled with the patient's name and date of . Designated as gallbladder is a 7.8 x 3.3 x 1.0 cm wilson-green, disrupted gallbladder with attached cystic duct (inked black, shaved).??? A lymph node not present.??? Opening reveals innumerable black choleliths, ranging <0 0.1-0.6 cm.??? The mucosa is wilson-green and focally erythematous with a maximum wall thickness of 0.1 cm.??? Cholesterolosis not present.??? Production Control Expert sections are submitted in 1 cassette. [place] 08/13/2024 CPT:16659 -------- Patient Age/Sex Location Account Attending Physician -------- JEAN BUENROSTRO 83/M MS3 [id number] Dr. Tommy Durand MD -------- Signed (signature on file) Dr. Katie Steen MD 08/18/24 1438 -------- Normal [facility] Comment on above: Performed By: #### P SUIII ####[facility] [address] [place], [place], [id number] Total proteinOrdered By: Marii Leigh on 08-11-2024 Protein [Mass/Vol] 7.0 g/dL 5.9-8.4 [facility] Troponin T.cardiac [Mass/vol ume] in Serum or Plasma by High sensitivity methodOrdered By: Carol Leigh on 08-11-2024 Troponin T.cardiac High sensitivity method [Mass/Vol] 17 ng/L <22 [facility] Troponin T.cardiac High sensitivity method [Mass/Vol] 19 ng/L <22 [facility] Urinalysis, Completeon 08-11 BACTERIA 0 SEEN Normal None Seen [facility] Comment on above: Order Comment: CLEAN CATCH Performed By: #### L 400.0001 #### [facility] [address] [place], [address] EPI,SQUAMOUS 0 SEEN Normal 0-5 [facility] Comment on above: Order Comment: CLEAN CATCH Performed By: #### L 400.0001 #### [facility] [address] [place], [address] Mucus Ql (Urine sed) 0 SEEN Normal [facility] Comment on above: Order Comment: CLEAN CATCH Performed By: #### L 400.0001 #### [facility] [address] [place], [address] RBC 0 SEEN Normal 0-5 [facility] Comment on above: Order Comment: CLEAN CATCH Performed By: #### L 400.0001 #### [facility] [address] [place], [address] WBC 0 SEEN Normal 0-5 [facility] Comment on above: Order Comment: CLEAN CATCH Performed By: #### L 400.0001 #### [facility] [address] [place], [place], [id number] Urine clarityOrdered By: Marii Leigh on 08-11-2024 Clarity (U) Sl. Cloudy Clear [facility] Urine color determinationOrd ered By: Carol Leigh on 08-11-2024 Color (U) Straw Yellow [facility] Urine glucose detectionOrder ed By: Carol Leigh on 08-11-2024 Glucose Ql (U) Normal mg/dl Normal [facility] Urine leukocyte esterase det ection by dipstickOrdered By: Carol Leigh on 08-11-2024 Leukocyte esterase Test strip Ql (U) Negative Negative [facility] Urine pHOrdered By: Carol alexander on 08-11-2024 pH (U) 8.0 [pH] 5.0 - 8.0 [facility] Urine sediment bacteria coun t by microscopy (number/high power field)Ordered By: Carol Leigh on 08-11-2024 Bacteria LM.HPF (Urine sed) [#/Area] 0 /[HPF] None Seen [facility] Urine specific gravity measu rementOrdered By: Carol eLigh on 08-11-2024 Specific gravity (U) [Rel density] 1.010 1.002-1.030 [facility] Urine urobilinogen measureme ntOrdered By: Carol Leigh on 08-11-2024 Urobilinogen Ql (U) Normal mg/dl Normal [facility] White blood cell (WBC) count Ordered By: Carol Leigh on 08-11-2024 WBC (Bld) [#/Vol] 8.8 10*3/uL 4.4-11.0 [facility] White blood cell countOrdere d By: Carolalbina Leigh on 08-11-2024 White blood cell count 0 SEEN /hpf 0-5 [facility] CBC W Auto Differential pane l (Bld)on 04-03-2023 Basophils (Bld) [#/Vol] 28 10*3/uL [facility] Basophils/100 WBC (Bld) 0.6 % [facility] Eosinophils (Bld) [#/Vol] 183 10*3/uL [facility] Eosinophils/100 WBC (Bld) 3.9 % [facility] [employer] Erythrocyte distribution width (RBC) [Ratio] 13.4 % 11.0 - 15.0 % [facility] Hematocrit (Bld) [Volume fraction] 39.4 % 38.5 - 50.0 % [facility] Hemoglobin (Bld) [Mass/Vol] 13.5 g/dL 13.2 - 17.1 g/dL [facility] Lymphocytes (Bld) [#/Vol] 1382 10*3/uL [facility] Lymphocytes/100 WBC (Bld) 29.4 % [facility] [employer] MCH (RBC) [Entitic mass] 30.5 pg 27. 0 - 33.0 pg [facility] MCHC (RBC) [Mass/Vol] 34.3 g/dL 32.0 - 36.0 g/dL [facility] MCV (RBC) [Entitic vol] 89.1 fL 80.0 - 100.0 fL [facility] Monocytes (Bld) [#/Vol] 625 10*3/uL [facility] Monocytes/100 WBC (Bld) 13.3 % [facility] Neutrophils (Bld) [#/Vol] 2482 10*3/uL [facility] Neutrophils/100 WBC (Bld) 52.8 % [facility] [employer] Platelet mean volume (Bld) [Entitic vol] 11.1 fL 7.5 - 12.5 fL [facility] Platelets (Bld) [#/Vol] 253 10*3/uL [facility] RBC (Bld) [#/Vol] 4.42 10*6/uL [facility] WBC (Bld) [#/Vol] 4.7 10*3/uL [facility] CT Abdomen WO contraston Cholelithiasis. Report Dictated on Electronically Signed By: Rodri Street MD Electronically Signed Date/Time: 04/03/2023 3:38 PM EST [facility] [employer] Patient Name: JEAN BUENROSTRO : 1940 [...] fluid. No lymphadenopathy. The bladder is unremarkable. WHITE [facility] [address] MD - 04/03/2023 Patient [...] Electronically Signed Date/Time: 04/03/2023 3:38 PM EST [facility] [employer] Radiology Study observation (narrative) [facility] alth CT Abdomen WO contrastOrdere d By: Rodri Street on 04-03-2023 [facility] [employer] Work Phone: Comprehensive metabolic 1998 panelon 04-03-2023 Albumin [Mass/Vol] 4.5 g/dL 3.6 - 5.1 g/dL [facility] [employer] Albumin/Globulin [Mass ratio] 1.7 {ratio} [facility] [employer] ALP [Catalytic activity/Vol] 117 U/L 35 - 144 U/L [facility] ALT [Catalytic activity/Vol] 25 U/L 9 - 46 U/L [facility] AST [Catalytic activity/Vol] 23 U/L 10 - 35 U/L [facility] Bilirubin [Mass/Vol] 0.6 mg/dL 0.2 - 1 .2 mg/dL [facility] Calcium [Mass/Vol] 9.7 mg/dL 8.6 - 10. 3 mg/dL [facility] Chloride [Moles/Vol] 103 mmol/L 98 - 11 0 mmol/L [facility] CO2 [Moles/Vol] 28 mmol/L 20 - 32 mmol/L [facility] Creatinine [Mass/Vol] 1.14 mg/dL 0.70 - 1.22 mg/dL [facility] GFR/1.73 sq M.predicted among non-blacks MDRD (S/P/Bld) [Vol rate/Area] 64 mL/min/{1.73_m2} > OR = 60 mL/min/1.73m 2 [facility] Globulin (S) [Mass/Vol] 2.6 g/dL [facility] Glucose [Mass/Vol] 89 mg/dL 65 - 99 mg/dL [facility] Comment on above: Fasting reference interval Potassium [Moles/Vol] 4.3 mmol/L 3.5 - 5.3 mmol/L [facility] Protein [Mass/Vol] 7.1 g/dL 6.1 - 8.1 g/dL [facility] Sodium [Moles/Vol] 138 mmol/L 135 - 146 mmol/L [facility] Urea nitrogen [Mass/Vol] 11 mg/dL 7 - 25 mg/d L [facility] Urea nitrogen/Creatinine [Mass ratio] SEE NOTE: [facility] Comment on above: Not Reported: BUN an d Creatinine are within reference range. No Panel Informationon 04-03 [facility] VL Aorta Iliac Duplex Scr fo r Medicareon 11-28-2017 VL Aorta Iliac Duplex Scr for Medicare Patient Name: JEAN BUENROSTRO Ultrasound Exam Date/Time 11/28/2017 10:01:38 EDT Exam VL Aorta Iliac Duplex Scr for Medicare Ordering Physician MD JONO, MINA VASQUEZ Accession Number [id number] CPT4 Codes 20020 () Reason For Exam aaa screening Report [...] Transcribed Date and Time: 11/28/2017 10:01 Normal [facility] Vital Signs Date Time Vital Sign Value Performing Clinician Facility 09-07-2024 07:39-0400 Diastolic blood pressure 88 mm[Hg] Mina De La Cruz MD Work Phone: [facility] 09-07-2024 07:39-0400 Heart rate 67 /min Mina De La Cruz MD Work Phone: [facility] 09-07-2024 07:39-0400 Systolic blood pressure 138 mm[Hg] Mina De La Cruz MD Work Phone: [facility] 09-07-2024 06:59-0400 Body height 170.2 cm Mina De La Cruz MD Work Phone: [facility] 09-07-2024 06:59-0400 Body mass index (BMI) [Ratio] 26.09 kg/m2 Mina De La Cruz MD Work Phone: [facility] 09-07-2024 06:59-0400 Body weight 75.57 kg Mina De La Cruz MD Work Phone: [facility] 09-07-2024 06:59-0400 SaO2% (BldA) [Mass fraction] 95 % Mina De La Cruz MD Work Phone: [facility] 08-12-2024 18:03-0400 Body temperature 98.2 [degF] Dr. Mina De La Cruz MD Work Phone: [facility] 08-12-2024 18:03-0400 Diastolic blood pressure 64 mm[Hg] Dr. Mina De La Cruz MD Work Phone: [facility] 08-12-2024 18:03-0400 Heart rate 80 /min Dr. Mina De La Cruz MD Work Phone: [facility] 08-12-2024 18:03-0400 Respiratory rate 18 /min Dr. Mina De La Cruz MD Work Phone: [facility] 08-12-2024 18:03-0400 SaO2% (BldA) [Mass fraction] 98 % Dr. Mina De La Cruz MD Work Phone: [facility] 08-12-2024 18:03-0400 Systolic blood pressure 166 mm[Hg] Dr. Mina De La Cruz MD Work Phone: [facility] 08-12-2024 00:35-0400 Inhaled oxygen flow rate 2 L/min Dr. Mina De La Cruz MD Work Phone: [facility] 08-11-2024 20:35-0400 Body height 167.[address] Mina De La Cruz MD Work Phone: [facility] 08-11-2024 20:35-0400 Body mass index (BMI) [Ratio] 28.4 kg/m2 Dr. Mina De La Cruz MD Work Phone: [facility] 08-11-2024 20:35-0400 Body weight [address] Mina De La Cruz MD Work Phone: [facility] 08-11-2024 19:15-0400 Inhaled oxygen concentration 97 % Dr. Mina De La Cruz MD Work Phone: [facility] 08-11-2024 12:44-0400 Body temperature 97.9 [degF] Dr. Mina De La Cruz MD Work Phone: [facility] 08-11-2024 12:44-0400 Diastolic blood pressure 86 mm[Hg] Dr. Mina De La Cruz MD Work Phone: [facility] 08-11-2024 12:44-0400 Heart rate 67 /min Dr. Mina De La Cruz MD Work Phone: [facility] 08-11-2024 12:44-0400 Respiratory rate 16 /min Dr. Mina De La Cruz MD Work Phone: [facility] 08-11-2024 12:44-0400 SaO2% (BldA) [Mass fraction] 99 % Dr. Mina De La Cruz MD Work Phone: [facility] 08-11-2024 12:44-0400 Systolic blood pressure 146 mm[Hg] Dr. Mina De La Cruz MD Work Phone: [facility] 08-11-2024 12:31-0400 Body height 167.[address] Mina De La Cruz MD Work Phone: [facility] 08-11-2024 12:31-0400 Body mass index (BMI) [Ratio] 28.4 kg/m2 Dr. Mina De La Cruz MD Work Phone: [facility] 08-11-2024 12:31-0400 Body weight [address] Mina De La Cruz MD Work Phone: [facility] 09-03-2023 07:24-0400 Diastolic blood pressure 90 mm[Hg] Mina De La Cruz MD Work Phone: [facility] 09-03-2023 07:24-0400 Heart rate 64 /min Mina De La Cruz MD Work Phone: [facility] 09-03-2023 07:24-0400 Systolic blood pressure 152 mm[Hg] Mina De La Cruz MD Work Phone: [facility] 09-03-2023 06:51-0400 Body height 170.2 cm Mina De La Cruz MD Work Phone: [facility] [employer] 09-03-2023 06:51-0400 Body mass index (BMI) [Ratio] 27.19 kg/m2 Mina De La Cruz MD Work Phone: [facility] [employer] 09-03-2023 06:51-0400 Body weight 78.74 kg Mina De La Cruz MD Work Phone: [facility] [employer] 09-03-2023 06:51-0400 SaO2% (BldA) [Mass fraction] 95 % Mina De La Cruz MD Work Phone: [facility] [employer] 07-10-2023 08:11-0400 Body height 170.2 cm Meron Forester GRAY MIXING OPERATOR - THEATRE PROFESSOR Work Phone: [facility] [employer] 07-10-2023 08:11-0400 Body mass index (BMI) [Ratio] 27.16 kg/m2 Meron Forester GRAY MIXING OPERATOR - THEATRE PROFESSOR Work Phone: [facility] [employer] 07-10-2023 08:11-0400 Body weight 78.65 kg Meron Forester GRAY MIXING OPERATOR - THEATRE PROFESSOR Work Phone: [facility] [employer] 07-10-2023 08:11-0400 Diastolic blood pressure 86 mm[Hg] Meron Forester GRAY MIXING OPERATOR - THEATRE PROFESSOR Work Phone: [facility] [employer] 07-10-2023 08:11-0400 Heart rate 59 /min Meron Forester GRAY MIXING OPERATOR - THEATRE PROFESSOR Work Phone: [facility] [employer] 07-10-2023 08:11-0400 Systolic blood pressure 150 mm[Hg] Meron Forester GRAY MIXING OPERATOR - THEATRE PROFESSOR Work Phone: [facility] [employer] 05-12-2023 09:29-0400 Diastolic blood pressure 82 mm[Hg] Rene Rodriguez GRAY MIXING OPERATOR - THEATRE PROFESSOR Work Phone: [facility] [employer] 05-12-2023 09:29-0400 Systolic blood pressure 136 mm[Hg] Rene Rodriguez GRAY MIXING OPERATOR - THEATRE PROFESSOR Work Phone: [facility] [employer] 05-12-2023 09:12-0400 Body height 167.6 cm Rene Rodriguez GRAY MIXING OPERATOR - THEATRE PROFESSOR Work Phone: [facility] [employer] 05-12-2023 09:12-0400 Body mass index (BMI) [Ratio] 28.08 kg/m2 Rene Rodriguez GRAY MIXING OPERATOR - THEATRE PROFESSOR Work Phone: [facility] [employer] 05-12-2023 09:12-0400 Body weight 78.93 kg Rene Rodriguez GRAY MIXING OPERATOR - THEATRE PROFESSOR Work Phone: [facility] [employer] 05-12-2023 09:12-0400 Heart rate 63 /min Rene Rodriguez GRAY MIXING OPERATOR - THEATRE PROFESSOR Work Phone: [facility] [employer] 05-12-2023 09:12-0400 SaO2% (BldA) [Mass fraction] 93 % Rene Rodriguez GRAY MIXING OPERATOR - THEATRE PROFESSOR Work Phone: [facility] [employer] 04-30-2023 08:56-0500 Body height 167.6 cm Rene Rodriguez GRAY MIXING OPERATOR - THEATRE PROFESSOR Work Phone: [facility] [employer] 04-30-2023 08:56-0500 Body mass index (BMI) [Ratio] 27.12 kg/m2 Rene Rodriguez GRAY MIXING OPERATOR - THEATRE PROFESSOR Work Phone: [facility] [employer] 04-30-2023 08:56-0500 Body weight 76.2 kg Rene Rodriguez GRAY MIXING OPERATOR - THEATRE PROFESSOR Work Phone: [facility] [employer] 04-30-2023 08:56-0500 Diastolic blood pressure 78 mm[Hg] Rene Rodriguez GRAY MIXING OPERATOR - THEATRE PROFESSOR Work Phone: [facility] [employer] 04-30-2023 08:56-0500 Heart rate 73 /min Rene Rodriguez GRAY MIXING OPERATOR - THEATRE PROFESSOR Work Phone: [facility] [employer] 04-30-2023 08:56-0500 SaO2% (BldA) [Mass fraction] 98 % Rene Rodriguez GRAY MIXING OPERATOR - THEATRE PROFESSOR Work Phone: [facility] [employer] 04-30-2023 08:56-0500 Systolic blood pressure 119 mm[Hg] Rene Rodriguez GRAY MIXING OPERATOR - THEATRE PROFESSOR Work Phone: [facility] 04-03-2023 11:48-0500 Diastolic blood pressure 81 mm[Hg] Mina De La Cruz MD Work Phone: [facility] [employer] 04-03-2023 11:48-0500 Heart rate 71 /min Mina De La Cruz MD Work Phone: [facility] 04-03-2023 11:48-0500 Systolic blood pressure 146 mm[Hg] Mina De La Cruz MD Work Phone: [facility] [employer] 04-03-2023 11:20-0500 Body height 167.6 cm Mina De La Cruz MD Work Phone: [facility] 04-03-2023 11:20-0500 Body mass index (BMI) [Ratio] 27.99 kg/m2 Mina De La Cruz MD Work Phone: [facility] 04-03-2023 11:20-0500 Body weight 78.65 kg Mina De La Cruz MD Work Phone: [facility] [employer] 04-03-2023 11:20-0500 SaO2% (BldA) [Mass fraction] 95 % Mina De La Cruz MD Work Phone: [facility] [employer] 08-26-2022 07:40-0400 Diastolic blood pressure 84 mm[Hg] Mina De La Cruz MD Work Phone: [facility] 08-26-2022 07:40-0400 Heart rate 63 /min Mina De La Cruz MD Work Phone: [facility] [employer] 08-26-2022 07:40-0400 Systolic blood pressure 129 mm[Hg] Mina De La Cruz MD Work Phone: [facility] 08-26-2022 06:56-0400 Body height 167.6 cm Mina De La Cruz MD Work Phone: [facility] [employer] 08-26-2022 06:56-0400 Body mass index (BMI) [Ratio] 28.21 kg/m2 Mina De La Cruz MD Work Phone: [facility] 08-26-2022 06:56-0400 Body weight 79.29 kg Mina De La Cruz MD Work Phone: [facility] 08-26-2022 06:56-0400 Respiratory rate 16 /min Mina De La Cruz MD Work Phone: [facility] 08-26-2022 06:56-0400 SaO2% (BldA) [Mass fraction] 93 % Mina De La Cruz MD Work Phone: [facility] Encounters Encounter Date Encounter Type Care Provider Facility Start: 09-08-2024 End: 11-08-2024 Follow-up encounter Mina De La Cruz MD Work Phone: [facility] Comment on above: Lipid panel, Compreh ensive metabolic panel, CBC, TSH Start: 09-07-2024 End: 09-07-2024 Assay of hemosiderin, quant Mina De La Cruz MD Work Phone: [facility] Work Phone: Start: 09-07-2024 End: 09-07-2024 Patient encounter procedure Mina De La Cruz MD Work Phone: [facility] Comment on above: Routine general medi santa examination at health care facility (Primary Dx); Primary hypertension; Benign prostatic hyperplasia without lower urinary tract symptoms; Hypercholesterolemia; Migraine with aura and without status migrainosus, not intractable; Chronic fatigue; Screening for diabetes mellitus Start: 09-07-2024 End: 09-07-2024 ambulatory [facility] Start: 09-07-2024 End: 09-07-2024 Encounter for general adult medical examination without abnormal findings MINA JONO [facility] Start: 08-25-2024 End: 08-25-2024 Patient encounter procedure Dilma Jimenez PA-C -[facility] Work Phone: Start: 08-25-2024 End: 08-25-[address] Mina De La Cruz MD Work Phone: -[facility] Start: 08-12-2024 Non-patient / Non-visit Dr. Jessica Durand MD -[facility] Start: 08-11-2024 ambulatory Tommy Durand Facility: [facility] Start: 08-11-2024 Non-patient / Non-visit Dr. Jessica Durand MD -[facility] Start: 08-11-2024 Admission to [facility] Dr. Tommy Durand MD -[facility] Start: 08-11-[address] Mina menchaca MD Work Phone: [facility] Work Phone: Start: 08-11-2024 End: 08-12-2024 Evaluation and management of inpatient Dr. Tommy Durand MD -[facility] 3 Work Phone: Start: 09-03-2023 End: 09-03-2023 Patient encounter procedure Mina De La Cruz MD Work Phone: [facility] Comment on above: Medicare annual well ness visit, subsequent (Primary Dx); Peripheral vascular disease (HCC); Blood pressure elevated without history of HTN; Benign prostatic hyperplasia without lower urinary tract symptoms; Hypercholesterolemia; Screening for diabetes mellitus; FHx: aortic aneurysm Start: 07-10-2023 End: 07-10-2023 Office outpatient new 45 minutes Meron Sagastume GRAY MIXING OPERATOR - THEATRE PROFESSOR Work Phone: [facility] Comment on above: Left sided abdominal pain (Primary Dx); Diverticulitis of large intestine without perforation or abscess without bleeding; Change in bowel habit Start: 07-02-2023 Telephone encounter Rene Toribio GRAY MIXING OPERATOR - THEATRE PROFESSOR Work Phone: [facility] Comment on above: OTHER Start: 05-12-2023 End: 05-12-2023 Office outpatient visit 10 minutes Rene Rodriguez GRAY MIXING OPERATOR - THEATRE PROFESSOR Work Phone: [facility] Comment on above: Change in bowel habi ts (Primary Dx) Start: 04-30-2023 End: 04-30-2023 Office outpatient visit 10 minutes Rene Rodriguez GRAY MIXING OPERATOR - THEATRE PROFESSOR Work Phone: [facility] Comment on above: Change in bowel habi ts (Primary Dx) Start: 04-30-2023 End: 04-30-2023 Office outpatient visit 15 minutes Rene Skelton CNP Work Phone: [facility] Comment on above: Change in bowel habi ts (Primary Dx) Start: 04-29-2023 ambulatory Annmarie Waters RN [facility] Clinical Communication Start: 04-29-2023 Patient encounter procedure Annmarie Waters RN [facility] Start: 04-03-2023 End: 04-03-2023 Subsequent hospital visit by physician [facility] [address] Exam Room [address] [facility] [address] Comment on above: Diverticulitis of la rge intestine without perforation or abscess without bleeding Start: 04-03-2023 End: 04-03-2023 Office outpatient visit 25 minutes Mina De La Cruz MD Work Phone: [facility] Comment on above: Diverticulitis of la rge intestine without perforation or abscess without bleeding (Primary Dx); Blood pressure elevated without history of HTN Start: 08-26-2022 End: 08-26-2022 Patient encounter procedure Mina De La Cruz MD Work Phone: [facility] Comment on above: Medicare annual well ness visit, subsequent (Primary Dx); Peripheral vascular disease (HCC); Benign prostatic hyperplasia without lower urinary tract symptoms; Hypercholesterolemia; Screening for diabetes mellitus Start: 11-28-2017 Patient encounter Mina De La Cruz [facility] Procedures Date Procedure Procedure Detail Performing Clinician Start: 09-07-2024 Adult depression screening assessment Mina De La Cruz MD Work Phone: Start: 09-07-2024 Lipid 1996 panel - Serum or Plasma Mina De La Cruz MD Work Phone: Start: 08-12-[address] Mina De La Cruz MD Work Phone: Start: 08-11-2024 B[address] tract contrast procedure Dr. Mina De La Cruz MD Work Phone: Start: 08-11-[address] Mina De La Cruz MD Work Phone: Start: 08-11-2024 Total cholecystectomy and exploration of common bile duct Dr. Mina De La Cruz MD Work Phone: Start: 08-11-2024 US scan of gallbladder Dr. Mina camacho MD Work Phone: Start: 08-11-2024 CT of thorax, abdomen and pelvis with contrast Dr. Mina De La Cruz MD Work Phone: Start: 08-11-2024 Urnls dip stick/tablet reagent auto microscopy Dr. Mina De La Cruz MD Work Phone: Start: 08-11-[address] Mina De La Cruz MD Work Phone: Start: 09-03-2023 Adult depression screening assessment Mina De La Cruz MD Work Phone: Start: 09-03-2023 Lipid 1996 panel - Serum or Plasma Mina De La Cruz MD Work Phone: Start: 04-03-2023 Ct abdomen & pelvis w/o contrast material Mina De La Cruz MD Work Phone: Start: 04-03-2023 Complete blood count with white cell differential, automated Mina De La Cruz MD Work Phone: Start: 04-03-2023 Comprehensive metabolic panel Mina De La Cruz MD Work Phone: Start: 08-26-2022 Adult depression screening assessment Mina De La Cruz MD Work Phone: Start: 08-26-2022 Lipid 1996 panel - Serum or Plasma Mina De La Cruz MD Work Phone: Start: 02-07-2021 Lipid 1996 panel - Serum or Plasma Mina De La Cruz MD Work Phone: History of cholecystectomy Status post laparoscopic cholecystectomy Dr. Mina De La Cruz MD Work Phone: Plan of Treatment Date Care Activity Detail Author Start: 09-07-2029 Lipid panel Lipid Panel [facility] Start: 09-02-2028 Lipid panel Lipid Panel [facility] Start: 08-27-2027 Lipid panel Lipid Panel [facility] Start: 02-07-2026 Lipid panel Lipid Panel [facility] Start: 09-08-2025 End: 09-08-2025 Patient encounter procedure 09/08/2025 7:30 AM EDT Office Visit [facility] [address] [facility] [place] [address] Mina De La Cruz MD [address] [place] [address] [facility] Start: 09-07-2025 COVID-19 Vaccine () COVID-19 Vaccine () [facility] Comment on above: Postponed from 10/26/2023 (Patient Refus ed) Start: 09-07-2025 Depression Screening Depression Screening [facility] Start: 09-07-2025 DTaP/Tdap/Td Vaccines (2 - Td or Tdap) DTaP/Tdap/Td Vaccines (2 - Td or Tdap) [facility] Comment on above: Postponed from 07/29/2023 (Patient Refus ed) Start: 09-07-2025 Hepatitis A Vaccines (1 of 2 - Risk 2-dose series) Hepatitis A Vaccines (1 of 2 - Risk 2-dose series) [facility] Comment on above: Postponed from 09/10/1959 (Patient Refus ed) Start: 09-07-2025 Hepatitis B Vaccines (1 of 3 - Risk 3-dose series) Hepatitis B Vaccines (1 of 3 - Risk 3-dose series) [facility] Comment on above: Postponed from 2000 (Patient Refus ed) Start: 09-07-2025 RSV Immunization for Adults (1 - 1-dose 75+ series) RSV Immunization for Adults (1 - 1-dose 75+ series) [facility] Comment on above: Postponed from 09/10/2015 (Patient Refus ed) Start: 09-07-2025 Zoster Vaccines (1 of 2) Zoster Vaccines (1 of 2) [facility] Comment on above: Postponed from 1990 (Patient Refus ed) Start: 03-09-2025 End: 03-09-2025 Patient encounter procedure 03/09/2025 7:45 AM EST Office Visit [facility] [address] [facility] [place] [address] Mina De La Cruz MD [address] [place] [address] [facility] Start: 10-25-2024 COVID-19 Vaccine ( season) COVID-19 Vaccine () [facility] Start: 10-25-2024 Influenza vaccination Influenza Vaccine (#1) [facility] Start: 09-13-2024 End: 09-13-2025 Alanine aminotransferase [Enzymatic activity/volume] in Serum or Plasma ALT Lab Routine Hypercholesterolemia Expected: 09/13/2024 (Approximate), Expires: 09/13/2025 [facility] Work Phone: Comment on above: Expected: 09/13/2024 (Approximate), Expi res: 09/13/2025 Start: 09-13-2024 End: 09-13-2025 Aspartate aminotransferase [Enzymatic activity/volume] in Serum or Plasma AST Lab Routine Hypercholesterolemia Expected: 09/13/2024 (Approximate), Expires: 09/13/2025 [facility] Comment on above: Expected: 09/13/2024 (Approximate), Expi res: 09/13/2025 Start: 09-13-2024 End: 09-13-2025 Lipid 1996 panel - Serum or Plasma Lipid panel Lab Routine Hypercholesterolemia Expected: 09/13/2024 (Approximate), Expires: 09/13/2025 [facility] Comment on above: Expected: 09/13/2024 (Approximate), Expi res: 09/13/2025 Start: 09-07-2024 End: 09-07-2025 CBC panel - Blood by Automated count CBC Lab Routine Chronic fatigue Expected: 09/07/2024 (Approximate), Expires: 09/07/2025 [facility] Comment on above: Expected: 09/07/2024 (Approximate), Expi res: 09/07/2025 Start: 09-07-2024 End: 09-07-2025 Comprehensive metabolic 1998 panel - Serum or Plasma Comprehensive metabolic panel Lab Routine Screening for diabetes mellitus Expected: 09/07/2024 (Approximate), Expires: 09/07/2025 [facility] Comment on above: Expected: 09/07/2024 (Approximate), Expi res: 09/07/2025 Start: 09-07-2024 End: 09-07-2025 Lipid 1996 panel - Serum or Plasma Lipid panel Lab Routine Hypercholesterolemia Expected: 09/07/2024 (Approximate), Expires: 09/07/2025 [facility] Work Phone: Comment on above: Expected: 09/07/2024 (Approximate), Expi res: 09/07/2025 Start: 09-07-2024 End: 09-07-2025 Thyrotropin [Units/volume] in Serum or Plasma TSH Lab Routine Chronic fatigue Expected: 09/07/2024 (Approximate), Expires: 09/07/2025 [facility] Comment on above: Expected: 09/07/2024 (Approximate), Expi res: 09/07/2025 Start: 09-03-2024 End: 09-03-2024 Patient encounter procedure 09/03/2024 7:00 AM EDT Office Visit [facility] [address] [place] [id number] Mina De La Cruz MD [address] [place] [address] [phone] [facility] Start: 09-02-2024 COVID-19 Vaccine ( season) COVID-19 Vaccine () [facility] Comment on above: Postponed from 10/25/2022 (Patient Refus ed) Start: 09-02-2024 Depression Screening Depression Screening [facility] Start: 09-02-2024 DTaP/Tdap/Td Vaccines (2 - Td or Tdap) DTaP/Tdap/Td Vaccines (2 - Td or Tdap) [facility] Comment on above: Postponed from 07/29/2023 (Patient Refus ed) Start: 09-02-2024 RSV Immunization aged 60 or older (1 - 1-dose 60+ series) RSV Immunization aged 60 or older (1 - 1-dose 60+ series) [facility] Comment on above: Postponed from 2000 (Patient Refus ed) Start: 09-02-2024 Zoster Vaccines (1 of 2) Zoster Vaccines (1 of 2) [facility] Comment on above: Postponed from 1990 (Patient Refus ed) Start: 08-12-2024 Patient discharge [facility] Start: 08-12-2024 Introduction of urinary catheter [facility] Start: 08-11-2024 Application of intermittent pneumatic compression device [facility] Start: 08-11-2024 Following clinical pathway protocol [facility] Start: 08-11-2024 Total cholecystectomy and exploration of common bile duct Laparoscopic, Cholecystectomy with IOC (Not Applicable) [facility] Start: 08-11-2024 Biliary tract contrast procedure Cholangiogram/ O R,Initial [facility] Start: 08-11-2024 Fluoroscopic guidance O.R. Fluoro for C-Arm [facility] Start: 08-11-2024 Incentive spirometry [facility] Start: 08-11-2024 [facility] Start: 08-11-2024 Admission procedure [facility] Start: 08-11-2024 Hospital admission, emergency, from emergency room, medical nature [facility] Start: 08-11-2024 [facility] Start: 10-26-2023 Influenza vaccination [facility] Start: 09-10-2023 End: 09-10-2023 Clinical Support 09/10/2023 7:00 AM EDT Clinical Support [facility] [address] [place] [address] [facility] Start: 09-03-2023 End: 09-02-2024 Comprehensive metabolic 1998 panel - Serum or Plasma Comprehensive metabolic panel Lab Routine Screening for diabetes mellitus Expected: 09/03/2023 (Approximate), Expires: 09/02/2024 [facility] Comment on above: Expected: 09/03/2023 (Approximate), Expi res: 09/02/2024 Start: 09-03-2023 End: 09-02-2024 Lipid 1996 panel - Serum or Plasma Lipid panel Lab Routine Hypercholesterolemia Expected: 09/03/2023 (Approximate), Expires: 09/02/2024 [facility] Work Phone: Comment on above: Expected: 09/03/2023 (Approximate), Expi res: 09/02/2024 Start: 09-03-2023 End: 09-03-2023 Patient encounter procedure 09/03/2023 7:00 AM EDT Office Visit [facility] [address] [place] [address] [place] [address] Mina De La Cruz MD [address] [place] [address] [place] [address] [facility] Start: 08-27-2023 COVID-19 Vaccine (4 - Booster for Moderna series) COVID-19 Vaccine (4 - Booster for Moderna series) [facility] Comment on above: Postponed from 04/02/2021 (Patient Refus ed) Start: 08-27-2023 Depression Screening Depression Screening [facility] Start: 08-27-2023 Zoster Vaccines (1 of 2) Zoster Vaccines (1 of 2) [facility] Comment on above: Postponed from 1990 (Patient Refus ed) Start: 07-29-2023 DTaP/Tdap/Td Vaccines (2 - Td or Tdap) DTaP/Tdap/Td Vaccines (2 - Td or Tdap) [facility] Start: 07-10-2023 End: 07-10-2023 Patient encounter procedure 07/10/2023 8:00 AM EDT Office Visit [facility] [address] [place] [address] Meron Sagastume APRN - CNP [address] [place] [id number] [facility] Start: 05-12-2023 End: 05-12-2023 Patient encounter procedure 05/12/2023 9:40 AM EDT Office Visit [facility] [address] [place] [address] Rene Rodriguez S, GRAY MIXING OPERATOR - THEATRE PROFESSOR [address] [place] [address] [facility] Start: 02-24-2023 Medicare Formerly [facility] Annual Wellness Visit Medicare Advantage Annual Wellness Visit [facility] Start: 10-25-2022 COVID-19 Vaccine () COVID-19 Vaccine () [facility] Start: 10-25-2022 Influenza vaccination Influenza Vaccine (#1) [facility] Start: 08-26-2022 End: 08-27-2023 Comprehensive metabolic 1998 panel - Serum or Plasma Comprehensive metabolic panel Lab Routine Screening for diabetes mellitus Expected: 08/26/2022 (Approximate), Expires: 08/27/2023 [facility] Work Phone: Comment on above: Expected: 08/26/2022 (Approximate), Expi res: 08/27/2023 Start: 08-26-2022 End: 08-27-2023 Lipid 1996 panel - Serum or Plasma Lipid panel Lab Routine Hypercholesterolemia Expected: 08/26/2022 (Approximate), Expires: 08/27/2023 [facility] Comment on above: Expected: 08/26/2022 (Approximate), Expi res: 08/27/2023 Start: 2000 Hepatitis B Vaccines (1 of 3 - Risk 3-dose series) Hepatitis B Vaccines (1 of 3 - Risk 3-dose series) [facility] Start: 2000 RSV Immunization aged 60 or older (1 - 1-dose 60+ series) RSV Immunization aged 60 or older (1 - 1-dose 60+ series) [facility] Start: 09-10-1959 Hepatitis A Vaccines (1 of 2 - Risk 2-dose series) Hepatitis A Vaccines (1 of 2 - Risk 2-dose series) [facility] Start: 1940 Medicare Advantage Annual Wellness Visit (AWV) Medicare Advantage Annual Wellness Visit (AWV) [facility] Alanine aminotransferase [Enzymatic activity/volume] in Serum or Plasma [facility] Albumin [Mass/volume ] in Serum or Plasma [facility] Alkaline phosphatase [Enzymatic activity/volume] in Serum or Plasma [facility] Anion gap in Serum o r Plasma [facility] Bilirubin, total measurement [facility] BUN/Creatinine ratio [facility] Calcium [Mass/volume ] in Serum or Plasma [facility] Carbon dioxide, tota l [Moles/volume] in Central venous blood [facility] Creatinine [Mass/volume] in Serum or Plasma [facility] Erythrocyte mean corpuscular volume determination [facility] Glucose [Mass/volume ] in Serum or Plasma [facility] Hematocrit [Volume Fraction] of Blood [facility] Hemoglobin [Mass/volume] in Blood [facility] Leukocytes [#/volume ] in Blood [facility] Mean corpuscular hemoglobin concentration determination [facility] Mean corpuscular hemoglobin determination [facility] Measurement of renal function [facility] Neutrophil count [facility] Neutrophil percent differential count [facility] OUTSIDE PROCEDURE SCAN OUTSIDE P ROCEDURE SCAN Procedures Ordered: 04/03/2023 [facility] Comment on above: Ordered: 04/03/2023 Patient referral [facility] Work Phone: Platelets [#/volume] in Blood [facility] Potassium measurement [facility] Red blood cell count [facility] Red cell distributio n width determination [facility] Serum chloride measurement [facility] Sodium measurement [facility] Total protein measurement [facility] Urea nitrogen [Mass/volume] in Serum or Plasma [facility] Immunizations Immunization Date Immunization Notes Care Provider [facility] 01-12-2024 influenza, high dose seasonal, preservative-free Mina De La Cruz MD Work Phone: [facility] 01-12-2024 influenza virus vacc ine, unspecified formulation Mina De La Cruz MD Work Phone: [facility] 12-10-2021 Influenza, High-dose Seasonal, Quadrivalent, Preservative Free Mina De La Cruz MD Work Phone: [facility] 12-10-2021 influenza virus vacc ine, unspecified formulation Mina De La Cruz MD Work Phone: [facility] 12-25-2020 Influenza, High-dose Seasonal, Quadrivalent, Preservative Free Mina De La Cruz MD Work Phone: [facility] [employer] 11-15-2019 influenza, injectabl e, quadrivalent, preservative free Mina De La Cruz MD Work Phone: [facility] [employer] 08-02-2019 pneumococcal polysac charide vaccine, 23 valent Mina De La Cruz MD Work Phone: [facility] [employer] 01-01-2019 influenza, high dose seasonal, preservative-free Mina De La Cruz MD Work Phone: [facility] [employer] 11-26-2017 influenza, high dose seasonal, preservative-free Mina De La Cruz MD Work Phone: [facility] [employer] 11-26-2017 pneumococcal conjuga te vaccine, 13 valent Mina De La Cruz MD Work Phone: [facility] [employer] 07-28-2013 tetanus toxoid, redu jona diphtheria toxoid, and acellular pertussis vaccine, adsorbed Mina De La Cruz MD Work Phone: [facility] [employer] Payers Date Payer Category Payer Self-pay 2024 Medicare HMO [employer] AAR MEDICAR E ADVANTAGE [id number] 2024 Unknown [id number] 2022 Medicare [id number] 1940 Unknown [id number] Medicare [id number] Unknown Unknown [id number] Unknown [id number] Unknown [id number] Unknown [id number] Social History Date Type Detail Facility Start: 08-11-2024 Tobacco smoking status NHIS Never sm oked tobacco [facility] Start: 08-26-2022 End: 09-07-2024 Alcohol intake Current non-drinker of alcohol (finding) [facility] Start: 08-26-2022 End: 09-07-2024 Alcohol intake [facility] Start: 08-26-2022 End: 09-07-2024 Alcohol Use Disorder Identification Test - Consumption [AUDIT-C] [facility] How often to you hav e a drink containing alcohol? Never [facility] Average Number of Drinks Not on file [facility] Start: 1940 Sex Assigned At Not on file [facility] Start: 08-16-2022 End: 08-26-2022 Exposure to SARS-CoV-2 (event) Not sure [facility] Start: 08-10-2018 Alcohol Alcohol [facility] Start: 03-04-2014 Lives Lives [facility] Start: 03-04-2014 Tobacco Use Tobacco Use [facility] Start: 1940 Sex Assigned At Male [facility] How often do you nee d to have someone help you when you read instructions, pamphlets, or other written material from your doctor or pharmacy [SILS] Rarely [facility] Has the electric, ga s, oil, or water company threatened to shut off services in your home in past 12Mo No [facility] Do you belong to any clubs or organizations such as spiritism groups, unions, fraternal or athletic groups, or school groups? Yes [facility] Are you now , , , , never or living with a partner? [facility] How hard is it for y ou to pay for the very basics like food, housing, medical care, and heating Somewhat hard [facility] Do you feel stress - tense, restless, nervous, or anxious, or unable to sleep at night because your mind is troubled all the time - these days [OSQ] Only a little [facility] (I/We) worried wheth er (my/our) food would run out before (I/we) got money to buy more. Never true [facility] Start: 09-24-2021 Sex Male (finding) [facility] Medical Equipment Procedure Code Equipment Code Equipment Original Text Equipment Identifier Dates Total cholecystectomy with exploration of common bile duct CLIP,HEMOLOCK [employer] WECK FDA Start: 08-11-2024 Total cholecystectomy with exploration of common bile duct CLIP,HEMOLOCK MED WECK FDA Start: 08-11-2024 Total cholecystectomy with exploration of common bile duct DRESSING,SURGICEL 4x8 FDA Start: 08-11-2024 Total cholecystectomy with exploration of common bile duct CLIP,HEMOLOCK MED WECK FDA Start: 08-11-2024 Total cholecystectomy with exploration of common bile duct CLIP,HEMOLOCK MED SAVORTEXCK FDA Start: 08-11-2024 Total cholecystectomy with exploration of common bile duct DRESSING,SURGICEL 4x8 FDA Start: 08-11-2024 Goals Date Patient Goal Desired Activity /State Functional Status Date Assessment Result Facility 09-07-2024 Total score [AUDIT-C] 0 09/08/19 25 3:25 PM EDT Shivani Rosenbaum MA [facility] 09-07-2024 Patient Health Quest ionnaire 2 item (PHQ-2) [Reported] [facility] 09-07-2024 PHQ-9 quick depressi on assessment panel [Reported.PHQ] [facility] 08-12-2024 Functional status Ambulates;Bath room Privilege [facility] Work Phone: [facility] Mental Status Date Assessment Result Facility 08-12-2024 Cognitive function Voice/Name [facility] Work Phone: Clinical Notes 08-26-2022 to 09-13-2024 Telephone Encounter - VIKI Oro CNP - 09/13/2024 4:29 PM EDTTelephone Encounter - VIKI Oro CNP - 09/13/2024 4:29 PM Amauri Rosenbaum MA - 09/07/2024 7:00 AM EDT Note Date & Type Note Facility 09-13-2024 Telephone encount er Note Rx sent and future lab orders signed. [facility] 09-13-2024 Miscellaneous Notes Formattin g of this note might be different from the original. Rx sent and future lab orders signed. Patient notified. Agreeable to start the Zetia. Pended RX and labs. Pharmacy verified. Patient Scheduled in 4 weeks. documented in this encounter [facility] 09-13-2024 Telephone encount er Note Patient notified. Agreeable to start the Zetia. Pended RX and labs. Pharmacy verified. Patient Scheduled in 4 weeks. [facility] 09-07-2024 Evaluation + Plan note Associ ated Problem(s): Primary hypertension Blood pressure was initially elevated, recheck was upper limits of normal, we will start him back on losartan at 25 mg daily. He can split that in half if he feels like his blood pressure is too low. [facility] 09-07-2024 Evaluation + Plan note Associ ated Problem(s): Benign prostatic hyperplasia Has become more symptomatic since his surgery we will put him on Flomax 0.4 mg daily and he can stop that down the road if he feels like he is doing well [facility] 09-07-2024 Evaluation + Plan note Associ ated Problem(s): Hypercholesterolemia Currently he has stopped all cholesterol medication except omega-3 fish oil. 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 [facility] 09-07-2024 Evaluation + Plan note Associ ated Problem(s): Chronic fatigue We will get some extra blood work looking for causes of fatigue however I suspect this is mainly due to from being inactive from his surgery. Orders: CBC; Future TSH; Future [facility] 09-07-2024 History of Presen t illness Narrative Patient verified by last name and date of . Images from the original note were not included. [place] [address] [address] [facility] [address] [facility] [place] [address] Dept: [phone] Dept Chief Complaint: Jean Buenrostro is an 83 y.o. male here for an annual wellness visit. Assessment/Plan : Assessment & Plan Routine general medical examination at health care facility Primary hypertension Blood pressure was initially elevated, recheck was upper limits of normal, we will start him back on losartan at 25 mg daily. He can split that in half if he feels like his blood pressure is too low. Benign prostatic hyperplasia without lower urinary tract symptoms Has become more symptomatic since his surgery we will put him on Flomax 0.4 mg daily and he can stop that down the road if he feels like he is doing well Hypercholesterolemia Currently he has stopped all cholesterol medication except omega-3 fish oil. Orders: Lipid panel; Future Migraine with aura and without status migrainosus, not intractable Migraines seem to have resolved. Chronic fatigue We will get some extra blood work looking for causes of fatigue however I suspect this is mainly due to from being inactive from his surgery. Orders: CBC; Future TSH; Future Screening for diabetes mellitus Orders: Comprehensive metabolic panel; Future I have reviewed and reconciled the medication list with the patient today. Current Outpatient Medications Medication Sig Dispense Refill coenzyme Q-10 100 MG capsule Take by mouth. Misc Natural Products (PROSTATE HEALTH PO) Take by mouth. omega-3 (Fish Oil) 1000 MG capsule Take 1,000 mg by mouth daily. VITAMIN D PO Take by mouth. losartan (Cozaar) 25 MG tablet Take 1 tablet (25 mg) by mouth daily. 90 tablet 0 tamsulosin (Flomax) 0.4 MG 24 hr capsule Take 1 capsule (0.4 mg) by mouth daily. 90 capsule 0 No current facility-administered medications for this visit. Also reviewed during this visit: The following health maintenance schedule was reviewed with the patient and provided in printed form in the after visit summary: Health Maintenance Topic Date Due RSV Immunization for Adults (1 - 1-dose 75+ series) 09/07/2025 (Originally 09/10/2015) DTaP/Tdap/Td Vaccines (2 - Td or Tdap) 09/07/2025 (Originally 07/29/2023) Hepatitis B Vaccines (1 of 3 - Risk 3-dose series) 09/07/2025 (Originally 2000) Hepatitis A Vaccines (1 of 2 - Risk 2-dose series) 09/07/2025 (Originally 09/10/1959) Zoster Vaccines (1 of 2) 09/07/2025 (Originally 1990) COVID-19 Vaccine ( - 2023- season) 2025 (Originally 10/26/2023) Influenza Vaccine (1) 10/25/2024 Depression Screening 09/07/2025 Lipid Panel 09/02/2028 Medicare Advantage Annual Wellness Visit Completed Pneumococcal Vaccine: 50+ Years Completed RSV Immunization under 20 Months Aged Out HIB Vaccines Aged Out IPV Vaccines Aged Out Meningococcal Vaccine Aged Out Rotavirus Vaccines Aged Out HPV Vaccines Aged Out Meningococcal B Vaccine Aged Out List of current healthcare providers: Patient Care Team: Mina De La Cruz MD as PCP - General Orders Placed This Encounter Procedures Lipid panel Standing Status: Future Number of Occurrences: 1 Expected Date: 09/07/2024 Expiration Date: 09/07/2025 Comprehensive metabolic panel Standing Status: Future Number of Occurrences: 1 Expected Date: 09/07/2024 Expiration Date: 09/07/2025 CBC Standing Status: Future Number of Occurrences: 1 Expected Date: 09/07/2024 Expiration Date: 09/07/2025 TSH Standing Status: Future Number of Occurrences: 1 Expected Date: 09/07/2024 Expiration Date: 09/07/2025 Review of Systems Constitutional: Negative for activity [...] dysphoric mood. The patient is not nervous/anxious. Physical Exam Vitals and nursing note reviewed. [...] time. Psychiatric: Mood and Affect: Mood normal. Objective : BP 138/88 Pulse 67 Ht 5' 7 (1.702 m) Wt 166 lb 9.6 oz (75.6 kg) SpO2 95% BMI 26.09 kg/m No results found. Subjective : Baljinder comes in today for his annual Medicare well visit, he had about a month or so ago he had a gallbladder removal and he says he is just not bouncing back like he thought he should. He is going to be 84 in 2 days. says he has no other complaints at this time and would like to have blood work done today. Blood pressure is a little elevated today he was taking losartan 50 mg and he said his blood pressure was getting too low so we split them in half and he still felt like it might have been a little too low but he is willing to go back on 25 mg. He also said that when he was in the hospital he did have some issues with urinating anybody him on Flomax for about 5 days and that did seem to help and he is wondering about continuing to use that for now. Health Risk Assessment: General: General In general, [...] emotional suppport you need?: Yes Interventions: Fatigue: recent surgery Health Habits/Nutrition: Health Habits / Nutrition On average, how many days per week do you engage in moderate to strenous exercise (like a brisk walk)?: (!) 0 days On average, how man minutes do you engage in exercise at this level?: (!) 0 min Have you lost any weight without trying in the past 3 months? : No Have you seen the dentist within the past year?: Yes Interventions: Hearing/ Vision: Hearing / Vision Do you or your family notice any trouble with your hearing that hasn't been managed with hearing aids?: (!) Yes Do you have difficulty driving, watching TV, or doing any of your daily activities because of your eyesight?: No Have you had an eye exam within the past year?: Yes No results found. Interventions: Safety: Safety [...] you are in a car?: Yes Interventions: ADL: ADL In the past 7 days, [...] preparation, transportation, or taking medications? : No Living Will: Living Will Do you have a living will?: Yes Cognitive: Cognitive Screening: Mini-Cog Clock Drawing Test (CDT): 2 Words Recalled: 3 Total Score: 5 Total Score Interpretation: Normal Mini-Cog Fall Risk: Fall Risk One or more falls in the last year:: No Advised to use a cane or walker to get around safely:: No Feels unsteady when walking:: Yes Steadies self on furniture while walking at home:: Yes Worried about falling:: No Depression Screening: Over the past 2 weeks, how often have you been bothered by any of the following problems? Little interest or pleasure in doing things: Several days Feeling down, depressed, or hopeless: Several days Patient Health Questionnaire-2 Score: 2 If you checked off any problems on this questionnaire so far, How difficult have these problems made it for you to do your work, take care of things at home, or get along with other people?: Not difficult at all Interventions: Tobacco Use: Social History Tobacco Use Smoking Status Never Smokeless Tobacco Never Alcohol Use: Audit Alcohol Screening Q2: How many drinks containing alcohol do you have on a typical day when you are drinking?: Patient does not drink documented in this encounter [facility] 09-07-2024 Instructions Mina De La Cruz MD - 09/07/2024 7:00 AM EDT Personalized Preventative Plan for Jean Buenrostro - 09/07/2024 Medicare offers a range of preventative health benefits. Some of the tests and screenings are paid in full while others may be subject to a deductible, co-insurance, and / or copay. Some of these benefits include a comprehensive review of your medical history including lifestyle, illnesses that may run in your family, and various assessments and screenings as appropriate. After reviewing your medical record and screening and assessments performed today, your provider may have ordered immunizations, labs, imaging, and / or referrals for you. A list of these orders (if applicable) as well as your Preventative Care list are included within your After Visit Summary for your review. Other Preventative Recommendations: A preventive eye exam by an floral specialist is recommended every 1-2 years to screen for glaucoma, cataracts, macular degeneration, and other eye disorders. A preventive dental visit is recommended every 6 months. Try to get at least 150 minutes of exercise per week or 10,000 steps per day on a pedometer. You need 1200-1500mg of calcium and [id number] international units of vitamin D per day. It is possible to meet your calcium requirement with diet alone, but a vitamin D supplement is usually necessary to meet this goal. When exposed to the sun, use a sunscreen that protects against both UVA and UVB radiation with an SPF of 30 or greater. Reapply every 2-3 hours or after sweating, drying off with a towel, or swimming. Always wear a seat belt when traveling in a car. Always wear a helmet when riding a bicycle or a motorcycle documented in this encounter [facility] [employer] 09-07-2024 Miscellaneous Notes Associate d Problem(s): Primary hypertension Blood pressure was initially elevated, recheck was upper limits of normal, we will start him back on losartan at 25 mg daily. He can split that in half if he feels like his blood pressure is too low. Associated Problem(s): Benign prostatic hyperplasia Has become more symptomatic since his surgery we will put him on Flomax 0.4 mg daily and he can stop that down the road if he feels like he is doing well Associated Problem(s): Hypercholesterolemia Currently he has stopped all cholesterol medication except omega-3 fish oil. Orders: Lipid panel; Future Associated Problem(s): Migraine with aura and without status migrainosus, not intractable Migraines seem to have resolved. Associated Problem(s): Chronic fatigue We will get some extra blood work looking for causes of fatigue however I suspect this is mainly due to from being inactive from his surgery. Orders: CBC; Future TSH; Future documented in this encounter [facility] 08-12-2024 Discharge summary [facility] 08-12-2024 Discharge summary Note Date/Time August 12, 2024 5:12pm [facility] Medical Records Department [address] [place] [address] Instructions for Home/Discharge Instructions 08/12/24 1202 MR#: [id number] Acct: [id number] Name: JEAN BUENROSTRO Rep #:[id number] : 1940 83 From: Tommy Freitas PCP: Dr. Mina De La Cruz MD Status:ADM IN Discharge Instructions Diet Discharge Diet: No restrictions DC O2, CPAP, BIPAP needs Home O2 Discharge instructions: No Dressing / Incision Discharge Activity: May Not Drive (No driving while using narcotic pain medication) and May Shower (Postoperative day 1) May shower in (days): 1 Ice area for (Minutes): 20 Lifting Restrictions: No lifting greater than 15 pounds for 2 weeks after surgery Dressing / Incision Call your doctor if your incision/area has: Continuous Slow Oozing, Increased Pain/ Swelling, Increased Redness, Foul Smelling Discharge and Swelling at the incision site Call your doctor if you observe: Fever of 101 or Higher and Inability to urinate Remove Dressing in: 1 day (Please leave Steri-Strips intact until they fall off spontaneously or are taken off at your follow-up visit) Cleanse incision/area with: Soap & Water Follow Up Care Please Follow Up With: Tommy Durand MD When: 7-10days postop Test Results: Test results from this visit will be discussed in further detail at your follow-up appointment, if applicable. Discharge Plan Admission Admit Date/Time: 08/11/24 09:50 Primary Reason for Your Visit: Gallbladder removal Attending Provider: Tommy Durand Primary Care Provider: Mina De La Cruz Discharge Orders/Prescriptions Prescriptions: New oxycodone 5 mg Tablet 5 mg PO Q6H PRN PRN (Reason: Pain Score 6-10) 3 Days Qty: 10 0RF tamsulosin 0.4 mg Capsule 0.4 mg PO DAILY@1730 7 Days Qty: 7 0RF Continued Fish Oil 1,000 mg Capsule 1,000 mg PO DAILY Patient Comments: SUPPLIMENT FOR CHOLESTEROL Prostate Health 1 EACH tablet 1 tab PO DAILY Patient Comments: PROSTATE HEALTH Coq10 1 tab PO DAILY Patient Comments: CHOLESTEROL, IMMUNITY Excedrin Extra Strength Caplet 500 mg PO PRN PRN (Reason: Headache) Patient Comments: MIGRAINE FLASHING LIGHTS Referrals / Follow Up: Mina De La Cruz MD [Primary Care Provider] - Disposition Disposition (needs filled in before D/C Order can be placed): Home, Self Care 08/12/24 1712<Electronically signed by Tommy Durand MD>Tommy Durand MD CC: Dr. Mina De La Cruz MD ~ Signed [facility] Work Phone: 1(436) 903-576406-19-2025 [facility] Medical Records Department [address] [place] [address] Discharge Summary 08/12/24 1202 MR#: [id number] Acct: [id number] Name: JEAN BUENROSTRO Rep #: [id number] : 1940 83 From: Tommy Durand MD PCP: Dr. Mina De La Cruz MD Status:DIS IN [facility] Providers Date of Admission: 08/11/24 Primary Care Physician: Dr. Mina De La Cruz MD Reason For Visit: ACUTE CHOLECYSTITIS Diagnosis Discharge Diagnosis (1) Acute calculous cholecystitis: Status: Acute Code(s): K80.00 - Calculus of gallbladder with acute cholecystitis without obstruction Plan: Patient 83-year-old male who presents with 48 hours of progressive right upper quadrant postprandial discomfort. ER workup consistent with diagnosis of early acute cholecystitis. Exam is confirmatory. Patient has diagnosis I recommended we proceed for emergent laparoscopic cholecystectomy with intraoperative cholangiography. 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 Patient was receptive of this recommendation and was admitted to the hospital for ongoing management. He is to be held n.p.o. with IV antibiotics until surgery. Operation was described in detail and consents will be obtained for laparoscopic cholecystectomy and intraoperative cholangiography. Tommy Durand MD General Surgery Endocrine Surgery Pager: [facility] [address] [place] [address], [facility], [address] [place] [address] Office: [phone] Medications at Discharge Home Medications Coq10 1 tab PO DAILY 03/03/14 Excedrin Extra Strength Caplet 500 mg PO PRN PRN Headache 03/03/14 Fish Oil 1,000 mg Capsule 1,000 mg PO DAILY 03/03/14 saw palm 160 mg-vit E 100 unit-selen 100 qbe-vdud-fqyoea-pygeum tablet (Prostate Health) 1 tab PO DAILY 03/03/14 oxycodone 5 mg tablet 5 mg PO Q6H PRN PRN Pain Score 6-10 3 days #10 tabs 08/12/24 tamsulosin 0.4 mg capsule 0.4 mg PO DAILY@1730 7 days #7 caps 08/12/24 Hospital Course Operations cholecystecomy (Laparoscopic cholecystectomy) Procedures None Summary of Care Provided Hospital Course: Patient is an 83-year-old male who was evaluated in the emergency department overnight on 08/10/2024 due to presentation of acute onset abdominal pain. CT imaging was concerning for possible gallbladder pathology. He underwent ultrasound evaluation of his gallbladder the morning of 08/11/2024 which was confirmatory for a diagnosis of cholecystitis and thus underwent laparoscopic cholecystectomy with intraoperative cholangiography later the same day. Procedure was completed in uncomplicated fashion, however postoperatively patient required straight catheterization for some urinary retention and remained rather sedate following his anesthetic until he was able to further metabolize it by the following morning. Postoperative day 1 patient had return of spontaneous voiding and his sensorium returned as well. With these clinical improvements and reassurance from his laboratories and exam he was advanced to a regular diet and ultimately discharged to home in improved condition. Expectation was set for outpatient follow-up in 2 weeks postop to review his healing. Physical Exam Const alert, oriented x3 and no apparent distress Resp normal respiratory effort GI GI Narrative: Minimally distended, soft, operative dressings intact without strikethrough, slight ecchymotic changes around subxiphoid port site, appropriate tenderness with palpation Weight / BMI Weight Weight: 176 lb 5.917 oz Body Mass Index (BMI) 28.4 ABG / Lab / Microbiology Data 08/12/24 07:00 08/12/24 07:00 Laboratory: Laboratory Results - last 24 hr 08/12/24 07:00: WBC 9.7, RBC 3.75 L, Hgb 11.2 L, Hct 34.0 L, MCV 90.7, MCH 29.9, MCHC 32.9, RDW Std Deviation 47.4 H, RDW Coeff of Katina 14.2, Plt Count 240, MPV 10.9, Immature Gran % (Auto) 0.500, Neut % (Auto) 82.5 H, Lymph % (Auto) 8.2 L, Brazos % (Auto) 8.6, Eos % (Auto) 0.0, Baso % (Auto) 0.2, A bsolute Neuts (auto) 8.0 H, Absolute Lymphs (auto) 0.80 L, Nucleated RBC % 0, Sodium 138, Potassium 4.5, Chloride 105, Carbon Dioxide 22.0, Anion Gap 11, BUN 11, Creatinine 1.28 H, Estim Creat Clear Calc 43.47 L, Est GFR (MDRD) Non-Af 56 L, BUN/Creatinine Ratio 8.4 L, Glucose 143 H, Calcium 8.1, Total Bilirubin 0.74, AST 43 H, ALT 31, Alkaline Phosphatase 115, (more content not included)...[facility]06-19-2025 Radiology Diagnostic study note [facility] Imaging Services [address] [place] [address] Cholangiogram/ O R,Initial MR#: [id number] Acct: [id number] Name: JEAN BUENROSTRO Rep #: [id number] : 1940 M 83 From: Ju Quiros MD PCP: Dr. Mina De La Cruz MD Status: ADM IN Study:Cholangiogram/ O R,Initial Date of Exam : 08/11/24 Exam# [id number] Ordering Dr: Jessica Durand MD PROCEDURE: CHOLANGIOGRAM/ O R,INITIAL 08/11/2024 REASON FOR EXAM: LAP AMAYA TECHNIQUE: CHOLANGIOGRAM/ O R,INITIAL Intraoperative cholangiogram. Radiation time 26.2 seconds. Radiation dose 14.9 mGy. COMPARISON: Ultrasound exam on 08/11/2024. FINDINGS: Cholecystectomy. Intraoperative cholangiogram was performed. No filling defect is noted in the common bile duct. Free passage of the contrast through the duodenum without evidence of contrast leakage. RAD/Cholangiogram/ O R,Initial IMPRESSION: Unremarkable intraoperative cholangiogram. Reading Location: [place] [address] CC: Dr. Mina De La Cruz MD; Dr. Tommy Durand MD ~ Wardrobe Stylist: Signed [facility]06-19-2025 Consult note Author Jeremy Paulson [facility] Note Date/Time August 11, 2024 10:2 4pm [facility] Medical Records Department [address] [place] [address] Anesthesia Postop Eval II 08/11/244 MR#: [id number] Acct: [id number] Name: JEAN BUENROSTRO Rep #:[id number] : 1940 83 From: Jeremy Paulson MD PCP: Dr. Mina De La Cruz MD Status:ADM IN Y Race: C Location: [facility] MS319 -1 Anesthesia Postop Eval I Sum Postop Eval Completion status Anesthesia document: Postop Eval 1 completed: Yes Anesthesia Postop Eval I Summary Anesthesia Postop Eval I Summary: Anesthesia Postop Eval I: Assessment Summary Airway patent Yes 08/11/24 18:45 Spontaneous unlabored Yes 08/11/24 18:45 respirations Mental status Awake 08/11/24 18:45 nausea No 08/11/24 18:45 Vomiting No 08/11/24 18:45 Anesthesia Postop Eval I: Fluid Summary Crystalloid volume administer 1,000 08/11/24 18:45 (ml) Colloids volume administered ( ml) Blood Product volume administered (ml) Total IV fluid infused 1,000 08/11/24 18:45 Anesthesia Postop Eval I: Summary Notes Anesthesia Complication No 08/11/24 18:45 Anesthesia Complication Comment: Post-operative progress note Anesthesia: Postop Eval II Evaluation Mental status: Awake Pain Level: 2 nausea: No Vomiting: No Complications Anesthesia Complication: No 08/11/242223 <Electronically signed by Jeremy jackson MD> Date _ Jeremy Paulson MD Cosigner Signature: Date CC: ~ Signed [facility] Work Phone: 1(212) 981-643106-18-2025 Consult note [facility] Medical Records Department [address] [place] [address] Anesthesia Postop Eval II 08/11/242223 MR#: [id number] Acct: [id number] Name: JEAN BUENROSTRO Rep #:[id number] : 1940 83 From: Jeremy Paulson MD PCP: Dr. Mina De La Cruz MD Status:ADM IN Y Race: C Location: [facility] MS319 -1 Anesthesia Postop Eval I Sum Postop Eval Completion status Anesthesia document: Postop Eval 1 completed: Yes Anesthesia Postop Eval I Summary Anesthesia Postop Eval I Summary: Anesthesia Postop Eval I: Assessment Summary Airway patent Yes 08/11/24 18:45 Spontaneous unlabored Yes 08/11/24 18:45 respirations Mental status Awake 08/11/24 18:45 nausea No 08/11/24 18:45 Vomiting No 08/11/24 18:45 Anesthesia Postop Eval I: Fluid Summary Crystalloid volume administer 1,000 08/11/24 18:45 (ml) Colloids volume administered ( ml) Blood Product volume administered (ml) Total IV fluid infused 1,000 08/11/24 18:45 Anesthesia Postop Eval I: Summary Notes Anesthesia Complication No 08/11/24 18:45 Anesthesia Complication Comment: Post-operative progress note Anesthesia: Postop Eval II Evaluation Mental status: Awake Pain Level: 2 nausea: No Vomiting: No Complications Anesthesia Complication: No 08/11/24 2224 manuel WITT> Date _ Jeremy Paulson MD Cosigner Signature: Date CC: ~ Signed [facility]06-18-2025 Consult note Author Jeremy [facility] Note Date/Time August 11, 2024 6:45 pm [facility] Medical Records Department [address] [place] [address] Anesthesia Postop Eval I 08/11/241838 MR#: [id number] Acct: [id number] Name: JEAN BUENROSTRO Rep #:[id number] : 1940 83 From: Jeremy Paulson MD PCP: Dr. Mina De La Cruz MD Status:REG [facility] Y Race: C Location: [facility] Anesthesia: Postop Eval I Current Vital Signs Temperature: 97.2 F Pulse Rate: 74 Blood Pressure: 189/92 Respiratory Rate: 18 Pulse Ox: 92 Oxygen Delivery Method: Nasal Cannula Oxygen Flow Rate (L/min): 2 Assessment Airway patent: Yes Spontaneous unlabored respirations: Yes Mental status: Awake nausea: No Vomiting: No Anesthesia Complication: No Fluid Hydration Crystalloid volume administer (ml): 1,000 Total IV fluid infused: 1,000 Progress Note Anesthesia document: Postop Eval 1 completed: Yes 08/11/241844 <Electronically signed by Jeremy jackson MD> Date _ Jeremy Paulson MD Cosigner Signature: Date CC: ~ Signed [facility] Work Phone: 1(935) 202-846406-18-2025 Procedure note [facility] Medical Records Department [address] [place] [address] Operative Report 08/11/247 MR#: [id number] Acct: [id number] Name: JEAN BUENROSTRO Rep #:[id number] : 1940 83 From: Tommy Freitas PCP: Dr. Mina De La Cruz MD Status:ADM IN Location: [facility] IB567-5 Procedures Digestive 40xxx-49xxx: [id number] Laparo cholecystectomy/graph Operative Report (Standard) Operative Information Date of Procedure: 08/11/24 Pre-Operative Diagnosis: Acute cholecystitis Post-Operative Diagnosis: Acute cholecystitis Surgery/Procedure Performed: Laparoscopic cholecystectomy with intraoperative cholangiography engineering technical specialist: Yes Linen Attendant: Aurora Loyd Tasks completed by assistant scientist: Opening, Retracting and Other (Laparoscopic camera operation) Additional legislative assistant?: Yes Additional Anchorer #2: Cornelia Alegre Tasks completed by legislative assistant #2: Closing, Retracting and Other (Laparoscopic camera operation) Type of Anesthesia: General/Supplemental RN Documented Start/Stop Times: Operation Date: 08/11/24 13:45 Case Time Into Pre-Op 08/11/24 12:56 Anesthesia Start 08/11/24 16:24 Into Room 08/11/24 16:24 Out of Pre-Op 08/11/24 16:33 Procedure Start 08/11/24 16:45 Procedure End 08/11/24 18:28 Anesthesia End 08/11/24 18:34 Out of Room 08/11/24 18:34 Into Recovery 08/11/24 18:37 Procedure Start Time: 16:45 Procedure Stop Time: 18:28 Select all DRAINS/GRAFTS/IMPLANTS that apply: None Estimated Blood Loss: 50 Specimen collected: Yes Description of specimen(s) removed: Gallbladder Description of surgery: After proper identification in the preoperative holding area the patient was brought to the operating room where he was positioned supine on the operating room table. Preoperatively SCDs were connected and antibiotics were re- administered 3.375 g Zosyn. General anesthesia was then induced. Patient's abdomen was prepped and draped in usual sterile fashion. A formal timeout was conducted to confirmboth patient and the procedure. Procedure was begun with asupraumbilical incision which was extended deeply down to the level of the fascia. The fascia was elevated and incised, as well as the peritoneum. A finger sweep was performed to ensure there were no underlying adhesions and a 12mm balloon trocar was inserted. Pneumoperitoneum was established at 15 mmHg. Three additional trocars (all 5 mm initially?however, the epigastric port site was ultimately upsized to a 12 mm port later in the case) were placed in the epigastrium and in the right upper quadrant. Inspection of the peritoneum reveal ed no inadvertent injury to the viscera below. The gallbladder was visualized with evidence of acute inflammation and clear edema planes beneath the peritoneal lining. There were also several adhesions between the omentum and the liver capsule adjacent to the gallbladder. These adhesions were takendown carefully with the use of electrocautery to try to minimize capsular tear but several areas ofoozing were addressed directly on the liver surface with application of additional selective electrocautery. The gallbladder fundus was then grasped and elevated cephalad. Using careful dissection the peritoneum wasopened and the structures of the hepatocystic triangle were delineated. Once the critical view of safety was obtained, the cystic duct was singly clipped andpartially divided with a ductotomy. There was backflow of bile. Using an Tompkins Sumaya clamp, a cholangiocatheter was fed into the proximal segment of the cystic duct and clamped into place. Under fluoroscopy a cholangiogram was then obtained showing a standard length cystic duct flowing into a common bile duct with unobstructed antegrade flow of contrast into the duodenum. There was also retrograde flow through the common hepatic duct into the right and left hepatic ducts. Satisfied with this result, the cholangiocatheter was withdrawn and the proximalcystic duct was dissected a little further as I noted the presence of a crossingbranch from the main cystic artery to the duct and wanted to be sure the cystic duct was appropriately occluded with a dedicated clip so clearance was assured from this vessel. The duct was then sealed with clips and the cystic duct was completely transected. Unfortunately there was bleeding from the crossing artery and this vessel was then controlled in similar fashion using another Hem-o-richard clip. The same process was used for the main cystic artery. The gallbladder was then removed from the gallbladder fossa with the use of electrocautery. Selective electrocautery was used to obtain hemostasis in the gallbladder fossa. Unfortunately the posterior wall of the gallbladder was quite edematous and thinned and simply applying traction on the gallbladder to separate from the gallbladder fossa resulted in inadvertent spillage of bile andfinding gallstones. Efforts were made to contain the spillage but ultimately I resolved to address the spillage immediately upon removing the gallbladder in its entirety. The gallbladder was placed in an Endo Catch bag. The subxiphoid port site was upsized to a 12 mm trocar to accommodate the larger suction bore and then Morison's pouch was irrigated and the effluent was suctioned free of the peritoneum. Hemostasis was again confirmed with application of some limitedelectrocautery on the gallbladder fossa as well as placement of a small patch ofSurgicel. Pneumoperitoneum was evacuated and the fascia of the 12 mm port siteswas closed with #1Vicryl in a xgtnms-pv-sjyks fashion. A total of 30 mL of anesthetic was injected at the port sites for postoperative pain control. The skin of each port site was then closed in subcuticular fashion using 4-0 Monocryl. Steri-Strips and bandages were applied as dressings. Patient tolerated the procedure well without any apparent complications. Onemergence from their anesthetic the patient was taken to PACU for ongoing recovery. undefined Surgical Findings: ? Evidence of acute cholecystitis with edema planes just below the peritoneal surface of the gallbladder ? Friable gallbladder wall due to the above edema related to inadvertent rent ofthe gallbladder wall and local spillage of fine gallstones ? Normal biliary anatomy without filling defect on cholangiography Complications Complications: No Admit VTE Documentation VTE Mechan Device Prophylaxis: SCD's 08/11/242006 Cosigner Signature (if applicable): CC: Dr. Mina De La Cruz MD; Dr. Tommy Durand MD~ Signed [facility]06-18-2025 Consult note [facility] Medical Records Department [address] [place] [address] Anesthesia Postop Eval I 08/11/24 1839 MR#: [id number] Acct: [id number] Name: JEAN BUENROSTRO Rep #:[id number] : 1940 83 From: Jeremy Paulson MD PCP: Dr. Mina De La Cruz MD Status:REG [facility] [place] Y Race: C Location: [facility] Anesthesia: Postop Eval I Current Vital Signs Temperature: 97.2 F Pulse Rate: 74 Blood Pressure: 189/92 Respiratory Rate: 18 Pulse Ox: 92 Oxygen Delivery Method: Nasal Cannula Oxygen Flow Rate (L/min): 2 Assessment Airway patent: Yes Spontaneous unlabored respirations: Yes Mental status: Awake nausea: No Vomiting: No Anesthesia Complication: No Fluid Hydration Crystalloid volume administer (ml): 1,000 Total IV fluid infused: 1,000 Progress Note Anesthesia document: Postop Eval 1 completed: Yes 08/11/241844 manuel WITT> Date _ Jeremy Rezaigner Signature: Date CC: ~ Signed [facility]06-18-2025 Consult note Author [facility] Note Date/Time August 11, 2024 3:00 pm [facility] Medical Records Department [address] [place] [address] Pre-Anesthesia Evaluation 08/11/24 1449 MR#: [id number] Acct: [id number] Name: JEAN BUENROSTRO Rep #:[id number] : 1940 83 From: Jeremy Paulson MD PCP: Dr. Mina De La Cruz MD Status:REG [facility] [place] Y Race: C Location: [facility] ASA Classification* ASA Classification ASA Classification: 2 Assessment & Plan Anesthesia* Anesthesia Assessment Anesthesia Assessment: Discussed sedation and/or anesthesia options, risks, benefits, and alternatives with patient/parents/legal guardian/POA. Questions invited. The patient/parents/legal guardian/POA seems to understand and agrees to proceedwith anesthesia plan. Reviewed the physical assessment, medical history, allergy history and patient home medications list prior to surgery/procedure/anesthetic and documented any changes. Performed airway and anesthesia risk assessments. Anesthesia Type Anesthesia Type: General (Patient is a Advent. Does not want any blood or blood components.) History Source History Obtained from:: Patient and Chart Anesthesia Focused Assessment* Temperature: 97.9 F Pulse Rate: 67 Blood Pressure: 146/86 Respiratory Rate: 16 Pulse Ox: 99 Oxygen Delivery Method: Room Air Airway Assessment Mouth opens: >3 cm Mallampati Score: II Teeth Condition: Missing (Multiple missing teeth. Rest are tight.) Neck Range of motion (ROM): Full ROM Labs Anesthesia Preop lab: CBC WBC 8.8 K/mm3 (4.4-11.0) 08/11/24 01:13 08/11/24 RBC 3.94 M/mm3 (4.6-6.2) L 08/11/24 01:13 08/11/24 Hgb 12.0 g/dL (13.0-16.5) L 08/11/24 01:13 5 Hct 35.0 % (40-54) L 08/11/24 01:13 08/11/24 Plt Count 256 K/mm3 (150-450) 08/11/24 01:13 08/11/24 CHEMISTRY Potassium 4.1 mmol/L (3.3-5.1) 08/11/24 01:13 08/11/24 Sodium 136 mmol/L (133-145) 08/11/24 01:13 08/11/24 Magnesium 1.9 mg/dL (1.8-2.4) 03/04/14 05:36 03/04/14 Phosphorus 3.5 mg/dL (2.5-4.9) 03/04/14 05:36 03/04/14 BUN 13 mg/dL (4-19) 08/11/24 01:13 08/11/24 Creatinine 1.21 mg/dL (0.70-1.20) H 08/11/24 01:13 Glucose 120 mg/dL (70-99) H 08/11/24 01:13 08/11/24 POC Glucose 79 mg/dL (70-110) 03/03/14 19:28 03/03/14 TSH 1.64 uIU/mL (0.358-3.74) 03/03/14 19:05 COAG PT 13.7 SECONDS (11.7-14.9) 03/04/14 05:36 Pre-Assessment Diagnosis/Proposed Procedure Planned Operative Procedure(s): Laparoscopic cholecystectomy with intraoperativecholangiograms. Anesthesia History Anesthesia History - certified neurodiagnostic technologist: Anesthesia History - certified neurodiagnostic technologist Hx Hospitalization No 08/10/18 03:10 Any Problems With Anesthesia No 08/11/24 12:31 Cholinesterase deficiency No 08/11/24 12:31 You/Your Family Experience No 08/11/24 12:31 fever (hyperthermia) with Relationship Recent Exposure to Contagious No 08/11/24 12:31 Disease Does patient have nerve No 08/11/24 12:31 stimulator Patient instructed to have No 08/11/24 12:31 device shut off --Does patient have Pacemaker or ICD? When Was Last Pacemaker Check QUESTION #4 FULL TEXT: You/Your Family Experience fever (hyperthermia) with Anesthesia Last Oral Intake Last Oral intake: Last Oral Intake NPO since Meds taken in AM with sips of water? Meds patient instructed to take am of surgery Any additional information?: Yes NPO since: 00:00 PONV PONV - certified neurodiagnostic technologist: PONV - certified neurodiagnostic technologist Female HX of Motion Sickness HX of N/V After Surgery Non-Smoker Duration of Surgery greater than 60 minutes Number of Risk Factors PONV Score Height & Weight Height & Weight: Anesthesia: Height & Weight Height 5 ft 6 in 08/11/24 12:31 Weight: 80 kg 08/11/24 12:31 Body Mass Index (BMI) 28.4 08/11/24 12:31 Respiratory Assessment Respiratory Assessment - certified neurodiagnostic technologist: Respiratory Tract Infection Hx - certified neurodiagnostic technologist Hx Respiratory Tract Infection No 08/11/24 12:31 STOP Sleep Apnea STOP Sleep Apnea - certified neurodiagnostic technologist: STOP Sleep Apnea - certified neurodiagnostic technologist Hx Hypertension No 08/11/24 12:31 Hx Sleep Apnea No 08/11/24 12:31 CPAP No 03/03/14 23:00 BIPAP No 03/03/14 23:00 Do you snore loudly (louder No 08/11/24 12:31 than talking or can be heard Do you often feel tired/ No 08/11/24 12:31 fatigued/ sleepy during daytime? Has anyone observed you stop No 08/11/24 12:31 breathing during sleep? STOP Results Negative 08/11/24 12:31 QUESTION #5 FULL TEXT : Do you snore loudly (louder than talking or can be heard through closed doors)? 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 Specify any problems Hx of Preganancy in last 3 Months Nurse Filling Out Transfusion & Questions: Date: Time: Patient unable to answer at this time (ie. confused, unrespo /Reproduction History /Reproductive History - certified neurodiagnostic technologist: /Reproductive Hx- certified neurodiagnostic technologist Hx Now No 08/11/24 12:31 Gestational Age (in weeks): EDC: Hx Hx Para Hx Section SAB Active Medications Active Medications: Current Medications Generic Name Dose Route Start Last Admin Trade Name Freq PRN Reason Stop Dose Admin Hydromorphone HCl 0.5 mg 08/11/24 09:50 Hydromorphone 0.5 Mg/0.5 Ml Syringe IV Q4H PRN PRN Pain Score 6-10 Sodium Chloride 1,000 mls @ 125 mls/hr 08/11/24 09:50 IV .Q8H JOSSIE Piperacillin Sod/Tazobactam 50 mls @ 12.5 mls/hr 08/11/24 14:00 Sod 3.375 gm/ Sodium Chloride IV Q8 JOSSIE Lactated Ringer's 1,000 mls @ 15 mls/hr 08/11/24 13:30 08/11/24 13:29 IV 15 mls/hr .Q48H JOSSIE Administration Ondansetron HCl 4 mg 08/11/24 09:50 Ondansetron 4 Mg/2 Ml Vial IV Q6H PRN PRN NAUSEA/VOMITING PFSH Medical History BPH (benign prostatic hyperplasia) Anemia [...] DAILY 03/03/1410/08 06:30 History unit-selen 100 1 tbz-xswa-scbfpu-pygeum tablet ([facility]) Allergy/AdvReac Type Severity Reaction Status Date / Time No Known Allergies Allergy Verified 08/11/24 13:21 Social History Smoking Status: Never smoker Review of Systems (Anesthesia) ROS Narrative System reviewed and no additional complaints, except as documented. 08/11/24 1500 <Electronically signed by Jeremy jackson MD> Date _ Jeremy Paulson MD Cosigner Signature: Date CC: ~ Signed [facility] Work Phone: [phone] Consult note [facility] Medical Records Department [address] [place] [address] Pre-Anesthesia Evaluation 08/11/24 1449 MR#: [id number] Acct: [id number] Name: JEAN BUENROSTRO Rep #:[id number] : 1940 83 From: Jeremy Paulson MD PCP: Dr. Mina De La Cruz MD Status:REG SDC Y Race: C [place] [facility] [place]SA Classification* ASA Classification ASA Classification: 2 Assessment & Plan Anesthesia* Anesthesia Assessment Anesthesia Assessment: Discussed sedation and/or anesthesia options, risks, benefits, and alternatives with patient/parents/legal guardian/POA. Questions invited. The patient/parents/legal guardian/POA seems to understand and agrees to proceedwith anesthesia plan. Reviewed the physical assessment, medical history, allergy history and patient home medications list prior to surgery/procedure/anesthetic and documented any changes. Performed airway and anesthesia risk assessments. Anesthesia Type Anesthesia Type: General (Patient is a Advent. Does not want any blood or blood components.) History Source History Obtained from:: Patient and Chart Anesthesia Focused Assessment* Temperature: 97.9 F Pulse Rate: 67 Blood Pressure: 146/86 Respiratory Rate: 16 Pulse Ox: 99 Oxygen Delivery Method: Room Air Airway Assessment Mouth opens: >3 cm Mallampati Score: II Teeth Condition: Missing (Multiple missing teeth. Rest are tight.) Neck Range of motion (ROM): Full ROM Labs Anesthesia Preop lab: CBC WBC 8.8 K/mm3 (4.4-11.0) 08/11/24 01:13 08/11/24 RBC 3.94 M/mm3 (4.6-6.2) L 08/11/24 01:08/11/24 Hgb 12.0 g/dL (13.0-16.5) L 08/11/24 01: 5 Hct 35.0 % (40-54) L 08/11/24 01:08/11/24 Plt Count 256 K/mm3 (150-450) 08/11/24 01:13 08/11/24 CHEMISTRY Potassium 4.1 mmol/L (3.3-5.1) 08/11/24 01:13 08/11/24 Sodium 136 mmol/L (133-145) 08/11/24 01:13 08/11/24 Magnesium 1.9 mg/dL (1.8-2.4) 03/04/14 05:36 03/04/14 Phosphorus 3.5 mg/dL (2.5-4.9) 03/04/14 05:36 03/04/14 BUN 13 mg/dL (4-19) 08/11/24 01:13 08/11/24 Creatinine 1.21 mg/dL (0.70-1.20) H 08/11/24 01: Glucose 120 mg/dL (70-99) H 08/11/24 01:13 08/11/24 POC Glucose 79 mg/dL (70-110) 03/03/14 19:28 03/03/14 TSH 1.64 uIU/mL (0.358-3.74) 03/03/14 19:05 COAG PT 13.7 SECONDS (11.7-14.9) 03/04/14 05:36 Pre-Assessment Diagnosis/Proposed Procedure Planned Operative Procedure(s): Laparoscopic cholecystectomy with intraoperativecholangiograms. Anesthesia History Anesthesia History - certified neurodiagnostic technologist: Anesthesia History - certified neurodiagnostic technologist Hx Hospitalization No 08/10/18 03:10 Any Problems With Anesthesia No 08/11/24 12:31 Cholinesterase deficiency No 08/11/24 12:31 You/Your Family Experience No 08/11/24 12:31 fever (hyperthermia) with Relationship Recent Exposure to Contagious No 08/11/24 12:31 Disease Does patient have nerve No 08/11/24 12:31 stimulator Patient instructed to have No 08/11/24 12:31 device shut off --Does patient have Pacemaker or ICD? When Was Last Pacemaker Check QUESTION #4 FULL TEXT: You/Your Family Experience fever (hyperthermia) with Anesthesia Last Oral Intake Last Oral intake: Last Oral Intake NPO since Meds taken in AM with sips of water? Meds patient instructed to take am of surgery Any additional information?: Yes NPO since: 00:00 PONV PONV - certified neurodiagnostic technologist: PONV - certified neurodiagnostic technologist Female HX of Motion Sickness HX of N/V After Surgery Non-Smoker Duration of Surgery greater than 60 minutes Number of Risk Factors PONV Score Height & Weight Height & Weight: Anesthesia: Height & Weight Height 5 ft 6 in 08/11/24 12:31 Weight: 80 kg 08/11/24 12:31 Body Mass Index (BMI) 28.4 08/11/24 12:31 Respiratory Assessment Respiratory Assessment - certified neurodiagnostic technologist: Respiratory Tract Infection Hx - certified neurodiagnostic technologist Hx Respiratory Tract Infection No 08/11/24 12:31 STOP Sleep Apnea STOP Sleep Apnea - certified neurodiagnostic technologist: STOP Sleep Apnea - certified neurodiagnostic technologist Hx Hypertension No 08/11/24 12:31 Hx Sleep Apnea No 08/11/24 12:31 CPAP No 03/03/14 23:00 BIPAP No 03/03/14 23:00 Do you snore loudly (louder No 08/11/24 12:31 than talking or can be heard Do you often feel tired/ No 08/11/24 12:31 fatigued/ sleepy during daytime? Has anyone observed you stop No 08/11/24 12:31 breathing during sleep? STOP Results Negative 08/11/24 12:31 QUESTION #5 FULL TEXT : Do you snore loudly (louder than talking or can be heard through closeddoors)? 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 Specify any problems Hx of Preganancy in last 3 Months Nurse Filling Out Transfusion & Questions: Date: Time: Patient unable to answer at this time (ie. confused, unrespo /Reproduction History /Reproductive History - certified neurodiagnostic technologist: /Reproductive Hx- certified neurodiagnostic technologist Hx Now No 08/11/24 12:31 Gestational Age (in weeks): EDC: Hx Hx Para Hx Section SAB Active Medications Active Medications: Current Medications Generic Name Dose Route Start Last Admin Trade Name Freq PRN Reason Stop Dose Admin Hydromorphone HCl 0.5 mg 08/11/24 09:50 Hydromorphone 0.5 Mg/0.5 Ml Syringe IV Q4H PRN PRN Pain Score 6-10 Sodium Chloride 1,000 mls @ 125 mls/hr 08/11/24 09:50 IV .Q8H JOSSIE Piperacillin Sod/Tazobactam 50 mls @ 12.5 mls/hr 08/11/24 14:00 Sod 3.375 gm/ Sodium Chloride IV Q8 JOSSIE Lactated Ringer's 1,000 mls @ 15 mls/hr 08/11/24 13:30 08/11/24 13:29 IV 15 mls/hr .Q48H JOSSIE Administration Ondansetron HCl 4 mg 08/11/24 09:50 Ondansetron 4 Mg/2 Ml Vial IV Q6H PRN PRN NAUSEA/VOMITING PFSH Medical History BPH (benign prostatic hyperplasia) Anemia [...] DAILY 03/03/1410/08 06:30 History unit-selen 100 1 tmc-iqwj-lwbyuh-pygeum tablet ([facility]) Allergy/AdvReac Type Severity Reaction Status Date / Time No Known Allergies Allergy Verified 08/11/24 13:21 Social History Smoking Status: Never smoker Review of Systems (Anesthesia) ROS Narrative System reviewed and no additional complaints, except as documented. 08/11/24 1500 manuel WITT> Date _ Jeremy Paulson MD Cosigner Signature: Date CC: ~ Signed [facility]-18-2025 History and physical note Author Tommy Durand [facility] Note Date/Time August 11, 2024 12:0 5pm [facility] Medical Records Department [address] [place] [address] History & Physical Exam 08/11/24 1151 MR#: [id number] Acct: [id number] Name: JEAN BUENROSTRO Rep #:[id number] : 1940 83 From: Tommy Freitas PCP: Dr. Mina De La Cruz MD Status:REG [facility] [place] [facility] [place] HPI - General General Date of Service: 08/11/24 HPI Narrative JEAN BUENROSTRO, is a 83 M who presents to [facility] with complaints of 2 days of [...] has no history of prior abdominal surgery. [facility] Medical History BPH (benign prostatic hyperplasia) Anemia [...] DAILY 03/03/1410/08 06:30 History unit-selen 100 1 tvg-xdmx-qzwbna-pygeum tablet ([employer]) Allergy/AdvReac Type Severity Reaction Status Date / [...] (Auto) 80.1 H, Lymph % (Auto) 13.0 L,Brazos % (Auto) 5.8, Eos % (Auto) 0.7, [...] Sl. Cloudy, Urine pH 8.0, Ur Specific [place] 1.010, Urine Protein 15 H, Urine Glucose [...] department at 3 a.m. EST. [facility] Gall[facility] Ultrasound 08/11/24 04:15 IMPRESSION: Multiple gallstones. Mild gallbladder wall thickening. Small amount of pericholecystic fluid. Cholecystitis should be ruled out. Reading Location: [facility] Assessment & Plan Assessment/Plan (1) Acute calculous cholecystitis: PLAN: Patient 83-year-old male who presents with 48 hours of progressive right upper quadrant postprandial discomfort. ER workup consistent with diagnosis of early acute cholecystitis. Exam is confirmatory. Patient has diagnosis I recommended we proceed for emergent laparoscopic cholecystectomy with intraoperative cholangiography. Patient is a Advent and states that his lutheran prohibits him from receiving blood products but [...] Durand MD General Surgery Endocrine Surgery Pager: [facility] [address] [place] [address], [address] [place] [id number] Office: [phone] Charges/Coding Visit Charges Inpatient E&M: 12877 Init Hosp L2 08/11/24 1205 <Electronically signed by Tommy Durand MD> Cosigner Signature (if applicable): CC: Dr. Mina De La Cruz MD; Dr. Tommy Durand MD~ Signed [facility] Work Phone: 1(242) [phone] History and physical note [facility] Medical Records Department [address] [place], [place] [id number] History & Physical Exam 08/11/24 1151 MR#: [id number] Acct: [id number] Name: JEAN BUENROSTRO Rep #:[id number] : 1940 83 From: Tommy Freitas PCP: Dr. Mina De La Cruz MD Status:[facility] Location[place] [facility] [place] HPI - General General Date of Service: 08/11/24 HPI Narrative JEAN BUENROSTRO, is a 83 M who presents to [facility] with complaints of 2 days of progressive right upper quadrant postprandial discomfort. He states 2 nights ago he had just mild discomfort after eating butwas able to sleep through it. However 2 hours after eating meatloaf last nighthe developed severe right upper quadrant epigastric discomfort [...] has no history of prior abdominal surgery. [facility] Medical History BPH (benign prostatic hyperplasia) Anemia [...] DAILY 03/03/1410/08 06:30 History unit-selen 100 1 lbk-idov-oqwbuj-pygeum tablet ([employer]) Allergy/AdvReac Type Severity Reaction Status Date [...] MPV 10.4, Immature Gran % (Auto) 0.200, Neut% (Auto) 80.1 H, Lymph % (Auto) 13.0 L,Brazos % (Auto) 5.8, Eos % (Auto) 0.7, [...] Sl. Cloudy, Urine pH 8.0, Ur Specific [place] 1.010, Urine Protein 15 H, Urine Glucose [...] department at 3 a.m. EST. Reading [facility] Gallbladder Ultrasound 08/11/24 04:15 IMPRESSION: Multiple gallstones. Mild gallbladder wall thickening. Small amount of pericholecystic fluid. Cholecystitis should be ruled out. Reading Location: [facility] Assessment & Plan Assessment/Plan (1) Acute calculous cholecystitis: PLAN: Patient 83-year-old male who presents with 48 hours of progressive right upper quadrant postprandial discomfort. ER workup consistent with diagnosis of early acute cholecystitis. Exam is confirmatory. Patient has diagnosis I recommended we proceed for emergent laparoscopic cholecystectomy with intraoperative cholangiography. Patient is a Advent and states that his lutheran prohibits him from receiving blood products but starches and isotonic volume expanders are allowable. Additionally, when I reviewed his CT imaging there is some bordering of his hepatic flexure to the fundal portion of the gallbladder. I suggested that these latter to fax should be additionally motivatingto pursue surgery at this point as a [...] Durand MD General Surgery Endocrine Surgery Pager: [facility] [address] [place] [address], [address] [place] [address] Office: [phone] Charges/Coding Visit Charges Inpatient E&M: 52047 Init Hosp L2 08/11/24 1205 Cosigner Signature (if applicable): CC: Dr. Mina De La Cruz MD; Dr. Tommy Durand MD~ Signed [facility]06-18-2025 Evaluation note* Diagnosis Onset Date Resolution Status Admit Date Acute calculous cholecystitis acute August 11, 2024 9:52am [facility] Work Phone: [phone]) 205-796806-18-2025 [facility] Medical Records Department [address] [place] [address] History Physical Exam 08/11/24 1151 MR#: [id number] Acct: [id number] Name: JEAN BUENROSTRO Rep #: [id number] : 1940 83 From: Tommy Durand MD PCP: Dr. Mina De La Cruz MD Status:[facility] Location: [facility] [place] HPI - General General Date of Service: 08/11/24 HPI Narrative JEAN BUENROSTRO, is a 83 M who presents to [facility] with complaints of 2 days of progressive right upper quadrant postprandial discomfort. He states 2 nights ago he had just mild discomfort after eating but was able to sleep through it. However 2 hours after eating meatloaf last night he developed severe right upper quadrant epigastric discomfort which he rated 9 out of 10 intensity. He denies any associated nausea with that pain but does endorse some chills. He states that is presently much better than when he first came in. ER workup was notable for CBC without leukocytosis and normal LFTs on CMP with mild elevation of alkaline phosphatase. CTA was performed by emergency medicine due to concern for possible dissection but this [...] has no history of prior abdominal surgery. [facility] Medical History BPH (benign prostatic hyperplasia) Anemia HLD (hyperlipidemia) TIA (transient ischemic attack) Bradycardia Home Medications ???Medication ???Instructions ???Recorded ???Last Taken ???Type Coq10 1 tab PO DAILY 03/03/14 0630 Days Ago History 06/11/12 1 Excedrin Extra Strength Caplet 500 mg PO PRN PRN Headache 5 03/03/14 16:30 History 500 Fish Oil 1,000 mg Capsule 1,000 mg PO DAILY 03/03/14 5 06:30 History 1000 saw palm 160 mg-vit E 100 1 tab PO DAILY 03/03/14 03/03/14 0 6:30 History unit-selen 100 1 dmu-jfrt-qbtfnp-pygeum tablet ([facility]) Allergy/AdvReac Type Severity Reaction [...] L, Hct 35.0 L, MCV 88.8, MCH 30.5, MCHC 34.3, RDW Std Deviation 44.8 H, RDW Coeff of Katina 13.9, Plt Count 256, MPV 10.4, Immature Gran % (Auto) 0.200, Neut % (Auto) 80.1 H, Lymph % (Auto) 13.0 L, Brazos % (Auto) 5.8, Eos % (Auto) 0.7, [...] Total Bilirubin 0.37, AST 25, ALT 22, Alkaline Phosphatase 139 H, Troponin T High Sens 19, Total Protein 7.0, Albumin 4.4, Globulin 2.6, Albumin/Globulin Ratio 1.7, Lipase 49 08/11/24 01:40: Urine Color Straw, Urine Clarity Sl. Cloudy, Urine pH 8.0, Ur Specific [place] 1.010, Urine Protein 15 H, Urine Glucose (UA) Normal, Urine Ketones Negative, Urine Occult Blood Negative, Urine Nitrite Negative, Urine Bilirubin Negative, Urine Urobilinogen Normal, Ur Leukocyte Esterase Negative, Urine RBC 0 SEEN, Urine WBC 0 SEEN, Ur Squamous Epith Cells 0 SEEN, Urine Bacteria 0 SEEN, Urine Mucus 0 SEEN (more content not included)...[facility]06-18-2025 Evaluation note* Diagnosis Onset Date Resolution Status Admit Date Acute calculous cholecystitis acute August 11, 2024 9:50am [facility] Work Phone: [phone]) [phone] Evaluation note* Diagnosis Onset Date Resolution Status Admit Date Acute calculous cholecystitis resolv ed August 11, 2024 9:50am [facility] Work Phone: [phone]) 496-769606-18-2025 Discharge summary Author Carol Leigh [facility] Note Date/Time August 11, 2024 8:12 am [facility] Medical Records Department [address] [place] [address] Emergency Department Summary 08/11/24 MR#: [id number] Acct: [id number] Name: JEAN BUENROSTRO Rep #:[id number] : 1940 83 From: Carol Dominique PCP: Dr. Mina De La Cruz MD Status:[facility] ER Location: ED HPI HPI - GI [...] the pain currently is starting to improve. [facility] Medical History BPH (benign prostatic hyperplasia) Anemia [...] DAILY 03/03/1410/08 06:30 History unit-selen 100 1 mfl-mhff-rgqyjz-pygeum tablet ([facility]) Allergy/AdvReac Type Severity Reaction [...] 80.1 H Lymph % (Auto) 13.0 L Brazos % (Auto) 5.8 Eos % (Auto) 0.7 [...] Sl. Cloudy Urine pH 8.0 Ur Specific [place] 1.010 Urine Protein 15 H Urine Glucose [...] department at 3 a.m. EST. Reading [facility] Gallbladder Ultrasound 08/11/24 04:15 IMPRESSION: Multiple gallstones. Mild gallbladder wall thickening. Small amount of pericholecystic fluid. Cholecystitis should be ruled out. Reading Location: [place] [address] Rhythm Strip Rhythm Strip: Sinus Rhythm Rate: 57 Ectopy: PAC(s) EKG Initial EKG: Attestation: I personally reviewed and interpreted this EKG as follows: Interpretation: Sinus Bradycardia Comments: Sinus bradycardia at a rate of 57 bpm with PACs Normal axis Normal intervals Normal ST segments Management Discussion w/another healthcare provider: [employer] (General surgery) Discharge Plan Triage Chief Complaint: [...] Comments: MIGRAINE FLASHING LIGHTS Primary Care Provider: Mina De La Cruz Referrals: Mina De La Cruz MD [Primary Care Provider] - Print Language: Grenadian Disposition Disposition: Acute Care Hospital [facility] What to do if you have Problems For any increased pain, shortness of breath, bleeding, nausea or vomiting, chestpain, or any unexpected problems, contact your Primary Care Provider. Call [facility] ([phone]) or report to the closest Emergency Room. Call 911 if necessary. 08/11/24 0812 <Electronically signed by Carol Leigh DO> Cosigner Signature (if applicable): CC: Dr. Mina De La Cruz MD ~ Signed [facility] Work Phone: 1(282) 224-332506-18-2025 Discharge summary Author Carol Leigh [facility] Note Date/Time August 11, 2024 8:12 am [facility] Medical Records Department [address] [place] [address] Emergency Department Summary 08/11/24 MR#: [id number] Acct: [id number] Name: JEAN BUENROSTRO Rep #:[id number] : 1940 83 From: Carol Dominique PCP: Dr. Mina De La Cruz MD Status:REG ER Location: [...] the pain currently is starting to improve. [facility] Medical History BPH (benign prostatic hyperplasia) Anemia [...] DAILY 03/03/1410/08 06:30 History unit-selen 100 1 wmq-muxz-cqezlb-pygeum tablet ([facility]) Allergy/AdvReac Type Severity Reaction [...] 80.1 H Lymph % (Auto) 13.0 L Brazos % (Auto) 5.8 Eos % (Auto) 0.7 [...] Sl. Cloudy Urine pH 8.0 Ur Specific [place] 1.010 Urine Protein 15 H Urine Glucose [...] department at 3 a.m. EST. Reading Location: [place] [address] Gallbladder Ultrasound 08/11/24 04:15 IMPRESSION: Multiple gallstones. Mild gallbladder wall thickening. Small amount of pericholecystic fluid. Cholecystitis should be ruled out. Reading Location: [facility] Rhythm Strip Rhythm Strip: Sinus Rhythm Rate: 57 Ectopy: PAC(s) EKG Initial EKG: Attestation: I personally reviewed and interpreted this EKG as follows: Interpretation: Sinus Bradycardia Comments: Sinus bradycardia at a rate of 57 bpm with PACs Normal axis Normal intervals Normal ST segments Management Discussion w/another healthcare provider: [employer] (General surgery) Discharge Plan Triage Chief Complaint: [...] Comments: MIGRAINE FLASHING LIGHTS Primary Care Provider: Mina De La Cruz Referrals: iMna De La Cruz MD [Primary Care Provider] - Print Language: Grenadian Disposition Disposition: Acute Care Hospital [facility] What to do if you have Problems For any increased pain, shortness of breath, bleeding, nausea or vomiting, chestpain, or any unexpected problems, contact your Primary Care Provider. Call [facility] ([phone]) or report to the closest Emergency Room. Call 911 if necessary. 08/11/24 0812 <Electronically signed by Carol Leigh DO> Cosigner Signature (if applicable): CC: Dr. Mina De La Cruz MD ~ Signed [facility] Work Phone: [phone]) 701-500906-18-2025 Discharge summary [facility] Medical Records Department [address] [place] [address] Emergency Department Summary 08/11/24 MR#: [id number] Acct: [id number] Name: JEAN BUENROSTRO Rep #:[id number] : 1940 83 From: Carol Dominique PCP: Dr. Mina De La Cruz MD Status:REG ER Location: [...] the pain currently is starting to improve. [facility] Medical History BPH (benign prostatic hyperplasia) Anemia [...] DAILY 03/03/1410/08 06:30 History unit-selen 100 1 jzw-naol-wecaue-pygeum tablet ([facility]) Allergy/AdvReac Type Severity Reaction [...] 80.1 H Lymph % (Auto) 13.0 L Brazos % (Auto) 5.8 Eos % (Auto) 0.7 [...] Sl. Cloudy Urine pH 8.0 Ur Specific [place] 1.010 Urine Protein 15 H Urine Glucose [...] department at 3 a.m. EST. Reading Location: [place] [address] Gallbladder Ultrasound 08/11/24 04:15 IMPRESSION: Multiple gallstones. Mild gallbladder wall thickening. Small amount of pericholecystic fluid. Cholecystitis should be ruled out. Reading Location: [place] [address] Rhythm Strip Rhythm Strip: Sinus Rhythm Rate: 57 Ectopy: PAC(s) EKG Initial EKG: Attestation: I personally reviewed and interpreted this EKG as follows: Interpretation: Sinus Bradycardia Comments: Sinus bradycardia at a rate of 57 bpm with PACs Normal axis Normal intervals Normal ST segments Management Discussion w/another healthcare provider: [employer] (General surgery) Discharge Plan Triage Chief Complaint: [...] Comments: MIGRAINE FLASHING LIGHTS Primary Care Provider: Mina De La Cruz Referrals: Mina De La Cruz MD [Primary Care Provider] - Print Language: Grenadian Disposition Disposition: Acute Care Hospital [facility] What to do if you have Problems For any increased pain, shortness of breath, bleeding, nausea or vomiting, chestpain, or any unexpected problems, contact your Primary Care Provider. Call [facility] ([phone]) or report tothe closest Emergency Room. Call 911 if necessary. 08/11/24 0812 Cosigner Signature (if applicable): CC: Dr. Mina De La Cruz MD ~ Signed [facility]06-18-2025 Radiology Diagnostic study note [facility] Imaging Services [address] [place] [address] Gallbladder MR#: [id number] Acct: [id number] Name: JEAN BUENROSTRO Rep #: [id number] : 1940 M 83 From: Ke Marsh MD PCP: Dr. Mina De La Cruz MD Status: REG ER Study:Gallbladder Date of Exam: 08/11/24 Exam# [id number] Ordering Dr: Veronica Leigh DO PROCEDURE: GALLBLADDER [...] Cholecystitis should be ruled out. Reading Location: [place] [address] CC: Dr. Carol Leigh DO; Dr. Mina De La Cruz MD ~ Wardrobe Stylist: Signed [facility]06-18-2025 Radiology Diagnostic study note [facility] Imaging Services [address] [place], [place] [address] CTA Chst, Abd, Pel W and/or WO MR#: [id number] Acct: [id number] Name: JEAN BUENROSTRO Rep #: [id number] : 1940 M 83 From: Ju Quiros MD PCP: Dr. Mina De La Cruz MD Status: REG ER Study:CTA Chst, Abd, Pel W and/or WO Date of Exam: 08/11/24 Exam# [id number] Ordering Dr: Veronica Leigh DO PROCEDURE: CTA [...] department at 3 a.m. EST. Reading Location: [place] [address] CC: Dr. Carol Leigh, DO; Dr. Mina De La Cruz MD ~ Wardrobe Stylist: Signed [facility]07-10-2024 Evaluation + Plan note* Assessment & Plan Note - Mina De La Cruz MD - 09/03/2023 7:33 AM EDTAssociated Problem(s): Blood pressure elevated without history of HTN Blood pressure was initially elevated, recheck was still agqj-vdbonm-ud in 1 week for blood pressure check. Continue very strict low-sodium diet [facility] HospitalFgsbbn99-07-5716 Miscellaneous Notes* Assessment & Plan Note - Mina De La Cruz MD - 09/03/2023 7:33 AM EDTAssociated Problem(s): Blood pressure elevated without history of HTN Blood pressure was initially elevated, recheck was still egyv-qqgcyk-ua in 1 week for blood pressure check. Continue very strict low-sodium diet * Assessment & Plan Note - Mina De La Cruz MD - 09/03/2023 7:23 AM EDT Associated Problem(s): FHx: aortic aneurysm Discussed risk factors for aortic aneurysms and currently he is declining to get any imaging studies. * Assessment & Plan Note - Mina De La Curz MD - 09/03/2023 7:22 AM EDT Associated Problem(s): Hypercholesterolemia Uncontrolled, currently on no medications we will recheck his levels today. * Assessment & Plan Note - Mina De La Cruz MD - 09/03/2023 7:22 AM EDT Associated Problem(s): Benign prostatic hyperplasia Stable, using OTC medication for his prostate * Assessment & Plan Note - Mina De La Cruz MD - 09/03/2023 7:22 AM EDT Associated Problem(s): Peripheral vascular disease (HCC) Maikol, currently has no complaints documented in this [facility]07-10-2024 Evaluation + Plan note* Assessment & Plan Note - Mina De La Cruz MD - 09/03/2023 7:23 AM EDT Associated Problem(s): FHx: aortic aneurysm Discussed risk factors for aortic aneurysms and currently he is declining to get any imaging studies. [facility] HospitalGcwvhu34-17-2090 Evaluation + Plan note* Assessment & Plan Note - Mina De La Cruz MD - 09/03/2023 7:22 AM EDTAssociated Problem(s): Hypercholesterolemia Uncontrolled, currently on no medications we will recheck his levels today. [facility] HospitalHtrtax32-85-8674 Evaluation + Plan note* Assessment & Plan Note - Mina De L aCruz MD - 09/03/2023 7:22 AM EDTAssociated Problem(s): Benign prostatic hyperplasia Maikol, using OTC medication for his prostate [facility] HospitalFtpxem51-74-4090 Evaluation + Plan note* Assessment & Plan Note - Mina De La Cruz MD - 09/03/2023 7:22 AM EDTAssociated Problem(s): Peripheral vascular disease (HCC) Stable, currently has no complaints [facility] HospitalCsbabc84-76-8226 History of Present illness Narrative* Shivani Rosenbaum MA - 09/03/2023 7:00 AM EDT Patient verified by last name and date of . * Mina De La Cruz MD - 09/03/2023 7:00 AM EDT Images from the original note were not included. [facility] [address] Visit Type: Medicare Annual Wellness PCP: Mina De La Cruz MD Reason for Visit: Medicare Annual Wellness Visit Subsequent, Blood Work, and Health Maintenance (Shingles vaccine- declined /Rsv vaccine- not done /4 covid vaccine- not done/Tdap vaccine- declined ) Assessment and Plan Problem List Items Addressed This Visit Blood pressure elevated without history of HTN Blood pressure was initially elevated, recheck was still njuh-aeatyk-fz in 1 week for blood pressure check. [...] 09/02/2024 (Originally 1990) COVID-19 Vaccine ( - 2022- season) 2024 (Originally 10/25/2022) Influenza Vaccine (1) [...] of current healthcare providers: Patient Care Team: Mina De La Cruz MD as PCP - [...] Resource Strain: Low Risk (08/22/2021) Received from [facility] Overall Financial Resource Strain (CARDIA) Difficulty of Paying Living Expenses: Not very hard Food Insecurity: No Food Insecurity (08/22/2021) Received from [facility] Hunger Vital Sign Worried About Running Out of Food in the Last Year: Never true Ran Out of Food in the Last Year: Never true Transportation Needs: No Transportation Needs (08/22/2021) Received from [facility] PRAPARE - Transportation Lack of Transportation (Medical): No Lack of Transportation (Non-Medical): No Physical Activity: Inactive (08/22/2021) Received from [facility] Exercise Vital Sign Days of Exercise per Week: 0 days Minutes of Exercise per Session: 0 min Past Surgical History: Procedure Laterality Date COLONOSCOPY 2012 SPINE SURGERY Past Surgical History: Procedure Laterality Date COLONOSCOPY 2012 SPINE SURGERY Family History Problem Relation Name Age of Onset Cancer Father Ochoa Buenrostro Brain Other ([id number]) Mother Objective BP (!) 152/90 Pulse 64 [...] time. Psychiatric: Mood and Affect: Mood normal. Mina De La Cruz MD 09/03/2023 7:33 AM documented in this [facility]05-16-2024 History of Present illness Narrative* Meron BlairVIKI fernandes - THEATRE PROFESSOR - 07/10/2023 8:00 AM EDT Images from the original note were not included. [facility] [address] [facility] [facility] [address] Dept: [phone] Dept Loc: [phone] Visit type: New Reason for Visit: Establish Care (Diverticulitis of large intestine without perforation or abscess without bleeding, PRINT SUPPORT SPECIALIST/Pt stated that he is doing better since [...] elected to schedule procedure at this time-prefers [place] location if possible --reviewed alarm symptoms and when to notify office --patient and verbalized understanding and agreement of plan Advised patient to call office with new or worsening symptoms, questions, or concerns. Patient verbalized understanding and agreement of plan. Follow up if symptoms worsen or fail to improve. Subjective HPI Patient is new to [facility]. He is referred by Dr. De [...] Age of Onset Cancer Father Brain Other ([id number]) Mother Objective BP (!) 150/86 Pulse 59 [...] Tracy 8:50 AM 07/10/23 documented in this [facility]05-16-2024 Instructions* Patient Instructions* VIKI Tracy CNP - 07/10/2023 8:00 AM EDT --Please call office with any questions or concerns! [phone] --please contact office with any recurrence of [...] be sent through Care Everywhere. * Colonoscopy (Grenadian) documented in this [facility]05-13-2024 Telephone encounter Note* Telephone Encounter - Yamileth Benitez MA - 07/07/2023 10:52 AM EDT Patient stopped into office. Relayed information to him, states he will keep his appointment on [id number] with gastro. [facility] HospitalSrzxby76-41-3904 Miscellaneous Notes* Telephone Encounter - Yamileth Benitez MA - 07/07/2023 10:52 AM EDT Patient stopped into office. Relayed information to him, states he will keep his appointment on [id number] with gastro. * Telephone Encounter - Yamileth Benitez MA - 07/03/2023 10:25 AM EDT Left a message to return call. CAC: If Jean calls back, please relay information to him. Thank you! * Telephone Encounter - Mina De La Cruz MD - 07/03/2023 5:39 AM EDT I think with his history of diverticulitis and the change that he had in his bowels that he should at least meet with a white lead filterer and get their opinion as to whether he needs a colonoscopy. * Telephone Encounter - Arminda Caal - 07/02/2023 4:09 PM EDT Name of caller: Baljinder Contact phone number: [phone] Relationship to Patient: patient Provider: Rene Practice: [...] their call: N/A documented in this [facility] HospitalYwjsuw29-14-2522 Telephone encounter Note* Telephone Encounter - Yamileth Benitez MA - 07/03/2023 10:25 AM EDT Left a message to return call. CAC: If Jean calls back, please relay information to him. Thank you! [facility] HospitalHpzolc59-22-2187 Miscellaneous Notes* Telephone Encounter - Yamileth Benitez MA - 07/03/2023 10:25 AM EDT Left a message to return call. CAC: If Jean calls back, please relay information to him. Thank you! * Telephone Encounter - Mina De La Cruz MD - 07/03/2023 5:39 AM EDT I think with his history of diverticulitis and the change that he had in his bowels that he should at least meet with a white lead filterer and get their opinion as to whether he needs a colonoscopy. * Telephone Encounter - Arminda Caal - 07/02/2023 4:09 PM EDT Name of caller: Baljinder Contact phone number: [phone] Relationship to Patient: patient Provider: Rene Practice: [...] their call: N/A documented in this encounterSProMed[facility] HospitalXvcwjc52-41-4799 Telephone encounter Note* Telephone Encounter - Mina De La Cruz MD - 07/03/2023 5:39 AM EDT I think with his history of diverticulitis and the change that he had in his bowels that he should at least meet with a white lead filterer and get their opinion as to whether he needs a colonoscopy. [facility] HospitalMmdybv53-76-7245 Telephone encounter Note* Telephone Encounter - Arminda Caal - 07/02/2023 4:09 PM EDT Name of caller: Don Contact phone number: [phone] Relationship to Patient: patient Provider: Rene Practice: [...] business hours to return their call: N/A [facility] HospitalXagydc21-31-7702 History of Present illness Narrative* Yamileth Benitez MA - 05/12/2023 9:40 AM EDT Patient verified by last name and . * VIKI Oro CNP - 05/12/2023 9:40 AM EDT Images from [...] CNP 05/12/2023 9:42 AM documented in this [facility]03-06-2024 History of Present illness Narrative* Ela [...] Miralax daily. Is scheduled to see a white lead filterer in June. Review of Systems Constitutional: Negative [...] Impression Patient Name: [facility]STRO [facility] 1940 [id number] Exam Date/Time: 04/03/2023 15:30 Procedure: CT ABDOMEN [...] CNP 04/30/2023 9:26 AM documented in this [facility]03-06-2024 History of Present illness Narrative* Ela [...] Miralax daily. Is scheduled to see a white lead filterer in June. Review of Systems Constitutional: Negative [...] CNP 04/30/2023 9:26 AM documented in this [facility]03-06-2024 Instructions* Patient Instructions* VIKI Oro CNP - 04/30/2023 9:00 AM EST Continue adequate water intake. Continue Probiotic Metamucil Fiber Get up and walk around frequently * Attachments The following attachments cannot be sent through Care Everywhere. * High Fiber Diet (Grenadian) documented in this [facility]03-06-2024 Instructions* Patient Instructions* VIKI Oro CNP - 04/30/2023 9:00 AM EST Continue adequate water intake. Continue Probiotic Metamucil Fiber Get up and walk around frequently * Attachments The following attachments cannot be sent through Care Everywhere. * High Fiber Diet (Grenadian) documented in this [facility]03-06-2024 Miscellaneous Notes* Addendum Note - VIKI Oro CNP - 04/30/2023 9:00 AM ESTAddended by: RENE RODRIGUEZ on: 05/01/2023 08:42 AM Modules accepted: Level of Service documented in this [facility]03-06-2024 Note* Addendum Note - VIKI Oro CNP - 04/30/2023 9:00 AM ESTAddended by: RENE RODRIGUEZ on: 05/01/2023 08:42 AM Modules accepted: Level of Service [facility] HospitalXqjxnd70-30-6067 Telephone encounter Note* Telephone Encounter - Annmarie [...] bowel movement. Could also get Senokot S cgom-itb-mnleakg and take 2 of them at bedtime [...] is more swollen than usual Protocols used: Fdgzokbsakah-GFOAU-IO [facility] HospitalJymltg75-50-5207 Miscellaneous Notes* Telephone Encounter - Annmarie Waters [...] bowel movement. Could also get Senokot S ymki-nvn-qvkgehy and take 2 of them at bedtime [...] is more swollen than usual Protocols used: Pdacbqrkncyb-FZPIX-EV documented in this [facility]02-08-2024 Evaluation + Plan note* Assessment & Plan Note - Mina De La Cruz MD - 04/03/2023 12:55 PM EST Associated Problem(s): Blood pressure elevated without history of HTN Blood pressure was initially elevated, recheck was still a little high follow-up in 1 week for blood pressure check after abdominal pain is resolved. [facility] HospitalLzoxxi74-38-5371 Evaluation + Plan note* Assessment & Plan Note - Mina De La Cruz MD - 04/03/2023 12:55 PM ESTAssociated Problem(s): Diverticulitis of large intestine without perforation or abscess without blee ding Cipro 500 twice a day and Flagyl 503 times a day started for 10 days. CBC and CMP to be done. Stat abdominal CT scan. [facility] HospitalOejmvu80-30-9597 Miscellaneous Notes* Assessment & Plan Note - Mina De La Cruz MD - 04/03/2023 12:55 PM ESTAssociated Problem(s): Blood pressure elevated without history of HTN Blood pressure was initially elevated, recheck was still a little high follow-up in 1 week for blood pressure check after abdominal pain is resolved. * Assessment & Plan Note - Mina De La Cruz MD - 04/03/2023 12:55 PM EST Associated Problem(s): Diverticulitis of large intestine without perforation or abscess without bleeding Cipro 500 twice a day and Flagyl 503 times a day started for 10 days. CBC and CMP to be done. Stat abdominal CT scan. documented in this [facility]02-08-2024 History of Present illness Narrative* Shivani Rosenbaum MA - 04/03/2023 11:30 AM EST Patient verified by last name and date of . * Mina De La Cruz MD - 04/03/2023 11:30 [...] worsen or fail to improve. SUBJECTIVE/OBJECTIVE: HPI -Don comes in today for a 5 to [...] signature was used to authenticate this note. Mina De La Cruz MD 04/03/2023 12:56 PM documented in this encounterSProMedica Bay Park HospitalSasxhi46-96-3583 Evaluation + Plan note* Assessment & Plan Note - Mina De La Cruz MD - 08/26/2022 7:30 AM EDT Associated Problem(s): Hypercholesterolemia Stable, has refused medications in the past [facility] HospitalWbknoz30-18-4742 Evaluation + Plan note* Assessment & Plan Note - Mina De La Cruz MD - 08/26/2022 7:30 AM EDTAssociated Problem(s): Benign prostatic hyperplasia Stable, currently on OTC prostate medication [facility] HospitalHczact38-33-6916 Evaluation + Plan note* Assessment & Plan Note - Mina De La Cruz MD - 08/26/2022 7:30 AM EDTAssociated Problem(s): Peripheral vascular disease (HCC) Maikol, currently on no medications. [facility] HospitalJmjzbf21-09-6126 Miscellaneous Notes* Assessment & Plan Note - Mina De La Cruz MD - 08/26/2022 7:30 AM EDTAssociated Problem(s): Hypercholesterolemia Maikol, has refused medications in the past * Assessment & Plan Note - Mina De La Cruz MD - 08/26/2022 7:30 AM EDT Associated Problem(s): Benign prostatic hyperplasia Maikol, currently on OTC prostate medication * Assessment & Plan Note - Mina De La Cruz MD - 08/26/2022 7:30 AM EDT Associated Problem(s): Peripheral vascular disease (HCC) Maikol, currently on no medications. documented in this encounterSProMedica Bay Park HospitalQorasb88-20-8687 History of Present illness Narrative* Lidia Frank - 08/26/2022 7:00 AM EDT Scallop Raker for Intimate and Non Intimate Exam Scallop Raker was declined Scallop Raker: na * Mina De La Cruz MD - 08/26/2022 7:00 AM EDT Images from the original note were not included. [facility] [address] [facility] [address] Visit type: Established Patient Reason for Visit: [...] in about 1 year (around 08/27/2023). Subjective ADELINE Gale comes in today for [...] of current healthcare providers: Patient Care Team: Mina De La Cruz MD as PCP - [...] at all Patient Health Questionnaire-2 Score: 0 [place] Suicide Severity Rating Scale (Screener/Recent Self-Report) 1. [...] Age of Onset Cancer Father Brain Other ([id number]) Mother Objective BP (!) 134/90 Pulse 68 [...] Affect: Mood normal. Data Reviewed Labs: Imaging/Testing: Mina De La Cruz MD 08/26/2022 7:31 AM [facility]* Diagnosis Medicare annual wellness visit, subsequent- Primary Peripheral vascular disease (HCC) Unspecified peripheral vascular disease Benign prostatic hyperplasia without lower urinary tract symptoms Hypercholesterolemia Pure hypercholesterolemia Screening for diabetes mellitus [facility] Diagnosis Diverticulitis of large intestine without perforation or abscess without bleeding- Primary Blood pressure elevated without history of HTN Diverticulitis of large intestine without perforation or abscess without bleeding [facility] Diagnosis Diverticulitis of large intestine without perforation or abscess without bleeding documented in this encounter [facility]* Diagnosis Change in bowel habits- Primary Other symptoms involving digestive system documented in this encounter [facility]* Diagnosis Change in bowel habits- Primary Other symptoms involving digestive system documented in this encounter [facility]* Diagnosis Change in bowel habits- Primary Other symptoms involving digestive system [facility]* Diagnosis Left sided abdominal pain- Primary Abdominal pain, unspecified site Diverticulitis of large intestine without perforation or abscess without bleeding Change in bowel habit documented in this encounter [facility]* Diagnosis Medicare annual wellness visit, subsequent- Primary Peripheral vascular disease (HCC) Unspecified peripheral vascular disease Blood pressure elevated without history of HTN Benign prostatic hyperplasia without lower urinary tract symptoms Hypercholesterolemia Pure hypercholesterolemia Screening for diabetes mellitus FHx: aortic aneurysm Family history of other cardiovascular diseases [facility]* Diagnosis Medicare annual wellness visit, subsequent- Primary Peripheral vascular disease (HCC) Unspecified peripheral vascular disease Benign prostatic hyperplasia without lower urinary tract symptoms Hypercholesterolemia Pure hypercholesterolemia Screening for diabetes mellitus Diverticulitis of large intestine without perforation or abscess without bleeding- Primary Blood pressure elevated without history of HTN Medicare annual wellness visit, subsequent- Primary Peripheral vascular disease (HCC) Unspecified peripheral vascular disease Blood pressure elevated without history of HTN Benign prostatic hyperplasia without lower urinary tract symptoms Hypercholesterolemia Pure hypercholesterolemia Screening for diabetes mellitus FHx: aortic aneurysm Family history of other cardiovascular diseases Routine general medical examination at health care facility- Primary Routine general medical examination at a health care facility Primary hypertension Unspecified essential hypertension Benign prostatic hyperplasia without lower urinary tract symptoms Hypercholesterolemia Pure hypercholesterolemia Migraine with aura and without status migrainosus, not intractable Chronic fatigue Other malaise and fatigue Screening for diabetes mellitus documented in this encounter [facility]* Diagnosis Medicare annual wellness visit, subsequent- Primary Peripheral vascular disease (HCC) Unspecified peripheral vascular disease Benign prostatic hyperplasia without lower urinary tract symptoms Hypercholesterolemia Pure hypercholesterolemia Screening for diabetes mellitus Diverticulitis of large intestine without perforation or abscess without bleeding- Primary Blood pressure elevated without history of HTN Medicare annual wellness visit, subsequent- Primary Peripheral vascular disease (HCC) Unspecified peripheral vascular disease Blood pressure elevated without history of HTN Benign prostatic hyperplasia without lower urinary tract symptoms Hypercholesterolemia Pure hypercholesterolemia Screening for diabetes mellitus FHx: aortic aneurysm Family history of other cardiovascular diseases Routine general medical examination at health care facility- Primary Routine general medical examination at a health care facility Primary hypertension Unspecified essential hypertension Benign prostatic hyperplasia without lower urinary tract symptoms Hypercholesterolemia Pure hypercholesterolemia Migraine with aura and without status migrainosus, not intractable Chronic fatigue Other malaise and fatigue Screening for diabetes mellitus Hypercholesterolemia- Primary Pure hypercholesterolemia documented [facility] this encounter [facility] Author Tommy Durand [facility] Note Date/Time August 11, 2024 12:0 5pm [facility] Medical Records Department [address] [place] [address] History & Physical Exam 08/11/24 1151 MR#: [id number] Acct: [id number] Name: JEAN BUENROSTRO Rep #:[id number] : 1940 83 From: Tommy Freitas PCP: Dr. Mina De La Cruz MD Status:REG [facility] Location: [facility] HPI - General General Date of Service: 08/11/24 HPI Narrative JEAN BUENROSTRO, is a 83 M who presents to [facility] with complaints of 2 days of [...] has no history of prior abdominal surgery. [facility] Medical History BPH (benign prostatic hyperplasia) Anemia [...] DAILY 03/03/1410/08 06:30 History unit-selen 100 1 aey-hzhf-xbxrnv-pygeum tablet ([employer]) Allergy/AdvReac Type Severity Reaction Status Date / [...] (Auto) 80.1 H, Lymph % (Auto) 13.0 L,Brazos % (Auto) 5.8, Eos % (Auto) 0.7, [...] Sl. Cloudy, Urine pH 8.0, Ur Specific [place] 1.010, Urine Protein 15 H, Urine Glucose [...] department at 3 a.m. EST. Reading [facility] Gallbladder Ultrasound 08/11/24 04:15 IMPRESSION: Multiple gallstones. Mild gallbladder wall thickening. Small amount of pericholecystic fluid. Cholecystitis should be ruled out. Reading Location: [facility] Assessment & Plan Assessment/Plan (1) Acute calculous cholecystitis: PLAN: Patient 83-year-old male who presents with 48 hours of progressive right upper quadrant postprandial discomfort. ER workup consistent with diagnosis of early acute cholecystitis. Exam is confirmatory. Patient has diagnosis I recommended we proceed for emergent laparoscopic cholecystectomy with intraoperative cholangiography. Patient is a [employer] and states that his lutheran prohibits him from receiving blood products but [...] Durand MD General Surgery Endocrine Surgery Pager: [facility] [address] [place] [address], [facility], [address] [place] [id number] Office: [phone] Charges/Coding Visit Charges Inpatient E&M: 89133 Init Hosp L2 08/11/24 1205 <Electronically signed by Tommy Durand MD> Cosigner Signature (if applicable): CC: Dr. Mina De La Cruz MD; Dr. Tommy Durand MD~ Signed [facility] Work Phone: Reason for referral (narrative)No reason for referral information [facility] Work Phone: Summary Purpose Family History Relationship Condition Age at Onset Recorded Date/T princess Unknown Family History?- Unknown August 10, 2018 4:06am Family History?- Unknown August 10, 2018 4:06am Family History?Hypertension, - Unknown March 04, 2014 4:29pm Family History?Hypertension, - Unknown August 10, 2018 4:06am Advance Directives Documents on File Type Date Recorded Patient Production Control Expert Expl anation Power of Can Handler 04/03/2023 2:23 PM Documents on File Type Date Recorded Patient Production Control Expert Expl anation Power of Can Handler 04/03/2023 2:23 PM Advance Directive Response Recorded Date/ Time Do you have a Healthcare Power of Can Handler? No August 11, 2024 12:53am Advance Directives Yes March 04, 2014 12:00am Advance Directive Response Recorded Date/ Time Do you have a Healthcare Power of Can Handler? No August 11, 2024 8:35pm Advance Directives Yes March 04, 2014 12:00am Reason for Referral Specialty Diagnoses / Procedures Referred By Contac t Referred To Contact Radiology Diagnoses Diverticulitis of large intestine without perforation or abscess without bleeding Procedures CT abdomen pelvis wo IV contrast Mina De La Cruz MD [address] [place] [address], [place] [address] Referral ID Status Reason Start Date Expiration Date Visits Re quested Visits Authorized [id number] Closed 04/03/2023 04/02/2024 1 1 Chief Complaint and Reason for Visit Chief Complaint Admit Date ACUTE CHOLECYSTITIS August 11, 2024 9:52 am ACUTE CHOLECYSTITIS August 11, 2024 11:5 1am Reason for Visit Admit Date Acute calculous cholecystitis August 11, 2024 9:52am Chief Complaint Admit Date ACUTE CHOLECYSTITIS August 11, 2024 9:50 am ACUTE CHOLECYSTITIS August 11, 2024 11:5 1am Reason for Visit Admit Date Acute calculous cholecystitis August 11, 2024 9:50am Chief Complaint Admit Date ACUTE CHOLECYSTITIS August 11, 2024 9:50 am ACUTE CHOLECYSTITIS August 11, 2024 11:5 1am ACUTE CHOLECYSTITIS August 12, 2024 6:59 am GALLBLADDER 08-11August 25, 2024 7:46a m Additional Source Comments (unrecognized sect ion and content) No Status Records FoundNo Status Records FoundNo Status Records Found INFORMATION SOURCE (unrecogn ized section and content) DATE CREATED AUTHOR 12/27/2017 [facility] DATE CREATED AUTHOR AUTHOR'S ORGANIZ ATION [facility]/20[facility] DATE CREATED AUTHOR AUTHOR'S ORGANIZ ATION 10/10/2024 [facility] Reason for Visit (unrecogniz ed section and content) Reason Comments Medicare Annual Wellness Visit Initial Reason Comments Abdominal Pain Left mid abdominal - started Friday worse in the evening Specialty Diagnoses / Procedures Referred By Lali dobbs Referred To Contact Radiology Diagnoses Diverticulitis of large intestine without perforation or abscess without bleeding Procedures CT abdomen pelvis wo IV contrast Mina De La Cruz MD [address] [facility], [facility] [place] [address] Referral ID Status Reason Start Date Expiration Date Visits Re quested Visits Authorized [id number] Closed 04/03/2023 04/02/2024 1 1 Reason Comments [...] without perforation or abscess without bleeding Procedures OR OFFICE/OUTPATIENT NEW HIGH MDM 60 MINUTES Mina De La Cruz MD [facility] [place] [address] [facility] [address] [place] [address] Referral ID Status Reason Start Date Expiration Date V isits Requested Visits Authorized [id number] Closed Specialty Services Required 04/10/2023 04/09/2024 1 1 Reason Comments Medicare Annual Wellness Visit Subsequen t Blood Work Health Maintenance Shingles vaccine- de clined Rsv vaccine- not done 4 covid vaccine- not doneTdap vaccine- declined Reason Comments Medicare Annual Wellness Visit Subsequen t Blood Work Health Maintenance Tdap vaccine- refuse 4th covid vaccine- not doneHep a or b vaccine- refuseShingles vaccine- refuseRsv vaccine- not done Hypertension Stopped bp medicatio n due to it dropping bp too low Reason Onset Date Comments Discuss Labs 09/08/2024 Care Teams (unrecognized sec tion and content) Team Status: Active Member Role Status Dates Dr. Mina De La Cruz MD Primary Care Provider Active Team Status: Inactive Member Role Status Dates Dr. Mina De La Cruz MD Primary Care Provider Active Start: August 11, 2024 End: August 12, 2024 Dr. Carol Leigh DO Emergency Provider Active Start: August 11, 2024 End: August 12, 2024 Dr. Tommy Durand MD Admit Provider Active Sta rt: August 11, 2024 End: August 12, 2024 Dr. Tommy Durand MD Attending Provider Active Start: August 11, 2024 End: August 12, 2024 Team Status: Active Member Role Status Dates Dr. Mina De La Cruz MD Primary Care Provider Active Start: August 11, 2024 Dr. Carol Leigh DO Emergency Provider Active Start: August 11, 2024 Dr. Tommy Durand MD Attending Provider Active Start: August 11, 2024 Dr. Tommy Durand MD Other Provider Active Sta rt: August 11, 2024 Railroad Hand Relationship Specialty Start Date End Date Mina De La Cruz MD [address] [place] [address] [facility] [place] [address] PCP - General 12/05/14 Railroad Hand Relationship Specialty Start Date End Date Mina De La Cruz MD [address] [place] [address] [place] [address] PCP - General 12/05/14 Railroad Hand Relationship Specialty Start Date End Date Mina De La Cruz MD [address] [place] [address] [place] [address] PCP - General 12/05/14 Railroad Hand Relationship Specialty Start Date End Date Mina De La Cruz MD [address] [facility] [place] [address] PCP - General 12/05/14 Railroad Hand Relationship Specialty Start Date End Date Mina De La Cruz MD [address] [facility] [place] [address] PCP - General 12/05/14 Railroad Hand Relationship Specialty Start Date End Date Mina De La Cruz MD [facility] [place] [address] PCP - General 12/05/14 Railroad Hand Relationship Specialty Start Date End Date Mina De La Cruz MD [facility] [place] [address] PCP - General 12/05/14 Railroad Hand Relationship Specialty Start Date End Date Mina De La Cruz MD [address] [facility] [place] [address] PCP - General 12/05/14 Railroad Hand Relationship Specialty Start Date End Date Mina De La Cruz MD [address] [facility] [place] [address] PCP - General 12/05/14 Railroad Hand Relationship Specialty Start Date End Date Mina De La Cruz MD [address] [facility] [place] [address] PCP - General 12/05/14 Team Status: Active Member Role Status Dates Dr. Mina De La Cruz MD Primary Care Provider Active Start: August 11, 2024 Dr. Carol Leigh DO Emergency Provider Active Start: August 11, 2024 Dr. Tommy Durand MD Attending Provider Active Start: August 11, 2024 Team Status: Active Member Role/Relationship Status Dates Dr. Mina De La Cruz MD Primary Care Provider Active Team Status: Inactive Member Role/Relationship Status Dates Dr. Mina De La Cruz MD Primary Care Provider Active Start: August 11, 2024 End: August 12, 2024 Dr. Carol Leigh DO Emergency Provider Active Start: August 11, 2024 End: August 12, 2024 Dr. Tommy Durand MD Admit Provider Active Sta rt: August 11, 2024 End: August 12, 2024 Dr. Tommy Durand MD Attending Provider Active Start: August 11, 2024 End: August 12, 2024 Team Status: Active Member Role/Relationship Status Dates Dr. Mina De La Cruz MD Primary Care Provider Active Start: August 11, 2024 Dr. Carol Leigh DO Emergency Provider Active Start: August 11, 2024 Dr. Tommy Durand MD Attending Provider Active Start: August 11, 2024 Dr. Tommy Durand MD Other Provider Active Sta rt: August 11, 2024 Team Status: Active Member Role/Relationship Status Dates Dr. Mina De La Cruz MD Primary Care Provider Active Start: August 12, 2024 Dr. Carol Leigh DO Emergency Provider Active Start: August 12, 2024 Dr. Tommy Durand MD Admit Provider Active Sta rt: August 12, 2024 Dr. Tommy Durand MD Attending Provider Active Start: August 12, 2024 Dr. Tommy Durand MD Other Provider Active Sta rt: August 12, 2024 Team Status: Inactive Member Role/Relationship Status Dates Dr. Mina De La Cruz MD Primary Care Provider Active Start: August 25, 2024 End: August 25, 2024 Dr. Mina De La Cruz MD Referring Provider Active Start: August 25, 2024 End: August 25, 2024 Dilma BATES PA-C Attending Provider Active Start: August 25, 2024 End: August 25, 2024 Railroad Hand Relationship Specialty Start Date End Date Mina De La Cruz MD [address] [place] [id number] PCP - General 12/05/14 Railroad Hand Relationship Specialty Start Date End Date Mina De La Cruz MD [address] [place] [id number] PCP - General 12/05/14 FOR RECORDS PERTAINING TO PATIENTS WHO [...] BE BASED ON THE PRIMARY CLINICAL RECORDS. [facility]. provides no warranty or guarantee of the accuracy or completeness of information in this document.
--- NOTE | 2025-02-09 04:27 | EX.ED.DYSGE1 ---
HPI History of Present Illness Chief Complaint: Syncope Informant: patient and spouse/S.O. Narrative Narrative: Patient is an 84-year-old male with past medical history of BPH and hyperlipidemia. He states it can take him a long time to tinkle secondary to his BPH. He reports he awoke from sleep and walk to the bathroom and was sitting on toilet. He states while he was doing this he began to feel lightheaded and then states he was waking up on the bathroom floor with his trying to arouse him. He states there was no associated palpitations or chest pain prior to the event. He states he was only out for a few minutes. He reports that when he came to he was too weak to get himself up. Secondary to this EMS was called. When they arrived he was awake and alert but with his syncopal event they recommended evaluation in the ER and secondary to this he was brought in. Patient denies any history of seizure disorder. He denies any loss of bowel or bladder with the syncopal event [facility] Medical History BPH (benign prostatic hyperplasia) Anemia HLD (hyperlipidemia) TIA (transient ischemic attack) Bradycardia Home Medications ?Medication ?Instructions ?Recorded ?Last Taken ?Type Coq10 1 tab PO DAILY 03/03/14 0630 Days Ago History ~06/11/12 1 Excedrin Extra Strength Caplet 500 mg PO PRN PRN Headache 03/03/14 03/03/14 16:30 History 500 Fish Oil 1,000 mg Capsule 1,000 mg PO DAILY 03/03/14 03/03/14 06:30 History 1000 saw palm 160 mg-vit E 100 1 tab PO DAILY 03/03/14 03/03/14 06:30 History unit-selen 100 1 bxc-dqih-faahhf-pygeum tablet (Prostate Health) tamsulosin 0.4 mg capsule 0.4 mg PO DAILY@1730 7 days #7 caps 08/12/24 Unknown Rx Allergy/AdvReac Type Severity Reaction Status Date / Time No Known Allergies Allergy Verified 02/09/25 02:37 Surgical History Status post laparoscopic cholecystectomy Social History Smoking Status: Never smoker ROS ROS ED Constitutional Constitutional ED: Denies chills or fever(s) Eyes Eyes: Denies change in vision ENT ENT ED: Denies sore throat Cardiovascular Cardiovascular: Reports other Details: Positive syncope ; Denies chest pain, palpitations or racing heartbeat Respiratory/Chest Respiratory/Chest: Denies cough or dyspnea Gastrointestinal Gastrointestinal: Denies abdominal pain, diarrhea, nausea or vomiting Genitourinary Genitourinary ED: Denies dysuria Musculoskeletal Musculoskeletal: Denies back pain or neck pain Integumentary Denies Abrasions or rash Neurologic Neurologic: Reports weakness; Denies headache(s) or paresthesias Hematologic/Lymphatic Hematologic/Lymphatic: Denies easy bleeding or easy bruising EXAM Physical Exam Const Vital Signs: 02/09/25 02:34 02/09/25 02:39 02/09/25 03:01 Temperature 97.4 F L Temperature Source Axillary Pulse Rate 71 Pulse Rate [Lying] 55 L Pulse Rate [Sitting (for 1 minute prior to obtaining)] 57 L Pulse Rate [Standing (for 1 minute prior to obtaining)] 62 Respiratory Rate 18 Respiratory Effort Normal Non-Labored Respiratory Pattern Normal Blood Pressure 144/74 H Blood Pressure [Lying] 140/74 H Blood Pressure [Sitting (for 1 minute prior to obtaining)] 151/82 H Blood Pressure [Standing (for 1 minute prior to obtaining)] 138/93 H Blood Pressure Mean 97 Blood Pressure Mean [Lying] 96 Blood Pressure Mean [Sitting (for 1 minute prior to obtaining)] 105 Blood Pressure Mean [Standing (for 1 minute prior to obtaining)] 108 Pulse Ox 99 Oxygen Delivery Method Room Air Positive well nourished and well developed General Appearance ED: well developed; Negative for pallor HEENT Reports dry mucous membranes HEENT Narrative: Normocephalic atraumatic No signs of depressed or basilar skull No tongue or cheek biting to suggest seizure activity Mucous membranes are dry and tacky No findings in the posterior pharynx to suggest infection Mouth ED: Yes dry mucous membranes Mouth: dry mucous membranes Eyes PERRL and EOMs intact bilaterally General Eye ED: Negative for scleral icterus Neck supple Neck Narrative: No bony deformity or step-off of the cervical spine No midline tenderness to palpation Chest Wall palpation of chest normal Resp normal respiratory effort and clear to auscultation bilaterally Cardio regular rate and regular rhythm Rate: other Other Details: Heart is regular rate and rhythm Radial and carotid pulses are equal and symmetric No carotid bruit noted GI normal to inspection, nondistended, normoactive bowel sounds, non-tender and non-distended GI Narrative: No voluntary guarding or rigidity No peritoneal signs No pulsatile mass No overlying abrasions or ecchymosis Auscultation: normoactive bowel sounds Palpation: soft Back/Spine Back/Spine Narrative: No bony deformity or step-off of the thoracic or lumbar spine No midline tenderness to palpation Extremity normal to inspection Extremity Narrative: Pelvis is stable there is no shortening or external rotation of either lower extremity No sign of long bone injury such as bony deformity or joint effusion Neuro oriented x3, CN's II-XII intact bilaterally and no sensory deficits noted Sensorium / Orientation: alert Motor Exam: strength 5/5 throughout Psych mental status grossly normal Skin no rashes or lesions noted, no wounds and No skin turgor normal Skin Narrative: Skin turgor is increased General Skin Exam: Negative for jaundice or pallor MDM MDM MDM Narrative Medical decision making narrative: Patient arrived to the ER with stable vitals and a normal neurologic exam. His report of syncope is most consistent with orthostasis and physical exam does show mild dehydration changes. Secondary to his orthostatic vitals were obtained and basic blood work in order to assess for acute kidney injury or electrolyte abnormality. The patient denied chest pain or palpitations but in order to assess for acute coronary syndrome or cardiac dysrhythmia an EKG was obtained he was placed on the senior design engineering specialist and a troponin was ordered. In order to assess for acute blood loss anemia basic labs were obtained as well. Hemoglobin is stable at 11.9 kidney function is slightly elevated from baseline at 1.46 but this is only up by about 0.2 from his baseline which does not correlate with acute kidney injury. Troponin is 18 and chart review reveals when it was checked roughly 6 months ago it was 19 indicating a flat curve and no sign of cardiac event. He was kept on the senior design engineering specialist and there was no cardiac dysrhythmia noted. Head CT confirmed no brain mass or subarachnoid or subdural hemorrhage as a potential cause. After receiving IV fluids the patient reported feeling better and he was ambulated in the ER and can do so with a steady gait without return of syncope. Therefore with overall negative workup and resolution of symptoms there is no need for further intervention and he is otherwise safe for discharge History & Record Review Discussion w/independent historian: Patient and Family Lab Data Attestation: I reviewed the patient's lab results. Labs: Laboratory Results - last 24 hr 02/09/25 03:09 WBC 6.1 RBC 4.01 L Hgb 11.9 L Hct 36.2 L MCV 90.3 MCH 29.7 MCHC 32.9 RDW Std Deviation 45.6 H RDW Coeff of Katina 13.8 Plt Count 202 MPV 10.5 Immature Gran % (Auto) 0.300 Neut % (Auto) 57.2 Lymph % (Auto) 30.0 [place] % (Auto) 8.9 Eos % (Auto) 3.1 Baso % (Auto) 0.5 Absolute Neuts (auto) 3.5 Absolute Lymphs (auto) 1.82 Nucleated RBC % 0 Sodium 142 Potassium 4.0 Chloride 106 Carbon Dioxide 26.2 Anion Gap 10 BUN 15 Creatinine 1.46 H Estim Creat Clear Calc 37.40 L Est GFR (MDRD) Non-Af 47 L BUN/Creatinine Ratio 9.9 L Glucose 109 H Calcium 9.3 Magnesium 2.2 Troponin T High Sens 18 Radiography Diagnostic Testing: Clinical Impression(s) from Imaging Studies Brain CT 02/09/25 03:00 IMPRESSION: No acute cerebrovascular abnormalities. If clinical symptoms persist, further evaluation with MRI may be considered as clinically warranted. No intra or extra-axial acute hemorrhage. Bilateral cerebral microvascular ischemic changes with brain involutional changes. Reading Location: [place] [address] Discharge Plan Triage Chief Complaint: Syncope ED Provider: Kyle Martinez Dx/Rx/DC Orders Clinical Impression: Syncope, Mild dehydration, HLD (hyperlipidemia), BPH (benign prostatic hypertrophy) Instructions: What Is Syncope, ED Dehydration (Adult) Prescriptions: No Action Fish Oil 1,000 mg Capsule 1,000 mg PO DAILY Patient Comments: SUPPLIMENT FOR CHOLESTEROL Prostate Health 1 EACH tablet 1 tab PO DAILY Patient Comments: PROSTATE HEALTH Coq10 1 tab PO DAILY Patient Comments: CHOLESTEROL, IMMUNITY Excedrin Extra Strength Caplet 500 mg PO PRN PRN (Reason: Headache) Patient Comments: MIGRAINE FLASHING LIGHTS tamsulosin 0.4 mg Capsule 0.4 mg PO DAILY@1730 7 Days Qty: 7 0RF Primary Care Provider: Mina Ly Referrals: Mina Ly MD [Primary Care Provider, [facility]] Activity Restrictions/Additional Instructions: Your workup today revealed no sign of heart damage or abnormal heart rhythm. Your blood volume is at baseline and there is no need for blood transfusion and your kidney function is just slightly elevated indicating mild dehydration but there is no sign of acute kidney damage. Please keep yourself well-hydrated and continue all of your home medication as directed by your doctor. Return to the ER should you have any further concerns Print Language: Malagasy Disposition Disposition: Home, Self Care
[2025-02-09 04:33] VITALS: BP 152/74; PULSE 58; RESP 17; O2SAT 98
[2025-02-09 05:24] VITALS: BP 162/79; PULSE 60; RESP 16; TEMP 36.8; O2SAT 97
== END 2025-02-09 05:36 | disposition home or self-care (01) ==
PROVIDERS: Emergency Provider Emergency Medicine; PCP Family Medicine; Visit Provider Emergency Medicine
DX: R55 Syncope and collapse (principal); E78.5 Hyperlipidemia, unspecified; E86.0 Dehydration; N40.0 Benign prostatic hyperplasia without lower urinary tract symptoms
CPT/HCPCS: 70450; 80048; 83735; 84484; 85025; 93005; 96360; 96361; 99285; A4216